=== PATIENT | female | born 1955 | race Asian ===

== ENCOUNTER 2018-03-05 10:22 | Inpatient (IN) | payer OTHER ==
[2018-03-05] MEDS ORDERED: SODIUM CHLORIDE 0.9% 1000 ML INFUS.BAG IV STA (10:44)
[2018-03-05] MEDS ORDERED: methylPREDNISolone NA SUCC 125 MG/2 ML VIAL IVPB ONE (10:59)
[2018-03-05 11:14] LABS: ARTERIAL BLD GAS O2 SATURATION 90.5 % (90-98.9); ARTERIAL BLOOD GAS BASE EXCESS -8.8 meq/l (-2-2); ARTERIAL BLOOD GAS PCO2 29.4 mmHg (35-45); ARTERIAL BLOOD GAS PO2 60.5 mmHg (80-100); ARTERIAL BLOOD GAS pH 7.34 (7.35-7.45); CARBOXYHEMOGLOBIN 1.5 gm% (0.5-2.0)
--- NOTE | 2018-03-05 11:15 | PDOC ---
Attending Attestation - Resident Resident Name: Latanya Williamson - ED Attending Attestation I have performed the following: I have examined & evaluated the patient, The case was reviewed & discussed with the resident, I agree w/resident's findings & plan, Exceptions are as noted - HPI HPI: 03/05/18 11:23 "Pt is a 63 yo F with a PMHx of HTN, CAD s/p CABG complicated by multiple chest wall abscesses, CHF, DM, Hypothyroidism who presents to the ED with SOB for the past 3 days. Patient reports recent trip to [place] and since then has been coughing and SOB. Pt reports transient LLE swelling after she arrived that has since resolved. Pt states that today she had an acute worsening in her breathing. Patient also endorses associated L sided chest tightness radiating to the R this morning. Patient denies fever/chills, n/v, abdominal pain or constipation. Daughter notes that she was going through pt's meds and found that her water pill was missing. Unclear how long she has not been taking it. PCP: Dr. Lara " - Physicial Exam PE: 03/05/18 11:27 "GENERAL: Awake, alert, and fully oriented, in moderate respiratory distress HEAD: No signs of trauma EYES: PERRLA, EOMI, sclera anicteric, conjunctiva clear ENT: Auricles normal inspection, hearing grossly normal, nares patent, oropharynx clear without exudates. Moist mucosa NECK: Nontender, no stepoffs, Normal ROM, supple, no lymphadenopathy, JVD, or masses LUNGS: + Diffuse wheezes and rhonchi bilaterally HEART: Regular rate and rhythm, normal S1 and S2, no murmurs, rubs or gallops ABDOMEN: Soft, nontender, normoactive bowel sounds. No guarding, no rebound. No masses EXTREMITIES: Normal range of motion, no edema. No clubbing or cyanosis. No cords, erythema, or tenderness NEUROLOGICAL: Cranial nerves II through XII intact. 5/5 strength and sensation in all extremities, Normal speech, normal gait SKIN: Warm, Dry, normal turgor, no rashes or lesions noted. " - Critical Care Time Total Critical Care Time: 120 Critical Care Statement: The care of this patient involved high complexity decision making to prevent further life threatening deterioration of the patient 's condition and/or to evaluate & treat vital organ system(s) failure or risk of failure. - Medical Decision Making 03/05/18 11:28 63 F with SOB and chest pain. Found to be hypoxic and tachycardic in ED, with wheezing and rhonchi on exam. Given recent travel and report of LLE swelling, will need to r/o PE. Pt also with h/o CHF and poor compliance with water pill. - Labs, BNP, trop - CXR - CTA chest r/o PE - Trial of nebs - BiPAP - Lasix PRN 03/05/18 14:02 Labs notable for trop >2, BNP 100,000. Pt with likely pulmonary edema on XR, suggestive of new heart failure. EKG shows lateral and inferior TW inversions, new since prior. Pt reassessed - states that the pain that she feels is similar to thePt pain she had when she had her CABG. Pt likely suffering ME with signs of acute heart failure. Page sent out to pt's shot hole shooter Dr. Arnold, as well as cards site damage prevention technician, Dr. Douglas. Pt started on heparin gtt, aspirin for ME. Pt continues to be on BiPAP. Nitro gtt ordered Unable to obtain CTA chest to r/o PE at this time given Cr 2.0. However, pt receiving anticoagulation for ME anyway, so will defer CTA until pt more stable. 03/05/18 14:[address] both [address] Arnold's STRETCHER LEVELER OPERATOR HELPER and cards fellow at [facility]. They do not accept transfer unless pt requires CT surgery. Dr. Peña in ED to evaluate pt. 03/05/18 16:[address] Prasad who accepts pt to ICU. Dr. Peña recommends medical management at this time, agrees with ICU level care. Pt admitted to Dr. Nava. <Jamie Peguero - Last Filed: 03/05/18 16:07> - Medical Decision Making 03/05/18 13:[address] Arnold from [facility] via phone answering service. Awaiting call back. 03/05/18 14:[address] Douglas via phone answering service. Dr. Solorzano site damage prevention technician. Awaiting call back. 03/05/18 14:12 Dr. Dickens returned the page and the patients case was discussed Enroute to ED to examine patient. 03/05/18 14:19 Paged STRETCHER LEVELER OPERATOR HELPER for Dr. Arnold at for possible transfer. Awaiting call back from Dr. Arnold. 03/05/18 14:23 Dr. Pastrana in the ED. Discussing patient's case. 03/05/18 14:25 Cardiology resident from [facility] answering service returned page. Directed to housekeeper supervisor [phone] 03/05/18 14:28 housekeeper supervisor at [facility] paged. Discussed patient's case for possible transfer. 03/05/18 14:31 STRETCHER LEVELER OPERATOR HELPER for Dr. Arnold Returned the page and discussed case with resident. 03/05/18 14:43 Dr. Woodward paged via phone answering service. Awaiting call back. 03/05/18 14:49 Dr. Young returned the page and the patients case was discussed. Patient accepted to the ICU. 03/05/18 14:55 Dr. Kaur/Elijah paged via phone answering service. Awaiting call back. 03/05/18 15:30 Elijah returned the page and the patient's case was discussed. <Brooke Pineda - Last Filed: 03/05/18 17:18>
[2018-03-05 11:18] LABS: ALLENS TEST POSITIVE
[2018-03-05] MEDS: ALBUTEROL SO4 2.5/IPRATROPIUM 0.5 INH SOL 3 ML VIAL.NEB. NEB SCH ×4 (11:22→12:04)
--- NOTE | 2018-03-05 11:23 | PDOC ---
History of Present Illness - General History Source: Patient, Family Exam Limitations: No Limitations - History of Present Illness Initial Comments: This is a 63 YOF with h/o DM, CAD, CABG (2014), CHF, bilateral chest wall abscess s/p drainage, HTN, HLD, and hypothyroidism who p/w SOB, productive cough , and bilateral non-radiating lower rib pain. She returned from a trip to [place] three days ago and had right leg swelling and calf pain after the flight, but this has since resolved. She also had a few episodes of diarrhea after the flight, but this resolved as well. She has been taking only medications for cough and throat irritation. She denies any abdominal pain, burning on urination , fainting, headache, numbness, tingling, focal weakness, or other symptoms. The daughter states that she normally takes Lasix for her CHF but she believes the patient ran out of this medication while she was in [place]. <Latanya Williamson - Last Filed: 03/05/18 14:44> <Jamie Peguero - Last Filed: 03/05/18 15:59> - General Chief Complaint: Respiratory Stated Complaint: BREATHING PROBLEMS Time Seen by Provider: 03/05/18 10:35 Past History - Past Medical History Cardiac Disorders: Yes CVA: No COPD: No Diabetes: Yes HTN: Yes Thyroid Disease: Yes (hypothyroid) - Surgical History Cardiac Surgery: Yes (CABG WITHIN LAST YEAR PER AND DR LARA) - Suicide/Smoking/Psychosocial Hx Smoking Status: No Smoking History: Never smoked Have you smoked in the past 12 months: No Number of Cigarettes Smoked Daily: 0 Hx Alcohol Use: No Drug/Substance Use Hx: No Substance Use Type: None Hx Substance Use Treatment: No <TeriLatanya - Last Filed: 03/05/18 14:44> <Jamie Peguero - Last Filed: 03/05/18 15:59> - Past Medical History Allergies/Adverse Reactions: Allergies Allergy/AdvReac Type Severity Reaction Status Date / Time No Known Drug Allergies Allergy Verified 03/05/18 10:31 BEANS Allergy Rash Uncoded 03/05/18 10:31 Home Medications: Ambulatory Orders Furosemide [Lasix -] 40 mg PO DAILY 08/13/16 Levothyroxine [Synthroid -] 75 mcg PO DAILY 08/13/16 Metoprolol Tartrate [Lopressor] 50 mg PO BID 10/28/16 Valsartan 320 mg PO DAILY 08/13/16 Amlodipine Besylate [Norvasc -] 5 mg PO DAILY 03/05/18 Aspirin [Ecotrin] 81 mg PO DAILY 03/05/18 Atorvastatin Ca [Lipitor] 10 mg PO HS 03/05/18 Benzonatate 100 mg PO TID 03/05/18 Dulaglutide [Trulicity] 1.5 mg SQ WEEKLY 03/05/18 Hydrocodone/Ibuprofen [VICOPROFEN 7.5/200 mg [NF MEDICATION]] 1 tab PO BID 03/05 Insulin Glargine,Hum.rec.anlog [Lantus Solostar PEN (NF)] 50 ml SQ DAILY Insulin Lispro [Humalog] 10 unit SQ TID 03/05/18 Meloxicam [Mobic] 15 mg PO DAILY 03/05/18 Montelukast Sodium [Singulair] 10 mg PO DAILY 03/05/18 Plecanatide [Trulance] 3 mg PO DAILY 03/05/18 Potassium Chloride [K-Dur -] 20 meq PO DAILY 03/05/18 Suvorexant [Belsomra] 20 mg PO DAILY 03/05/18 Review of Systems - Review of Systems Able to Perform ROS?: Yes Constitutional: No: Chills, Fever, Unexplained wgt Loss HEENTM: Yes: Nose Congestion, Throat Pain Respiratory: Yes: Cough, Shortness of Breath, Wheezing Cardiac (ROS): Yes: Chest Pain. No: Palpitations ABD/GI: Yes: Diarrhea. No: Constipated, Nausea, Vomiting : No: Burning, Dysuria Musculoskeletal: No: Back Pain, Neck Pain Integumentary: No: Bruising, Rash Neurological: No: Headache, Numbness, Tingling, Weakness, Dizziness Endocrine: No: Unexplained Weight Gain, Unexplained Weight Loss <TeriLatanya - Last Filed: 03/05/18 14:44> *Physical Exam - Vital Signs Last Vital Signs Temp Pulse Resp BP Pulse Ox 98.5 F 107 H 24 143/64 92 L 03/05/18 10:27 03/05/18 10:27 03/05/18 10:27 03/05/18 10:27 03/05/18 10:27 - Physical Exam General Appearance: Yes: Nourished, Appropriately Dressed, Moderate Distress, Other (ill-appearing adult female who is able to speak in 1-2 word sentences, heavy breathing, moaning a bit, accompanied by family who provide the bulk of her history) HEENT: positive: EOMI, SESAR, Normal Voice, Hearing Grossly Normal. negative: Scleral Icterus (R), Scleral Icterus (L), Nasal Congestion Neck: positive: Trachea midline, Supple. negative: Tender, Rigid Respiratory/Chest: positive: Lungs Clear, Respiratory Distress, Rapid RR, Crackles, Rhonchi, Wheezing. negative: Stridor Cardiovascular: positive: Regular Rhythm, S1, S2, Tachycardia. negative: Edema , JVD, Murmur Gastrointestinal/Abdominal: positive: Normal Bowel Sounds, Flat, Soft. negative : Tender, Organomegaly, Pulsatile Mass, Guarding Musculoskeletal: positive: Normal Inspection. negative: Decreased Range of Motion, Vertebral Tenderness Extremity: positive: Normal Capillary Refill, Normal Inspection, Normal Range of Motion, Other (no calf tenderness). negative: Tender, Cyanosis, Swelling Integumentary: positive: Normal Color, Dry, Warm. negative: Erythema, Rash, Bruising Neurologic: positive: blueprinter II-XII NML intact (grossly), Fully Oriented, Alert, Normal Mood/Affect, Normal Response, Motor Strength 5/5 <Latanya Williamson - Last Filed: 03/05/18 14:44> - Vital Signs Last Vital Signs Temp Pulse Resp BP Pulse Ox 98.5 F 98 H 16 141/66 100 03/05/18 10:27 03/05/18 15:22 03/05/18 15:22 03/05/18 15:22 03/05/18 15:22 <Jamie Peguero - Last Filed: 03/05/18 15:59> Heart Score/ECG Review - History History: Slightly suspicious - Electrocardiogram EKG: Non specific repolarization disturbance - Age Age: 45-65 - Risk Factors Risk Factors Heart Score: Yes Hx Hypercholesterolemia, Yes Hx Hypertension, Yes Hx Diabetes Based on the list above the patient has:: >/=3 risk factors or Hx atherosclerotic disease - Troponin Troponin: >/=3x normal limit - Score Heart Score - Total: 6 #1 NR, rate 98, normal axis, normal intervals, T wave inversions inferiorly and laterally <Latanya Williamson - Last Filed: 03/05/18 14:44> ED Treatment Course - LABORATORY CBC & Chemistry Diagram: 03/05/18 11:28 03/05/18 12:39 - RADIOLOGY Radiology Studies Ordered: Category Date Time Status CXRPORT [CHEST X-RAY PORTABLE*] [RAD] Stat Radiology 03/05/18 10:41 Ordered <Latanya Williamson - Last Filed: 03/05/18 14:44> - LABORATORY CBC & Chemistry Diagram: 03/05/18 11:28 03/05/18 12:39 - ADDITIONAL ORDERS Additional order review: Laboratory Results 03/05/18 03/05/18 03/05/18 12:39 12:38 11:28 PT with INR INR PTT (Actin FS) Anticoagulation Therapy Puncture Site ABG pH ABG pCO2 at Pt Temp ABG pO2 at Pt Temp ABG HCO3 ABG O2 Sat (Measured) ABG O2 Content ABG Base Excess Troy Test Carboxyhemoglobin Methemoglobin O2 Delivery Device Oxygen Flow Rate Vent Mode Vent Rate Mechanical Rate Pressure Support Vent Sodium 138 Potassium 3.9 Chloride 110 H Carbon Dioxide 17 L Anion Gap 11 BUN 16 Creatinine 2.0 H Creat Clearance w eGFR 25.25 Random Glucose 308 H* Lactic Acid Calcium 8.0 L Total Bilirubin 0.3 D AST 34 ALT 19 Alkaline Phosphatase 128 H Creatine Kinase 850 H Cancelled Creatine Kinase Index 0.6 CK-MB (CK-2) 5.541 H Troponin I 2.99 H* Cancelled B-Natriuretic Peptide 71415.00 H Cancelled Total Protein 6.8 Albumin 2.5 L Lipase 226 Blood Type Cancelled Antibody Screen Cancelled 03/05/18 03/05/18 03/05/18 11:28 11:28 11:28 PT with INR INR PTT (Actin FS) Anticoagulation Therapy Puncture Site ABG pH ABG pCO2 at Pt Temp ABG pO2 at Pt Temp ABG HCO3 ABG O2 Sat (Measured) ABG O2 Content ABG Base Excess Troy Test Carboxyhemoglobin Methemoglobin O2 Delivery Device Oxygen Flow Rate Vent Mode Vent Rate Mechanical Rate Pressure Support Vent Sodium Cancelled Potassium Cancelled Chloride Cancelled Carbon Dioxide Cancelled Anion Gap Cancelled BUN Cancelled Creatinine Cancelled Creat Clearance w eGFR Cancelled Random Glucose Cancelled Lactic Acid 2.1 H Calcium Cancelled Total Bilirubin Cancelled AST Cancelled ALT Cancelled Alkaline Phosphatase Cancelled Creatine Kinase Cancelled Creatine Kinase Index CK-MB (CK-2) Cancelled Troponin I Cancelled Cancelled B-Natriuretic Peptide Cancelled Total Protein Cancelled Albumin Cancelled Lipase Blood Type Antibody Screen 03/05/18 03/05/18 11:28 11:11 PT with INR 11.00 INR 0.97 PTT (Actin FS) 29.1 D Anticoagulation Therapy No Result Required. Puncture Site Right brachial ABG pH 7.34 L ABG pCO2 at Pt Temp 29.4 L ABG pO2 at Pt Temp 60.5 L ABG HCO3 15.5 L ABG O2 Sat (Measured) 90.5 ABG O2 Content 13.0 L ABG Base Excess -8.8 L Troy Test Positive Carboxyhemoglobin 1.5 Methemoglobin 1.6 H O2 Delivery Device No Result Required. Oxygen Flow Rate Yes Vent Mode No Result Required. Vent Rate No Result Required. Mechanical Rate No Result Required. Pressure Support Vent No Result Required. Sodium Potassium Chloride Carbon Dioxide Anion Gap BUN Creatinine Creat Clearance w eGFR Random Glucose Lactic Acid Calcium Total Bilirubin AST ALT Alkaline Phosphatase Creatine Kinase Creatine Kinase Index CK-MB (CK-2) Troponin I B-Natriuretic Peptide Total Protein Albumin Lipase Blood Type Antibody Screen 03/05/18 11:28 RBC 4.84 MCV 74.0 L MCHC 31.0 L RDW 17.9 H D MPV 10.6 D Neutrophils % 87.3 H D Lymphocytes % 7.4 L D Monocytes % 4.3 Eosinophils % 0.6 D Basophils % 0.4 - Medications Given in the ED: ED Medications Discontinued Medications Generic Name Dose Route Start Last Admin Trade Name Freq PRN Reason Stop Dose Admin Albuterol/Ipratropium 1 amp 03/05/18 11:00 03/05/18 12:04 Duoneb - NEB 03/05/18 11:46 1 amp Q15M REZA Administration Aspirin 325 mg 03/05/18 13:43 03/05/18 14:05 Ecotrin - PO 03/05/18 13:44 325 mg ONCE ONE Administration Furosemide 40 mg 03/05/18 14:10 03/05/18 14:23 Lasix Injection - IVPUSH 03/05/18 14:11 40 mg ONCE ONE Administration Methylprednisolone Sodium Succinate 125 mg 03/05/18 10:59 03/05/18 11:29 Solu-Medrol - IVPB 03/05/18 11:00 125 mg ONCE ONE Administration Sodium Chloride 1,701 ml 03/05/18 10:44 03/05/18 11:28 Normal Saline - 30 ml/kg (1701 ml) 03/05/18 10:45 Not Given IV ONCE STA <Jamie Peguero - Last Filed: 03/05/18 15:59> Medical Decision Making - Medical Decision Making Adult patient p/w SOB, bilateral lower chest pain after returning from [place]. Initial Vital Signs Temp Pulse Resp BP Pulse Ox 98.5 F 107 H 24 143/64 92 L 03/05/18 10:27 03/05/18 10:27 03/05/18 10:27 03/05/18 10:27 03/05/18 10:27 Exam: tachypnea and tachycardia, 1-2 word sentences, bilateral expiratory wheezes and rhonchi and crackles, no calf tenderness or swelling. DDX IBNLT: PNA/bronchitis, CHF exacerbation, COPD/asthma, PE, ACS, pericarditis , tamponade, aortic dissection, AAA, PTX, esophageal tear, esophagitis (e.g. pill, infectious), esophageal stricture, esophageal FB, gastritis, PUD, pancreatitis, cholecystitis, cholangitis, colitis, bowel perforation, musculoskeletal, etc. W/U ordered: CBCD CMP Mg Phos Lipase Troponin CK CKMB Coags T&S UA UCx EKG CXR. TX ordered: monitor, O2 via NC. Unlikely pericarditis as pain is not relieved sitting forward, patient afebrile , no friction rub. Unlikely tamponade as patient has no triad of hypotension/JVD/muffled heart sounds. Unlikely AD as no ripping/tearing sensation, BP not concerningly elevated, radial pulses equal bilaterally. Unlikely AAA as pt has no midline pulsatile mass or h/o AAA/AD, denies HTN or connective tissue d/o. Unlikely pneumothorax as VS are wnl, patient has no recent h/o trauma or falls, not SOB. Unlikely PE as patient is low-risk according to Wells and Perc tools, no hypoxia or tachycardia or SOB. Unlikely esophageal tear (Danielle-Pisano/Boerhaave) as pt denies recent EtOH or heavy vomiting/wretching. Unlikely esophagitis as pt denies heavy NSAIDs or pills soon before onset, no immunocompromise/steroids. Unlikely esophageal stricture as the patient is still able to keep down solids per usual, no prior hx. Unlikely esophageal FB as patient denies having eaten just prior to onset, no stuck sensation. Unlikely gastritis as pt denies h/o significant GERD, no overuse of EtOH. Unlikely PUD as pt does not report relief of pain ~2 hours postprandially or with antacids. Unlikely pancreatitis as pt denies EtOH use, h/o gallstones, no known hypercalcemia. Unlikely cholecystitis as no postprandial worsening. Unlikely cholangitis as pt has no fever, clinical jaundice, RUQ pain; also no hypotension or AMS. Unlikely colitis as clinically pts abdomen is not distended/no ascites, no fever, other VS wnl. Unlikely bowel perforation as patient does not appear to have acute abdomen, no peritoneal signs. Unlikely PNA/bronchitis as patient has no SOB, cough, fever, known exposures, h/ o recurrent PNA, etc. EKG: NR, rate 98, normal axis, normal intervals, T wave inversions inferiorly and laterally. CXR: pulmonary vascular congestion Laboratory Tests 03/05/18 03/05/18 03/05/18 11:11 11:28 11:28 WBC 17.3 H D RBC 4.84 Hgb 11.1 Hct 35.8 MCV 74.0 L MCH 22.9 L MCHC 31.0 L RDW 17.9 H D Plt Count 467 H D MPV 10.6 D Neutrophils % 87.3 H D Lymphocytes % 7.4 L D Monocytes % 4.3 Eosinophils % 0.6 D Basophils % 0.4 PT with INR 11.00 INR 0.97 PTT (Actin FS) 29.1 D Anticoagulation Therapy No Result Required. Puncture Site Right brachial ABG pH 7.34 L ABG pCO2 at Pt Temp 29.4 L ABG pO2 at Pt Temp 60.5 L ABG HCO3 15.5 L ABG O2 Sat (Measured) 90.5 ABG O2 Content 13.0 L ABG Base Excess -8.8 L Troy Test Positive Carboxyhemoglobin 1.5 Methemoglobin 1.6 H O2 Delivery Device No Result Required. Oxygen Flow Rate Yes Vent Mode No Result Required. Vent Rate No Result Required. Mechanical Rate No Result Required. Pressure Support Vent No Result Required. Sodium Potassium Chloride Carbon Dioxide Anion Gap BUN Creatinine Creat Clearance w eGFR Random Glucose Lactic Acid Calcium Total Bilirubin AST ALT Alkaline Phosphatase Creatine Kinase CK-MB (CK-2) Troponin I B-Natriuretic Peptide Total Protein Albumin Lipase Blood Type Antibody Screen 03/05/18 03/05/18 03/05/18 11:28 11:28 11:28 WBC RBC Hgb Hct MCV MCH MCHC RDW Plt Count MPV Neutrophils % Lymphocytes % Monocytes % Eosinophils % Basophils % PT with INR INR PTT (Actin FS) Anticoagulation Therapy Puncture Site ABG pH ABG pCO2 at Pt Temp ABG pO2 at Pt Temp ABG HCO3 ABG O2 Sat (Measured) ABG O2 Content ABG Base Excess Troy Test Carboxyhemoglobin Methemoglobin O2 Delivery Device Oxygen Flow Rate Vent Mode Vent Rate Mechanical Rate Pressure Support Vent Sodium Cancelled Potassium Cancelled Chloride Cancelled Carbon Dioxide Cancelled Anion Gap Cancelled BUN Cancelled Creatinine Cancelled Creat Clearance w eGFR Cancelled Random Glucose Cancelled Lactic Acid 2.1 H Calcium Cancelled Total Bilirubin Cancelled AST Cancelled ALT Cancelled Alkaline Phosphatase Cancelled Creatine Kinase Cancelled CK-MB (CK-2) Cancelled Troponin I Cancelled Cancelled B-Natriuretic Peptide Cancelled Total Protein Cancelled Albumin Cancelled Lipase Blood Type Antibody Screen 03/05/18 03/05/18 03/05/18 11:28 12:38 12:39 WBC RBC Hgb Hct MCV MCH MCHC RDW Plt Count MPV Neutrophils % Lymphocytes % Monocytes % Eosinophils % Basophils % PT with INR INR PTT (Actin FS) Anticoagulation Therapy Puncture Site ABG pH ABG pCO2 at Pt Temp ABG pO2 at Pt Temp ABG HCO3 ABG O2 Sat (Measured) ABG O2 Content ABG Base Excess Troy Test Carboxyhemoglobin Methemoglobin O2 Delivery Device Oxygen Flow Rate Vent Mode Vent Rate Mechanical Rate Pressure Support Vent Sodium 138 Potassium 3.9 Chloride 110 H Carbon Dioxide 17 L Anion Gap 11 BUN 16 Creatinine 2.0 H Creat Clearance w eGFR 25.25 Random Glucose 308 H* Lactic Acid Calcium 8.0 L Total Bilirubin 0.3 D AST 34 ALT 19 Alkaline Phosphatase 128 H Creatine Kinase Cancelled 850 H CK-MB (CK-2) Troponin I Cancelled 2.99 H* B-Natriuretic Peptide Cancelled 75639.00 H Total Protein 6.8 Albumin 2.5 L Lipase 226 Blood Type Cancelled Antibody Screen Cancelled HEART score: 6 Vital Signs Temperature 98.5 F 03/05/18 10:27 Pulse Rate 68 03/05/18 12:21 Respiratory Rate 16 03/05/18 12:21 Blood Pressure 118/95 03/05/18 12:21 O2 Sat by Pulse Oximetry (%) 100 03/05/18 14:20 Reassessment: Patient continues to have increased WOB, leaning forward and tripoding, tachypneic to ~26. Continues to have bilateral crackles. Troponin 2.99, ordered is full dose ASA and heparin infusion protocol for patient's weight. BNP >10k which is much higher than measured in our past records for this patient. The patient is having NSTEMI and CHF exacerbation likely caused by this event. Patient's lining stitcher is Dr. Lawson at [facility], however this is a cardiac surgeon. Call is placed to Dr. Lawson. Call placed to our on-call lining stitcher. Dr. Peguero spoke with Dr. Hughes personal injury attorney for Dr. Douglas. Dr. Peguero spoke with resident on for Dr. Lawson; resident gives telephone number for Dr. Lawson. Dr. Peguero spoke with fellow for Dr. Lawson; will wait on transfer recommendation from Dr. Hughes prior to transfer decisions. I spoke with Ramon Austin at [facility] (midlevel provider for Dr. Lawson's practice). Repeat cardiac enzymes ordered. HEART score indicated patient is higher risk and should be managed in hospital with cardiology consult. The patient is unsafe for discharge at this time. They require further hospital observation, workup, and treatment. Call placed to Dr. Kaur (admitting for Dr. Lara until 5 pm on weekends) Dr. Peguero spoke with Dr. Arguello who accepts placement in ICU. Patient to be admitted to: ICU inpatient. Decision to Admit order placed to Consult order placed to cardiology on-call provider Dr. Peña. <Latanya Williamson - Last Filed: 03/05/18 14:44> *DC/Admit/Observation/Transfer <Latanya Williamson - Last Filed: 03/05/18 14:44> - Discharge Dispostion Decision to Admit order: Yes <Jamie Peguero - Last Filed: 03/05/18 15:59> Diagnosis at time of Disposition: NSTEMI (non-ST elevated myocardial infarction), Acute pulmonary edema CHF exacerbation Qualifiers: Heart failure type: unspecified Qualified Code(s): I50.9 - Heart failure, unspecified - Referrals Referrals: Rob Lara MD [Primary Care Provider] - - Patient Instructions - Post Discharge Activity
[2018-03-05] MEDS ORDERED: ALBUTEROL SO4 2.5/IPRATROPIUM 0.5 INH SOL 3 ML VIAL.NEB. NEB ONE ×2 (11:29→12:34)
[2018-03-05] MEDS ORDERED: methylPREDNISolone NA SUCC 125 MG/2 ML VIAL ONE (11:30)
[2018-03-05 12:09] LABS: BASO % 0.4 % (0-2.0); EOS % 0.6 % (0-4.5); HEMATOCRIT 35.8 % (32.4-45.2); HEMOGLOBIN 11.1 GM/dL (10.7-15.3); LYMPH % 7.4 % (8-40); MCH 22.9 pg (25.7-33.7); MEAN PLT VOLUME 10.6 fl (7.5-11.1); MONO % 4.3 % (3.8-10.2); NEUT % 87.3 % (42.8-82.8); PLATELET COUNT 467 K/MM3 (134-434); RBC 4.84 M/mm3 (3.60-5.2); RDW 17.9 % (11.6-15.6); WHITE BLOOD COUNT 17.3 K/mm3 (4.0-10.0)
[2018-03-05 12:20] LABS: INR 0.97 (0.82-1.09)
[2018-03-05 12:22] LABS: ACTIVATED PTT 29.1 SECONDS (26.9-34.4)
[2018-03-05 13:13] LABS: ALBUMIN 2.5 g/dl (3.4-5.0); ANION GAP 11 (8-16); BILIRUBIN,TOTAL 0.3 mg/dL (0.2-1.0); BLOOD UREA NITROGEN 16 mg/dL (7-18); CHLORIDE 110 mmol/L (98-107); CO2 17 mmol/L (21-32); POTASSIUM 3.9 mmol/L (3.5-5.1); SGOT/AST 34 U/L (15-37); SGPT/ALT 19 U/L (12-78); SODIUM 138 mmol/L (136-145); TOT PROT 6.8 g/dl (6.4-8.2)
[2018-03-05 13:19] LABS: LIPASE 226 U/L (73-393)
[2018-03-05 13:26] LABS: ALK PHOS 128 U/L (45-117)
[2018-03-05 13:41] LABS: GLUCOSE,RANDOM 308 mg/dL (74-106)
[2018-03-05] MEDS ORDERED: HEPARIN NA (PORCINE) 5,000 UNITS/ML 1ML VIAL IVPUSH PRN ×2 (13:43)
[2018-03-05] MEDS ORDERED: ASPIRIN 325 MG ENTERIC COATED TABLET (FP) PO ONE (13:43)
[2018-03-05] MEDS ORDERED: HEPARIN INFUSION - 25,000 UNITS/500 ML INFUS.BAG IVPB ONE (14:00)
[2018-03-05] MEDS ORDERED: ASPIRIN 325 MG TABLET ONE (14:00)
[2018-03-05] MEDS: HEPARIN - 25,000 UNIT in SODIUM CHLORIDE 495 ML IV SCH (14:06)
[2018-03-05] MEDS ORDERED: ASPIRIN 325 MG ENTERIC COATED TABLET (FP) ONE (14:07)
[2018-03-05] MEDS ORDERED: HEPARIN NA (PORCINE) 5,000 UNITS/ML 1ML VIAL ONE (14:07)
[2018-03-05] MEDS ORDERED: FUROSEMIDE 40 MG/4 ML INJECTABLE VIAL IVPUSH ONE (14:10)
[2018-03-05] MEDS ORDERED: FUROSEMIDE 40 MG/4 ML INJECTABLE VIAL ONE (14:24)
[2018-03-05] MEDS ORDERED: NITROGLYCERIN 25MG/D5W 250ML 25 MG/250 ML ML IVPB SCH (14:45)
--- NOTE | 2018-03-05 14:51 | CON.CARD ---
Consult Consult Specialty:: Cardiology Reason for Consultation:: Dyspnea - History of Present Illness History of Present Illness: 63 F with DM, HTN, severe CAD sp CABG 2016 [facility]. Recent travel from [place] on 02/28. Had been feeling well until 3 days [employer] when cough productive of clear phlegm developed. Family noticed Rt leg swelling and took her to PCP. Swelling resolved. Her SOB progressively got worse until she was brought to the ER. Patient has bilateral lower chest and rib pain which has been reproducible. There are no fevers but she had chills. In ER noted to have anterolateral T wave inversion with minimal depression new from prior. She required BiPAP for hypoxia. Currently, comfortable on BiPAP. Able to fully answer questions. In 2016 admitted with chest pain and CAD was diagnosed. She had CABG at [facility]. EF was preserved at that time. Operation was complicated by sternal wound infection. 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 CONSULTANT: Yes: Other (carotid stenosis) Cardio/Vascular: Yes: CAD (s/p CABG), HTN, Hyperlipdemia Endocrine: Yes: Diabetes Mellitus - Past Surgical History Past Surgical History: Yes: CABG - Alcohol/Substance Use Hx Alcohol Use: No - Smoking History Smoking history: Never smoked Have you smoked in the past 12 months: No Aproximately how many cigarettes per day: 0 Home Medications - Allergies Allergies/Adverse Reactions: Allergies Allergy/AdvReac Type Severity Reaction Status Date / Time No Known Drug Allergies Allergy Verified 03/05/18 10:31 BEANS Allergy Rash Uncoded 03/05/18 10:31 - Home Medications Home Medications: Ambulatory Orders Furosemide [Lasix -] 40 mg PO DAILY 08/13/16 Levothyroxine [Synthroid -] 75 mcg PO DAILY 08/13/16 Metoprolol Tartrate [Lopressor] 50 mg PO BID 08/13/16 Valsartan 320 mg PO DAILY 08/13/16 Amlodipine Besylate [Norvasc -] 5 mg PO DAILY 03/05/18 Aspirin [Ecotrin] 81 mg PO DAILY 03/05/18 Atorvastatin Ca [Lipitor] 10 mg PO HS 03/05/18 Benzonatate 100 mg PO TID 03/05/18 Dulaglutide [Trulicity] 1.5 mg SQ WEEKLY 03/05/18 Hydrocodone/Ibuprofen [VICOPROFEN 7.5/200 mg [NF MEDICATION]] 1 tab PO BID 03/05 Insulin Glargine,Hum.rec.anlog [Lantus Solostar PEN (NF)] 50 ml SQ DAILY Insulin Lispro [Humalog] 10 unit SQ TID 03/05/18 Meloxicam [Mobic] 15 mg PO DAILY 03/05/18 Montelukast Sodium [Singulair] 10 mg PO DAILY 03/05/18 Plecanatide [Trulance] 3 mg PO DAILY 03/05/18 Potassium Chloride [K-Dur -] 20 meq PO DAILY 03/05/18 Suvorexant [Belsomra] 20 mg PO DAILY 03/05/18 Home Medications (free text): Was not taking lasix. Family Disease History - Family Disease History Family Disease History: Heart Disease: Father Review of Systems - Review of Systems Constitutional: reports: Chills, Weakness Eyes: reports: No Symptoms HENT: reports: No Symptoms Cardiovascular: reports: Shortness of Breath Respiratory: reports: Cough, Exercise Intolerance, SOB on Exertion Gastrointestinal: reports: No Symptoms Genitourinary: reports: No Symptoms Vital Signs: Vital Signs Temperature 98.5 F 03/05/18 10:27 Pulse Rate 85 03/05/18 14:28 Respiratory Rate 16 03/05/18 14:28 Blood Pressure 151/72 03/05/18 14:28 O2 Sat by Pulse Oximetry (%) 98 03/05/18 14:28 Constitutional: Yes: Well Nourished, Mild Distress (on bipap) Respiratory: Yes: Cough, On BiPap, Rales, SOB Gastrointestinal: Yes: Normal Bowel Sounds, Soft Cardiovascular: Yes: Regular Rate and Rhythm. No: Gallop, Rub JVD: Yes Carotid Bruit: No PMI: Non-Displaced Heart Sounds: Yes: S1, S2 Murmur: No: Systolic Murmur, Diastolic Murmur Edema: No - Other Data Labs, Other Data: CBC, BMP 03/05/18 11:28 03/05/18 12:39 INR, PTT INR 0.97 (0.82-1.09) 03/05/18 11:28 Troponin, BNP 03/05/18 12:39 Troponin I 2.99 H* B-Natriuretic Peptide 87018.00 H Troponin, BNP 03/05/18 03/05/18 03/05/18 11:28 11:28 12:38 Troponin I Cancelled Cancelled Cancelled B-Natriuretic Peptide Cancelled Cancelled 03/05/18 12:39 Troponin I 2.99 H* B-Natriuretic Peptide 30441.00 H Echo: Report Reviewed (2015 normal valve and EF.) Imaging - Results Chest X-ray: Report Reviewed (pulmonary venous congestion) EKG: Image Reviewed (NSR nl Sabael T wave abnormality anterolateral wall.) Problem List - Problems (1) Acute pulmonary edema Code(s): J81.0 - ACUTE PULMONARY EDEMA (2) NSTEMI (non-ST elevated myocardial infarction) Code(s): I21.4 - NON-ST ELEVATION (NSTEMI) MYOCARDIAL INFARCTION (3) CAD (coronary artery disease) Code(s): I25.10 - ATHSCL HEART DISEASE OF [place] CORONARY ARTERY W/O ANG PCTRS Assessment/Plan 63 F with ischemic heart disease sp CABG, DM, HTN admitted with cough, increasing dyspnea. 1. NSTEMI. At present CP free. 2. SANTINO 3. Acute heart failure. prior normal EF. Currently warm. 4. Possible PNA Rec: Admit to ICU NTG drip for heart failure and BP control Lasix 80mg IV x1 now. Net negative UO. Place beebe. Continue BiPAP IV heaprin, ASA 81 mg and Plavix 300mg followed by 75mg qd. Continue to check cardiac enzymes until peaking. Echcoardiogram Consider emperic Abx Consider CT WITHOUT contrast of the chest. Check Lext duplex to RO DVT given transient Rt leg swelling and recent travel hx.
[2018-03-05] MEDS ORDERED: NITROGLYCERIN 25MG/D5W 250ML 25 MG/250 ML ML IVPB ONE (16:25)
[2018-03-05] MEDS ORDERED: ALBUTEROL SO4 2.5/IPRATROPIUM 0.5 INH SOL 3 ML VIAL.NEB. NEB PRN (18:35)
[2018-03-05 20:26] LABS: URINE APPEARANCE CLEAR; URINE BILIRUBIN NEGATIVE (<2.0 mg/dL); URINE COLOR STRAW; URINE GLUCOSE (UA) 3+ (NEGATIVE); URINE KETONE NEGATIVE (NEGATIVE); URINE LEUK ESTERASE NEGATIVE (NEGATIVE); URINE NITRITE NEGATIVE (NEGATIVE); URINE UROBILINOGEN NEGATIVE mg/dL (0.2-1.0)
[2018-03-05 20:29] LABS: URINE PROTEIN 3+ (NEGATIVE)
[2018-03-05 20:30] LABS: EPI CELLS RARE /HPF (FEW); URINE MUCUS RARE
[2018-03-05] MEDS ORDERED: METOPROLOL TARTRATE 50 MG TABLET (FP) PO SCH (22:00)
[2018-03-05] MEDS: INSULIN SLIDING SCALE (NOVOLOG) 1 VIAL SQ SCH (23:36)
[2018-03-05] MEDS: ATORVASTATIN CA 80 MG TABLET (FP) PO SCH (23:36)
[2018-03-05] MEDS: MONTELUKAST NA 10 MG TABLET PO SCH (23:37)
[2018-03-05] MEDS: METOPROLOL TARTRATE 50 MG TABLET (FP) PO SCH (23:42)
[2018-03-06] MEDS ORDERED: INSULIN (NOVOLOG) ASPART 100 UNITS/ML 10ML VIAL SQ ONE (03:40)
[2018-03-06] MEDS: LEVOTHYROXINE NA 75 MCG TABLET (FP) PO SCH (06:28)
[2018-03-06] MEDS: INSULIN SLIDING SCALE (NOVOLOG) 1 VIAL SQ SCH ×4 (06:30→21:26)
[2018-03-06 08:03] LABS: HEMATOCRIT 30.3 % (32.4-45.2); HEMOGLOBIN 9.7 GM/dL (10.7-15.3); MCH 23.4 pg (25.7-33.7); MCHC 31.9 g/dl (32.0-36.0); MEAN CELL VOLUME 73.4 fl (80-96); MEAN PLT VOLUME 9.7 fl (7.5-11.1); PLATELET COUNT 382 K/MM3 (134-434); RBC 4.13 M/mm3 (3.60-5.2); RDW 16.9 % (11.6-15.6); WHITE BLOOD COUNT 10.7 K/mm3 (4.0-10.0)
[2018-03-06 08:32] LABS: ALBUMIN 2.4 g/dl (3.4-5.0); ANION GAP 10 (8-16); BILIRUBIN,TOTAL 0.3 mg/dL (0.2-1.0); BLOOD UREA NITROGEN 31 mg/dL (7-18); CALCIUM 8.2 mg/dL (8.5-10.1); CHLORIDE 111 mmol/L (98-107); CO2 19 mmol/L (21-32); CREATININE 2.3 mg/dL (0.55-1.02); GLUCOSE,RANDOM 113 mg/dL (74-106); POTASSIUM 3.5 mmol/L (3.5-5.1); SGOT/AST 29 U/L (15-37); SGPT/ALT 19 U/L (12-78); SODIUM 140 mmol/L (136-145); TOT PROT 6.3 g/dl (6.4-8.2)
--- NOTE | 2018-03-06 08:37 | CONSULT ---
Consultation: REQUESTING PROVIDER: CONSULT REQUEST: We have been asked to medically evaluate this patient for ( specify). HISTORY OF PRESENT ILLNESS: 63 year old female with a PMH of CAD (s/p CABG 2016 @ [facility]) and HTN presents to ED yesterday w/three day h/o productive (clear) cough and worsening dyspnea. H/o recent plane ride from [place] (02/29/2108). ED course notable for: (1) Elevated Troponin 2.51, EKG with anteriorlateral TWI (2) Lactic Acidosis 3.1 REVIEW OF SYSTEMS: CONSTITUTIONAL: Absent: fever, chills, diaphoresis, generalized weakness, malaise, loss of appetite, weight change HEENT: Absent: rhinorrhea, nasal congestion, throat pain, throat swelling, difficulty swallowing, mouth swelling, ear pain, eye pain, visual changes CARDIOVASCULAR: Absent: chest pain, syncope, palpitations, irregular heart rate, lightheadedness , peripheral edema RESPIRATORY: Absent: cough, shortness of breath, dyspnea with exertion, orthopnea, wheezing, stridor, hemoptysis GASTROINTESTINAL: Absent: abdominal pain, abdominal distension, nausea, vomiting, diarrhea, constipation, melena, hematochezia GENITOURINARY: Absent: dysuria, frequency, urgency, hesitancy, hematuria, flank pain, genital pain MUSCULOSKELETAL: Absent: myalgia, arthralgia, joint swelling, back pain, neck pain SKIN: Absent: rash, itching, pallor HEMATOLOGIC/IMMUNOLOGIC: Absent: easy bleeding, easy bruising, lymphadenopathy, frequent infections ENDOCRINE: Absent: unexplained weight gain, unexplained weight loss, heat intolerance, cold intolerance NEUROLOGIC: Absent: headache, focal weakness or paresthesias, dizziness, unsteady gait, seizure, mental status changes, bladder or bowel incontinence PSYCHIATRIC: Absent: anxiety, depression, suicidal or homicidal ideation, hallucinations. PHYSICAL EXAMINATION Vital Signs - 24 hr 03/05/18 03/05/18 03/05/18 10:27 11:10 12:21 Temperature 98.5 F Pulse Rate 107 H Pulse Rate [ 68 Left Apical] Respiratory 24 16 Rate Blood Pressure 143/64 Blood Pressure 118/95 [Left Arm] O2 Sat by Pulse 92 L 98 97 Oximetry (%) 03/05/18 03/05/18 03/05/18 14:20 14:28 15:22 Temperature Pulse Rate Pulse Rate [ 85 98 H Left Apical] Respiratory 16 16 Rate Blood Pressure Blood Pressure 151/72 141/66 [Left Arm] O2 Sat by Pulse 100 98 100 Oximetry (%) 03/05/18 03/05/18 03/05/18 16:51 18:00 18:17 Temperature 98.6 F Pulse Rate 94 H 95 H Pulse Rate [ 91 H Left Apical] Respiratory 16 18 Rate Blood Pressure 140/75 Blood Pressure 155/71 [Left Arm] O2 Sat by Pulse 99 100 Oximetry (%) 03/05/18 03/05/18 03/06/18 20:00 22:00 00:00 Temperature 98.4 F Pulse Rate 100 H 100 H 100 H Pulse Rate [ Left Apical] Respiratory 22 22 18 Rate Blood Pressure 145/75 156/78 155/77 Blood Pressure [Left Arm] O2 Sat by Pulse Oximetry (%) 03/06/18 03/06/18 03/06/18 02:00 03:01 04:00 Temperature 98 F Pulse Rate 92 H 89 89 Pulse Rate [ Left Apical] Respiratory 18 18 21 Rate Blood Pressure 163/70 143/64 145/71 Blood Pressure [Left Arm] O2 Sat by Pulse Oximetry (%) 03/06/18 03/06/18 03/06/18 05:00 06:00 08:00 Temperature 98 F Pulse Rate 77 81 76 Pulse Rate [ Left Apical] Respiratory 22 22 18 Rate Blood Pressure 143/56 133/69 137/60 Blood Pressure [Left Arm] O2 Sat by Pulse Oximetry (%) GENERAL: Awake, alert, and fully oriented, in no acute distress. HEART: Regular rate and rhythm, normal S1 and S2 without murmur, rub or gallop. ABDOMEN: Soft, nontender, not distended, normoactive bowel sounds, no guarding, no rebound, no masses. LOWER EXTREMITIES: 2+ pulses, warm, well-perfused. No calf tenderness. No peripheral edema. PSYCHIATRIC: Cooperative. Good eye contact. Appropriate mood and affect. Laboratory Results - last 24 hr 03/05/18 03/05/18 03/05/18 11:11 11:28 11:28 WBC 17.3 H D RBC 4.84 Hgb 11.1 Hct 35.8 MCV 74.0 L MCH 22.9 L MCHC 31.0 L RDW 17.9 H D Plt Count 467 H D MPV 10.6 D Neutrophils % 87.3 H D Lymphocytes % 7.4 L D Monocytes % 4.3 Eosinophils % 0.6 D Basophils % 0.4 PT with INR 11.00 INR 0.97 PTT (Actin FS) 29.1 D Anticoagulation Therapy No Result Required. Puncture Site Right brachial ABG pH 7.34 L ABG pCO2 at Pt Temp 29.4 L ABG pO2 at Pt Temp 60.5 L ABG HCO3 15.5 L ABG O2 Sat (Measured) 90.5 ABG O2 Content 13.0 L ABG Base Excess -8.8 L Troy Test Positive Carboxyhemoglobin 1.5 Methemoglobin 1.6 H O2 Delivery Device No Result Required. Oxygen Flow Rate Yes Vent Mode No Result Required. Vent Rate No Result Required. Mechanical Rate No Result Required. Pressure Support Vent No Result Required. Sodium Potassium Chloride Carbon Dioxide Anion Gap BUN Creatinine Creat Clearance w eGFR POC Glucometer Random Glucose Lactic Acid Calcium Total Bilirubin AST ALT Alkaline Phosphatase Creatine Kinase Creatine Kinase Index CK-MB (CK-2) Troponin I B-Natriuretic Peptide Total Protein Albumin Lipase Urine Color Urine Appearance Urine pH Ur Specific Gipsy Urine Protein Urine Glucose (UA) Urine Ketones Urine Blood Urine Nitrite Urine Bilirubin Urine Urobilinogen Ur Leukocyte Esterase Urine WBC (Auto) Urine RBC (Auto) Ur Epithelial Cells Urine Mucus Blood Type Antibody Screen 03/05/18 03/05/18 03/05/18 11:28 11:28 11:28 WBC RBC Hgb Hct MCV MCH MCHC RDW Plt Count MPV Neutrophils % Lymphocytes % Monocytes % Eosinophils % Basophils % PT with INR INR PTT (Actin FS) Anticoagulation Therapy Puncture Site ABG pH ABG pCO2 at Pt Temp ABG pO2 at Pt Temp ABG HCO3 ABG O2 Sat (Measured) ABG O2 Content ABG Base Excess Troy Test Carboxyhemoglobin Methemoglobin O2 Delivery Device Oxygen Flow Rate Vent Mode Vent Rate Mechanical Rate Pressure Support Vent Sodium Cancelled Potassium Cancelled Chloride Cancelled Carbon Dioxide Cancelled Anion Gap Cancelled BUN Cancelled Creatinine Cancelled Creat Clearance w eGFR Cancelled POC Glucometer Random Glucose Cancelled Lactic Acid 2.1 H Calcium Cancelled Total Bilirubin Cancelled AST Cancelled ALT Cancelled Alkaline Phosphatase Cancelled Creatine Kinase Cancelled Creatine Kinase Index CK-MB (CK-2) Cancelled Troponin I Cancelled Cancelled B-Natriuretic Peptide Cancelled Total Protein Cancelled Albumin Cancelled Lipase Urine Color Urine Appearance Urine pH Ur Specific [place]ips[place] Urine Protein Urine Glucose (UA) Urine Ketones Urine Blood Urine Nitrite Urine Bilirubin Urine Urobilinogen Ur Leukocyte Esterase Urine WBC (Auto) Urine RBC (Auto) Ur Epithelial Cells Urine Mucus Blood Type Antibody Screen 03/05/18 03/05/18 03/05/18 11:28 12:13 12:38 WBC RBC Hgb Hct MCV MCH MCHC RDW Plt Count MPV Neutrophils % Lymphocytes % Monocytes % Eosinophils % Basophils % PT with INR INR PTT (Actin FS) Anticoagulation Therapy Puncture Site ABG pH ABG pCO2 at Pt Temp ABG pO2 at Pt Temp ABG HCO3 ABG O2 Sat (Measured) ABG O2 Content ABG Base Excess Troy Test Carboxyhemoglobin Methemoglobin O2 Delivery Device Oxygen Flow Rate Vent Mode Vent Rate Mechanical Rate Pressure Support Vent Sodium Potassium Chloride Carbon Dioxide Anion Gap BUN Creatinine Creat Clearance w eGFR POC Glucometer Random Glucose Lactic Acid 3.1 H* Calcium Total Bilirubin AST ALT Alkaline Phosphatase Creatine Kinase Cancelled Creatine Kinase Index CK-MB (CK-2) Troponin I Cancelled B-Natriuretic Peptide Cancelled Total Protein Albumin Lipase Urine Color Urine Appearance Urine pH Ur Specific [place] Urine Protein Urine Glucose (UA) Urine Ketones Urine Blood Urine Nitrite Urine Bilirubin Urine Urobilinogen Ur Leukocyte Esterase Urine WBC (Auto) Urine RBC (Auto) Ur Epithelial Cells Urine Mucus Blood Type Cancelled Antibody Screen Cancelled 03/05/18 03/05/18 03/05/18 12:39 15:50 20:00 WBC RBC Hgb Hct MCV MCH MCHC RDW Plt Count MPV Neutrophils % Lymphocytes % Monocytes % Eosinophils % Basophils % PT with INR INR PTT (Actin FS) Anticoagulation Therapy Puncture Site ABG pH ABG pCO2 at Pt Temp ABG pO2 at Pt Temp ABG HCO3 ABG O2 Sat (Measured) ABG O2 Content ABG Base Excess Troy Test Carboxyhemoglobin Methemoglobin O2 Delivery Device Oxygen Flow Rate Vent Mode Vent Rate Mechanical Rate Pressure Support Vent Sodium 138 Potassium 3.9 Chloride 110 H Carbon Dioxide 17 L Anion Gap 11 BUN 16 Creatinine 2.0 H Creat Clearance w eGFR 25.25 POC Glucometer Random Glucose 308 H* Lactic Acid Calcium 8.0 L Total Bilirubin 0.3 D AST 34 ALT 19 Alkaline Phosphatase 128 H Creatine Kinase 850 H Creatine Kinase Index 0.6 CK-MB (CK-2) 5.541 H Troponin I 2.99 H* 2.51 H* B-Natriuretic Peptide 16425.00 H Total Protein 6.8 Albumin 2.5 L Lipase 226 Urine Color Straw Urine Appearance Clear Urine pH 7.0 Ur Specific [place] 1.010 Urine Protein 3+ H Urine Glucose (UA) 3+ H Urine Ketones Negative Urine Blood Negative Urine Nitrite Negative Urine Bilirubin Negative Urine Urobilinogen Negative Ur Leukocyte Esterase Negative Urine WBC (Auto) 1 Urine RBC (Auto) <1 Ur Epithelial Cells Rare Urine Mucus Rare Blood Type Antibody Screen 03/05/18 03/05/18 03/06/18 20:00 22:00 02:10 WBC RBC Hgb Hct MCV MCH MCHC RDW Plt Count MPV Neutrophils % Lymphocytes % Monocytes % Eosinophils % Basophils % PT with INR INR PTT (Actin FS) 161.9 H D Anticoagulation Therapy Puncture Site ABG pH ABG pCO2 at Pt Temp ABG pO2 at Pt Temp ABG HCO3 ABG O2 Sat (Measured) ABG O2 Content ABG Base Excess Troy Test Carboxyhemoglobin Methemoglobin O2 Delivery Device Oxygen Flow Rate Vent Mode Vent Rate Mechanical Rate Pressure Support Vent Sodium Potassium Chloride Carbon Dioxide Anion Gap BUN Creatinine Creat Clearance w eGFR POC Glucometer Random Glucose 797 H* 622 H* Lactic Acid Calcium Total Bilirubin AST ALT Alkaline Phosphatase Creatine Kinase Creatine Kinase Index CK-MB (CK-2) Troponin I B-Natriuretic Peptide Total Protein Albumin Lipase Urine Color Urine Appearance Urine pH Ur Specific [place] Urine Protein Urine Glucose (UA) Urine Ketones Urine Blood Urine Nitrite Urine Bilirubin Urine Urobilinogen Ur Leukocyte Esterase Urine WBC (Auto) Urine RBC (Auto) Ur Epithelial Cells Urine Mucus Blood Type Antibody Screen 03/06/18 03/06/18 03/06/18 02:10 05:36 07:40 WBC 10.7 H D RBC 4.13 Hgb 9.7 L D Hct 30.3 L D MCV 73.4 L MCH 23.4 L MCHC 31.9 L RDW 16.9 H Plt Count 382 MPV 9.7 Neutrophils % Lymphocytes % Monocytes % Eosinophils % Basophils % PT with INR INR PTT (Actin FS) 87.3 H D Anticoagulation Therapy Puncture Site ABG pH ABG pCO2 at Pt Temp ABG pO2 at Pt Temp ABG HCO3 ABG O2 Sat (Measured) ABG O2 Content ABG Base Excess Troy Test Carboxyhemoglobin Methemoglobin O2 Delivery Device Oxygen Flow Rate Vent Mode Vent Rate Mechanical Rate Pressure Support Vent Sodium Potassium Chloride Carbon Dioxide Anion Gap BUN Creatinine Creat Clearance w eGFR POC Glucometer 316.23480 Random Glucose Lactic Acid Calcium Total Bilirubin AST ALT Alkaline Phosphatase Creatine Kinase Creatine Kinase Index CK-MB (CK-2) Troponin I B-Natriuretic Peptide Total Protein Albumin Lipase Urine Color Urine Appearance Urine pH Ur Specific [place] Urine Protein Urine Glucose (UA) Urine Ketones Urine Blood Urine Nitrite Urine Bilirubin Urine Urobilinogen Ur Leukocyte Esterase Urine WBC (Auto) Urine RBC (Auto) Ur Epithelial Cells Urine Mucus Blood Type Antibody Screen Active Medications Generic Name Dose Route Start Last Admin Trade Name Freq PRN Reason Stop Dose Admin Albuterol/Ipratropium 1 amp 03/05/18 18:35 Duoneb - NEB Q4H PRN SHORTNESS OF BREATH Amlodipine Besylate 5 mg 03/06/18 10:00 Norvasc - PO DAILY REZA Atorvastatin Calcium 80 mg 03/05/18 22:00 03/05/18 23:36 Lipitor - PO 80 mg HS REZA Administration Heparin Sodium (Porcine) 1,000 unit 03/05/18 13:43 Heparin - IVPUSH PRN PRN Heparin Heparin Sodium (Porcine) 5,000 unit 03/05/18 13:43 Heparin - IVPUSH PRN PRN Heparin Heparin Sodium (Porcine) 25, 500 mls @ 16 mls/hr 03/05/18 13:45 03/06/18 03: 45 000 unit/ Sodium Chloride IV 400 unit/hr TITR REZA 8 mls/hr Protocol Titration 800 UNIT/HR Nitroglycerin/Dextrose 25 mg in 250 mls @ 6 mls/hr 03/05/18 14:45 03/06/18 03 :57 Nitroglycerin 25mg/D5w 250ml IVPB 15 mcg/min TITR REZA 9 mls/hr 10 MCG/MIN Titration Insulin Aspart 1 vial 03/05/18 22:00 03/06/18 06:30 Novolog Vial Sliding Scale - SQ 8 units ACHS REZA Administration Protocol Levothyroxine Sodium 75 mcg 03/06/18 07:00 03/06/18 06:28 Synthroid - PO 75 mcg DAILY@0700 REZA Administration Metoprolol Tartrate 50 mg 03/05/18 23:45 03/05/18 23:42 Lopressor - PO 50 mg BID REZA Administration Montelukast Sodium 10 mg 03/05/18 22:00 03/05/18 23:37 Singulair - PO 10 mg HS REZA Administration ASSESSMENT/PLAN: Dispo: We will continue to follow the patient. Thank you for this consultative opportunity. 63 year old female with a PMH of CAD (s/p CABG 2016 @ [facility]) and HTN presents to ED yesterday w/three day h/o productive (clear) cough and worsening dyspnea. H/o recent plane ride from [place] (02/29/2108). L/E Duplex negative for DVT. #1. NSTEMI showing new lateral in and inferior TWI on ECG - Currently non-tachycardic, SpO2 100% on RA - Troponin 2.51, BNP 100,000 @ presentation - continue Heparin, Nitro - ASA, Plavix - Repeat Trop, BNP ECG pending - Echo pending - Consider stress testing once SANTINO resolves - Cardiology following, appreciate recs #2. Lactic Acidosis likely 2/2 to hypoperfusion 2/[address] - 3.1 @ presentation, currently 2.5 - Continue to trend # 3. NIDDM - Hyperglycemic during admission - ISS + 10 units QHS FEN Monitor electrolyes Diabetic Diet Disposition: Transfer to inpatient floor, likely tomorrow (03/07/18) Visit type - Emergency Visit Emergency Visit: No - New Patient This patient is new to me today: Yes Date on this admission: 03/06/18 - Critical Care Critical Care patient: No
[2018-03-06 08:47] LABS: ALK PHOS 116 U/L (45-117)
[2018-03-06] MEDS: amLODIPine BESYLATE 5 MG TABLET (FP) PO SCH (10:19)
[2018-03-06] MEDS: METOPROLOL TARTRATE 50 MG TABLET (FP) PO SCH ×2 (10:19→21:26)
--- NOTE | 2018-03-06 11:31 | PN ---
Progress Note, Physician History of Present Illness: seen and examined today in nad. no overnight events. no chest pain, only epigastric tenderness. - Current Medication List Current Medications: Active Medications Albuterol/Ipratropium (Duoneb -) 1 amp NEB Q4H PRN PRN Reason: SHORTNESS OF BREATH Amlodipine Besylate (Norvasc -) 5 mg PO DAILY [facility] Last Admin: 03/06/18 10:19 Dose: 5 mg Atorvastatin Calcium (Lipitor -) 80 mg PO HS [facility] Last Admin: 03/05/18 23:36 Dose: 80 mg Heparin Sodium (Porcine) (Heparin -) 1,000 unit IVPUSH PRN PRN PRN Reason: Heparin Last Admin: 03/06/18 10:20 Dose: 1,000 unit Heparin Sodium (Porcine) (Heparin -) 5,000 unit IVPUSH PRN PRN PRN Reason: Heparin Heparin Sodium (Porcine) 25, (000 unit/ Sodium Chloride) 500 mls @ 16 mls/hr IV TITR REZA; 800 UNIT/HR PRN Reason: Protocol Last Titration: 03/06/18 10:21 Dose: 500 unit/hr, 10 mls/hr Nitroglycerin/Dextrose (Nitroglycerin 25mg/D5w 250ml) 25 mg in 250 mls @ 6 mls/ hr IVPB TITR REZA PRN Reason: 10 MCG/MIN Last Titration: 03/06/18 03:57 Dose: 15 mcg/min, 9 mls/hr Insulin Aspart (Novolog Vial Sliding Scale -) 1 vial SQ ACHS REZA PRN Reason: Protocol Last Admin: 03/06/18 06:30 Dose: 8 units Levothyroxine Sodium (Synthroid -) 75 mcg PO DAILY@0700 [facility] Last Admin: 03/06/18 06:28 Dose: 75 mcg Metoprolol Tartrate (Lopressor -) 50 mg PO BID [facility] Last Admin: 03/06/18 10:19 Dose: 50 mg Montelukast Sodium (Singulair -) 10 mg PO HS [facility] Last Admin: 03/05/18 23:37 Dose: 10 mg - Objective Vital Signs: Vital Signs Temperature 98.1 F 03/06/18 10:00 Pulse Rate 73 03/06/18 10:00 Respiratory Rate 20 03/06/18 10:00 Blood Pressure 127/45 03/06/18 10:00 O2 Sat by Pulse Oximetry (%) 99 03/06/18 09:18 Constitutional: Yes: No Distress, Calm Eyes: Yes: Conjunctiva Clear, EOM Intact, PERRL HENT: Yes: Atraumatic, Normocephalic Neck: Yes: Supple, Trachea Midline Cardiovascular: Yes: Regular Rate and Rhythm, S1, S2. No: Bradycardia, Tachycardia, Pulse Irregular, Bruit, JVD, Gallop, Murmur, Rub, S3, S4, Varicosities Respiratory: Yes: Regular, CTA Bilaterally. No: Rales, Rhonchi, Wheezes Gastrointestinal: Yes: Normal Bowel Sounds, Soft, Tenderness, Epigastrium. No: Distention Musculoskeletal: Yes: WNL Extremities: Yes: WNL Edema: No Peripheral Pulses WNL: Yes Peripheral Pulses: Left Doralis Pedis: 2+, Right Dorsalis Pedis: 2+ Integumentary: Yes: WNL Neurological: Yes: Alert, Oriented Psychiatric: Yes: Alert, Oriented Labs: CBC, BMP 03/06/18 07:40 03/06/18 07:40 INR, PTT INR 0.97 (0.82-1.09) 03/05/18 11:28 - ....Imaging Chest X-ray: Report Reviewed, Image Reviewed EKG: Report Reviewed, Image Reviewed Other: Report Reviewed, Image Reviewed (tele-nsr, sinus tach, pvcs) Assessment/Plan 63 F with DM, HTN, severe CAD sp CABG 2016 [facility]. Recent travel from [facility] on 02/28. Had been feeling well until 3 days [employer] when cough productive of clear phlegm developed. admitted with cough, sob, nstemi. In 2016 admitted with chest pain and CAD was diagnosed. She had CABG at [facility]. EF was preserved at that time. Operation was complicated by sternal wound infection. Echo: Report Reviewed (2016 normal valve and EF.) Assessment/Plan 63 F with ischemic heart disease sp CABG, DM, HTN admitted with cough, increasing dyspnea. 1. NSTEMI. At present CP free. 2. SANTINO 3. Acute heart failure. prior normal EF. 4. Possible PNA Rec: Symptomatically improved Troponin trended down Wean off NTG gtt Cont IV heparin for now Start ASA and Plavix Cont Lopressor and statin Can dose Lasix prn at this point, bun/creat trending up Bipap as needed f/up echo LE doppler showed no clot Once of NTG can be transferred to telemetry Plan to hold off on invasive cardiac work up at this point given SAL but will monitor and consider if creat improves
--- NOTE | 2018-03-06 14:06 | PN ---
Teaching Attending Note Name of Resident: Susana Lane ATTENDING PHYSICIAN STATEMENT I saw and evaluated the patient. I reviewed the resident's note and discussed the case with the resident. I agree with the resident's findings and plan as documented. SUBJECTIVE: Patient seen and examined in the ICU. Daughter at the bedside for translation. Patient feels much better except for her moist cough. No CP or pleurisy. No hemoptysis. Currently on IV Heparin and NTG. Intake & Output 03/03/18 03/04/18 03/05/18 03/06/18 23:59 23:59 23:59 23:59 Intake Total 200 315 Balance 200 315 Weight 127 lb 125 lb 8 oz Last Vital Signs Temp Pulse Resp BP Pulse Ox 98.1 F 80 18 118/75 99 03/06/18 10:00 03/06/18 12:00 03/06/18 12:00 03/06/18 12:00 03/06/18 09:18 Active Medications Albuterol/Ipratropium (Duoneb -) 1 amp NEB Q4H PRN PRN Reason: SHORTNESS OF BREATH Amlodipine Besylate (Norvasc -) 5 mg PO DAILY [facility] Last Admin: 03/06/18 10:19 Dose: 5 mg Atorvastatin Calcium (Lipitor -) 80 mg PO HS [facility] Last Admin: 03/05/18 23:36 Dose: 80 mg Heparin Sodium (Porcine) (Heparin -) 1,000 unit IVPUSH PRN PRN PRN Reason: Heparin Last Admin: 03/06/18 10:20 Dose: 1,000 unit Heparin Sodium (Porcine) (Heparin -) 5,000 unit IVPUSH PRN PRN PRN Reason: Heparin Heparin Sodium (Porcine) 25, (000 unit/ Sodium Chloride) 500 mls @ 16 mls/hr IV TITR REZA; 800 UNIT/HR PRN Reason: Protocol Last Titration: 03/06/18 10:21 Dose: 500 unit/hr, 10 mls/hr Nitroglycerin/Dextrose (Nitroglycerin 25mg/D5w 250ml) 25 mg in 250 mls @ 6 mls/ hr IVPB TITR REZA PRN Reason: 10 MCG/MIN Last Titration: 03/06/18 03:57 Dose: 15 mcg/min, 9 mls/hr Insulin Aspart (Novolog Vial Sliding Scale -) 1 vial SQ ACHS [facility] PRN Reason: Protocol Last Admin: 03/06/18 11:47 Dose: Not Given Levothyroxine Sodium (Synthroid -) 75 mcg PO DAILY@0700 [facility] Last Admin: 03/06/18 06:28 Dose: 75 mcg Metoprolol Tartrate (Lopressor -) 50 mg PO BID [facility] Last Admin: 03/06/18 10:19 Dose: 50 mg Montelukast Sodium (Singulair -) 10 mg PO HS [facility] Last Admin: 03/05/18 23:37 Dose: 10 mg GENERAL: Awake, alert, and oriented, in no acute distress. HEAD: Normal with no signs of trauma. EYES: Pupils equal, round and reactive to light, sclera anicteric, conjunctiva clear EARS, NOSE, THROAT: oropharynx clear without exudates. Moist mucous membranes. NECK: Normal range of motion, supple without lymphadenopathy, JVD, or masses. LUNGS: Few basilar rhonchi, no wheeze. No accessory muscle use. HEART: Regular rate and rhythm, normal S1 and S2 without murmur, rub or gallop. ABDOMEN: Soft, nontender, not distended, normoactive bowel sounds, no guarding, no rebound, no masses. No hepatomegaly or splenomegaly. MUSCULOSKELETAL: Normal range of motion at all joints. No bony deformities or tenderness. No CVA tenderness. UPPER EXTREMITIES: 2+ pulses, warm, well-perfused. No cyanosis. No clubbing. Cap refill <2 seconds. No peripheral edema. LOWER EXTREMITIES: 2+ pulses, warm, well-perfused. No calf tenderness. No peripheral edema. NEUROLOGICAL: Non-focal PSYCHIATRIC: Cooperative. Good eye contact. Appropriate mood and affect. SKIN: Warm, dry, normal turgor, no rashes or lesions noted. Laboratory Results - last 24 hr 03/05/18 03/05/18 03/05/18 11:28 12:13 12:39 WBC RBC Hgb Hct MCV MCH MCHC RDW Plt Count MPV PTT (Actin FS) Sodium Potassium Chloride Carbon Dioxide Anion Gap BUN Creatinine Creat Clearance w eGFR POC Glucometer Random Glucose Hemoglobin A1c % Lactic Acid 2.1 H 3.1 H* Calcium Total Bilirubin AST ALT Alkaline Phosphatase Creatine Kinase Creatine Kinase Index 0.6 CK-MB (CK-2) 5.541 H Troponin I Total Protein Albumin Urine Color Urine Appearance Urine pH Ur Specific [place] Urine Protein Urine Glucose (UA) Urine Ketones Urine Blood Urine Nitrite Urine Bilirubin Urine Urobilinogen Ur Leukocyte Esterase Urine WBC (Auto) Urine RBC (Auto) Ur Epithelial Cells Urine Mucus 03/05/18 03/05/18 03/05/18 15:50 20:00 20:00 WBC RBC Hgb Hct MCV MCH MCHC RDW Plt Count MPV PTT (Actin FS) 161.9 H D Sodium Potassium Chloride Carbon Dioxide Anion Gap BUN Creatinine Creat Clearance w eGFR POC Glucometer Random Glucose Hemoglobin A1c % Lactic Acid Calcium Total Bilirubin AST ALT Alkaline Phosphatase Creatine Kinase Creatine Kinase Index CK-MB (CK-2) Troponin I 2.51 H* Total Protein Albumin Urine Color Straw Urine Appearance Clear Urine pH 7.0 Ur Specific [place] 1.010 Urine Protein 3+ H Urine Glucose (UA) 3+ H Urine Ketones Negative Urine Blood Negative Urine Nitrite Negative Urine Bilirubin Negative Urine Urobilinogen Negative Ur Leukocyte Esterase Negative Urine WBC (Auto) 1 Urine RBC (Auto) <1 Ur Epithelial Cells Rare Urine Mucus Rare 03/05/18 03/06/18 03/06/18 22:00 02:10 02:10 WBC RBC Hgb Hct MCV MCH MCHC RDW Plt Count MPV PTT (Actin FS) 87.3 H D Sodium Potassium Chloride Carbon Dioxide Anion Gap BUN Creatinine Creat Clearance w eGFR POC Glucometer Random Glucose 797 H* 622 H* Hemoglobin A1c % Lactic Acid Calcium Total Bilirubin AST ALT Alkaline Phosphatase Creatine Kinase Creatine Kinase Index CK-MB (CK-2) Troponin I Total Protein Albumin Urine Color Urine Appearance Urine pH Ur Specific [place] Urine Protein Urine Glucose (UA) Urine Ketones Urine Blood Urine Nitrite Urine Bilirubin Urine Urobilinogen Ur Leukocyte Esterase Urine WBC (Auto) Urine RBC (Auto) Ur Epithelial Cells Urine Mucus 03/06/18 03/06/18 03/06/18 05:36 07:40 07:40 WBC 10.7 H D RBC 4.13 Hgb 9.7 L D Hct 30.3 L D MCV 73.4 L MCH 23.4 L MCHC 31.9 L RDW 16.9 H Plt Count 382 MPV 9.7 PTT (Actin FS) Sodium 140 Potassium 3.5 Chloride 111 H Carbon Dioxide 19 L Anion Gap 10 BUN 31 H Creatinine 2.3 H Creat Clearance w eGFR 21.49 POC Glucometer 316.07264 Random Glucose 113 H Hemoglobin A1c % Lactic Acid Calcium 8.2 L Total Bilirubin 0.3 AST 29 ALT 19 Alkaline Phosphatase 116 Creatine Kinase 583 H Creatine Kinase Index 0.8 CK-MB (CK-2) 5.042 H Troponin I 1.81 H* Total Protein 6.3 L Albumin 2.4 L Urine Color Urine Appearance Urine pH Ur Specific [place] Urine Protein Urine Glucose (UA) Urine Ketones Urine Blood Urine Nitrite Urine Bilirubin Urine Urobilinogen Ur Leukocyte Esterase Urine WBC (Auto) Urine RBC (Auto) Ur Epithelial Cells Urine Mucus 03/06/18 03/06/18 03/06/18 07:40 07:40 09:40 WBC RBC Hgb Hct MCV MCH MCHC RDW Plt Count MPV PTT (Actin FS) 43.6 H D Sodium Potassium Chloride Carbon Dioxide Anion Gap BUN Creatinine Creat Clearance w eGFR POC Glucometer Random Glucose Hemoglobin A1c % 8.1 H Lactic Acid 2.5 H* Calcium Total Bilirubin AST ALT Alkaline Phosphatase Creatine Kinase Creatine Kinase Index CK-MB (CK-2) Troponin I Total Protein Albumin Urine Color Urine Appearance Urine pH Ur Specific [place] Urine Protein Urine Glucose (UA) Urine Ketones Urine Blood Urine Nitrite Urine Bilirubin Urine Urobilinogen Ur Leukocyte Esterase Urine WBC (Auto) Urine RBC (Auto) Ur Epithelial Cells Urine Mucus Problem List - Problems (1) Acute pulmonary edema Code(s): J81.0 - ACUTE PULMONARY EDEMA (2) NSTEMI (non-ST elevated myocardial infarction) Code(s): I21.4 - NON-ST ELEVATION (NSTEMI) MYOCARDIAL INFARCTION (3) CAD (coronary artery disease) Code(s): I25.10 - ATHSCL HEART DISEASE OF [place] CORONARY ARTERY W/O ANG PCTRS Assessment/Plan NSTEMI (?) CKD Low clinical suspicion of PNA or VTE Rec: IV Heparin ASA/Plavix Statin O2 as needed Lasix Monitor off ABX NIPPV as needed ECHO ICU monitoring Dr Gutierrez Critical care time spent in reviewing chart, evaluating patient and formulating plan - 36 minutes.
--- NOTE | 2018-03-06 14:39 | HP ---
Admitting History and Physical - Primary Care Physician PCP: Rob Lara - Admission History of Present Illness: Pt seen/ examined in icu Chart reviewed Er records reviewed Per Er records "Pt is a 63 yo F with a PMHx of HTN, CAD s/p CABG complicated by multiple chest wall abscesses, CHF, DM, Hypothyroidism who presents to the ED with SOB for the past 3 days. Patient reports recent trip to [place] and since then has been coughing and SOB. Pt reports transient LLE swelling after she arrived that has since resolved. Pt states that today she had an acute worsening in her breathing. Patient also endorses associated L sided chest tightness radiating to the R this morning. Patient denies fever/chills, n/v, abdominal pain or constipation Pt found to have NSTMI/ ARF Pt admitted to icu On heparin/ ntg drip. Pt at present comfortable. Denies cp. Mild dry cough + Family at bedside History Source: Patient, Family Member Limitations to Obtaining History: No Limitations - Past Medical History PSYCHIATRIC SPECIALIST: Yes: Other (carotid stenosis) Cardiovascular: Yes: CAD (s/p CABG), HTN, Hyperlipdemia Endocrine: Yes: Diabetes Mellitus - Past Surgical History Past Surgical History: Yes: CABG - Smoking History Smoking history: Never smoked Have you smoked in the past 12 months: No Aproximately how many cigarettes per day: 0 - Alcohol/Substance Use Hx Alcohol Use: No Home Medications - Allergies Allergies/Adverse Reactions: Allergies Allergy/AdvReac Type Severity Reaction Status Date / Time No Known Drug Allergies Allergy Verified 03/05/18 10:31 BEANS Allergy Rash Uncoded 03/05/18 10:31 - Home Medications Home Medications: Ambulatory Orders Furosemide [Lasix -] 40 mg PO DAILY 08/13/16 Levothyroxine [Synthroid -] 75 mcg PO DAILY 08/13/16 Metoprolol Tartrate [Lopressor] 50 mg PO BID 08/13/16 Valsartan 320 mg PO DAILY 08/13/16 Amlodipine Besylate [Norvasc -] 5 mg PO DAILY 03/05/18 Aspirin [Ecotrin] 81 mg PO DAILY 03/05/18 Atorvastatin Ca [Lipitor] 10 mg PO HS 03/05/18 Benzonatate 100 mg PO TID 03/05/18 Dulaglutide [Trulicity] 1.5 mg SQ WEEKLY 03/05/18 Hydrocodone/Ibuprofen [VICOPROFEN 7.5/200 mg [NF MEDICATION]] 1 tab PO BID 03/05 Insulin Glargine,Hum.rec.anlog [Lantus Solostar PEN (NF)] 50 ml SQ DAILY Insulin Lispro [Humalog] 10 unit SQ TID 03/05/18 Meloxicam [Mobic] 15 mg PO DAILY 03/05/18 Montelukast Sodium [Singulair] 10 mg PO DAILY 03/05/18 Plecanatide [Trulance] 3 mg PO DAILY 03/05/18 Potassium Chloride [K-Dur -] 20 meq PO DAILY 03/05/18 Suvorexant [Belsomra] 20 mg PO DAILY 03/05/18 Family Disease History - Family Disease History Family Disease History: Heart Disease: Father Review of Systems - Review of Systems Constitutional: reports: Weakness Eyes: reports: No Symptoms Neck: reports: No Symptoms Cardiovascular: reports: Chest Pain, Shortness of Breath Respiratory: reports: Cough, SOB Gastrointestinal: reports: No Symptoms Genitourinary: reports: No Symptoms Musculoskeletal: reports: No Symptoms Neurological: reports: No Symptoms Psychiatric: reports: No Symptoms Physical Examination Vital Signs: Vital Signs Temperature 98.1 F 03/06/18 10:00 Pulse Rate 80 03/06/18 12:00 Respiratory Rate 18 03/06/18 12:00 Blood Pressure 118/75 03/06/18 12:00 O2 Sat by Pulse Oximetry (%) 99 03/06/18 09:18 Constitutional: Yes: No Distress, Calm Eyes: Yes: Conjunctiva Clear Neck: Yes: Supple Cardiovascular: Yes: Regular Rate and Rhythm Respiratory: Yes: CTA Bilaterally Gastrointestinal: Yes: Soft Neurological: Yes: Alert Labs: CBC, BMP 03/06/18 07:40 03/06/18 07:40 Imaging - Results Chest X-ray: Report Reviewed Ultrasound: Report Reviewed EKG: Report Reviewed Problem List - Problems (1) Acute pulmonary edema Code(s): J81.0 - ACUTE PULMONARY EDEMA (2) NSTEMI (non-ST elevated myocardial infarction) Code(s): I21.4 - NON-ST ELEVATION (NSTEMI) MYOCARDIAL INFARCTION (3) CAD (coronary artery disease) Code(s): I25.10 - ATHSCL HEART DISEASE OF [place] CORONARY ARTERY W/O ANG PCTRS (4) Hx of CABG Code(s): Z95.1 - PRESENCE OF AORTOCORONARY BYPASS GRAFT (5) Hypertension Code(s): I10 - ESSENTIAL (PRIMARY) HYPERTENSION (6) Poorly controlled diabetes mellitus Code(s): E11.65 - TYPE 2 DIABETES MELLITUS WITH HYPERGLYCEMIA Assessment/Plan Monitor in icu Continue present care Cardiology on case daily weight. Monitor lytes repeat cxr Doubt pneumonia Observe off abx for now Diabetes poorly controlled Add basal insulin Discussed with pt daughter in detail cc time 40 min in examining / documenting and coordating care. Discussed with Resident team as well as nursing staff also.
[2018-03-06] MEDS: ASPIRIN 81 MG CHEWABLE TABLETS PO SCH (15:47)
[2018-03-06] MEDS: CLOPIDOGREL BISULFATE 75 MG TABLET (FP) PO SCH (15:48)
[2018-03-06] MEDS: HEPARIN - 25,000 UNIT in SODIUM CHLORIDE 495 ML IV SCH (17:12)
[2018-03-06] MEDS ORDERED: INSULIN (NOVOLOG) ASPART 100 UNITS/ML 10ML VIAL ONE (17:51)
--- NOTE | 2018-03-06 18:08 | EKG ---
Test Reason : Blood Pressure : / mmHG Vent. Rate : 070 BPM Atrial Rate : 070 BPM P-R Int : 146 ms QRS Dur : 094 ms QT Int : 452 ms P-R-T Axes : 065 064 138 degrees QTc Int : 488 ms SINUS RHYTHM WITH OCCASIONAL PREMATURE VENTRICULAR COMPLEXES POSSIBLE LEFT ATRIAL ENLARGEMENT CANNOT RULE OUT INFERIOR INFARCT (CITED ON OR BEFORE 05-MAR-2018) ABNORMAL ECG WHEN COMPARED WITH ECG OF 05-MAR-2018 14:48, PREMATURE VENTRICULAR COMPLEXES ARE NOW PRESENT T WAVE VARIATION Confirmed by LUZ ENCINAS MD ([id number]) on 03/06/2018 6:07:43 PM Referred By: LYDIA NOBLE DR Confirmed By:LUZ ENCINAS MD
[2018-03-06] MEDS: INSULIN (LEVEMIR) 100 UNITS/ML UNITS SQ SCH (21:25)
[2018-03-06] MEDS: ATORVASTATIN CA 80 MG TABLET (FP) PO SCH (21:26)
[2018-03-06] MEDS: MONTELUKAST NA 10 MG TABLET PO SCH (21:26)
[2018-03-06] MEDS ORDERED: CODEINE SO4 30 MG TABLET PO PRN (23:21)
--- NOTE | 2018-03-06 23:56 | EKG ---
Test Reason : Blood Pressure : / mmHG Vent. Rate : 096 BPM Atrial Rate : 096 BPM P-R Int : 140 ms QRS Dur : 082 ms QT Int : 378 ms P-R-T Axes : 055 053 135 degrees QTc Int : 477 ms NORMAL SINUS RHYTHM POSSIBLE LEFT ATRIAL ENLARGEMENT ABNORMALITY, CONSIDER LATERAL ISCHEMIA ABNORMAL ECG WHEN COMPARED WITH ECG OF 05-MAR-2018 11:39, T WAVE VARIATION Confirmed by LUZ ENCINAS MD ([id number]) on 03/06/2018 11:55:36 PM Referred By: Confirmed By:LUZ ENCINAS MD
--- NOTE | 2018-03-07 00:04 | EKG ---
Test Reason : Blood Pressure : / mmHG Vent. Rate : 098 BPM Atrial Rate : 098 BPM P-R Int : 160 ms QRS Dur : 080 ms QT Int : 358 ms P-R-T Axes : 058 065 228 degrees QTc Int : 457 ms NORMAL SINUS RHYTHM POSSIBLE LEFT ATRIAL ENLARGEMENT ABNORMAL ECG WHEN COMPARED WITH ECG OF 13-AUG-2016 12:15, VENT. RATE HAS INCREASED BY 36 BPM T WAVE VARIATION Confirmed by HUANG HENDERSON, LUZ ([id number]) on 03/07/2018 12:03:55 AM Referred By: Confirmed By:LUZ ENCINAS MD
[2018-03-07] MEDS: HEPARIN - 25,000 UNIT in SODIUM CHLORIDE 495 ML IV SCH ×2 (05:38→09:35)
[2018-03-07] MEDS: INSULIN SLIDING SCALE (NOVOLOG) 1 VIAL SQ SCH ×4 (06:09→22:37)
[2018-03-07] MEDS: LEVOTHYROXINE NA 75 MCG TABLET (FP) PO SCH (06:11)
[2018-03-07 07:17] LABS: HEMATOCRIT 28.4 % (32.4-45.2); HEMOGLOBIN 9.4 GM/dL (10.7-15.3); MCH 24.1 pg (25.7-33.7); MEAN PLT VOLUME 10.2 fl (7.5-11.1); PLATELET COUNT 322 K/MM3 (134-434); RBC 3.89 M/mm3 (3.60-5.2); RDW 17.3 % (11.6-15.6); WHITE BLOOD COUNT 14.3 K/mm3 (4.0-10.0)
[2018-03-07 07:57] LABS: CHLORIDE 111 mmol/L (98-107); SODIUM 140 mmol/L (136-145)
--- NOTE | 2018-03-07 08:41 | PN ---
Progress Note (short form) - Note Progress Note: patient seen and examined in the ICU. Overall feels better Chief complaint moist cough No fever or chills Vital Signs Temp 99 F 03/07/18 06:00 Pulse 64 03/07/18 06:00 Resp 20 03/07/18 06:00 BP 160/64 03/07/18 06:00 Pulse Ox 99 03/06/18 21:41 Intake & Output 03/06/18 03/06/18 03/07/18 11:59 23:59 11:59 Intake Total 315 958 170 Output Total 460 Balance 315 498 170 Weight 125 lb 8 oz 125 lb 9 oz Intake: IV 215 138 120 Heparin - 25,000 Unit In 128 120 120 Normal Saline - 495 ml @ 800 UNIT/HR 16 mls/hr IV TITR REZA Rx#:[id number] NITROGLYCERIN 25MG/D5W 87 18 250ML 25 mg In 250 ml @ 10 MCG/MIN 6 mls/hr IVPB TITR REZA Rx#:[id number] Oral 100 820 50 Output: Urine 460 Void 460 Other: Voiding Method Bedpan Bedpan # Unmeasured Voids Void 2 1 0 Weight Measurement Method Built in Bedscale Built in Bedscale Active Medications Albuterol/Ipratropium (Duoneb -) 1 amp NEB Q4H PRN PRN Reason: SHORTNESS OF BREATH Last Admin: 03/06/18 14:23 Dose: 1 amp Amlodipine Besylate (Norvasc -) 5 mg PO DAILY [facility] Last Admin: 03/06/18 10:19 Dose: 5 mg Aspirin (Asa -) 81 mg PO DAILY [facility] Last Admin: 03/06/18 15:47 Dose: 81 mg Atorvastatin Calcium (Lipitor -) 80 mg PO HS [facility] Last Admin: 03/06/18 21:26 Dose: 80 mg Clopidogrel Bisulfate (Plavix -) 75 mg PO DAILY [facility] Last Admin: 03/06/18 15:48 Dose: 75 mg Codeine Sulfate (Codeine Sulfate -) 30 mg PO Q6H PRN PRN Reason: COUGH Last Admin: 03/06/18 23:53 Dose: 30 mg Heparin Sodium (Porcine) (Heparin -) 1,000 unit IVPUSH PRN PRN PRN Reason: Heparin Last Admin: 03/06/18 10:20 Dose: 1,000 unit Heparin Sodium (Porcine) (Heparin -) 5,000 unit IVPUSH PRN PRN PRN Reason: Heparin Heparin Sodium (Porcine) 25, (000 unit/ Sodium Chloride) 500 mls @ 16 mls/hr IV TITR REZA; 800 UNIT/HR PRN Reason: Protocol Last Admin: 03/07/18 05:38 Dose: 500 unit/hr, 10 mls/hr Insulin Aspart (Novolog Vial Sliding Scale -) 1 vial SQ ACHS [facility] PRN Reason: Protocol Last Admin: 03/07/18 06:09 Dose: Not Given Insulin Detemir (Levemir Vial) 5 units SQ [facility] Last Admin: 03/06/18 21:25 Dose: 5 units Levothyroxine Sodium (Synthroid -) 75 mcg PO DAILY@0700 [facility] Last Admin: 03/07/18 06:11 Dose: 75 mcg Metoprolol Tartrate (Lopressor -) 50 mg PO BID [facility] Last Admin: 03/06/18 21:26 Dose: 50 mg Montelukast Sodium (Singulair -) 10 mg PO [facility] Last Admin: 03/06/18 21:26 Dose: 10 mg CBC, BMP 03/07/18 05:50 03/07/18 05:50 Microbiology 03/05/18 11:28 Blood Culture - Preliminary Blood - Peripheral Venous NO GROWTH OBTAINED AFTER 24 HOURS, INCUBATION TO CONTINUE FOR 4 DAYS. 03/05/18 11:28 Blood Culture - Preliminary Blood - Peripheral Venous NO GROWTH OBTAINED AFTER 24 HOURS, INCUBATION TO CONTINUE FOR 4 DAYS. cxr --no infiltrate echo-normal LV function Physical Examination Constitutional: Yes: No Distress, Eyes: Yes: Conjunctiva Clear Neck: Yes: Supple Cardiovascular: Yes: Regular Rate and Rhythm Respiratory: Yes: CTA Bilaterally Gastrointestinal: Yes: Soft/ non tender Neurological: Yes: Alert Imaging - Results Chest X-ray: Report Reviewed Ultrasound: Report Reviewed EKG: Report Reviewed Assessment/Plan clinically better Continue present care Cardiology on case daily weight. Monitor lytes Observe off abx chest x-ray--negative monitor blood sugar discussed with ICU attending as well as resident team discussed with nursing staff also Robitussin-DM when necessary cc time 30 min in examining / documenting and coordating care. Will follow Can downgraded to telemetry. Problem List - Problems (1) Acute pulmonary edema Code(s): J81.0 - ACUTE PULMONARY EDEMA (2) NSTEMI (non-ST elevated myocardial infarction) Code(s): I21.4 - NON-ST ELEVATION (NSTEMI) MYOCARDIAL INFARCTION (3) CAD (coronary artery disease) Code(s): I25.10 - ATHSCL HEART DISEASE OF [place] CORONARY ARTERY W/O ANG PCTRS (4) Hx of CABG Code(s): Z95.1 - PRESENCE OF AORTOCORONARY BYPASS GRAFT (5) Hypertension Code(s): I10 - ESSENTIAL (PRIMARY) HYPERTENSION (6) Poorly controlled diabetes mellitus Code(s): E11.65 - TYPE 2 DIABETES MELLITUS WITH HYPERGLYCEMIA
[2018-03-07 08:42] LABS: ALBUMIN 2.2 g/dl (3.4-5.0); ALK PHOS 95 U/L (45-117); ANION GAP 10 (8-16); BILIRUBIN,TOTAL 0.6 mg/dL (0.2-1.0); BLOOD UREA NITROGEN 34 mg/dL (7-18); CALCIUM 7.7 mg/dL (8.5-10.1); CO2 19 mmol/L (21-32); GLUCOSE,RANDOM 111 mg/dL (74-106); SGOT/AST 43 U/L (15-37); SGPT/ALT 21 U/L (12-78); TOT PROT 5.6 g/dl (6.4-8.2)
[2018-03-07] MEDS ORDERED: PT OWN MED DRAWER 7, Y5N ONE (09:19)
[2018-03-07] MEDS: amLODIPine BESYLATE 5 MG TABLET (FP) PO SCH (09:23)
[2018-03-07] MEDS: METOPROLOL TARTRATE 50 MG TABLET (FP) PO SCH ×2 (09:27→21:32)
[2018-03-07] MEDS: ASPIRIN 81 MG CHEWABLE TABLETS PO SCH (09:27)
[2018-03-07] MEDS: CLOPIDOGREL BISULFATE 75 MG TABLET (FP) PO SCH (09:28)
[2018-03-07 09:44] VITALS: BMI 27.0
[2018-03-07] MEDS: ALBUTEROL SO4 2.5/IPRATROPIUM 0.5 INH SOL 3 ML VIAL.NEB. NEB SCH ×4 (09:53→21:22)
--- NOTE | 2018-03-07 12:01 | PN ---
Teaching Attending Note Name of Resident: Susana Lane ATTENDING PHYSICIAN STATEMENT I saw and evaluated the patient. I reviewed the resident's note and discussed the case with the resident. I agree with the resident's findings and plan as documented. SUBJECTIVE: Patient seen and examined in the ICU. Patient feels much better except for her moist cough. No CP or pleurisy. No hemoptysis. Remains on IV Hepari. Intake & Output 03/04/18 03/05/18 03/06/18 03/07/18 23:59 23:59 23:59 23:59 Intake Total 200 1273 170 Output Total 460 Balance 200 813 170 Weight 127 lb 125 lb 8 oz 125 lb Last Vital Signs Temp Pulse Resp BP Pulse Ox 100.1 F H 82 26 H 177/67 99 03/07/18 10:00 03/07/18 10:00 03/07/18 10:00 03/07/18 10:00 03/06/18 21:41 Active Medications Albuterol/Ipratropium (Duoneb -) 1 amp NEB Q4HWA [facility] Last Admin: 03/07/18 09:53 Dose: 1 amp Amlodipine Besylate (Norvasc -) 5 mg PO DAILY [facility] Last Admin: 03/07/18 09:23 Dose: 5 mg Aspirin (Asa -) 81 mg PO DAILY [facility] Last Admin: 03/07/18 09:27 Dose: 81 mg Atorvastatin Calcium (Lipitor -) 80 mg PO HS [facility] Last Admin: 03/06/18 21:26 Dose: 80 mg Clopidogrel Bisulfate (Plavix -) 75 mg PO DAILY [facility] Last Admin: 03/07/18 09:28 Dose: 75 mg Codeine Sulfate (Codeine Sulfate -) 30 mg PO Q6H PRN PRN Reason: COUGH Last Admin: 03/06/18 23:53 Dose: 30 mg Heparin Sodium (Porcine) (Heparin -) 1,000 unit IVPUSH PRN PRN PRN Reason: Heparin Last Admin: 03/06/18 10:20 Dose: 1,000 unit Heparin Sodium (Porcine) (Heparin -) 5,000 unit IVPUSH PRN PRN PRN Reason: Heparin Heparin Sodium (Porcine) 25, (000 unit/ Sodium Chloride) 500 mls @ 16 mls/hr IV TITR REZA; 800 UNIT/HR PRN Reason: Protocol Last Admin: 03/07/18 09:35 Dose: Not Given Insulin Aspart (Novolog Vial Sliding Scale -) 1 vial SQ [facility] PRN Reason: Protocol Last Admin: 03/07/18 10:47 Dose: Not Given Insulin Detemir (Levemir Vial) 5 units SQ [facility] Last Admin: 03/06/18 21:25 Dose: 5 units Levothyroxine Sodium (Synthroid -) 75 mcg PO DAILY@0700 [facility] Last Admin: 03/07/18 06:11 Dose: 75 mcg Metoprolol Tartrate (Lopressor -) 50 mg PO BID [facility] Last Admin: 03/07/18 09:27 Dose: 50 mg Montelukast Sodium (Singulair -) 10 mg PO [facility] Last Admin: 03/06/18 21:26 Dose: 10 mg GENERAL: Awake, alert, and oriented, in no acute distress. HEAD: Normal with no signs of trauma. EYES: Pupils equal, round and reactive to light, sclera anicteric, conjunctiva clear EARS, NOSE, THROAT: oropharynx clear without exudates. Moist mucous membranes. NECK: Normal range of motion, supple without lymphadenopathy, JVD, or masses. LUNGS: Few basilar rhonchi, no wheeze. No accessory muscle use. HEART: Regular rate and rhythm, normal S1 and S2 without murmur, rub or gallop. ABDOMEN: Soft, nontender, not distended, normoactive bowel sounds, no guarding, no rebound, no masses. No hepatomegaly or splenomegaly. MUSCULOSKELETAL: Normal range of motion at all joints. No bony deformities or tenderness. No CVA tenderness. UPPER EXTREMITIES: 2+ pulses, warm, well-perfused. No cyanosis. No clubbing. Cap refill <2 seconds. No peripheral edema. LOWER EXTREMITIES: 2+ pulses, warm, well-perfused. No calf tenderness. No peripheral edema. NEUROLOGICAL: Non-focal PSYCHIATRIC: Cooperative. Good eye contact. Appropriate mood and affect. SKIN: Warm, dry, normal turgor, no rashes or lesions noted. Laboratory Results - last 24 hr 03/06/18 03/06/18 03/07/18 16:00 17:00 05:50 WBC 14.3 H D RBC 3.89 Hgb 9.4 L Hct 28.4 L MCV 73.0 L MCH 24.1 L MCHC 33.0 RDW 17.3 H Plt Count 322 MPV 10.2 PTT (Actin FS) 51.1 H Sodium Potassium Chloride Carbon Dioxide Anion Gap BUN Creatinine Creat Clearance w eGFR Random Glucose Calcium Total Bilirubin AST ALT Alkaline Phosphatase Troponin I B-Natriuretic Peptide 8339.00 H Total Protein Albumin 03/07/18 03/07/18 05:50 05:50 WBC RBC Hgb Hct MCV MCH MCHC RDW Plt Count MPV PTT (Actin FS) 39.8 H Sodium 140 Potassium 4.0 Chloride 111 H Carbon Dioxide 19 L Anion Gap 10 BUN 34 H Creatinine 2.0 H Creat Clearance w eGFR 25.25 Random Glucose 111 H Calcium 7.7 L Total Bilirubin 0.6 D AST 43 H ALT 21 Alkaline Phosphatase 95 Troponin I 1.88 H* B-Natriuretic Peptide Total Protein 5.6 L Albumin 2.2 L Problem List - Problems (1) Acute pulmonary edema Code(s): J81.0 - ACUTE PULMONARY EDEMA (2) NSTEMI (non-ST elevated myocardial infarction) Code(s): I21.4 - NON-ST ELEVATION (NSTEMI) MYOCARDIAL INFARCTION (3) CAD (coronary artery disease) Code(s): I25.10 - ATHSCL HEART DISEASE OF [place] CORONARY ARTERY W/O ANG PCTRS Assessment/Plan NSTEMI (?) CKD Low clinical suspicion of PNA or VTE Rec: IV Heparin ASA/Plavix Statin O2 as needed Lasix Would continue to monitor off ABX 4W/4S Dr Gutierrez Critical care time spent in reviewing chart, evaluating patient and formulating plan - 36 minutes.
--- NOTE | 2018-03-07 15:18 | PN ---
Progress Note, Physician History of Present Illness: seen and examined today in nad. at bedside. no overnight events. no new complaints. - Current Medication List Current Medications: Active Medications Albuterol/Ipratropium (Duoneb -) 1 amp NEB Q4HWA [facility] Last Admin: 03/07/18 14:05 Dose: 1 amp Amlodipine Besylate (Norvasc -) 5 mg PO DAILY [facility] Last Admin: 03/07/18 09:23 Dose: 5 mg Aspirin (Asa -) 81 mg PO DAILY [facility] Last Admin: 03/07/18 09:27 Dose: 81 mg Atorvastatin Calcium (Lipitor -) 80 mg PO [facility] Last Admin: 03/06/18 21:26 Dose: 80 mg Clopidogrel Bisulfate (Plavix -) 75 mg PO DAILY [facility] Last Admin: 03/07/18 09:28 Dose: 75 mg Codeine Sulfate (Codeine Sulfate -) 30 mg PO Q6H PRN PRN Reason: COUGH Last Admin: 03/06/18 23:53 Dose: 30 mg Heparin Sodium (Porcine) (Heparin -) 1,000 unit IVPUSH PRN PRN PRN Reason: Heparin Last Admin: 03/06/18 10:20 Dose: 1,000 unit Heparin Sodium (Porcine) (Heparin -) 5,000 unit IVPUSH PRN PRN PRN Reason: Heparin Heparin Sodium (Porcine) 25, (000 unit/ Sodium Chloride) 500 mls @ 16 mls/hr IV TITR REZA; 800 UNIT/HR PRN Reason: Protocol Last Admin: 03/07/18 09:35 Dose: Not Given Insulin Aspart (Novolog Vial Sliding Scale -) 1 vial SQ [facility] PRN Reason: Protocol Last Admin: 03/07/18 10:47 Dose: Not Given Insulin Detemir (Levemir Vial) 5 units SQ [facility] Last Admin: 03/06/18 21:25 Dose: 5 units Levothyroxine Sodium (Synthroid -) 75 mcg PO DAILY@0700 [facility] Last Admin: 03/07/18 06:11 Dose: 75 mcg Metoprolol Tartrate (Lopressor -) 50 mg PO BID [facility] Last Admin: 03/07/18 09:27 Dose: 50 mg Montelukast Sodium (Singulair -) 10 mg PO [facility] Last Admin: 03/06/18 21:26 Dose: 10 mg - Objective Vital Signs: Vital Signs Temperature 100.1 F H 03/07/18 10:00 Pulse Rate 82 03/07/18 10:00 Respiratory Rate 26 H 03/07/18 10:00 Blood Pressure 177/67 03/07/18 10:00 O2 Sat by Pulse Oximetry (%) 99 03/07/18 09:00 Constitutional: Yes: Well Nourished, No Distress, Calm Eyes: Yes: WNL, Conjunctiva Clear, EOM Intact, PERRL HENT: Yes: WNL, Atraumatic, Normocephalic Neck: Yes: WNL, Supple, Trachea Midline Cardiovascular: Yes: WNL, Regular Rate and Rhythm, S1, S2. No: Bradycardia, Tachycardia, Pulse Irregular, Bruit, JVD, Gallop, Murmur, Rub, S3, S4, Varicosities Respiratory: Yes: WNL, Regular, CTA Bilaterally. No: Rales, Rhonchi, Wheezes Gastrointestinal: Yes: WNL, Normal Bowel Sounds, Soft. No: Distention, Tenderness Musculoskeletal: Yes: WNL Extremities: Yes: WNL Edema: No Peripheral Pulses WNL: Yes Peripheral Pulses: Left Doralis Pedis: 2+, Right Dorsalis Pedis: 2+ Integumentary: Yes: WNL Neurological: Yes: Alert, Oriented Psychiatric: Yes: Alert, Oriented Labs: CBC, BMP 03/07/18 05:50 03/07/18 05:50 INR, PTT INR 0.97 (0.82-1.09) 03/05/18 11:28 - ....Imaging Chest X-ray: Report Reviewed, Image Reviewed EKG: Report Reviewed, Image Reviewed Other: Report Reviewed, Image Reviewed (tele-nsr, pvcs) Assessment/Plan 63 F with DM, HTN, severe CAD sp CABG 2016 [facility]. Recent travel from [facility] on 02/28. Had been feeling well until 3 days [employer] when cough productive of clear phlegm developed. admitted with cough, sob, nstemi. In 2016 admitted with chest pain and CAD was diagnosed. She had CABG at [facility]. EF was preserved at that time. Operation was complicated by sternal wound infection. Echo: Report Reviewed (2015 normal valve and EF.) Assessment/Plan 63 F with ischemic heart disease sp CABG, DM, HTN admitted with cough, increasing dyspnea. 1. NSTEMI. At present CP free. 2. SANTINO 3. Acute heart failure. prior normal EF. 4. Possible PNA Rec: Symptomatically improved Troponin trended down Can dc IV heparin today Start ASA and Plavix Cont Lopressor and statin Can uptitrate amlodipine for improved BP control Echo showed normal LV systolic function, mild valvular abnl LE doppler showed no clot ok to transfer to tele Plan to hold off on invasive cardiac work up at this point given SAL but will monitor and consider if creat improves Discussed with pts , pt is followed at [facility] by a supervisor electric. Will consider nuclear stress test to further evaluate for ischemia vs outpatient f/up with her supervisor electric, if planning for cardiac cath would benefit from nephrology evaluation given her SAL and risk of contrast induced nephropathy
--- NOTE | 2018-03-07 15:58 | PN ---
Physical Exam: SUBJECTIVE: Patient awake, continues to c/o of intermittently productive ( whitish sputum) cough. Denies chest pain, shortness of breath. OBJECTIVE: GENERAL: Awake, alert, and fully oriented, in no acute distress. HEAD/NECK: Trachea midline, no lymphadenopathy, no pharyngeal erythema/exudate HEART: Regular rate and rhythm, normal S1 and S2 without murmur, rub or gallop. ABDOMEN: Soft, nontender, not distended, no guarding, no rebound, no masses. LOWER EXTREMITIES: 2+ pulses, warm, well-perfused. No calf tenderness. No peripheral edema. PSYCHIATRIC: Cooperative. Good eye contact. Appropriate mood and affect. Vital Signs Period Temp Pulse Resp BP Sys/To Pulse Ox Last 24 Hr 98 F-100.1 F 64-84 16-29 137-177/60-82 99-99 Laboratory Results - last 24 hr 03/05/18 03/06/18 03/06/18 21:40 01:32 11:17 WBC RBC Hgb Hct MCV MCH MCHC RDW Plt Count MPV PTT (Actin FS) Sodium Potassium Chloride Carbon Dioxide Anion Gap BUN Creatinine Creat Clearance w eGFR POC Glucometer > 400 > [phone] Random Glucose Hemoglobin A1c % Calcium Total Bilirubin AST ALT Alkaline Phosphatase Troponin I B-Natriuretic Peptide Total Protein Albumin 03/06/18 03/06/18 03/07/18 16:00 17:00 05:50 WBC 14.3 H D RBC 3.89 Hgb 9.4 L Hct 28.4 L MCV 73.0 L MCH 24.1 L MCHC 33.0 RDW 17.3 H Plt Count 322 MPV 10.2 PTT (Actin FS) 51.1 H Sodium Potassium Chloride Carbon Dioxide Anion Gap BUN Creatinine Creat Clearance w eGFR POC Glucometer Random Glucose Hemoglobin A1c % Calcium Total Bilirubin AST ALT Alkaline Phosphatase Troponin I B-Natriuretic Peptide 8339.00 H Total Protein Albumin 03/07/18 03/07/18 03/07/18 05:50 05:50 05:50 WBC RBC Hgb Hct MCV MCH MCHC RDW Plt Count MPV PTT (Actin FS) 39.8 H Sodium 140 Potassium 4.0 Chloride 111 H Carbon Dioxide 19 L Anion Gap 10 BUN 34 H Creatinine 2.0 H Creat Clearance w eGFR 25.25 POC Glucometer Random Glucose 111 H Hemoglobin A1c % 8.4 H Calcium 7.7 L Total Bilirubin 0.6 D AST 43 H ALT 21 Alkaline Phosphatase 95 Troponin I 1.88 H* B-Natriuretic Peptide Total Protein 5.6 L Albumin 2.2 L 03/07/18 05:50 WBC RBC Hgb Hct MCV MCH MCHC RDW Plt Count MPV PTT (Actin FS) Sodium Potassium Chloride Carbon Dioxide Anion Gap BUN Creatinine Creat Clearance w eGFR POC Glucometer [phone] Random Glucose Hemoglobin A1c % Calcium Total Bilirubin AST ALT Alkaline Phosphatase Troponin I B-Natriuretic Peptide Total Protein Albumin Active Medications Generic Name Dose Route Start Last Admin Trade Name Freq PRN Reason Stop Dose Admin Albuterol/Ipratropium 1 amp 03/07/18 10:00 03/07/18 14:05 Duoneb - NEB 1 amp Q4HWA REZA Administration Amlodipine Besylate 5 mg 03/06/18 10:00 03/07/18 09:23 Norvasc - PO 5 mg DAILY REZA Administration Aspirin 81 mg 03/06/18 14:30 03/07/18 09:27 Asa - PO 81 mg DAILY REZA Administration Atorvastatin Calcium 80 mg 03/05/18 22:00 03/06/18 21:26 Lipitor - PO 80 mg HS REZA Administration Clopidogrel Bisulfate 75 mg 03/06/18 14:30 03/07/18 09:28 Plavix - PO 75 mg DAILY REZA Administration Codeine Sulfate 30 mg 03/06/18 23:21 03/06/18 23:53 Codeine Sulfate - PO 30 mg Q6H PRN Administration COUGH Heparin Sodium (Porcine) 1,000 unit 03/05/18 13:43 03/06/18 10:20 Heparin - IVPUSH 1,000 unit PRN PRN Administration Heparin Heparin Sodium (Porcine) 5,000 unit 03/05/18 13:43 Heparin - IVPUSH PRN PRN Heparin Heparin Sodium (Porcine) 25, 500 mls @ 16 mls/hr 03/05/18 13:45 03/07/18 09: 35 000 unit/ Sodium Chloride IV Not Given TITR [facility] Protocol 800 UNIT/HR Insulin Aspart 1 vial 03/05/18 22:00 03/07/18 10:47 Novolog Vial Sliding Scale - SQ Not Given ACHS [facility] Protocol Insulin Detemir 5 units 03/06/18 22:00 03/06/18 21:25 Levemir Vial SQ 5 units HS RE[facility] Administration Levothyroxine Sodium 75 mcg 03/06/18 07:00 03/07/18 06:11 Synthroid - PO 75 mcg DAILY@0700 RE[facility] Administration Metoprolol Tartrate 50 mg 03/05/18 23:45 03/07/18 09:27 Lopressor - PO 50 mg BID RE[facility] Administration Montelukast Sodium 10 mg 03/05/18 22:00 03/06/18 21:26 Singulair - PO 10 mg HS RE[facility] Administration ASSESSMENT/PLAN: 63 year old female with a PMH of CAD (s/p CABG 2016 @ [facility]) and HTN presents to ED yesterday w/three day h/o productive (clear) cough and worsening dyspnea. H/o recent plane ride from [place] (02/29/2108). L/E Duplex negative for DVT. #1. NSTEMI showing new lateral in and inferior TWI on ECG - Currently non-tachycardic, SpO2 100% on RA - Troponin stable @ 1.8 over the last 48 hours; 2.5 @ presentation - Echo shows EF 55-60%, normal LV size, no wall motion abnormalities - D/c IV Heparin today - Continue ASA, Plavix, Statin, Lopressor - Nuclear stress testing once SANTINO resolves - likely as outpatient - Cardiology following, appreciate recs #2. SANTINO - STABLE - Cr stable @ 2.0, previous Cr 0.8-1.1 in 2016 - Gentle hydration, @ 42 mls # 3. NIDDM - UNCONTROLLED - Initially hyperglycemic (300's-400's); 100's today (03/07) - HbA1c 8.4 - ISS + 10 units QHS - Diabetic diet - BS ACHS # 4. LEUKOCYTOSIS - likely reactive - 17 today (03/07) <--12 <-- 17 @ presentation - No steroid use, not febrile suggesting active infection - Continue to monitor FEN Monitor electrolyes Diabetic Diet Disposition: Transfer to inpatient floor today for further evaluation including continued cardiac evaluation. Visit type - Emergency Visit Emergency Visit: No - New Patient This patient is new to me today: No - Critical Care Critical Care patient: No
[2018-03-07] MEDS ORDERED: SODIUM CHLORIDE 1,000 ML IV SCH (16:15)
[2018-03-07] MEDS: CODEINE SO4 30 MG TABLET PO SCH ×2 (17:43→23:57)
[2018-03-07] MEDS ORDERED: ACETAMINOPHEN 1000 MG/100 ML VIAL (NON FORMULARY) IVPB ONE (18:36)
--- NOTE | 2018-03-07 19:11 | PN ---
Progress Note (short form) - Note Progress Note: pt had a fever 101 blood cx urine cx IV tylenol Trop and ekg as pt feel chest discomfort had Nausea and vomiting x2 pt had constipation did not move her bowel for 3 days . started miralax and colace
[2018-03-07] MEDS: ATORVASTATIN CA 80 MG TABLET (FP) PO SCH (21:32)
[2018-03-07] MEDS: POLYETHYLENE GLYCOL 3350 119 GM BTL PO SCH (21:33)
[2018-03-07] MEDS: MONTELUKAST NA 10 MG TABLET PO SCH (21:33)
[2018-03-07] MEDS: DOCUSATE SODIUM 100 MG CAPSULE (FP) PO SCH (21:33)
[2018-03-07 21:53] LABS: URINE APPEARANCE CLEAR; URINE BILIRUBIN NEGATIVE (<2.0 mg/dL); URINE COLOR LTYELLOW; URINE GLUCOSE (UA) 3+ (NEGATIVE); URINE KETONE NEGATIVE (NEGATIVE); URINE LEUK ESTERASE NEGATIVE (NEGATIVE); URINE NITRITE NEGATIVE (NEGATIVE); URINE PROTEIN 3+ (NEGATIVE); URINE UROBILINOGEN NEGATIVE mg/dL (0.2-1.0)
[2018-03-07 21:56] LABS: EPI CELLS RARE /HPF (FEW); URINE HYALINE CAST 1 /lpf
[2018-03-07] MEDS: INSULIN (LEVEMIR) 100 UNITS/ML UNITS SQ SCH (22:36)
[2018-03-07] MEDS: MELATONIN 5 MG TABLETS PO PRN (22:37)
[2018-03-08] MEDS: INSULIN SLIDING SCALE (NOVOLOG) 1 VIAL SQ SCH ×4 (06:38→21:22)
[2018-03-08] MEDS: LEVOTHYROXINE NA 75 MCG TABLET (FP) PO SCH (06:38)
[2018-03-08] MEDS: CODEINE SO4 30 MG TABLET PO SCH ×2 (06:38→12:22)
[2018-03-08] MEDS: ALBUTEROL SO4 2.5/IPRATROPIUM 0.5 INH SOL 3 ML VIAL.NEB. NEB SCH ×5 (06:52→21:41)
[2018-03-08 07:40] LABS: HEMATOCRIT 27.7 % (32.4-45.2); HEMOGLOBIN 8.9 GM/dL (10.7-15.3); MCH 23.6 pg (25.7-33.7); MCHC 32.2 g/dl (32.0-36.0); MEAN CELL VOLUME 73.2 fl (80-96); MEAN PLT VOLUME 10.4 fl (7.5-11.1); PLATELET COUNT 304 K/MM3 (134-434); RBC 3.78 M/mm3 (3.60-5.2); RDW 17.3 % (11.6-15.6); WHITE BLOOD COUNT 10.6 K/mm3 (4.0-10.0)
[2018-03-08 07:48] LABS: CHLORIDE 109 mmol/L (98-107); SODIUM 139 mmol/L (136-145)
[2018-03-08 08:00] LABS: ALK PHOS 92 U/L (45-117); ANION GAP 10 (8-16); BILIRUBIN,TOTAL 0.8 mg/dL (0.2-1.0); BLOOD UREA NITROGEN 38 mg/dL (7-18); CALCIUM 7.4 mg/dL (8.5-10.1); CO2 20 mmol/L (21-32); CREATININE 2.3 mg/dL (0.55-1.02); GLUCOSE,RANDOM 164 mg/dL (74-106); SGOT/AST 40 U/L (15-37); SGPT/ALT 22 U/L (12-78); TOT PROT 5.4 g/dl (6.4-8.2)
[2018-03-08] MEDS: ASPIRIN 81 MG CHEWABLE TABLETS PO SCH (09:26)
[2018-03-08] MEDS: amLODIPine BESYLATE 5 MG TABLET (FP) PO SCH (09:27)
[2018-03-08] MEDS: METOPROLOL TARTRATE 50 MG TABLET (FP) PO SCH ×2 (09:27→21:22)
[2018-03-08] MEDS: CLOPIDOGREL BISULFATE 75 MG TABLET (FP) PO SCH (09:27)
[2018-03-08] MEDS: POLYETHYLENE GLYCOL 3350 119 GM BTL PO SCH ×2 (09:29→21:33)
--- NOTE | 2018-03-08 10:21 | PN ---
Progress Note, Physician History of Present Illness: seen and examined today in [facility]. reported fever and possible chest pressure yesterday thus trop was sent and did not trend up. currently no complaints. - Current Medication List Current Medications: Active Medications Albuterol/Ipratropium (Duoneb -) 1 amp NEB Q4HWA [facility] BEDS AT [facility] Last Admin: 03/08/18 09:29 Dose: 1 amp Amlodipine Besylate (Norvasc -) 5 mg PO DAILY [facility] 234 BEDS AT [facility] Last Admin: 03/08/18 09:27 Dose: 5 mg Aspirin (Asa -) 81 mg PO DAILY [facility] 234 BEDS AT [facility] Last Admin: 03/08/18 09:26 Dose: 81 mg Atorvastatin Calcium (Lipitor -) 80 mg PO [facility] Last Admin: 03/07/18 21:32 Dose: 80 mg Clopidogrel Bisulfate (Plavix -) 75 mg PO DAILY [facility] 234 BEDS AT [facility] Last Admin: 03/08/18 09:27 Dose: 75 mg Codeine Sulfate (Codeine Sulfate -) 30 mg PO Q6HPO [facility]S [facility]CLUDE 234 BEDS AT [facility] Last Admin: 03/08/18 06:38 Dose: Not Given Docusate Sodium (Colace -) 300 mg PO [facility] Last Admin: 03/07/18 21:33 Dose: 300 mg Sodium Chloride (Normal Saline -) 1,000 mls @ 42 mls/hr IV ASDIR COUNTS [facility]CLUDE 234 BEDS AT [facility] Last Admin: 03/07/18 16:30 Dose: 42 mls/hr Insulin Aspart (Novolog Vial Sliding Scale -) 1 vial SQ [facility]; Protocol Last Admin: 03/08/18 06:38 Dose: 2 units Insulin Detemir (Levemir Vial) 5 units SQ [facility] Last Admin: 03/07/18 22:36 Dose: 5 units Levothyroxine Sodium (Synthroid -) 75 mcg PO DAILY@0700 [facility] 234 BEDS AT [facility] Last Admin: 03/08/18 06:38 Dose: 75 mcg Melatonin (Melatonin) 5 mg PO PRN PRN Reason: INSOMNIA Last Admin: 03/07/18 22:37 Dose: 5 mg Metoprolol Tartrate (Lopressor -) 50 mg PO BID [facility] 234 BEDS AT [facility] Last Admin: 03/08/18 09:27 Dose: 50 mg Montelukast Sodium (Singulair -) 10 mg PO [facility] Last Admin: 03/07/18 21:33 Dose: 10 mg Polyethylene Glycol (Miralax (For Daily Use) -) 17 gm PO BID [facility] 234 BEDS AT [facility] Last Admin: 03/08/18 09:29 Dose: 17 grams - Objective Vital Signs: Vital Signs Temperature 98.2 F 03/08/18 09:00 Pulse Rate 82 03/08/18 09:00 Respiratory Rate 18 03/08/18 09:00 Blood Pressure 130/69 03/08/18 09:00 O2 Sat by Pulse Oximetry (%) 99 03/07/18 20:13 Constitutional: Yes: No Distress, Calm Eyes: Yes: WNL, Conjunctiva Clear, EOM Intact, PERRL HENT: Yes: WNL, Atraumatic, Normocephalic Neck: Yes: WNL, Supple, Trachea Midline Cardiovascular: Yes: Regular Rate and Rhythm, S1, S2. No: Bradycardia, Tachycardia, Pulse Irregular, Bruit, JVD, Gallop, Murmur, Rub, S4, Varicosities Respiratory: Yes: Regular, Diminished. No: Rales, Rhonchi, Wheezes Gastrointestinal: Yes: Normal Bowel Sounds, Soft. No: Distention, Tenderness Musculoskeletal: Yes: WNL Extremities: Yes: WNL Edema: No Peripheral Pulses WNL: Yes Peripheral Pulses: Left Doralis Pedis: 2+, Right Dorsalis Pedis: 2+ Neurological: Yes: Alert, Oriented Psychiatric: Yes: Alert, Oriented Labs: CBC, BMP 03/08/18 06:20 03/08/18 06:20 INR, PTT INR 0.97 (0.82-1.09) 03/05/18 11:28 - ....Imaging Chest X-ray: Report Reviewed, Image Reviewed EKG: Report Reviewed, Image Reviewed Other: Report Reviewed, Image Reviewed (tele-NSR, PVCs, no sig arrhythmias) Assessment/Plan 63 F with DM, HTN, severe CAD sp CABG 2016 [facility]. Recent travel from [facility] on 02/28. Had been feeling well until 3 days [employer] when cough productive of clear phlegm developed. admitted with cough, sob, nstemi. In 2016 admitted with chest pain and CAD was diagnosed. She had CABG at [facility]. EF was preserved at that time. Operation was complicated by sternal wound infection. Echo: Report Reviewed (2015 normal valve and EF.) 1. NSTEMI. At present CP free. 2. SANTINO 3. Acute heart failure. prior normal EF. 4. 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 Cardiac Options include: cont medical therapy alone for now and outpatient f/up with her electrician refinery vs inpatient nuclear stress test vs cardiac cath Given elevated creatinine would favor medical therapy and further work up as outpatient once creatinine improves however will need to discuss further with her family. If planning for further ischemic work up which may include cardiac cath would benefit from nephrology evaluation to consider risk of contrast induced nephropathy and optimization
--- NOTE | 2018-03-08 11:29 | PN ---
Progress Note, Physician History of Present Illness: PULMONARY ALERT,FEELING BETTER,+COUGH,WHITE SPUTUM,-SOB - Current Medication List Current Medications: Active Medications Albuterol/Ipratropium (Duoneb -) 1 amp NEB Q4HWA [facility] Last Admin: 03/08/18 09:29 Dose: 1 amp Amlodipine Besylate (Norvasc -) 5 mg PO DAILY [facility] Last Admin: 03/08/18 09:27 Dose: 5 mg Aspirin (Asa -) 81 mg PO DAILY [facility] Last Admin: 03/08/18 09:26 Dose: 81 mg Atorvastatin Calcium (Lipitor -) 80 mg PO [facility] Last Admin: 03/07/18 21:32 Dose: 80 mg Clopidogrel Bisulfate (Plavix -) 75 mg PO DAILY [facility] Last Admin: 03/08/18 09:27 Dose: 75 mg Codeine Sulfate (Codeine Sulfate -) 30 mg PO Q6HPO [facility] Last Admin: 03/08/18 06:38 Dose: Not Given Docusate Sodium (Colace -) 300 mg PO [facility] Last Admin: 03/07/18 21:33 Dose: 300 mg Sodium Chloride (Normal Saline -) 1,000 mls @ 42 mls/hr IV ASDIR [facility] Last Admin: 03/07/18 16:30 Dose: 42 mls/hr Insulin Aspart (Novolog Vial Sliding Scale -) 1 vial SQ [facility]; Protocol Last Admin: 03/08/18 06:38 Dose: 2 units Insulin Detemir (Levemir Vial) 5 units SQ [facility] Last Admin: 03/07/18 22:36 Dose: 5 units Levothyroxine Sodium (Synthroid -) 75 mcg PO DAILY@0700 [facility] Last Admin: 03/08/18 06:38 Dose: 75 mcg Melatonin (Melatonin) 5 mg PO PRN PRN Reason: INSOMNIA Last Admin: 03/07/18 22:37 Dose: 5 mg Metoprolol Tartrate (Lopressor -) 50 mg PO BID [facility] Last Admin: 03/08/18 09:27 Dose: 50 mg Montelukast Sodium (Singulair -) 10 mg PO [facility] Last Admin: 03/07/18 21:33 Dose: 10 mg Polyethylene Glycol (Miralax (For Daily Use) -) 17 gm PO BID [facility] Last Admin: 03/08/18 09:29 Dose: 17 grams - Objective Vital Signs: Vital Signs Temperature 98.2 F 03/08/18 09:00 Pulse Rate 82 03/08/18 09:00 Respiratory Rate 18 03/08/18 09:00 Blood Pressure 130/69 03/08/18 09:00 O2 Sat by Pulse Oximetry (%) 99 03/08/18 10:00 Constitutional: Yes: Well Nourished, Calm Eyes: Yes: WNL HENT: Yes: WNL Neck: Yes: WNL Cardiovascular: Yes: Regular Rate and Rhythm, S1, S2 Respiratory: Yes: Rales (FEW BIBASILAR RALES) Gastrointestinal: Yes: Normal Bowel Sounds, Soft Extremities: Yes: WNL Edema: No Labs: CBC, BMP 03/08/18 06:20 03/08/18 06:20 INR, PTT INR 0.97 (0.82-1.09) 03/05/18 11:28 Assessment/Plan Problem List - Problems (1) Acute pulmonary edema Code(s): J81.0 - ACUTE PULMONARY EDEMA (2) NSTEMI (non-ST elevated myocardial infarction) Code(s): I21.4 - NON-ST ELEVATION (NSTEMI) MYOCARDIAL INFARCTION (3) CAD (coronary artery disease) Code(s): I25.10 - ATHSCL HEART DISEASE OF [place] CORONARY ARTERY W/O ANG PCTRS Assessment/Plan NSTEMI (?) CKD Low clinical suspicion of PNA or VTE Rec: IV Heparin ASA/Plavix Statin O2 as needed anti-tussives DR CHAUDHARI
[2018-03-08] MEDS ORDERED: INSULIN (NOVOLOG) ASPART 100 UNITS/ML 10ML VIAL ONE ×2 (11:56→21:20)
--- NOTE | 2018-03-08 13:13 | PN ---
Progress Note, Physician Chief Complaint: daughter at bedside spoke with Dr Parham, will be going for stress test today c/o chest heaviness - Current Medication List Current Medications: Active Medications Albuterol/Ipratropium (Duoneb -) 1 amp NEB Q4HWA [facility] Last Admin: 03/08/18 09:29 Dose: 1 amp Amlodipine Besylate (Norvasc -) 5 mg PO DAILY [facility] Last Admin: 03/08/18 09:27 Dose: 5 mg Aspirin (Asa -) 81 mg PO DAILY [facility] Last Admin: 03/08/18 09:26 Dose: 81 mg Atorvastatin Calcium (Lipitor -) 80 mg PO [facility] Last Admin: 03/07/18 21:32 Dose: 80 mg Clopidogrel Bisulfate (Plavix -) 75 mg PO DAILY [facility] Last Admin: 03/08/18 09:27 Dose: 75 mg Codeine Sulfate (Codeine Sulfate -) 30 mg PO Q6HPO [facility] Last Admin: 03/08/18 12:22 Dose: Not Given Docusate Sodium (Colace -) 300 mg PO [facility] Last Admin: 03/07/18 21:33 Dose: 300 mg Sodium Chloride (Normal Saline -) 1,000 mls @ 42 mls/hr IV ASDIR [facility] Last Admin: 03/07/18 16:30 Dose: 42 mls/hr Insulin Aspart (Novolog Vial Sliding Scale -) 1 vial SQ [facility]; Protocol Last Admin: 03/08/18 12:22 Dose: Not Given Insulin Detemir (Levemir Vial) 5 units SQ [facility] Last Admin: 03/07/18 22:36 Dose: 5 units Levothyroxine Sodium (Synthroid -) 75 mcg PO DAILY@0700 [facility] Last Admin: 03/08/18 06:38 Dose: 75 mcg Melatonin (Melatonin) 5 mg PO HS PRN PRN Reason: INSOMNIA Last Admin: 03/07/18 22:37 Dose: 5 mg Metoprolol Tartrate (Lopressor -) 50 mg PO BID [facility] Last Admin: 03/08/18 09:27 Dose: 50 mg Montelukast Sodium (Singulair -) 10 mg PO HS [facility] Last Admin: 03/07/18 21:33 Dose: 10 mg Polyethylene Glycol (Miralax (For Daily Use) -) 17 gm PO BID [facility] Last Admin: 03/08/18 09:29 Dose: 17 grams - Objective Vital Signs: Vital Signs Temperature 98.2 F 03/08/18 09:00 Pulse Rate 82 03/08/18 09:00 Respiratory Rate 18 03/08/18 09:00 Blood Pressure 130/69 03/08/18 09:00 O2 Sat by Pulse Oximetry (%) 99 03/08/18 10:00 Constitutional: Yes: No Distress, Calm Cardiovascular: Yes: Regular Rate and Rhythm Respiratory: Yes: Diminished Gastrointestinal: Yes: Normal Bowel Sounds, Soft. No: Tenderness Edema: No Labs: CBC, BMP 03/08/18 06:20 03/08/18 06:20 INR, PTT INR 0.97 (0.82-1.09) 03/05/18 11:28 Problem List - Problems (1) CHF exacerbation Code(s): I50.9 - HEART FAILURE, UNSPECIFIED Qualifiers: Heart failure type: unspecified Qualified Code(s): I50.9 - Heart failure, unspecified (2) NSTEMI (non-ST elevated myocardial infarction) Code(s): I21.4 - NON-ST ELEVATION (NSTEMI) MYOCARDIAL INFARCTION (3) Abdominal pain Code(s): R10.9 - UNSPECIFIED ABDOMINAL PAIN (4) CAD (coronary artery disease) Code(s): I25.10 - ATHSCL HEART DISEASE OF [place] CORONARY ARTERY W/O ANG PCTRS (5) Diabetes Code(s): E11.9 - TYPE 2 DIABETES MELLITUS WITHOUT COMPLICATIONS (6) Renal failure (ARF), acute on chronic Code(s): N17.9 - ACUTE KIDNEY FAILURE, UNSPECIFIED; N18.9 - CHRONIC KIDNEY DISEASE, UNSPECIFIED Assessment/Plan plan Creatinine ?new baseline for stress test today renal eval -- may need cardiac cath-- need renal input with regards to contrast Add Reglan- pt has gastroparesis
--- NOTE | 2018-03-08 14:28 | EKG ---
Test Reason : Blood Pressure : / mmHG Vent. Rate : 098 BPM Atrial Rate : 098 BPM P-R Int : 126 ms QRS Dur : 090 ms QT Int : 342 ms P-R-T Axes : 056 073 151 degrees QTc Int : 436 ms NORMAL SINUS RHYTHM POSSIBLE LEFT ATRIAL ENLARGEMENT NONSPECIFIC ST AND T WAVE ABNORMALITY ABNORMAL ECG WHEN COMPARED WITH ECG OF 06-MAR-2018 09:15, PREMATURE VENTRICULAR COMPLEXES ARE NO LONGER PRESENT NONSPECIFIC T WAVE ABNORMALITY, WORSE IN INFERIOR LEADS QT HAS SHORTENED Confirmed by SAM HENDERSON, TALIA ([id number]) on 03/08/2018 2:28:10 PM Referred By: Confirmed By:TALIA VARGAS MD
--- NOTE | 2018-03-08 15:38 | CONSULT ---
Consult Consult Specialty:: Renal Reason for Consultation:: SANTINO - History of Present Illness History of Present Illness: 63 yo F admitted to the hospital for NSTEMI and found to have SANTINO on CKD. Pt was seen by cardiology and treated accordingly for NSTEMI and she underwent ECHO and will get stress test. She denies use of mobic, although it's on the chart as home medication. Per daughter, she has not been on lasix for 8 months. Denies fever, chills, h/o kidney stone, dysuria, n/v, chest pain, sob. 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 PRACTICE COORDINATOR: Yes: Other (carotid stenosis) Cardio/Vascular: Yes: CAD (s/p CABG), HTN, Hyperlipdemia Endocrine: Yes: Diabetes Mellitus - Past Surgical History Past Surgical History: Yes: CABG - Alcohol/Substance Use Hx Alcohol Use: No - Smoking History Smoking history: Never smoked Have you smoked in the past 12 months: No Aproximately how many cigarettes per day: 0 Home Medications - Allergies Allergies/Adverse Reactions: Allergies Allergy/AdvReac Type Severity Reaction Status Date / Time No Known Drug Allergies Allergy Verified 03/05/18 10:31 BEANS Allergy Rash Uncoded 03/05/18 10:31 - Home Medications Home Medications: Ambulatory Orders Levothyroxine [Synthroid -] 75 mcg PO DAILY 08/13/16 Metoprolol Tartrate [Lopressor] 50 mg PO BID 08/13/16 Valsartan 320 mg PO DAILY 08/13/16 Amlodipine Besylate [Norvasc -] 5 mg PO DAILY 03/05/18 Aspirin [Ecotrin] 81 mg PO DAILY 03/05/18 Atorvastatin Ca [Lipitor] 10 mg PO HS 03/05/18 Benzonatate 100 mg PO TID 03/05/18 Dulaglutide [Trulicity] 1.5 mg SQ WEEKLY 03/05/18 Hydrocodone/Ibuprofen [VICOPROFEN 7.5/200 mg [NF MEDICATION]] 1 tab PO BID 03/05 Insulin Glargine,Hum.rec.anlog [Lantus Solostar PEN (NF)] 50 ml SQ DAILY Insulin Lispro [Humalog] 10 unit SQ TID 03/05/18 Montelukast Sodium [Singulair] 10 mg PO DAILY 03/05/18 Plecanatide [Trulance] 3 mg PO DAILY 03/05/18 Potassium Chloride [K-Dur -] 20 meq PO DAILY 03/05/18 Suvorexant [Belsomra] 20 mg PO DAILY 03/05/18 Family Disease History - Family Disease History Family Disease History: Heart Disease: Father Review of Systems - Review of Systems Constitutional: reports: Lethargy Eyes: reports: No Symptoms HENT: reports: No Symptoms Neck: reports: No Symptoms Cardiovascular: denies: Chest Pain, Shortness of Breath Respiratory: denies: Cough, Orthopnea Genitourinary: reports: No Symptoms Musculoskeletal: reports: No Symptoms Physical Exam Vital Signs: Vital Signs Temperature 98.2 F 03/08/18 09:00 Pulse Rate 82 03/08/18 09:00 Respiratory Rate 18 03/08/18 09:00 Blood Pressure 130/69 03/08/18 09:00 O2 Sat by Pulse Oximetry (%) 99 03/08/18 10:00 Constitutional: Yes: Calm, Other (tired looking) Eyes: Yes: Conjunctiva Clear, EOM Intact HENT: Yes: Atraumatic, Normocephalic Neck: Yes: Supple, Trachea Midline Cardiovascular: Yes: Regular Rate and Rhythm, Murmur (ejection murmur), S1, S2 Respiratory: Yes: Wheezes Gastrointestinal: Yes: Normal Bowel Sounds, Soft. No: Tenderness Edema: No Labs: CBC, BMP 03/08/18 06:20 03/08/18 06:20 Imaging - Results Chest X-ray: Report Reviewed, Image Reviewed EKG: Report Reviewed, Image Reviewed Assessment/Plan 63 yo F PMH of CAD s/p CABG admitted to the hospital for NSTEMI and found to have SANTINO on CKD. SANTINO on CKD Lactic acidosis NSTEMI HTN IDDM - SANTINO 2/2 ?NSAID, ?Lasix, NSTEMI on CKD, ?diabetic nephropathy - f/u FeUrea and renal U/S - Cont. hydration at 72cc/hr with NS - Contrast induced nephropathy risk ~26% if PCI is to be performed - Cont. to hold NSAID, lasix and ARB Visit type - Emergency Visit Emergency Visit: No - New Patient This patient is new to me today: Yes Date on this admission: 03/08/18 - Critical Care Critical Care patient: No
[2018-03-08] MEDS ORDERED: ONDANSETRON 4 MG/2 ML VIAL IVPUSH ONE (16:00)
[2018-03-08] MEDS: METOCLOPRAMIDE HCL 10 MG TABLET (FP) PO SCH (16:04)
[2018-03-08] MEDS ORDERED: SODIUM CHLORIDE 1,000 ML IV SCH (17:04)
--- NOTE | 2018-03-08 17:22 | PN ---
Teaching Attending Note Name of Resident: Srikanth Mayorga (Nephrology) ATTENDING PHYSICIAN STATEMENT I saw and evaluated the patient. I reviewed the resident's note and discussed the case with the resident. I agree with the resident's findings and plan as documented. SUBJECTIVE: This is a 63 year old woman with PMhx of CAD s/p CABG (2016), Hypertension who presents with complaints of chest pain and found to have NSTEMI and Cr of 2- 2.3. Daughter at the bedside. No hx of CKD as far as they knew. No Hx of stones. No recent contrast exposure. Pt was taking Mobic at home as well as valsartan and Lasix. Denies any dysuira, flank pain, CP/SOB. PMhx: as above Allergies: NKDA Family Hx: NC Social Hx: No T/A/D ROS: as per HPI Home Medications Medication Instructions Recorded Furosemide [Lasix -] 40 mg PO DAILY 08/13/16 Levothyroxine [Synthroid -] 75 mcg PO DAILY 08/13/16 Metoprolol Tartrate [Lopressor] 50 mg PO BID 08/13/16 Valsartan 320 mg PO DAILY 08/13/16 Amlodipine Besylate [Norvasc -] 5 mg PO DAILY 03/05/18 Aspirin [Ecotrin] 81 mg PO DAILY 03/05/18 Atorvastatin Ca [Lipitor] 10 mg PO HS 03/05/18 Benzonatate 100 mg PO TID 03/05/18 Dulaglutide [Trulicity] 1.5 mg SQ WEEKLY 03/05/18 Hydrocodone/Ibuprofen [VICOPROFEN 1 tab PO BID 03/05/18 7.5/200 mg [NF MEDICATION]] Insulin Glargine,Hum.rec.anlog 50 ml SQ DAILY 03/05/18 [Lantus Solostar PEN (NF)] Insulin Lispro [Humalog] 10 unit SQ TID 03/05/18 Meloxicam [Mobic] 15 mg PO DAILY 03/05/18 Montelukast Sodium [Singulair] 10 mg PO DAILY 03/05/18 Plecanatide [Trulance] 3 mg PO DAILY 03/05/18 Potassium Chloride [K-Dur -] 20 meq PO DAILY 03/05/18 Suvorexant [Belsomra] 20 mg PO DAILY 03/05/18 OBJECTIVE: Vital Signs Temperature 98.2 F 03/08/18 09:00 Pulse Rate 82 03/08/18 09:00 Respiratory Rate 18 03/08/18 09:00 Blood Pressure 130/69 03/08/18 09:00 O2 Sat by Pulse Oximetry (%) 99 03/08/18 10:00 Intake & Output 03/05/18 03/06/18 03/07/18 03/08/18 23:59 23:59 23:59 23:59 Intake Total 200 1273 1049 504 Output Total 460 350 Balance 871 642 8619 154 Weight 57.606 kg 56.926 kg 56.699 kg NAD awake and alert MMM, No JVD Neck supple RRR, No M/R CTA, no rales or wheeze soft NT/ND No LE edema, clubbing or cyanosis CBC, BMP 03/08/18 06:20 03/08/18 06:20 Current Medications Albuterol/Ipratropium (Duoneb -) 1 amp NEB Q4HWA [facility] Last Admin: 03/08/18 13:46 Dose: Not Given Amlodipine Besylate (Norvasc -) 5 mg PO DAILY [facility] Last Admin: 03/08/18 09:27 Dose: 5 mg Aspirin (Asa -) 81 mg PO DAILY [facility] Last Admin: 03/08/18 09:26 Dose: 81 mg Atorvastatin Calcium (Lipitor -) 80 mg PO [facility] Last Admin: 03/07/18 21:32 Dose: 80 mg Clopidogrel Bisulfate (Plavix -) 75 mg PO DAILY [facility] Last Admin: 03/08/18 09:27 Dose: 75 mg Docusate Sodium (Colace -) 300 mg PO [facility] Last Admin: 03/07/18 21:33 Dose: 300 mg Sodium Chloride (Normal Saline -) 1,000 mls @ 75 mls/hr IV ASDIR [facility] Insulin Aspart (Novolog Vial Sliding Scale -) 1 vial SQ [facility]; Protocol Last Admin: 03/08/18 12:22 Dose: Not Given Insulin Detemir (Levemir Vial) 5 units SQ [facility] Last Admin: 03/07/18 22:36 Dose: 5 units Levothyroxine Sodium (Synthroid -) 75 mcg PO DAILY@0700 [facility] Last Admin: 03/08/18 06:38 Dose: 75 mcg Melatonin (Melatonin) 5 mg PO PRN PRN Reason: INSOMNIA Last Admin: 03/07/18 22:37 Dose: 5 mg Metoclopramide HCl (Reglan -) 10 mg PO TIDAC [facility] Last Admin: 03/08/18 16:04 Dose: 10 mg Metoprolol Tartrate (Lopressor -) 50 mg PO BID [facility] Last Admin: 03/08/18 09:27 Dose: 50 mg Montelukast Sodium (Singulair -) 10 mg PO HS [facility] Last Admin: 03/07/18 21:33 Dose: 10 mg Polyethylene Glycol (Miralax (For Daily Use) -) 17 gm PO BID [facility] Last Admin: 03/08/18 09:29 Dose: 17 grams ASSESSMENT AND PLAN: 63 year old woman with PMhx of CAD s/p CABG (2015), Hypertension who presents with complaints of chest pain and found to have NSTEMI and Cr of 2-2.3. #Acute Kidney Injury vs. CKD #NSTEMI/CAD #Hypertension #Metabolic acidosis #Anemia Etiology of SANTINO could be normotensive ATN in setting of NSAID + ARB Check urine studies and renal US trial of IVF x 24 hours s/p Stress test based to todays labs values risk of LAURIE is 26% and risk of immediate dialysis is 1% this was conveyed to the patients family Start sodium bicarb 650mg Daily Check iron studies Thank you will follow Steve Shrestha DO
[2018-03-08] MEDS: DOCUSATE SODIUM 100 MG CAPSULE (FP) PO SCH (21:21)
[2018-03-08] MEDS: INSULIN (LEVEMIR) 100 UNITS/ML UNITS SQ SCH (21:22)
[2018-03-08] MEDS: MONTELUKAST NA 10 MG TABLET PO SCH (21:22)
[2018-03-08] MEDS: ATORVASTATIN CA 80 MG TABLET (FP) PO SCH (21:22)
[2018-03-09 04:08] LABS: RATIO URIN PROTEIN/URIN CREAT 6.6 MG/DL
[2018-03-09] MEDS: LEVOTHYROXINE NA 75 MCG TABLET (FP) PO SCH (06:03)
[2018-03-09] MEDS: METOCLOPRAMIDE HCL 10 MG TABLET (FP) PO SCH ×3 (06:03→16:49)
[2018-03-09] MEDS: INSULIN SLIDING SCALE (NOVOLOG) 1 VIAL SQ SCH ×4 (06:03→21:28)
[2018-03-09] MEDS: ALBUTEROL SO4 2.5/IPRATROPIUM 0.5 INH SOL 3 ML VIAL.NEB. NEB SCH ×5 (06:05→21:28)
[2018-03-09 06:38] LABS: BASO % 0.4 % (0-2.0); EOS % 0.9 % (0-4.5); HEMATOCRIT 27.5 % (32.4-45.2); HEMOGLOBIN 8.9 GM/dL (10.7-15.3); LYMPH % 36.8 % (8-40); MCHC 32.3 g/dl (32.0-36.0); MEAN CELL VOLUME 74.2 fl (80-96); MEAN PLT VOLUME 10.1 fl (7.5-11.1); MONO % 11.4 % (3.8-10.2); NEUT % 50.5 % (42.8-82.8); PLATELET COUNT 248 K/MM3 (134-434); RBC 3.71 M/mm3 (3.60-5.2); RDW 17.4 % (11.6-15.6); WHITE BLOOD COUNT 11.3 K/mm3 (4.0-10.0)
[2018-03-09 07:15] LABS: ALK PHOS 86 U/L (45-117); ANION GAP 8 (8-16); BILIRUBIN,TOTAL 0.6 mg/dL (0.2-1.0); BLOOD UREA NITROGEN 33 mg/dL (7-18); CALCIUM 7.4 mg/dL (8.5-10.1); CHLORIDE 112 mmol/L (98-107); CO2 21 mmol/L (21-32); CREATININE 2.2 mg/dL (0.55-1.02); GLUCOSE,RANDOM 115 mg/dL (74-106); SGOT/AST 43 U/L (15-37); SGPT/ALT 23 U/L (12-78); SODIUM 141 mmol/L (136-145); TOT PROT 5.2 g/dl (6.4-8.2)
[2018-03-09] MEDS: CLOPIDOGREL BISULFATE 75 MG TABLET (FP) PO SCH (09:08)
[2018-03-09] MEDS: ASPIRIN 81 MG CHEWABLE TABLETS PO SCH (09:08)
[2018-03-09] MEDS: amLODIPine BESYLATE 5 MG TABLET (FP) PO SCH (09:08)
[2018-03-09] MEDS: METOPROLOL TARTRATE 50 MG TABLET (FP) PO SCH ×2 (09:08→21:27)
[2018-03-09] MEDS ORDERED: REGADENOSON 0.4 MG/5 ML PRE-FILLED SYRINGE IVPUSH ONE ×2 (10:30→10:38)
[2018-03-09] MEDS: POLYETHYLENE GLYCOL 3350 119 GM BTL PO SCH ×2 (12:21→21:28)
--- NOTE | 2018-03-09 12:34 | PN ---
Progress Note, Physician Chief Complaint: completed stress test No SOB bye she is wheezing No chest pain - Current Medication List Current Medications: Active Medications Albuterol/Ipratropium (Duoneb -) 1 amp NEB Q4HWA [facility] Last Admin: 03/09/18 10:00 Dose: 1 amp Amlodipine Besylate (Norvasc -) 5 mg PO DAILY [facility] Last Admin: 03/09/18 09:08 Dose: 5 mg Aspirin (Asa -) 81 mg PO DAILY [facility] Last Admin: 03/09/18 09:08 Dose: 81 mg Atorvastatin Calcium (Lipitor -) 80 mg PO [facility] Last Admin: 03/08/18 21:22 Dose: 80 mg Budesonide/Formoterol Fumarate (Symbicort 160/4.5mcg -) 2 puff IH BID [facility] Clopidogrel Bisulfate (Plavix -) 75 mg PO DAILY [facility] Last Admin: 03/09/18 09:08 Dose: 75 mg Docusate Sodium (Colace -) 300 mg PO [facility] Last Admin: 03/08/18 21:21 Dose: 300 mg Sodium Chloride (Normal Saline -) 1,000 mls @ 75 mls/hr IV ASDIR [facility] Last Admin: 03/08/18 08:00 Dose: 75 mls/hr Insulin Aspart (Novolog Vial Sliding Scale -) 1 vial SQ [facility]; Protocol Last Admin: 03/09/18 12:21 Dose: 2 units Insulin Detemir (Levemir Vial) 5 units SQ [facility] Last Admin: 03/08/18 21:22 Dose: 5 units Levothyroxine Sodium (Synthroid -) 75 mcg PO DAILY@0700 [facility] Last Admin: 03/09/18 06:03 Dose: Not Given Melatonin (Melatonin) 5 mg PO HS PRN PRN Reason: INSOMNIA Last Admin: 03/07/18 22:37 Dose: 5 mg Metoclopramide HCl (Reglan -) 10 mg PO TIDAC [facility] Last Admin: 03/09/18 12:20 Dose: 10 mg Metoprolol Tartrate (Lopressor -) 50 mg PO BID [facility] Last Admin: 03/09/18 09:08 Dose: 50 mg Montelukast Sodium (Singulair -) 10 mg PO [facility] Last Admin: 03/08/18 21:22 Dose: 10 mg Polyethylene Glycol (Miralax (For Daily Use) -) 17 gm PO BID [facility] Last Admin: 03/09/18 12:21 Dose: 17 grams - Objective Vital Signs: Vital Signs Temperature 98.4 F 03/09/18 06:00 Pulse Rate 86 03/09/18 06:00 Respiratory Rate 20 03/09/18 09:00 Blood Pressure 140/56 03/09/18 06:00 O2 Sat by Pulse Oximetry (%) 100 03/09/18 09:00 Constitutional: Yes: No Distress, Calm Cardiovascular: Yes: Regular Rate and Rhythm Respiratory: Yes: Diminished, Rhonchi Gastrointestinal: Yes: Normal Bowel Sounds, Soft. No: Tenderness Edema: No Labs: CBC, BMP 03/09/18 05:35 03/09/18 05:35 INR, PTT INR 0.97 (0.82-1.09) 03/05/18 11:28 Problem List - Problems (1) CHF exacerbation Code(s): I50.9 - HEART FAILURE, UNSPECIFIED Qualifiers: Heart failure type: unspecified Qualified Code(s): I50.9 - Heart failure, unspecified (2) NSTEMI (non-ST elevated myocardial infarction) Code(s): I21.4 - NON-ST ELEVATION (NSTEMI) MYOCARDIAL INFARCTION (3) Abdominal pain Code(s): R10.9 - UNSPECIFIED ABDOMINAL PAIN (4) CAD (coronary artery disease) Code(s): I25.10 - ATHSCL HEART DISEASE OF [place] CORONARY ARTERY W/O ANG PCTRS (5) Diabetes Code(s): E11.9 - TYPE 2 DIABETES MELLITUS WITHOUT COMPLICATIONS (6) Renal failure (ARF), acute on chronic Code(s): N17.9 - ACUTE KIDNEY FAILURE, UNSPECIFIED; N18.9 - CHRONIC KIDNEY DISEASE, UNSPECIFIED Assessment/Plan plan Creatinine ?new baseline completed stress test renal eval appreciated-- may need cardiac cath--iv fluids Add Reglan- pt has gastroparesis On neb treatments, add inhaled corticosteroids continue with meds Diabetic control
--- NOTE | 2018-03-09 13:02 | PN ---
Progress Note (short form) - Note Progress Note: PULMONARY More short of breath and wheezing this AM. CXR without acute findings. Last Vital Signs Temp Pulse Resp BP Pulse Ox 98.4 F 86 20 140/56 100 03/09/18 06:00 03/09/18 06:00 03/09/18 09:00 03/09/18 06:00 03/09/18 09:00 Gen: NAD at rest Heart: RRR Lung: bilateral rhonchi, wheezes Abd: soft, nontender Ext: no edema CBC, BMP 03/09/18 05:35 03/09/18 05:35 Active Medications Albuterol/Ipratropium (Duoneb -) 1 amp NEB Q4HWA [facility] Last Admin: 03/09/18 10:00 Dose: 1 amp Amlodipine Besylate (Norvasc -) 5 mg PO DAILY [facility] Last Admin: 03/09/18 09:08 Dose: 5 mg Aspirin (Asa -) 81 mg PO DAILY [facility] Last Admin: 03/09/18 09:08 Dose: 81 mg Atorvastatin Calcium (Lipitor -) 80 mg PO [facility] Last Admin: 03/08/18 21:22 Dose: 80 mg Budesonide/Formoterol Fumarate (Symbicort 160/4.5mcg -) 2 puff IH BID [facility] Clopidogrel Bisulfate (Plavix -) 75 mg PO DAILY [facility] Last Admin: 03/09/18 09:08 Dose: 75 mg Docusate Sodium (Colace -) 300 mg PO [facility] Last Admin: 03/08/18 21:21 Dose: 300 mg Sodium Chloride (Normal Saline -) 1,000 mls @ 75 mls/hr IV ASDIR [facility] Last Admin: 03/08/18 08:00 Dose: 75 mls/hr Insulin Aspart (Novolog Vial Sliding Scale -) 1 vial SQ [facility]; Protocol Last Admin: 03/09/18 12:21 Dose: 2 units Insulin Detemir (Levemir Vial) 5 units SQ [facility] Last Admin: 03/08/18 21:22 Dose: 5 units Levothyroxine Sodium (Synthroid -) 75 mcg PO DAILY@0700 [facility] Last Admin: 03/09/18 06:03 Dose: Not Given Melatonin (Melatonin) 5 mg PO HS PRN PRN Reason: INSOMNIA Last Admin: 03/07/18 22:37 Dose: 5 mg Metoclopramide HCl (Reglan -) 10 mg PO TIDAC [facility] Last Admin: 03/09/18 12:20 Dose: 10 mg Metoprolol Tartrate (Lopressor -) 50 mg PO BID [facility] Last Admin: 03/09/18 09:08 Dose: 50 mg Montelukast Sodium (Singulair -) 10 mg PO HS [facility] Last Admin: 03/08/18 21:22 Dose: 10 mg Polyethylene Glycol (Miralax (For Daily Use) -) 17 gm PO BID [facility] Last Admin: 03/09/18 12:21 Dose: 17 grams A/P Acute NSTEMI CAD Acute Pulmonary Edema resolving Acute Bronchospasm CKD - agree with standing and PRN inhaled bronchodilators - if no improvement in lung exam, would start short course of medrol - ASA, plavix - beta blockade, may need to decrease or hold dose if continues to wheeze - statin
[2018-03-09] MEDS ORDERED: FUROSEMIDE 40 MG/4 ML INJECTABLE VIAL IVPUSH ONE (15:38)
[2018-03-09] MEDS: BUDESONIDE/FORMETEROL FUMARATE 160/4.5 mcg INHALER IH SCH ×2 (15:56→21:28)
--- NOTE | 2018-03-09 16:42 | PN ---
Progress Note, Physician History of Present Illness: seen and examined today in nad. wheezing today. - Current Medication List Current Medications: Active Medications Albuterol/Ipratropium (Duoneb -) 1 amp NEB Q4HWA [facility] Last Admin: 03/09/18 14:14 Dose: 1 amp Amlodipine Besylate (Norvasc -) 5 mg PO DAILY [facility] Last Admin: 03/09/18 09:08 Dose: 5 mg Aspirin (Asa -) 81 mg PO DAILY [facility] Last Admin: 03/09/18 09:08 Dose: 81 mg Atorvastatin Calcium (Lipitor -) 80 mg PO [facility] Last Admin: 03/08/18 21:22 Dose: 80 mg Budesonide/Formoterol Fumarate (Symbicort 160/4.5mcg -) 2 puff IH BID [facility] Last Admin: 03/09/18 15:56 Dose: 2 puff Clopidogrel Bisulfate (Plavix -) 75 mg PO DAILY [facility] Last Admin: 03/09/18 09:08 Dose: 75 mg Docusate Sodium (Colace -) 300 mg PO [facility] Last Admin: 03/08/18 21:21 Dose: 300 mg Sodium Chloride (Normal Saline -) 1,000 mls @ 75 mls/hr IV ASDIR [facility] Last Admin: 03/08/18 08:00 Dose: 75 mls/hr Insulin Aspart (Novolog Vial Sliding Scale -) 1 vial SQ [facility]; Protocol Last Admin: 03/09/18 12:21 Dose: 2 units Insulin Detemir (Levemir Vial) 5 units SQ [facility] Last Admin: 03/08/18 21:22 Dose: 5 units Levothyroxine Sodium (Synthroid -) 75 mcg PO DAILY@0700 [facility] Last Admin: 03/09/18 06:03 Dose: Not Given Melatonin (Melatonin) 5 mg PO PRN PRN Reason: INSOMNIA Last Admin: 03/07/18 22:37 Dose: 5 mg Metoclopramide HCl (Reglan -) 10 mg PO TIDAC [facility] Last Admin: 03/09/18 12:20 Dose: 10 mg Metoprolol Tartrate (Lopressor -) 50 mg PO BID [facility] Last Admin: 03/09/18 09:08 Dose: 50 mg Montelukast Sodium (Singulair -) 10 mg PO [facility] Last Admin: 03/08/18 21:22 Dose: 10 mg Polyethylene Glycol (Miralax (For Daily Use) -) 17 gm PO BID [facility] Last Admin: 03/09/18 12:21 Dose: 17 grams - Objective Vital Signs: Vital Signs Temperature 97.9 F 03/09/18 14:00 Pulse Rate 87 03/09/18 14:00 Respiratory Rate 20 03/09/18 14:00 Blood Pressure 144/66 03/09/18 14:00 O2 Sat by Pulse Oximetry (%) 100 03/09/18 09:00 Constitutional: Yes: No Distress, Calm Eyes: Yes: WNL, Conjunctiva Clear, EOM Intact, PERRL HENT: Yes: WNL, Atraumatic, Normocephalic Neck: Yes: WNL, Supple, Trachea Midline Cardiovascular: Yes: Regular Rate and Rhythm, S1, S2. No: Bradycardia, Tachycardia, Pulse Irregular, Bruit, JVD, Gallop, Murmur, Rub, S3, S4, Varicosities Respiratory: Yes: Regular, Diminished, Wheezes. No: Rales, Rhonchi Gastrointestinal: Yes: Normal Bowel Sounds, Soft. No: Distention, Tenderness Musculoskeletal: Yes: Muscle Weakness Extremities: Yes: WNL Edema: No Peripheral Pulses WNL: No Peripheral Pulses: Left Doralis Pedis: 2+, Right Dorsalis Pedis: 2+ Neurological: Yes: Alert, Oriented Psychiatric: Yes: Alert, Oriented Labs: CBC, BMP 03/09/18 05:35 03/09/18 05:35 INR, PTT INR 0.97 (0.82-1.09) 03/05/18 11:28 - ....Imaging Chest X-ray: Report Reviewed, Image Reviewed EKG: Report Reviewed, Image Reviewed Other: Report Reviewed, Image Reviewed (tele-NSR, PVCs, 8 beats NSVT 03/08) Assessment/Plan 63 F with DM, HTN, severe CAD sp CABG 2015 [facility]. Recent travel from [place] on 02/28. Had been feeling well until 3 days [employer] when cough productive of clear phlegm developed. admitted with cough, sob, nstemi. In 2016 admitted with chest pain and CAD was diagnosed. She had CABG at [facility]. EF was preserved at that time. Operation was complicated by sternal wound infection. Echo: Report Reviewed (2016 normal valve and EF.) 1. NSTEMI. At present CP free. 2. SANTINO 3. Acute heart failure. prior normal EF. 4. Possible PNA Rec: Symptomatically improved, no further chest pain Wheezing today after receiving IVF for attempt at renal optimization To receive 1 dose of IV Lasix and decrease IVF Nuclear stress test results reviewed, moderate inferior and apical ischemia LVEF 46% Cont ASA and Plavix Cont Lopressor and statin Can uptitrate amlodipine for improved BP control if needed Echo 03/07/18 showed normal LV systolic function, mild valvular abnl LE doppler showed no clot Discussed results of stress test with pts daughter and with nephrology. There is a significant risk of worsening renal function with angiogram. Given the distribution of ischemia it is not a high risk area and thus would be reasonable to treat medically for now and have pt follow as outpatient to re- evaluate renal function prior to pursuing angiogram. Pts daughter wishes to discuss further with her family. If they do decide to proceed with angiogram pt will need further renal optimization prior to cardiac cath. This is difficult in that she developed wheezing with the IVF hydration that was given yesterday and today.
--- NOTE | 2018-03-09 17:39 | PN ---
Progress Note (short form) - Note Progress Note: Renal follow up for SANTINO vs CKD Pt seen and examined at the bedside had sob this am, IVf held continues to have some sob no chest pain, fever, chills Vital Signs Temperature 97.9 F 03/09/18 14:00 Pulse Rate 87 03/09/18 14:00 Respiratory Rate 20 03/09/18 14:00 Blood Pressure 144/66 03/09/18 14:00 O2 Sat by Pulse Oximetry (%) 100 03/09/18 09:00 Intake & Output 03/06/18 03/07/18 03/08/18 03/09/18 23:59 23:59 23:59 23:59 Intake Total 1273 1049 734 850 Output Total 460 350 Balance 813 1049 384 850 Weight 56.926 kg 56.699 kg NAD dec BS b/l lung grossman, no overt rales RRR soft NT/ND no LE edema CBC, BMP 03/09/18 05:35 03/09/18 05:35 Current Medications Albuterol/Ipratropium (Duoneb -) 1 amp NEB Q4HWA [facility] Last Admin: 03/09/18 14:14 Dose: 1 amp Amlodipine Besylate (Norvasc -) 5 mg PO DAILY [facility] Last Admin: 03/09/18 09:08 Dose: 5 mg Aspirin (Asa -) 81 mg PO DAILY [facility] Last Admin: 03/09/18 09:08 Dose: 81 mg Atorvastatin Calcium (Lipitor -) 80 mg PO HS [facility] Last Admin: 03/08/18 21:22 Dose: 80 mg Budesonide/Formoterol Fumarate (Symbicort 160/4.5mcg -) 2 puff IH BID [facility] Last Admin: 03/09/18 15:56 Dose: 2 puff Clopidogrel Bisulfate (Plavix -) 75 mg PO DAILY [facility] Last Admin: 03/09/18 09:08 Dose: 75 mg Docusate Sodium (Colace -) 300 mg PO [facility] Last Admin: 03/08/18 21:21 Dose: 300 mg Insulin Aspart (Novolog Vial Sliding Scale -) 1 vial SQ [facility]; Protocol Last Admin: 03/09/18 17:01 Dose: 10 units Insulin Detemir (Levemir Vial) 5 units SQ [facility] Last Admin: 03/08/18 21:22 Dose: 5 units Levothyroxine Sodium (Synthroid -) 75 mcg PO DAILY@0700 [facility] Last Admin: 03/09/18 06:03 Dose: Not Given Melatonin (Melatonin) 5 mg PO HS PRN PRN Reason: INSOMNIA Last Admin: 03/07/18 22:37 Dose: 5 mg Metoclopramide HCl (Reglan -) 10 mg PO TIDAC [facility] Last Admin: 03/09/18 16:49 Dose: 10 mg Metoprolol Tartrate (Lopressor -) 50 mg PO BID [facility] Last Admin: 03/09/18 09:08 Dose: 50 mg Montelukast Sodium (Singulair -) 10 mg PO HS [facility] Last Admin: 03/08/18 21:22 Dose: 10 mg Polyethylene Glycol (Miralax (For Daily Use) -) 17 gm PO BID [facility] Last Admin: 03/09/18 12:21 Dose: 17 grams 63 year old woman with PMhx of CAD s/p CABG (2016), Hypertension who presents with complaints of chest pain and found to have NSTEMI and Cr of 2-2.3. #Acute Kidney Injury vs. CKD #NSTEMI/CAD #Hypertension #Metabolic acidosis #Anemia urine studies showed low FeNa consistent with preserved tubular function will D/c IVF b/c of SOB, Lasix 40mg IV x 1 today with additional lasix as needed for sob no JIN/ARB at this time US showed no obstruction but small kidney size consist with CKD Medical management as per Cardiology Risk of LAURIE dicussed with family again will need outpatient monitoring fo renal function continue sodium bicarb daily Thank you will follow Steve Shrestha DO
[2018-03-09] MEDS ORDERED: HEPARIN NA (PORCINE) 5,000 UNITS/ML 1ML VIAL IVPUSH PRN ×2 (18:55)
[2018-03-09] MEDS ORDERED: ACETAMINOPHEN 325 MG TABLET (FP) ONE (21:06)
[2018-03-09 21:12] LABS: HEMATOCRIT 30.3 % (32.4-45.2); HEMOGLOBIN 9.6 GM/dL (10.7-15.3); MCH 23.1 pg (25.7-33.7); MCHC 31.5 g/dl (32.0-36.0); MEAN CELL VOLUME 73.3 fl (80-96); MEAN PLT VOLUME 10.3 fl (7.5-11.1); PLATELET COUNT 303 K/MM3 (134-434); RBC 4.14 M/mm3 (3.60-5.2); RDW 17.2 % (11.6-15.6); WHITE BLOOD COUNT 15.8 K/mm3 (4.0-10.0)
[2018-03-09] MEDS ORDERED: methylPREDNISolone NA SUCC 40 MG/1 ML VIAL IVPUSH ONE (21:15)
[2018-03-09] MEDS: MONTELUKAST NA 10 MG TABLET PO SCH (21:28)
[2018-03-09] MEDS: DOCUSATE SODIUM 100 MG CAPSULE (FP) PO SCH (21:28)
[2018-03-09] MEDS: ATORVASTATIN CA 80 MG TABLET (FP) PO SCH (21:28)
[2018-03-09] MEDS ORDERED: INSULIN (LEVEMIR) 100 UNITS/ML UNITS SQ SCH (22:00)
[2018-03-10] MEDS: ALBUTEROL SO4 2.5/IPRATROPIUM 0.5 INH SOL 3 ML VIAL.NEB. NEB SCH ×5 (05:52→20:49)
[2018-03-10 06:31] LABS: MCH 23.4 pg (25.7-33.7); MEAN CELL VOLUME 73.1 fl (80-96); PLATELET COUNT 250 K/MM3 (134-434); RBC 3.84 M/mm3 (3.60-5.2); RDW 17.4 % (11.6-15.6); WHITE BLOOD COUNT 16.2 K/mm3 (4.0-10.0)
[2018-03-10] MEDS: LEVOTHYROXINE NA 75 MCG TABLET (FP) PO SCH (06:34)
[2018-03-10] MEDS: INSULIN SLIDING SCALE (NOVOLOG) 1 VIAL SQ SCH ×4 (06:34→22:10)
[2018-03-10] MEDS: METOCLOPRAMIDE HCL 10 MG TABLET (FP) PO SCH ×3 (06:34→17:09)
[2018-03-10 07:25] LABS: ANION GAP 11 (8-16); BLOOD UREA NITROGEN 35 mg/dL (7-18); CALCIUM 7.2 mg/dL (8.5-10.1); CHLORIDE 110 mmol/L (98-107); CO2 18 mmol/L (21-32); CREATININE 2.2 mg/dL (0.55-1.02); MAGNESIUM 1.8 mg/dL (1.8-2.4); PHOSPHOROUS 4.7 mg/dL (2.5-4.9); POTASSIUM 4.4 mmol/L (3.5-5.1); SODIUM 139 mmol/L (136-145)
[2018-03-10 07:30] LABS: GLUCOSE,RANDOM 315 mg/dL (74-106)
[2018-03-10] MEDS ORDERED: PT OWN MED DRAWER 7, Y5N ONE ×2 (08:44→21:59)
[2018-03-10] MEDS: amLODIPine BESYLATE 5 MG TABLET (FP) PO SCH (09:37)
[2018-03-10] MEDS: METOPROLOL TARTRATE 50 MG TABLET (FP) PO SCH ×2 (09:37→22:04)
[2018-03-10] MEDS: CLOPIDOGREL BISULFATE 75 MG TABLET (FP) PO SCH (09:37)
[2018-03-10] MEDS: ASPIRIN 81 MG CHEWABLE TABLETS PO SCH (09:37)
[2018-03-10] MEDS: BUDESONIDE/FORMETEROL FUMARATE 160/4.5 mcg INHALER IH SCH ×2 (09:39→22:05)
--- NOTE | 2018-03-10 09:45 | PN ---
Progress Note, Physician History of Present Illness: seen and examined today in nad. still wheezing and mild cough. no new complaints. - Current Medication List Current Medications: Active Medications Acetaminophen (Tylenol -) 650 mg PO Q6H PRN PRN Reason: FEVER Albuterol/Ipratropium (Duoneb -) 1 amp NEB Q4H [facility] Last Admin: 03/10/18 08:38 Dose: 1 amp Amlodipine Besylate (Norvasc -) 5 mg PO DAILY [facility] Last Admin: 03/10/18 09:37 Dose: 5 mg Aspirin (Asa -) 81 mg PO DAILY [facility] Last Admin: 03/10/18 09:37 Dose: 81 mg Atorvastatin Calcium (Lipitor -) 80 mg PO [facility] Last Admin: 03/09/18 21:28 Dose: 80 mg Budesonide/Formoterol Fumarate (Symbicort 160/4.5mcg -) 2 puff IH BID [facility] Last Admin: 03/10/18 09:39 Dose: 2 puff Clopidogrel Bisulfate (Plavix -) 75 mg PO DAILY [facility] Last Admin: 03/10/18 09:37 Dose: 75 mg Docusate Sodium (Colace -) 300 mg PO [facility] Last Admin: 03/09/18 21:28 Dose: 300 mg Insulin Aspart (Novolog Vial Sliding Scale -) 1 vial SQ [facility]; Protocol Last Admin: 03/10/18 06:34 Dose: 8 units Insulin Detemir (Levemir Vial) 5 units SQ [facility] Last Admin: 03/09/18 21:27 Dose: 5 units Levothyroxine Sodium (Synthroid -) 75 mcg PO DAILY@0700 [facility] Last Admin: 03/10/18 06:34 Dose: 75 mcg Melatonin (Melatonin) 5 mg PO HS PRN PRN Reason: INSOMNIA Last Admin: 03/07/18 22:37 Dose: 5 mg Metoclopramide HCl (Reglan -) 10 mg PO TIDAC [facility] Last Admin: 03/10/18 06:34 Dose: 10 mg Metoprolol Tartrate (Lopressor -) 50 mg PO BID [facility] Last Admin: 03/10/18 09:37 Dose: 50 mg Montelukast Sodium (Singulair -) 10 mg PO [facility] Last Admin: 03/09/18 21:28 Dose: 10 mg Polyethylene Glycol (Miralax (For Daily Use) -) 17 gm PO BID [facility] Last Admin: 03/09/18 21:28 Dose: 17 grams - Objective Vital Signs: Vital Signs Temperature 98.1 F 03/10/18 06:00 Pulse Rate 86 03/10/18 06:00 Respiratory Rate 20 03/10/18 06:00 Blood Pressure 139/65 03/10/18 06:00 O2 Sat by Pulse Oximetry (%) 100 03/09/18 20:50 Constitutional: Yes: No Distress, Calm Eyes: Yes: Conjunctiva Clear, EOM Intact, PERRL HENT: Yes: Atraumatic, Normocephalic Neck: Yes: Supple, Trachea Midline Cardiovascular: Yes: Regular Rate and Rhythm, S1, S2. No: Bradycardia, Tachycardia, Pulse Irregular, Bruit, JVD, Gallop, Murmur, Rub, S3, S4, Varicosities Respiratory: Yes: Regular, Cough, Wheezes. No: Rales, Rhonchi Gastrointestinal: Yes: Normal Bowel Sounds, Soft. No: Distention, Tenderness Musculoskeletal: Yes: WNL Extremities: Yes: WNL Edema: No Peripheral Pulses WNL: Yes Peripheral Pulses: Left Doralis Pedis: 2+, Right Dorsalis Pedis: 2+ Neurological: Yes: Alert, Oriented Psychiatric: Yes: Alert, Oriented Labs: CBC, BMP 03/10/18 06:00 03/10/18 06:00 INR, PTT INR 0.97 (0.82-1.09) 03/05/18 11:28 - ....Imaging Chest X-ray: Report Reviewed, Image Reviewed EKG: Report Reviewed, Image Reviewed Other: Report Reviewed, Image Reviewed (tele-nsr, pvcs) Assessment/Plan 63 F with DM, HTN, severe CAD sp CABG 2016 [facility]. Recent travel from [facility] on 02/28. Had been feeling well until 3 days [employer] when cough productive of clear phlegm developed. admitted with cough, sob, nstemi. In 2016 admitted with chest pain and CAD was diagnosed. She had CABG at [facility]. EF was preserved at that time. Operation was complicated by sternal wound infection. Echo: Report Reviewed (2016 normal valve and EF.) 1. NSTEMI. At present CP free. 2. SANTINO 3. Acute heart failure. prior normal EF. 4. Possible PNA Rec: Lasix as needed, possible volume overload Nuclear stress test results reviewed, moderate inferior and apical ischemia LVEF 46% Cont ASA and Plavix Cont Lopressor and statin Can uptitrate amlodipine for improved BP control if needed Echo 03/07/18 showed normal LV systolic function, mild valvular abnl LE doppler showed no clot Please see discussion regarding further cardiac management yesterday. Recc medical management and outpt f/up but awaiting family decision
[2018-03-10] MEDS: POLYETHYLENE GLYCOL 3350 119 GM BTL PO SCH ×2 (10:36→22:05)
--- NOTE | 2018-03-10 12:09 | PN ---
Progress Note, Physician History of Present Illness: PULMONARY ALERT,FEELING BETTER,-RESP DISTRESS - Current Medication List Current Medications: Active Medications Acetaminophen (Tylenol -) 650 mg PO Q6H PRN PRN Reason: FEVER Albuterol/Ipratropium (Duoneb -) 1 amp NEB Q4H [facility] Last Admin: 03/10/18 11:49 Dose: 1 amp Amlodipine Besylate (Norvasc -) 5 mg PO DAILY [facility] Last Admin: 03/10/18 09:37 Dose: 5 mg Aspirin (Asa -) 81 mg PO DAILY [facility] Last Admin: 03/10/18 09:37 Dose: 81 mg Atorvastatin Calcium (Lipitor -) 80 mg PO [facility] Last Admin: 03/09/18 21:28 Dose: 80 mg Budesonide/Formoterol Fumarate (Symbicort 160/4.5mcg -) 2 puff IH BID [facility] Last Admin: 03/10/18 09:39 Dose: 2 puff Clopidogrel Bisulfate (Plavix -) 75 mg PO DAILY [facility] Last Admin: 03/10/18 09:37 Dose: 75 mg Docusate Sodium (Colace -) 300 mg PO [facility] Last Admin: 03/09/18 21:28 Dose: 300 mg Insulin Aspart (Novolog Vial Sliding Scale -) 1 vial SQ [facility]; Protocol Last Admin: 03/10/18 06:34 Dose: 8 units Insulin Detemir (Levemir Vial) 5 units SQ [facility] Last Admin: 03/09/18 21:27 Dose: 5 units Levothyroxine Sodium (Synthroid -) 75 mcg PO DAILY@0700 [facility] Last Admin: 03/10/18 06:34 Dose: 75 mcg Melatonin (Melatonin) 5 mg PO HS PRN PRN Reason: INSOMNIA Last Admin: 03/07/18 22:37 Dose: 5 mg Metoclopramide HCl (Reglan -) 10 mg PO TIDAC [facility] Last Admin: 03/10/18 06:34 Dose: 10 mg Metoprolol Tartrate (Lopressor -) 50 mg PO BID [facility] Last Admin: 03/10/18 09:37 Dose: 50 mg Montelukast Sodium (Singulair -) 10 mg PO [facility] Last Admin: 03/09/18 21:28 Dose: 10 mg Polyethylene Glycol (Miralax (For Daily Use) -) 17 gm PO BID [facility] Last Admin: 03/10/18 10:36 Dose: 17 grams - Objective Vital Signs: Vital Signs Temperature 98.3 F 03/10/18 09:46 Pulse Rate 89 03/10/18 09:46 Respiratory Rate 20 03/10/18 09:46 Blood Pressure 142/72 03/10/18 09:46 O2 Sat by Pulse Oximetry (%) 100 03/10/18 09:00 Constitutional: Yes: Well Nourished, Calm Eyes: Yes: WNL HENT: Yes: WNL Neck: Yes: WNL Cardiovascular: Yes: Regular Rate and Rhythm, S1, S2 Respiratory: Yes: Wheezes (FEW SCATTERED WHEEZES) Gastrointestinal: Yes: Normal Bowel Sounds, Soft Extremities: Yes: WNL Edema: No Labs: CBC, BMP 03/10/18 06:00 03/10/18 06:00 INR, PTT INR 0.97 (0.82-1.09) 03/05/18 11:28 Assessment/Plan Problem List - Problems (1) Acute pulmonary edema Code(s): J81.0 - ACUTE PULMONARY EDEMA (2) NSTEMI (non-ST elevated myocardial infarction) Code(s): I21.4 - NON-ST ELEVATION (NSTEMI) MYOCARDIAL INFARCTION (3) CAD (coronary artery disease) Code(s): I25.10 - ATHSCL HEART DISEASE OF [place] CORONARY ARTERY W/O ANG PCTRS Assessment/Plan NSTEMI (?) CKD Low clinical suspicion of PNA or VTE Rec: IV Heparin ASA/Plavix Statin O2 as needed anti-tussives inhaled bronchodilators DR CHAUDHARI
--- NOTE | 2018-03-10 13:16 | PN ---
Progress Note (short form) - Note Progress Note: Pt seen/ examined chart reviewed awake / comfortable chronic ill appearance cough + got dose of solumedrol Vital Signs Temp 98.3 F 03/10/18 09:46 Pulse 89 03/10/18 09:46 Resp 20 03/10/18 09:46 BP 142/72 03/10/18 09:46 Pulse Ox 100 03/10/18 09:00 Intake & Output 03/09/18 03/10/18 03/10/18 23:59 11:59 23:59 Intake Total 430 Balance 430 Weight 126 lb 12.8 oz Intake: IV 10 LH #22 03/08/18 10 Oral 420 Other: Voiding Method Toilet Toilet # Unmeasured Voids Void 2 2 Bowel Movement No Weight Measurement Method Standing Scale Active Medications Acetaminophen (Tylenol -) 650 mg PO Q6H PRN PRN Reason: FEVER Albuterol/Ipratropium (Duoneb -) 1 amp NEB Q4H [facility] Last Admin: 03/10/18 11:49 Dose: 1 amp Amlodipine Besylate (Norvasc -) 5 mg PO DAILY [facility] Last Admin: 03/10/18 09:37 Dose: 5 mg Aspirin (Asa -) 81 mg PO DAILY [facility] Last Admin: 03/10/18 09:37 Dose: 81 mg Atorvastatin Calcium (Lipitor -) 80 mg PO [facility] Last Admin: 03/09/18 21:28 Dose: 80 mg Budesonide/Formoterol Fumarate (Symbicort 160/4.5mcg -) 2 puff IH BID [facility] Last Admin: 03/10/18 09:39 Dose: 2 puff Clopidogrel Bisulfate (Plavix -) 75 mg PO DAILY [facility] Last Admin: 03/10/18 09:37 Dose: 75 mg Docusate Sodium (Colace -) 300 mg PO [facility] Last Admin: 03/09/18 21:28 Dose: 300 mg Insulin Aspart (Novolog Vial Sliding Scale -) 1 vial SQ [facility]; Protocol Last Admin: 03/10/18 12:07 Dose: 12 units Insulin Detemir (Levemir Vial) 5 units SQ [facility] Last Admin: 03/09/18 21:27 Dose: 5 units Levothyroxine Sodium (Synthroid -) 75 mcg PO DAILY@0700 [facility] Last Admin: 03/10/18 06:34 Dose: 75 mcg Melatonin (Melatonin) 5 mg PO HS PRN PRN Reason: INSOMNIA Last Admin: 03/07/18 22:37 Dose: 5 mg Metoclopramide HCl (Reglan -) 10 mg PO TIDAC [facility] Last Admin: 03/10/18 12:07 Dose: 10 mg Metoprolol Tartrate (Lopressor -) 50 mg PO BID [facility] Last Admin: 03/10/18 09:37 Dose: 50 mg Montelukast Sodium (Singulair -) 10 mg PO HS [facility] Last Admin: 03/09/18 21:28 Dose: 10 mg Polyethylene Glycol (Miralax (For Daily Use) -) 17 gm PO BID [facility] Last Admin: 03/10/18 10:36 Dose: 17 grams CBC, BMP 03/10/18 06:00 03/10/18 06:00 Physical Constitutional: Yes: No Distress, Calm. Throat- clear Cardiovascular: Yes: Regular Rate and Rhythm Respiratory: Yes: Diminished, Rhonchi Gastrointestinal: Yes: Normal Bowel Sounds, Soft. No: Tenderness Edema: No A/p stable continue present care robitussin prn Increase levemir as sugar uncontrolled Stress test discussed with pt /pts daughter Family//pt opted for medical management will follow discussed with nursing staff Problem List - Problems (1) Acute pulmonary edema Code(s): J81.0 - ACUTE PULMONARY EDEMA (2) NSTEMI (non-ST elevated myocardial infarction) Code(s): I21.4 - NON-ST ELEVATION (NSTEMI) MYOCARDIAL INFARCTION (3) CAD (coronary artery disease) Code(s): I25.10 - ATHSCL HEART DISEASE OF [place] CORONARY ARTERY W/O ANG PCTRS (4) Hx of CABG Code(s): Z95.1 - PRESENCE OF AORTOCORONARY BYPASS GRAFT (5) Hypertension Code(s): I10 - ESSENTIAL (PRIMARY) HYPERTENSION (6) Poorly controlled diabetes mellitus Code(s): E11.65 - TYPE 2 DIABETES MELLITUS WITH HYPERGLYCEMIA
--- NOTE | 2018-03-10 16:15 | PN ---
Progress Note (short form) - Note Progress Note: Renal follow up for SANTINO vs CKD Pt seen and examined at the bedside daughter at the bedside has low grade temp last night making urine daughter says that she is not short of breath at this time Vital Signs Temperature 98.2 F 03/10/18 14:00 Pulse Rate 105 H 03/10/18 14:00 Respiratory Rate 20 03/10/18 14:00 Blood Pressure 148/73 03/10/18 14:00 O2 Sat by Pulse Oximetry (%) 100 03/10/18 09:00 Intake & Output 03/07/18 03/08/18 03/09/18 03/10/18 23:59 23:59 23:59 23:59 Intake Total 9972 159 3853 Output Total 350 Balance 5500 831 1868 Weight 56.699 kg 57.516 kg NAD dec BS b/l lung grossman, no overt rales RRR soft NT/ND no LE edema CBC, BMP 03/10/18 06:00 03/10/18 06:00 Current Medications Acetaminophen (Tylenol -) 650 mg PO Q6H PRN PRN Reason: FEVER Albuterol/Ipratropium (Duoneb -) 1 amp NEB Q4H [facility] Last Admin: 03/10/18 15:48 Dose: 1 amp Amlodipine Besylate (Norvasc -) 5 mg PO DAILY [facility] Last Admin: 03/10/18 09:37 Dose: 5 mg Aspirin (Asa -) 81 mg PO DAILY [facility] Last Admin: 03/10/18 09:37 Dose: 81 mg Atorvastatin Calcium (Lipitor -) 80 mg PO HS [facility] Last Admin: 03/09/18 21:28 Dose: 80 mg Budesonide/Formoterol Fumarate (Symbicort 160/4.5mcg -) 2 puff IH BID [facility] Last Admin: 03/10/18 09:39 Dose: 2 puff Clopidogrel Bisulfate (Plavix -) 75 mg PO DAILY [facility] Last Admin: 03/10/18 09:37 Dose: 75 mg Docusate Sodium (Colace -) 300 mg PO HS [facility] Last Admin: 03/09/18 21:28 Dose: 300 mg Insulin Aspart (Novolog Vial Sliding Scale -) 1 vial SQ [facility]; Protocol Last Admin: 03/10/18 12:07 Dose: 12 units Insulin Detemir (Levemir Vial) 10 units SQ [facility] Levothyroxine Sodium (Synthroid -) 75 mcg PO DAILY@0700 [facility] Last Admin: 03/10/18 06:34 Dose: 75 mcg Melatonin (Melatonin) 5 mg PO HS PRN PRN Reason: INSOMNIA Last Admin: 03/07/18 22:37 Dose: 5 mg Metoclopramide HCl (Reglan -) 10 mg PO TIDAC [facility] Last Admin: 03/10/18 12:07 Dose: 10 mg Metoprolol Tartrate (Lopressor -) 50 mg PO BID [facility] Last Admin: 03/10/18 09:37 Dose: 50 mg Montelukast Sodium (Singulair -) 10 mg PO HS [facility] Last Admin: 03/09/18 21:28 Dose: 10 mg Polyethylene Glycol (Miralax (For Daily Use) -) 17 gm PO BID [facility] Last Admin: 03/10/18 10:36 Dose: 17 grams 63 year old woman with PMhx of CAD s/p CABG (2016), Hypertension who presents with complaints of chest pain and found to have NSTEMI and Cr of 2-2.3. #Acute Kidney Injury vs. CKD #NSTEMI/CAD #Hypertension #Metabolic acidosis #Anemia Renal function stable at this time can continue PRN Lasix as needed for SOB however CXR did not show signs of CHF off IVF planed for medical management of NSTEMI with close outpatient monitoring of renal function and cardiac symptoms would avoid starting JIN/ARB until baseline renal function is established continue sodium bicarb daily avoid nsaids and fleets trend BUN/Cr while inpatient Steve Shrestha DO
[2018-03-10 19:50] LABS: HEMATOCRIT 28.9 % (32.4-45.2); HEMOGLOBIN 9.3 GM/dL (10.7-15.3); MCH 23.4 pg (25.7-33.7); MCHC 32.1 g/dl (32.0-36.0); MEAN CELL VOLUME 72.9 fl (80-96); MEAN PLT VOLUME 9.8 fl (7.5-11.1); PLATELET COUNT 319 K/MM3 (134-434); RBC 3.97 M/mm3 (3.60-5.2); RDW 17.2 % (11.6-15.6); WHITE BLOOD COUNT 12.9 K/mm3 (4.0-10.0)
[2018-03-10] MEDS ORDERED: INSULIN (LEVEMIR) 100 UNITS/ML UNITS SQ SCH (22:00)
[2018-03-10] MEDS: ATORVASTATIN CA 80 MG TABLET (FP) PO SCH (22:04)
[2018-03-10] MEDS: MONTELUKAST NA 10 MG TABLET PO SCH (22:05)
[2018-03-10] MEDS: DOCUSATE SODIUM 100 MG CAPSULE (FP) PO SCH (22:05)
[2018-03-10] MEDS: ACETAMINOPHEN 325 MG TABLET (FP) PO PRN (22:10)
[2018-03-11] MEDS: ALBUTEROL SO4 2.5/IPRATROPIUM 0.5 INH SOL 3 ML VIAL.NEB. NEB SCH ×6 (04:00→20:10)
[2018-03-11] MEDS: LEVOTHYROXINE NA 75 MCG TABLET (FP) PO SCH (06:01)
[2018-03-11] MEDS: INSULIN SLIDING SCALE (NOVOLOG) 1 VIAL SQ SCH ×4 (06:01→22:39)
[2018-03-11] MEDS: METOCLOPRAMIDE HCL 10 MG TABLET (FP) PO SCH ×3 (06:01→16:42)
[2018-03-11] MEDS: ACETAMINOPHEN 325 MG TABLET (FP) PO PRN ×2 (06:03→12:07)
[2018-03-11 06:36] LABS: HEMATOCRIT 31.4 % (32.4-45.2); HEMOGLOBIN 9.8 GM/dL (10.7-15.3); MCHC 31.2 g/dl (32.0-36.0); MEAN CELL VOLUME 73.7 fl (80-96); MEAN PLT VOLUME 9.8 fl (7.5-11.1); PLATELET COUNT 322 K/MM3 (134-434); RBC 4.26 M/mm3 (3.60-5.2); RDW 17.7 % (11.6-15.6)
[2018-03-11] MEDS: ASPIRIN 81 MG CHEWABLE TABLETS PO SCH (09:01)
[2018-03-11] MEDS: amLODIPine BESYLATE 5 MG TABLET (FP) PO SCH (09:01)
[2018-03-11] MEDS: METOPROLOL TARTRATE 50 MG TABLET (FP) PO SCH ×2 (09:01→22:38)
[2018-03-11] MEDS: CLOPIDOGREL BISULFATE 75 MG TABLET (FP) PO SCH (09:01)
[2018-03-11] MEDS: POLYETHYLENE GLYCOL 3350 119 GM BTL PO SCH ×2 (09:03→22:40)
[2018-03-11] MEDS: BUDESONIDE/FORMETEROL FUMARATE 160/4.5 mcg INHALER IH SCH ×2 (09:04→22:40)
--- NOTE | 2018-03-11 09:22 | PN ---
Progress Note (short form) - Note Progress Note: PULMONARY Still some wheezing. Last Vital Signs Temp Pulse Resp BP Pulse Ox 97.5 F L 83 20 153/76 98 03/11/18 06:00 03/11/18 06:00 03/11/18 06:00 03/11/18 06:00 03/10/18 21:00 Gen: NAD at rest Heart: RRR Lung: bilateral rhonchi, wheezes Abd: soft, nontender Ext: no edema CBC, BMP 03/11/18 06:00 03/10/18 06:00 Active Medications Acetaminophen (Tylenol -) 650 mg PO Q6H PRN PRN Reason: FEVER Last Admin: 03/11/18 06:03 Dose: 650 mg Albuterol/Ipratropium (Duoneb -) 1 amp NEB Q4H [facility] Last Admin: 03/10/18 20:49 Dose: 1 amp Amlodipine Besylate (Norvasc -) 5 mg PO DAILY [facility] Last Admin: 03/11/18 09:01 Dose: 5 mg Aspirin (Asa -) 81 mg PO DAILY [facility] Last Admin: 03/11/18 09:01 Dose: 81 mg Atorvastatin Calcium (Lipitor -) 80 mg PO HS [facility] Last Admin: 03/10/18 22:04 Dose: 80 mg Budesonide/Formoterol Fumarate (Symbicort 160/4.5mcg -) 2 puff IH BID [facility] Last Admin: 03/11/18 09:04 Dose: 2 puff Clopidogrel Bisulfate (Plavix -) 75 mg PO DAILY [facility] Last Admin: 03/11/18 09:01 Dose: 75 mg Docusate Sodium (Colace -) 300 mg PO HS [facility] Last Admin: 03/10/18 22:05 Dose: 300 mg Insulin Aspart (Novolog Vial Sliding Scale -) 1 vial SQ [facility]; Protocol Last Admin: 03/11/18 06:01 Dose: Not Given Insulin Detemir (Levemir Vial) 10 units SQ [facility] Last Admin: 03/10/18 22:10 Dose: 10 units Levothyroxine Sodium (Synthroid -) 75 mcg PO DAILY@0700 [facility] Last Admin: 03/11/18 06:01 Dose: 75 mcg Melatonin (Melatonin) 5 mg PO HS PRN PRN Reason: INSOMNIA Last Admin: 03/07/18 22:37 Dose: 5 mg Metoclopramide HCl (Reglan -) 10 mg PO TIDAC [facility] Last Admin: 03/11/18 06:01 Dose: 10 mg Metoprolol Tartrate (Lopressor -) 50 mg PO BID [facility] Last Admin: 03/11/18 09:01 Dose: 50 mg Montelukast Sodium (Singulair -) 10 mg PO HS [facility] Last Admin: 03/10/18 22:05 Dose: 10 mg Polyethylene Glycol (Miralax (For Daily Use) -) 17 gm PO BID [facility] Last Admin: 03/11/18 09:03 Dose: 17 grams A/P Acute NSTEMI CAD Acute Pulmonary Edema resolving Acute Bronchospasm CKD - agree with standing and PRN inhaled bronchodilators - will start short course of medrol - ASA, plavix - beta blockade, may need to decrease or hold dose if continues to wheeze - statin
[2018-03-11] MEDS: methylPREDNISolone NA SUCC 40 MG/1 ML VIAL IVPUSH SCH ×2 (10:11→17:01)
--- NOTE | 2018-03-11 10:53 | PN ---
Progress Note (short form) - Note Progress Note: C/c cough all f/u noted started by pulmonary on solumedrol for cough/ copd renal function stable sugar better Vital Signs Temp 98.6 F 03/11/18 09:00 Pulse 80 03/11/18 09:00 Resp 20 03/11/18 09:00 BP 152/69 03/11/18 09:00 Pulse Ox 98 03/11/18 09:00 Intake & Output 03/10/18 03/10/18 03/11/18 11:59 23:59 11:59 Intake Total 400 Balance 400 Weight 126 lb 12.8 oz Intake: Oral 400 Other: Voiding Method Toilet Toilet Toilet # Unmeasured Voids Void 2 1 1 Bowel Movement No Weight Measurement Method Standing Scale Active Medications Acetaminophen (Tylenol -) 650 mg PO Q6H PRN PRN Reason: FEVER Last Admin: 03/11/18 06:03 Dose: 650 mg Albuterol/Ipratropium (Duoneb -) 1 amp NEB Q4H [facility] Last Admin: 03/11/18 08:00 Dose: 1 amp Amlodipine Besylate (Norvasc -) 5 mg PO DAILY [facility] Last Admin: 03/11/18 09:01 Dose: 5 mg Aspirin (Asa -) 81 mg PO DAILY [facility] Last Admin: 03/11/18 09:01 Dose: 81 mg Atorvastatin Calcium (Lipitor -) 80 mg PO [facility] Last Admin: 03/10/18 22:04 Dose: 80 mg Budesonide/Formoterol Fumarate (Symbicort 160/4.5mcg -) 2 puff IH BID [facility] Last Admin: 03/11/18 09:04 Dose: 2 puff Clopidogrel Bisulfate (Plavix -) 75 mg PO DAILY [facility] Last Admin: 03/11/18 09:01 Dose: 75 mg Docusate Sodium (Colace -) 300 mg PO [facility] Last Admin: 03/10/18 22:05 Dose: 300 mg Insulin Aspart (Novolog Vial Sliding Scale -) 1 vial SQ [facility]; Protocol Last Admin: 03/11/18 06:01 Dose: Not Given Insulin Detemir (Levemir Vial) 10 units SQ [facility] Last Admin: 03/10/18 22:10 Dose: 10 units Levothyroxine Sodium (Synthroid -) 75 mcg PO DAILY@0700 [facility] Last Admin: 03/11/18 06:01 Dose: 75 mcg Melatonin (Melatonin) 5 mg PO HS PRN PRN Reason: INSOMNIA Last Admin: 03/07/18 22:37 Dose: 5 mg Methylprednisolone Sodium Succinate (Solu-Medrol -) 40 mg IVPUSH Q8H-IV [facility] Stop: 03/13/18 02:01 Last Admin: 03/11/18 10:11 Dose: 40 mg Metoclopramide HCl (Reglan -) 10 mg PO TIDAC [facility] Last Admin: 03/11/18 06:01 Dose: 10 mg Metoprolol Tartrate (Lopressor -) 50 mg PO BID [facility] Last Admin: 03/11/18 09:01 Dose: 50 mg Montelukast Sodium (Singulair -) 10 mg PO HS [facility] Last Admin: 03/10/18 22:05 Dose: 10 mg Polyethylene Glycol (Miralax (For Daily Use) -) 17 gm PO BID [facility] Last Admin: 03/11/18 09:03 Dose: 17 grams CBC, BMP 03/11/18 06:00 03/10/18 06:00 Microbiology 03/07/18 19:40 Blood Culture - Preliminary Blood - Peripheral Venous NO GROWTH OBTAINED AFTER 72 HOURS, INCUBATION TO CONTINUE FOR 2 DAYS. 03/07/18 19:40 Blood Culture - Preliminary Blood - Peripheral Venous NO GROWTH OBTAINED AFTER 72 HOURS, INCUBATION TO CONTINUE FOR 2 DAYS. 03/08/18 07:00 Gram Stain - Final Sputum - Expectorated Sputum Culture - Final NORMAL RESPIRATORY WILIAN 03/05/18 11:28 Blood Culture - Final Blood - Peripheral Venous NO GROWTH AFTER 5 DAYS INCUBATION 03/05/18 11:28 Blood Culture - Final Blood - Peripheral Venous NO GROWTH AFTER 5 DAYS INCUBATION Physical Constitutional: Yes: No Distress, Calm. Throat- clear Cardiovascular: Yes: Regular Rate and Rhythm Respiratory: Yes: Diminished, scattered wheezes Gastrointestinal: Yes: Normal Bowel Sounds, Soft. No: Tenderness Edema: No A/p continue present care robitussin prn steroids monitor renal function / bgm daily oob - chair physical therapy PS- Nurse also tells me pts is sick/ having fevers- 89- comes to visit her I called pts daughter and advised her not to bring him till he is better will follow discussed with nursing staff Problem List - Problems (1) Acute pulmonary edema Code(s): J81.0 - ACUTE PULMONARY EDEMA (2) NSTEMI (non-ST elevated myocardial infarction) Code(s): I21.4 - NON-ST ELEVATION (NSTEMI) MYOCARDIAL INFARCTION (3) CAD (coronary artery disease) Code(s): I25.10 - ATHSCL HEART DISEASE OF [place] CORONARY ARTERY W/O ANG PCTRS (4) Hx of CABG Code(s): Z95.1 - PRESENCE OF AORTOCORONARY BYPASS GRAFT (5) Hypertension Code(s): I10 - ESSENTIAL (PRIMARY) HYPERTENSION (6) Poorly controlled diabetes mellitus Code(s): E11.65 - TYPE 2 DIABETES MELLITUS WITH HYPERGLYCEMIA
[2018-03-11] MEDS: guaiFENesin/D-METHORPHAN HB 10 ML UNIT-DOSE CUPS PO PRN ×2 (16:42→22:38)
--- NOTE | 2018-03-11 17:06 | PN ---
Progress Note, Physician Chief Complaint: The patient appears weak. She reports no chest pain, SOB at rest or palpitation. Tele shows sinus rhythm in 80s. 14 beat NSVT noted. History of Present Illness: 63 year-old woman with a PMHx of HTN, DM, severe CAD s/p CABG 2016 at [facility] complicated by sternal wound infection, recent travel from [place] on admitted with cough productive of clear phlegm and NSTEMI. Echo 03/07/2018 showed normal LV size and systolic function. LVEF = 60 - 65%. No regional wall motion abnormalities. Regadenoson nuclear stress test 03/08/2018 revealed moderate inferior and apical ischemia LVEF 46% - Current Medication List Current Medications: Active Medications Acetaminophen (Tylenol -) 650 mg PO Q6H PRN PRN Reason: FEVER Last Admin: 03/11/18 12:07 Dose: 650 mg Albuterol/Ipratropium (Duoneb -) 1 amp NEB Q4H [facility] Last Admin: 03/11/18 15:43 Dose: 1 amp Amlodipine Besylate (Norvasc -) 5 mg PO DAILY [facility] Last Admin: 03/11/18 09:01 Dose: 5 mg Aspirin (Asa -) 81 mg PO DAILY [facility] Last Admin: 03/11/18 09:01 Dose: 81 mg Atorvastatin Calcium (Lipitor -) 80 mg PO [facility] Last Admin: 03/10/18 22:04 Dose: 80 mg Budesonide/Formoterol Fumarate (Symbicort 160/4.5mcg -) 2 puff IH BID [facility] Last Admin: 03/11/18 09:04 Dose: 2 puff Clopidogrel Bisulfate (Plavix -) 75 mg PO DAILY [facility] Last Admin: 03/11/18 09:01 Dose: 75 mg Docusate Sodium (Colace -) 300 mg PO [facility] Last Admin: 03/10/18 22:05 Dose: 300 mg Guaifenesin (Robitussin Dm -) 10 ml PO Q6H PRN PRN Reason: COUGH Last Admin: 03/11/18 16:42 Dose: 10 ml Insulin Aspart (Novolog Vial Sliding Scale -) 1 vial SQ [facility]; Protocol Last Admin: 03/11/18 12:05 Dose: 8 units Insulin Detemir (Levemir Vial) 10 units SQ [facility] Last Admin: 03/10/18 22:10 Dose: 10 units Levothyroxine Sodium (Synthroid -) 75 mcg PO DAILY@0700 [facility] Last Admin: 03/11/18 06:01 Dose: 75 mcg Melatonin (Melatonin) 5 mg PO HS PRN PRN Reason: INSOMNIA Last Admin: 03/07/18 22:37 Dose: 5 mg Methylprednisolone Sodium Succinate (Solu-Medrol -) 40 mg IVPUSH Q8H-IV [facility] Stop: 03/13/18 02:01 Last Admin: 03/11/18 10:11 Dose: 40 mg Metoclopramide HCl (Reglan -) 10 mg PO TIDAC [facility] Last Admin: 03/11/18 16:42 Dose: 10 mg Metoprolol Tartrate (Lopressor -) 50 mg PO BID [facility] Last Admin: 03/11/18 09:01 Dose: 50 mg Montelukast Sodium (Singulair -) 10 mg PO HS [facility] Last Admin: 03/10/18 22:05 Dose: 10 mg Polyethylene Glycol (Miralax (For Daily Use) -) 17 gm PO BID [facility] Last Admin: 03/11/18 09:03 Dose: 17 grams - Objective Vital Signs: Vital Signs Temperature 97 F L 03/11/18 15:00 Pulse Rate 91 H 03/11/18 15:00 Respiratory Rate 20 03/11/18 15:00 Blood Pressure 152/69 03/11/18 09:00 O2 Sat by Pulse Oximetry (%) 98 03/11/18 09:00 General: Well developed. Weak. No acute distress. Head: Normocephalic. Atraumatic, Eyes: PERRLA, EOMI. Sclerae anicteric. Conjunctivae clear. Neck: Supple. No JVD. No bruits. Heart: Normal S1, S2: Regular rhythm and rate. No murmur. No gallop or rub. Lungs: Symmetrical air entry. Clear to auscultation. No crackle. No wheezing or rhonchi. Abdomen: Soft. Bowel sound positive. Non tender. No masses. Extremities: Trace edema. No clubbing or cyanosis Labs: CBC, BMP 03/11/18 06:00 03/10/18 06:00 INR, PTT INR 0.97 (0.82-1.09) 03/05/18 11:28 Assessment/Plan 63 year-old woman with a PMHx of HTN, DM, severe CAD s/p CABG 2016 at [facility] complicated by sternal wound infection, recent travel from [place] on admitted with cough productive of clear phlegm and NSTEMI. Echo 03/07/2018 showed normal LV size and systolic function. LVEF = 60 - 65%. No regional wall motion abnormalities. Regadenoson nuclear stress test 03/08/2018 revealed moderate inferior and apical ischemia LVEF 46% LE doppler showed no clot 1. NSTEMI. At present CP free. Continue conservative care at this time since she has SANTINO on CKD, high risk contrast induced nephropathy. No symptoms of angina. Preserved LV systolic function without regional wall motion abn. Increase metoprololo to 100 mg BID. Continue aspirin, Plavix and atorvastatin. Conservative cardiac care for now with close out-patient cardiac follow up. 2. Acute diastolic CHF. No respiratory distress, mild fluid overload with wheezing. May use Lasix PRN. 3) No evidence of pneumonia from CXR on 03/09/2018.
--- NOTE | 2018-03-11 18:51 | PN ---
Progress Note (short form) - Note Progress Note: covering Problems CAD s/p CABG (2016), Hypertension presented with complaints of chest pain NSTEMI and Cr of 2-2.3. Active Medications Acetaminophen (Tylenol -) 650 mg PO Q6H PRN PRN Reason: FEVER Last Admin: 03/11/18 12:07 Dose: 650 mg Albuterol/Ipratropium (Duoneb -) 1 amp NEB Q4H [facility] Last Admin: 03/11/18 15:43 Dose: 1 amp Amlodipine Besylate (Norvasc -) 5 mg PO DAILY [facility] Last Admin: 03/11/18 09:01 Dose: 5 mg Aspirin (Asa -) 81 mg PO DAILY [facility] Last Admin: 03/11/18 09:01 Dose: 81 mg Atorvastatin Calcium (Lipitor -) 80 mg PO [facility] Last Admin: 03/10/18 22:04 Dose: 80 mg Budesonide/Formoterol Fumarate (Symbicort 160/4.5mcg -) 2 puff IH BID [facility] Last Admin: 03/11/18 09:04 Dose: 2 puff Clopidogrel Bisulfate (Plavix -) 75 mg PO DAILY [facility] Last Admin: 03/11/18 09:01 Dose: 75 mg Docusate Sodium (Colace -) 300 mg PO [facility] Last Admin: 03/10/18 22:05 Dose: 300 mg Guaifenesin (Robitussin Dm -) 10 ml PO Q6H PRN PRN Reason: COUGH Last Admin: 03/11/18 16:42 Dose: 10 ml Insulin Aspart (Novolog Vial Sliding Scale -) 1 vial SQ [facility]; Protocol Last Admin: 03/11/18 17:02 Dose: 10 units Insulin Detemir (Levemir Vial) 10 units SQ [facility] Last Admin: 03/10/18 22:10 Dose: 10 units Levothyroxine Sodium (Synthroid -) 75 mcg PO DAILY@0700 [facility] Last Admin: 03/11/18 06:01 Dose: 75 mcg Melatonin (Melatonin) 5 mg PO HS PRN PRN Reason: INSOMNIA Last Admin: 03/07/18 22:37 Dose: 5 mg Methylprednisolone Sodium Succinate (Solu-Medrol -) 40 mg IVPUSH Q8H-IV [facility] Stop: 03/13/18 02:01 Last Admin: 03/11/18 17:01 Dose: 40 mg Metoclopramide HCl (Reglan -) 10 mg PO TIDAC [facility] Last Admin: 03/11/18 16:42 Dose: 10 mg Metoprolol Tartrate (Lopressor -) 50 mg PO BID [facility] Last Admin: 03/11/18 09:01 Dose: 50 mg Montelukast Sodium (Singulair -) 10 mg PO HS [facility] Last Admin: 03/10/18 22:05 Dose: 10 mg Polyethylene Glycol (Miralax (For Daily Use) -) 17 gm PO BID [facility] Last Admin: 03/11/18 09:03 Dose: 17 grams Last Vital Signs Temp Pulse Resp BP Pulse Ox 97.6 F 89 20 144/64 98 03/11/18 17:31 03/11/18 17:31 03/11/18 17:31 03/11/18 17:31 03/11/18 09:00 O/E Lungs rhonchi Heart reg ABd soft nontender Ext no edema CBC, BMP 03/11/18 06:00 03/10/18 06:00 IMP- -Acute Kidney Injury vs. CKD -NSTEMI/CAD -chest congestion component of cardiac vs pulmonary disease -Hypertension -Metabolic acidosis -Anemia Azotemia stable at this time Lasix PRN for SOB however CXR did not show signs of CHF off IVF would avoid starting JIN/ARB until baseline renal function is established trend BUN/Cr while inpatient
[2018-03-11 20:24] LABS: HEMATOCRIT 29.7 % (32.4-45.2); HEMOGLOBIN 9.3 GM/dL (10.7-15.3); MCH 22.9 pg (25.7-33.7); MCHC 31.3 g/dl (32.0-36.0); MEAN CELL VOLUME 73.1 fl (80-96); MEAN PLT VOLUME 10.1 fl (7.5-11.1); PLATELET COUNT 335 K/MM3 (134-434); RBC 4.07 M/mm3 (3.60-5.2); RDW 17.2 % (11.6-15.6); WHITE BLOOD COUNT 13.1 K/mm3 (4.0-10.0)
[2018-03-11] MEDS ORDERED: INSULIN (LEVEMIR) 100 UNITS/ML UNITS SQ SCH (21:32)
[2018-03-11] MEDS ORDERED: PT OWN MED DRAWER 7, Y5N ONE ×2 (22:32→23:11)
[2018-03-11] MEDS: DOCUSATE SODIUM 100 MG CAPSULE (FP) PO SCH (22:38)
[2018-03-11] MEDS: MONTELUKAST NA 10 MG TABLET PO SCH (22:38)
[2018-03-11] MEDS: ATORVASTATIN CA 80 MG TABLET (FP) PO SCH (22:38)
[2018-03-12] MEDS: methylPREDNISolone NA SUCC 40 MG/1 ML VIAL IVPUSH SCH ×3 (01:38→17:00)
[2018-03-12] MEDS: ALBUTEROL SO4 2.5/IPRATROPIUM 0.5 INH SOL 3 ML VIAL.NEB. NEB SCH ×6 (04:00→20:56)
[2018-03-12] MEDS: LEVOTHYROXINE NA 75 MCG TABLET (FP) PO SCH (06:34)
[2018-03-12] MEDS: METOCLOPRAMIDE HCL 10 MG TABLET (FP) PO SCH ×3 (06:34→16:49)
[2018-03-12] MEDS: INSULIN SLIDING SCALE (NOVOLOG) 1 VIAL SQ SCH ×4 (06:35→22:46)
[2018-03-12 06:37] LABS: HEP.C VIRUS AB 0.1 s/co ratio (0.0-0.9)
[2018-03-12] MEDS ORDERED: INSULIN (NOVOLOG) ASPART 100 UNITS/ML 10ML VIAL ONE ×3 (06:43→22:20)
[2018-03-12] MEDS ORDERED: PT OWN MED DRAWER 7, Y5N ONE ×2 (10:00→22:21)
[2018-03-12] MEDS: BUDESONIDE/FORMETEROL FUMARATE 160/4.5 mcg INHALER IH SCH ×2 (10:04→22:45)
[2018-03-12] MEDS: amLODIPine BESYLATE 5 MG TABLET (FP) PO SCH (10:09)
[2018-03-12] MEDS: CLOPIDOGREL BISULFATE 75 MG TABLET (FP) PO SCH (10:09)
[2018-03-12] MEDS: METOPROLOL TARTRATE 50 MG TABLET (FP) PO SCH ×2 (10:09→22:46)
[2018-03-12] MEDS: guaiFENesin/D-METHORPHAN HB 10 ML UNIT-DOSE CUPS PO PRN (10:09)
[2018-03-12] MEDS: ASPIRIN 81 MG CHEWABLE TABLETS PO SCH (10:09)
[2018-03-12] MEDS: POLYETHYLENE GLYCOL 3350 119 GM BTL PO SCH ×2 (10:10→22:35)
--- NOTE | 2018-03-12 11:24 | PN ---
Progress Note (short form) - Note Progress Note: PULMONARY Still wheezing. No fevers or chills. Last Vital Signs Temp Pulse Resp BP Pulse Ox 98 F 82 20 152/78 98 03/12/18 05:00 03/12/18 05:00 03/12/18 05:00 03/12/18 05:00 03/11/18 09:00 Gen: NAD at rest Heart: RRR Lung: bilateral rhonchi, wheezes Abd: soft, nontender Ext: no edema CBC, BMP 03/11/18 20:00 03/11/18 21:30 Active Medications Acetaminophen (Tylenol -) 650 mg PO Q6H PRN PRN Reason: FEVER Last Admin: 03/11/18 12:07 Dose: 650 mg Albuterol/Ipratropium (Duoneb -) 1 amp NEB Q4H [facility] Last Admin: 03/12/18 08:00 Dose: 1 amp Amlodipine Besylate (Norvasc -) 5 mg PO DAILY [facility] Last Admin: 03/12/18 10:09 Dose: 5 mg Aspirin (Asa -) 81 mg PO DAILY [facility] Last Admin: 03/12/18 10:09 Dose: 81 mg Atorvastatin Calcium (Lipitor -) 80 mg PO [facility] Last Admin: 03/11/18 22:38 Dose: 80 mg Budesonide/Formoterol Fumarate (Symbicort 160/4.5mcg -) 2 puff IH BID [facility] Last Admin: 03/12/18 10:04 Dose: 2 puff Clopidogrel Bisulfate (Plavix -) 75 mg PO DAILY [facility] Last Admin: 03/12/18 10:09 Dose: 75 mg Docusate Sodium (Colace -) 300 mg PO [facility] Last Admin: 03/11/18 22:38 Dose: 300 mg Guaifenesin (Robitussin Dm -) 10 ml PO Q6H PRN PRN Reason: COUGH Last Admin: 03/12/18 10:09 Dose: 10 ml Insulin Aspart (Novolog Vial Sliding Scale -) 1 vial SQ [facility]; Protocol Last Admin: 03/12/18 06:35 Dose: 6 units Insulin Detemir (Levemir Vial) 15 units SQ [facility] Last Admin: 03/11/18 22:39 Dose: 15 units Levothyroxine Sodium (Synthroid -) 75 mcg PO DAILY@0700 [facility] Last Admin: 03/12/18 06:34 Dose: 75 mcg Melatonin (Melatonin) 5 mg PO HS PRN PRN Reason: INSOMNIA Last Admin: 03/07/18 22:37 Dose: 5 mg Methylprednisolone Sodium Succinate (Solu-Medrol -) 40 mg IVPUSH Q8H-IV [facility] Stop: 03/13/18 02:01 Last Admin: 03/12/18 10:10 Dose: 40 mg Metoclopramide HCl (Reglan -) 10 mg PO TIDAC [facility] Last Admin: 03/12/18 06:34 Dose: 10 mg Metoprolol Tartrate (Lopressor -) 50 mg PO BID [facility] Last Admin: 03/12/18 10:09 Dose: 50 mg Montelukast Sodium (Singulair -) 10 mg PO HS [facility] Last Admin: 03/11/18 22:38 Dose: 10 mg Polyethylene Glycol (Miralax (For Daily Use) -) 17 gm PO BID [facility] Last Admin: 03/12/18 10:10 Dose: 17 grams A/P Acute NSTEMI CAD Acute Pulmonary Edema resolving Acute Bronchospasm CKD - agree with standing and PRN inhaled bronchodilators - continue medrol - ASA, plavix - beta blockade, may need to decrease or hold dose if continues to wheeze - statin - glucose control while on systemic steroids - DVT prophylaxis
--- NOTE | 2018-03-12 16:12 | PN ---
Progress Note, Physician Chief Complaint: The patient appears weak and lethargic. She has cough and audible wheezing. No chest pain, SOB at rest or palpitation. Tele shows sinus rhythm in 80s with occasional VPC. No recurrent NSVT since yesterday afternoon. History of Present Illness: 63 year-old woman with a PMHx of HTN, DM, severe CAD s/p CABG 2016 at [facility] complicated by sternal wound infection, recent travel from [place] on admitted with cough productive of clear phlegm and NSTEMI. Echo 03/07/2018 showed normal LV size and systolic function. LVEF = 60 - 65%. No regional wall motion abnormalities. Regadenoson nuclear stress test 03/08/2018 revealed moderate inferior and apical ischemia LVEF 46% - Current Medication List Current Medications: Active Medications Acetaminophen (Tylenol -) 650 mg PO Q6H PRN PRN Reason: FEVER Last Admin: 03/11/18 12:07 Dose: 650 mg Albuterol/Ipratropium (Duoneb -) 1 amp NEB Q4H [facility] Last Admin: 03/12/18 11:54 Dose: 1 amp Amlodipine Besylate (Norvasc -) 5 mg PO DAILY [facility] Last Admin: 03/12/18 10:09 Dose: 5 mg Aspirin (Asa -) 81 mg PO DAILY [facility] Last Admin: 03/12/18 10:09 Dose: 81 mg Atorvastatin Calcium (Lipitor -) 80 mg PO HS [facility] Last Admin: 03/11/18 22:38 Dose: 80 mg Budesonide/Formoterol Fumarate (Symbicort 160/4.5mcg -) 2 puff IH BID [facility] Last Admin: 03/12/18 10:04 Dose: 2 puff Clopidogrel Bisulfate (Plavix -) 75 mg PO DAILY [facility] Last Admin: 03/12/18 10:09 Dose: 75 mg Docusate Sodium (Colace -) 300 mg PO HS [facility] Last Admin: 03/11/18 22:38 Dose: 300 mg Guaifenesin (Robitussin Dm -) 10 ml PO Q6H PRN PRN Reason: COUGH Last Admin: 03/12/18 10:09 Dose: 10 ml Insulin Aspart (Novolog Vial Sliding Scale -) 1 vial SQ [facility]; Protocol Last Admin: 03/12/18 12:28 Dose: 8 units Insulin Detemir (Levemir Vial) 15 units SQ HS [facility] Last Admin: 03/11/18 22:39 Dose: 15 units Levothyroxine Sodium (Synthroid -) 75 mcg PO DAILY@0700 [facility] Last Admin: 03/12/18 06:34 Dose: 75 mcg Melatonin (Melatonin) 5 mg PO HS PRN PRN Reason: INSOMNIA Last Admin: 03/07/18 22:37 Dose: 5 mg Methylprednisolone Sodium Succinate (Solu-Medrol -) 40 mg IVPUSH Q8H-IV [facility] Stop: 03/13/18 02:01 Last Admin: 03/12/18 10:10 Dose: 40 mg Metoclopramide HCl (Reglan -) 10 mg PO TIDAC [facility] Last Admin: 03/12/18 12:29 Dose: 10 mg Metoprolol Tartrate (Lopressor -) 50 mg PO BID [facility] Last Admin: 03/12/18 10:09 Dose: 50 mg Montelukast Sodium (Singulair -) 10 mg PO HS [facility] Last Admin: 03/11/18 22:38 Dose: 10 mg Polyethylene Glycol (Miralax (For Daily Use) -) 17 gm PO BID [facility] Last Admin: 03/12/18 10:10 Dose: 17 grams - Objective Vital Signs: Vital Signs Temperature 98.1 F 03/12/18 13:00 Pulse Rate 91 H 03/12/18 13:00 Respiratory Rate 20 03/12/18 13:00 Blood Pressure 160/75 03/12/18 13:00 O2 Sat by Pulse Oximetry (%) 96 03/12/18 09:00 General: Well developed. Weak. No acute distress. Head: Normocephalic. Atraumatic, Eyes: PERRLA, EOMI. Sclerae anicteric. Conjunctivae clear. Neck: Supple. No JVD. No bruits. Heart: Normal S1, S2: Regular rhythm and rate. No murmur. No gallop or rub. Lungs: Symmetrical air entry. Expiratory wheezing with prolonged expiration and rhonchi. Abdomen: Soft. Bowel sound positive. Non tender. No masses. Extremities: Trace edema. No clubbing or cyanosis Labs: CBC, BMP 03/11/18 20:00 03/11/18 21:30 INR, PTT INR 0.97 (0.82-1.09) 03/05/18 11:28 Assessment/Plan 63 year-old woman with a PMHx of HTN, DM, severe CAD s/p CABG 2016 at [facility] complicated by sternal wound infection, recent travel from [place] on admitted with cough productive of clear phlegm and NSTEMI. Echo 03/07/2018 showed normal LV size and systolic function. LVEF = 60 - 65%. No regional wall motion abnormalities. Regadenoson nuclear stress test 03/08/2018 revealed moderate inferior and apical ischemia LVEF 46% LE doppler showed no clot 1. NSTEMI. At present CP free. Continue conservative care at this time since she has preserved LV systolic function without regional wall motion abnormality. No symptoms of angina. Also she has SANTINO on CKD, high risk of contrast induced nephropathy if cardiac cath performed. Should continue metoprolol if possible for her cardiac condition: NSTEMI and NSVT. Consider to titrate up with caution due to wheezing. Continue aspirin, Plavix and atorvastatin. Conservative cardiac care for now with close out-patient cardiac follow up. 2. Acute diastolic CHF. No respiratory distress, mild fluid overload with wheezing. May use Lasix PRN. 3) No evidence of pneumonia from CXR on 03/09/2018. Pulmonary follow up appreciated.
--- NOTE | 2018-03-12 17:12 | PN ---
Progress Note (short form) - Note Progress Note: pt seen/ examined . family at bedside coughing Sugar high due to steroids all f/u noted/ appreciated Vital Signs Temp 99.2 F 03/12/18 17:06 Pulse 92 H 03/12/18 17:06 Resp 20 03/12/18 17:06 BP 142/60 03/12/18 17:06 Pulse Ox 96 03/12/18 09:00 Intake & Output 03/11/18 03/12/18 03/12/18 23:59 11:59 23:59 Intake Total 540 30 Balance 540 30 Intake: IV 30 LFA #22 03/11 30 Oral 540 Other: Voiding Method Toilet Toilet # Unmeasured Voids Void 1 1 Bowel Movement No Active Medications Acetaminophen (Tylenol -) 650 mg PO Q6H PRN PRN Reason: FEVER Last Admin: 03/11/18 12:07 Dose: 650 mg Albuterol/Ipratropium (Duoneb -) 1 amp NEB Q4H [facility] Last Admin: 03/12/18 16:41 Dose: 1 amp Amlodipine Besylate (Norvasc -) 5 mg PO DAILY [facility] Last Admin: 03/12/18 10:09 Dose: 5 mg Aspirin (Asa -) 81 mg PO DAILY [facility] Last Admin: 03/12/18 10:09 Dose: 81 mg Atorvastatin Calcium (Lipitor -) 80 mg PO [facility] Last Admin: 03/11/18 22:38 Dose: 80 mg Budesonide/Formoterol Fumarate (Symbicort 160/4.5mcg -) 2 puff IH BID [facility] Last Admin: 03/12/18 10:04 Dose: 2 puff Clopidogrel Bisulfate (Plavix -) 75 mg PO DAILY [facility] Last Admin: 03/12/18 10:09 Dose: 75 mg Docusate Sodium (Colace -) 300 mg PO [facility] Last Admin: 03/11/18 22:38 Dose: 300 mg Guaifenesin (Robitussin Dm -) 10 ml PO Q6H PRN PRN Reason: COUGH Last Admin: 03/12/18 10:09 Dose: 10 ml Insulin Aspart (Novolog Vial Sliding Scale -) 1 vial SQ [facility]; Protocol Last Admin: 03/12/18 16:51 Dose: 16 units Insulin Detemir (Levemir Vial) 15 units SQ [facility] Last Admin: 03/11/18 22:39 Dose: 15 units Levothyroxine Sodium (Synthroid -) 75 mcg PO DAILY@0700 [facility] Last Admin: 03/12/18 06:34 Dose: 75 mcg Melatonin (Melatonin) 5 mg PO HS PRN PRN Reason: INSOMNIA Last Admin: 03/07/18 22:37 Dose: 5 mg Methylprednisolone Sodium Succinate (Solu-Medrol -) 40 mg IVPUSH Q8H-IV [facility] Stop: 03/13/18 02:01 Last Admin: 03/12/18 17:00 Dose: 40 mg Metoclopramide HCl (Reglan -) 10 mg PO TIDAC [facility] Last Admin: 03/12/18 16:49 Dose: 10 mg Metoprolol Tartrate (Lopressor -) 50 mg PO BID [facility] Last Admin: 03/12/18 10:09 Dose: 50 mg Montelukast Sodium (Singulair -) 10 mg PO HS [facility] Last Admin: 03/11/18 22:38 Dose: 10 mg Polyethylene Glycol (Miralax (For Daily Use) -) 17 gm PO BID [facility] Last Admin: 03/12/18 10:10 Dose: 17 grams CBC, BMP 03/11/18 20:00 03/11/18 21:30 Microbiology 03/07/18 19:40 Blood Culture - Preliminary Blood - Peripheral Venous NO GROWTH OBTAINED AFTER 96 HOURS, INCUBATION TO CONTINUE FOR 1 DAYS. 03/07/18 19:40 Blood Culture - Preliminary Blood - Peripheral Venous NO GROWTH OBTAINED AFTER 96 HOURS, INCUBATION TO CONTINUE FOR 1 DAYS. Physical Constitutional: Yes: No Distress, Calm. Throat- clear Cardiovascular: Yes: Regular Rate and Rhythm Respiratory: Yes: Diminished, scattered wheezes - bilaterally Gastrointestinal: Yes: Normal Bowel Sounds, Soft. No: Tenderness Edema: No A/p continue present care robitussin prn steroids monitor renal function / bgm increase levemir daily oob - chair physical therapy will follow Problem List - Problems (1) Acute pulmonary edema Code(s): J81.0 - ACUTE PULMONARY EDEMA (2) NSTEMI (non-ST elevated myocardial infarction) Code(s): I21.4 - NON-ST ELEVATION (NSTEMI) MYOCARDIAL INFARCTION (3) CAD (coronary artery disease) Code(s): I25.10 - ATHSCL HEART DISEASE OF [place] CORONARY ARTERY W/O ANG PCTRS (4) Hx of CABG Code(s): Z95.1 - PRESENCE OF AORTOCORONARY BYPASS GRAFT (5) Hypertension Code(s): I10 - ESSENTIAL (PRIMARY) HYPERTENSION (6) Poorly controlled diabetes mellitus Code(s): E11.65 - TYPE 2 DIABETES MELLITUS WITH HYPERGLYCEMIA
[2018-03-12 19:50] LABS: HEMATOCRIT 26.9 % (32.4-45.2); HEMOGLOBIN 8.4 GM/dL (10.7-15.3); MCH 22.9 pg (25.7-33.7); MCHC 31.3 g/dl (32.0-36.0); MEAN CELL VOLUME 73.3 fl (80-96); MEAN PLT VOLUME 9.9 fl (7.5-11.1); PLATELET COUNT 366 K/MM3 (134-434); RBC 3.67 M/mm3 (3.60-5.2); RDW 17.4 % (11.6-15.6); WHITE BLOOD COUNT 17.8 K/mm3 (4.0-10.0)
--- NOTE | 2018-03-12 20:51 | PN ---
Progress Note (short form) - Note Progress Note: covering Problems CAD s/p CABG (2016), Hypertension presented with complaints of chest pain NSTEMI and Cr of 2-2.3. Current Medications Acetaminophen (Tylenol -) 650 mg PO Q6H PRN PRN Reason: FEVER Last Admin: 03/11/18 12:07 Dose: 650 mg Albuterol/Ipratropium (Duoneb -) 1 amp NEB Q4H [facility] Last Admin: 03/12/18 16:41 Dose: 1 amp Amlodipine Besylate (Norvasc -) 5 mg PO DAILY [facility] Last Admin: 03/12/18 10:09 Dose: 5 mg Aspirin (Asa -) 81 mg PO DAILY [facility] Last Admin: 03/12/18 10:09 Dose: 81 mg Atorvastatin Calcium (Lipitor -) 80 mg PO HS [facility] Last Admin: 03/11/18 22:38 Dose: 80 mg Budesonide/Formoterol Fumarate (Symbicort 160/4.5mcg -) 2 puff IH BID [facility] Last Admin: 03/12/18 10:04 Dose: 2 puff Clopidogrel Bisulfate (Plavix -) 75 mg PO DAILY [facility] Last Admin: 03/12/18 10:09 Dose: 75 mg Docusate Sodium (Colace -) 300 mg PO HS [facility] Last Admin: 03/11/18 22:38 Dose: 300 mg Guaifenesin (Robitussin Dm -) 10 ml PO Q6H PRN PRN Reason: COUGH Last Admin: 03/12/18 10:09 Dose: 10 ml Insulin Aspart (Novolog Vial Sliding Scale -) 1 vial SQ [facility]; Protocol Last Admin: 03/12/18 16:51 Dose: 16 units Insulin Detemir (Levemir Vial) 10 units SQ BID@0700,2200 [facility] Levothyroxine Sodium (Synthroid -) 75 mcg PO DAILY@0700 [facility] Last Admin: 03/12/18 06:34 Dose: 75 mcg Melatonin (Melatonin) 5 mg PO HS PRN PRN Reason: INSOMNIA Last Admin: 03/07/18 22:37 Dose: 5 mg Methylprednisolone Sodium Succinate (Solu-Medrol -) 40 mg IVPUSH Q8H-IV [facility] Stop: 03/13/18 02:01 Last Admin: 03/12/18 17:00 Dose: 40 mg Metoclopramide HCl (Reglan -) 10 mg PO TIDAC [facility] Last Admin: 03/12/18 16:49 Dose: 10 mg Metoprolol Tartrate (Lopressor -) 50 mg PO BID [facility] Last Admin: 03/12/18 10:09 Dose: 50 mg Montelukast Sodium (Singulair -) 10 mg PO HS [facility] Last Admin: 03/11/18 22:38 Dose: 10 mg Polyethylene Glycol (Miralax (For Daily Use) -) 17 gm PO BID [facility] Last Admin: 03/12/18 10:10 Dose: 17 grams Last Vital Signs Temp Pulse Resp BP Pulse Ox 99.2 F 92 H 20 142/60 96 03/12/18 17:06 03/12/18 17:06 03/12/18 17:06 03/12/18 17:06 03/12/18 09:00 O/E Lungs rhonchi Heart reg ABd soft nontender Ext no edema CBC, BMP 03/12/18 19:40 03/11/18 21:30 IMP- -Acute Kidney Injury vs. CKD -NSTEMI/CAD -chest congestion component of cardiac vs pulmonary disease -Hypertension -Metabolic acidosis -Anemia Azotemia stable at this time Lasix PRN for SOB however CXR did not show signs of CHF off IVF would avoid starting JIN/ARB until baseline renal function is established trend BUN/Cr while inpatient
[2018-03-12] MEDS: DOCUSATE SODIUM 100 MG CAPSULE (FP) PO SCH (22:45)
[2018-03-12] MEDS: INSULIN (LEVEMIR) 100 UNITS/ML UNITS SQ SCH (22:46)
[2018-03-12] MEDS: MONTELUKAST NA 10 MG TABLET PO SCH (22:46)
[2018-03-12] MEDS: ATORVASTATIN CA 80 MG TABLET (FP) PO SCH (22:46)
[2018-03-13] MEDS: ALBUTEROL SO4 2.5/IPRATROPIUM 0.5 INH SOL 3 ML VIAL.NEB. NEB SCH ×6 (00:06→20:15)
[2018-03-13] MEDS: methylPREDNISolone NA SUCC 40 MG/1 ML VIAL IVPUSH SCH ×3 (01:09→17:09)
[2018-03-13] MEDS: LEVOTHYROXINE NA 75 MCG TABLET (FP) PO SCH (06:14)
[2018-03-13] MEDS: METOCLOPRAMIDE HCL 10 MG TABLET (FP) PO SCH ×3 (06:14→17:09)
[2018-03-13] MEDS: INSULIN (LEVEMIR) 100 UNITS/ML UNITS SQ SCH ×3 (06:14→21:24)
[2018-03-13] MEDS: INSULIN SLIDING SCALE (NOVOLOG) 1 VIAL SQ SCH ×4 (06:15→21:25)
[2018-03-13 06:34] LABS: BASO % 0.1 % (0-2.0); HEMATOCRIT 28.8 % (32.4-45.2); HEMOGLOBIN 9.1 GM/dL (10.7-15.3); LYMPH % 5.9 % (8-40); MCH 23.1 pg (25.7-33.7); MCHC 31.5 g/dl (32.0-36.0); MEAN CELL VOLUME 73.3 fl (80-96); MEAN PLT VOLUME 9.5 fl (7.5-11.1); PLATELET COUNT 388 K/MM3 (134-434); RBC 3.93 M/mm3 (3.60-5.2); RDW 17.3 % (11.6-15.6); WHITE BLOOD COUNT 18.7 K/mm3 (4.0-10.0)
[2018-03-13] MEDS: BUDESONIDE/FORMETEROL FUMARATE 160/4.5 mcg INHALER IH SCH ×2 (09:14→21:24)
[2018-03-13] MEDS: amLODIPine BESYLATE 5 MG TABLET (FP) PO SCH (09:16)
[2018-03-13] MEDS: METOPROLOL TARTRATE 50 MG TABLET (FP) PO SCH ×2 (09:16→21:24)
[2018-03-13] MEDS: CLOPIDOGREL BISULFATE 75 MG TABLET (FP) PO SCH (09:16)
[2018-03-13] MEDS: ASPIRIN 81 MG CHEWABLE TABLETS PO SCH (09:16)
[2018-03-13] MEDS: POLYETHYLENE GLYCOL 3350 119 GM BTL PO SCH ×2 (09:16→21:25)
--- NOTE | 2018-03-13 10:43 | PN ---
Progress Note (short form) - Note Progress Note: PULMONARY Still wheezing. No fevers or chills. Last Vital Signs Temp Pulse Resp BP Pulse Ox 97.8 F 87 18 152/81 97 03/13/18 05:00 03/13/18 05:00 03/13/18 08:48 03/13/18 05:00 03/13/18 08:48 Gen: NAD at rest Heart: RRR Lung: bilateral rhonchi, wheezes Abd: soft, nontender Ext: no edema CBC, BMP 03/13/18 06:00 03/11/18 21:30 Active Medications Acetaminophen (Tylenol -) 650 mg PO Q6H PRN PRN Reason: FEVER Last Admin: 03/11/18 12:07 Dose: 650 mg Albuterol/Ipratropium (Duoneb -) 1 amp NEB Q4H [facility] Last Admin: 03/13/18 05:16 Dose: Not Given Amlodipine Besylate (Norvasc -) 5 mg PO DAILY [facility] Last Admin: 03/13/18 09:16 Dose: 5 mg Aspirin (Asa -) 81 mg PO DAILY [facility] Last Admin: 03/13/18 09:16 Dose: 81 mg Atorvastatin Calcium (Lipitor -) 80 mg PO [facility] Last Admin: 03/12/18 22:46 Dose: 80 mg Budesonide/Formoterol Fumarate (Symbicort 160/4.5mcg -) 2 puff IH BID [facility] Last Admin: 03/13/18 09:14 Dose: 2 puff Clopidogrel Bisulfate (Plavix -) 75 mg PO DAILY [facility] Last Admin: 03/13/18 09:16 Dose: 75 mg Docusate Sodium (Colace -) 300 mg PO [facility] Last Admin: 03/12/18 22:45 Dose: 300 mg Guaifenesin (Robitussin Dm -) 10 ml PO Q6H PRN PRN Reason: COUGH Last Admin: 03/12/18 10:09 Dose: 10 ml Insulin Aspart (Novolog Vial Sliding Scale -) 1 vial SQ [facility]; Protocol Last Admin: 03/13/18 06:15 Dose: 6 units Insulin Detemir (Levemir Vial) 10 units SQ BID@0700,2200 [facility] Last Admin: 03/13/18 06:14 Dose: 10 units Levothyroxine Sodium (Synthroid -) 75 mcg PO DAILY@0700 [facility] Last Admin: 03/13/18 06:14 Dose: 75 mcg Melatonin (Melatonin) 5 mg PO HS PRN PRN Reason: INSOMNIA Last Admin: 03/07/18 22:37 Dose: 5 mg Metoclopramide HCl (Reglan -) 10 mg PO TIDAC [facility] Last Admin: 03/13/18 06:14 Dose: 10 mg Metoprolol Tartrate (Lopressor -) 50 mg PO BID [facility] Last Admin: 03/13/18 09:16 Dose: 50 mg Montelukast Sodium (Singulair -) 10 mg PO HS [facility] Last Admin: 03/12/18 22:46 Dose: 10 mg Polyethylene Glycol (Miralax (For Daily Use) -) 17 gm PO BID [facility] Last Admin: 03/13/18 09:16 Dose: 17 grams A/P Acute NSTEMI CAD Acute Pulmonary Edema resolving Acute Bronchospasm CKD - standing and PRN inhaled bronchodilators - will continue medrol - ASA, plavix - consider decreasing or holding beta natalya - statin - glucose control while on systemic steroids - DVT prophylaxis
[2018-03-13 11:25] LABS: ANISOCYTOSIS 1+; PLATELET ESTIMATE ADEQUATE
--- NOTE | 2018-03-13 11:39 | PN ---
Progress Note (short form) - Note Progress Note: pt seen/ examined . All f/u noted/ discussed with Dr. Woodward also today still having cough but better as such denies cp. Vital Signs Temp 97.8 F 03/13/18 05:00 Pulse 87 03/13/18 05:00 Resp 18 03/13/18 08:48 BP 152/81 03/13/18 05:00 Pulse Ox 97 03/13/18 08:48 Intake & Output 03/12/18 03/12/18 03/13/18 11:59 23:59 11:59 Intake Total 30 850 30 Balance 30 850 30 Intake: IV 30 10 30 LFA #22 03/11 30 10 30 Oral 840 Other: Voiding Method Toilet Toilet Toilet # Unmeasured Voids Void 1 1 1 Bowel Movement No Yes # Bowel Movements 1 Active Medications Acetaminophen (Tylenol -) 650 mg PO Q6H PRN PRN Reason: FEVER Last Admin: 03/11/18 12:07 Dose: 650 mg Albuterol/Ipratropium (Duoneb -) 1 amp NEB Q4H [facility] Last Admin: 03/13/18 11:10 Dose: 1 amp Amlodipine Besylate (Norvasc -) 5 mg PO DAILY [facility] Last Admin: 03/13/18 09:16 Dose: 5 mg Aspirin (Asa -) 81 mg PO DAILY [facility] Last Admin: 03/13/18 09:16 Dose: 81 mg Atorvastatin Calcium (Lipitor -) 80 mg PO [facility] Last Admin: 03/12/18 22:46 Dose: 80 mg Budesonide/Formoterol Fumarate (Symbicort 160/4.5mcg -) 2 puff IH BID [facility] Last Admin: 03/13/18 09:14 Dose: 2 puff Clopidogrel Bisulfate (Plavix -) 75 mg PO DAILY [facility] Last Admin: 03/13/18 09:16 Dose: 75 mg Docusate Sodium (Colace -) 300 mg PO HS [facility] Last Admin: 03/12/18 22:45 Dose: 300 mg Guaifenesin (Robitussin Dm -) 10 ml PO Q6H PRN PRN Reason: COUGH Last Admin: 03/12/18 10:09 Dose: 10 ml Insulin Aspart (Novolog Vial Sliding Scale -) 1 vial SQ [facility]; Protocol Last Admin: 05/28/18 06:15 Dose: 6 units Insulin Detemir (Levemir Vial) 10 units SQ BID@0700,2200 [facility] Last Admin: 03/13/18 06:14 Dose: 10 units Levothyroxine Sodium (Synthroid -) 75 mcg PO DAILY@0700 [facility] Last Admin: 03/13/18 06:14 Dose: 75 mcg Melatonin (Melatonin) 5 mg PO HS PRN PRN Reason: INSOMNIA Last Admin: 03/07/18 22:37 Dose: 5 mg Methylprednisolone Sodium Succinate (Solu-Medrol -) 40 mg IVPUSH Q8H-IV [facility] Metoclopramide HCl (Reglan -) 10 mg PO TIDAC [facility] Last Admin: 03/13/18 06:14 Dose: 10 mg Metoprolol Tartrate (Lopressor -) 50 mg PO BID [facility] Last Admin: 03/13/18 09:16 Dose: 50 mg Montelukast Sodium (Singulair -) 10 mg PO HS [facility] Last Admin: 03/12/18 22:46 Dose: 10 mg Polyethylene Glycol (Miralax (For Daily Use) -) 17 gm PO BID [facility] Last Admin: 03/13/18 09:16 Dose: 17 grams CBC, BMP 03/13/18 06:00 03/11/18 21:30 Microbiology 03/07/18 19:40 Blood Culture - Preliminary Blood - Peripheral Venous NO GROWTH OBTAINED AFTER 96 HOURS, INCUBATION TO CONTINUE FOR 1 DAYS. 03/07/18 19:40 Blood Culture - Preliminary Blood - Peripheral Venous NO GROWTH OBTAINED AFTER 96 HOURS, INCUBATION TO CONTINUE FOR 1 DAYS. Physical Constitutional: Yes: No Distress, Calm. Throat- clear Cardiovascular: Yes: Regular Rate and Rhythm Respiratory: Yes: Diminished, scattered wheezes - bilaterally Gastrointestinal: Yes: Normal Bowel Sounds, Soft. No: Tenderness Edema: No A/p continue present care robitussin prn steroids monitor renal function / bgm increase levemir daily oob - chair physical therapy will follow. Problem List - Problems (1) Acute pulmonary edema Code(s): J81.0 - ACUTE PULMONARY EDEMA (2) NSTEMI (non-ST elevated myocardial infarction) Code(s): I21.4 - NON-ST ELEVATION (NSTEMI) MYOCARDIAL INFARCTION (3) CAD (coronary artery disease) Code(s): I25.10 - ATHSCL HEART DISEASE OF [place] CORONARY ARTERY W/O ANG PCTRS (4) Hx of CABG Code(s): Z95.1 - PRESENCE OF AORTOCORONARY BYPASS GRAFT (5) Hypertension Code(s): I10 - ESSENTIAL (PRIMARY) HYPERTENSION (6) Poorly controlled diabetes mellitus Code(s): E11.65 - TYPE 2 DIABETES MELLITUS WITH HYPERGLYCEMIA
[2018-03-13] MEDS ORDERED: INSULIN (NOVOLOG) ASPART 100 UNITS/ML 10ML VIAL ONE ×2 (12:43→21:15)
--- NOTE | 2018-03-13 16:00 | PN ---
Progress Note, Physician Chief Complaint: The patient appears weak and comfortable. She has less cough and wheezing. No chest pain, SOB at rest or palpitation. Tele shows sinus rhythm in 80s with occasional VPC. No recurrent NSVT. History of Present Illness: 63 year-old woman with a PMHx of HTN, DM, severe CAD s/p CABG 2016 at [facility] complicated by sternal wound infection, recent travel from [place] on admitted with cough productive of clear phlegm and NSTEMI. Echo 03/07/2018 showed normal LV size and systolic function. LVEF = 60 - 65%. No regional wall motion abnormalities. Regadenoson nuclear stress test 03/08/2018 revealed moderate inferior and apical ischemia LVEF 46% - Current Medication List Current Medications: Active Medications Acetaminophen (Tylenol -) 650 mg PO Q6H PRN PRN Reason: FEVER Last Admin: 03/11/18 12:07 Dose: 650 mg Albuterol/Ipratropium (Duoneb -) 1 amp NEB Q4H [facility] Last Admin: 03/13/18 11:10 Dose: 1 amp Amlodipine Besylate (Norvasc -) 5 mg PO DAILY [facility] Last Admin: 03/13/18 09:16 Dose: 5 mg Aspirin (Asa -) 81 mg PO DAILY [facility] Last Admin: 03/13/18 09:16 Dose: 81 mg Atorvastatin Calcium (Lipitor -) 80 mg PO HS [facility] Last Admin: 03/12/18 22:46 Dose: 80 mg Budesonide/Formoterol Fumarate (Symbicort 160/4.5mcg -) 2 puff IH BID [facility] Last Admin: 03/13/18 09:14 Dose: 2 puff Clopidogrel Bisulfate (Plavix -) 75 mg PO DAILY [facility] Last Admin: 03/13/18 09:16 Dose: 75 mg Docusate Sodium (Colace -) 300 mg PO HS [facility] Last Admin: 03/12/18 22:45 Dose: 300 mg Guaifenesin (Robitussin Dm -) 10 ml PO Q6H PRN PRN Reason: COUGH Last Admin: 03/12/18 10:09 Dose: 10 ml Insulin Aspart (Novolog Vial Sliding Scale -) 1 vial SQ [facility]; Protocol Last Admin: 03/13/18 12:45 Dose: 8 units Insulin Detemir (Levemir Vial) 15 units SQ BID@0700,2200 [facility] Last Admin: 03/13/18 12:46 Dose: 15 units Levothyroxine Sodium (Synthroid -) 75 mcg PO DAILY@0700 [facility] Last Admin: 03/13/18 06:14 Dose: 75 mcg Melatonin (Melatonin) 5 mg PO HS PRN PRN Reason: INSOMNIA Last Admin: 03/07/18 22:37 Dose: 5 mg Methylprednisolone Sodium Succinate (Solu-Medrol -) 40 mg IVPUSH Q8H-IV [facility] Last Admin: 03/13/18 12:46 Dose: 40 mg Metoclopramide HCl (Reglan -) 10 mg PO TIDAC [facility] Last Admin: 03/13/18 12:45 Dose: 10 mg Metoprolol Tartrate (Lopressor -) 50 mg PO BID [facility] Last Admin: 03/13/18 09:16 Dose: 50 mg Montelukast Sodium (Singulair -) 10 mg PO HS [facility] Last Admin: 03/12/18 22:46 Dose: 10 mg Polyethylene Glycol (Miralax (For Daily Use) -) 17 gm PO BID [facility] Last Admin: 03/13/18 09:16 Dose: 17 grams - Objective Vital Signs: Vital Signs Temperature 98.2 F 03/13/18 09:00 Pulse Rate 93 H 03/13/18 09:00 Respiratory Rate 18 03/13/18 09:00 Blood Pressure 150/69 03/13/18 09:00 O2 Sat by Pulse Oximetry (%) 97 03/13/18 08:48 General: Well developed. Weak. No acute distress. Head: Normocephalic. Atraumatic, Eyes: PERRLA, EOMI. Sclerae anicteric. Conjunctivae clear. Neck: Supple. No JVD. No bruits. Heart: Normal S1, S2: Regular rhythm and rate. No murmur. No gallop or rub. Lungs: Symmetrical air entry. Expiratory wheezing with prolonged expiration and rhonchi. Abdomen: Soft. Bowel sound positive. Non tender. No masses. Extremities: Trace edema. No clubbing or cyanosis Labs: CBC, BMP 03/13/18 06:00 03/11/18 21:30 INR, PTT INR 0.97 (0.82-1.09) 03/05/18 11:28 Assessment/Plan 63 year-old woman with a PMHx of HTN, DM, severe CAD s/p CABG 2016 at [facility] complicated by sternal wound infection, recent travel from [place] on admitted with cough productive of clear phlegm and NSTEMI. Echo 03/07/2018 showed normal LV size and systolic function. LVEF = 60 - 65%. No regional wall motion abnormalities. Regadenoson nuclear stress test 03/08/2018 revealed moderate inferior and apical ischemia LVEF 46% LE doppler showed no clot 1. NSTEMI. At present CP free. Continue conservative care at this time since she has preserved LV systolic function without regional wall motion abnormality. No symptoms of angina. Also she has SANTINO on CKD, high risk of contrast induced nephropathy if cardiac cath performed. Should continue metoprolol if possible for her cardiac condition: NSTEMI and NSVT. Consider to titrate up with caution due to wheezing. Continue aspirin, Plavix and atorvastatin. Conservative cardiac care for now with close out-patient cardiac follow up. 2. Acute diastolic CHF. No respiratory distress, No evidence of fluid overload. Lasix PRN. Please call us for reconsult as needed.
[2018-03-13 16:51] LABS: ALBUMIN 2.4 g/dl (3.4-5.0); ANION GAP 12 (8-16); BILIRUBIN,TOTAL 0.3 mg/dL (0.2-1.0); BLOOD UREA NITROGEN 33 mg/dL (7-18); CALCIUM 8.1 mg/dL (8.5-10.1); CHLORIDE 109 mmol/L (98-107); CO2 18 mmol/L (21-32); GLUCOSE,RANDOM 238 mg/dL (74-106); POTASSIUM 4.2 mmol/L (3.5-5.1); SGOT/AST 22 U/L (15-37); SGPT/ALT 25 U/L (12-78); SODIUM 139 mmol/L (136-145); TOT PROT 6.5 g/dl (6.4-8.2)
[2018-03-13 16:52] LABS: ALK PHOS 95 U/L (45-117)
[2018-03-13] MEDS ORDERED: PT OWN MED DRAWER 7, Y5N ONE ×2 (17:36→21:15)
[2018-03-13 19:54] LABS: HEMATOCRIT 29.5 % (32.4-45.2); HEMOGLOBIN 9.1 GM/dL (10.7-15.3); MCH 22.9 pg (25.7-33.7); MCHC 30.8 g/dl (32.0-36.0); MEAN CELL VOLUME 74.3 fl (80-96); MEAN PLT VOLUME 10.1 fl (7.5-11.1); PLATELET COUNT 416 K/MM3 (134-434); RBC 3.98 M/mm3 (3.60-5.2); RDW 17.3 % (11.6-15.6); WHITE BLOOD COUNT 21.7 K/mm3 (4.0-10.0)
--- NOTE | 2018-03-13 20:10 | PN ---
Progress Note (short form) - Note Progress Note: covering Problems CAD s/p CABG (2016), Hypertension presented with complaints of chest pain NSTEMI and Cr of 2-2.3. Active Medications Acetaminophen (Tylenol -) 650 mg PO Q6H PRN PRN Reason: FEVER Last Admin: 03/11/18 12:07 Dose: 650 mg Albuterol/Ipratropium (Duoneb -) 1 amp NEB Q4H [facility] Last Admin: 03/13/18 16:00 Dose: 1 amp Amlodipine Besylate (Norvasc -) 5 mg PO DAILY [facility] Last Admin: 03/13/18 09:16 Dose: 5 mg Aspirin (Asa -) 81 mg PO DAILY [facility] Last Admin: 03/13/18 09:16 Dose: 81 mg Atorvastatin Calcium (Lipitor -) 80 mg PO HS [facility] Last Admin: 03/12/18 22:46 Dose: 80 mg Budesonide/Formoterol Fumarate (Symbicort 160/4.5mcg -) 2 puff IH BID [facility] Last Admin: 03/13/18 09:14 Dose: 2 puff Clopidogrel Bisulfate (Plavix -) 75 mg PO DAILY [facility] Last Admin: 03/13/18 09:16 Dose: 75 mg Docusate Sodium (Colace -) 300 mg PO HS [facility] Last Admin: 03/12/18 22:45 Dose: 300 mg Guaifenesin (Robitussin Dm -) 10 ml PO Q6H PRN PRN Reason: COUGH Last Admin: 03/12/18 10:09 Dose: 10 ml Insulin Aspart (Novolog Vial Sliding Scale -) 1 vial SQ [facility]; Protocol Last Admin: 03/13/18 17:12 Dose: 10 units Insulin Detemir (Levemir Vial) 15 units SQ BID@0700,2200 [facility] Last Admin: 03/13/18 12:46 Dose: 15 units Levothyroxine Sodium (Synthroid -) 75 mcg PO DAILY@0700 [facility] Last Admin: 03/13/18 06:14 Dose: 75 mcg Melatonin (Melatonin) 5 mg PO HS PRN PRN Reason: INSOMNIA Last Admin: 03/07/18 22:37 Dose: 5 mg Methylprednisolone Sodium Succinate (Solu-Medrol -) 40 mg IVPUSH Q8H-IV [facility] Last Admin: 03/13/18 17:09 Dose: 40 mg Metoclopramide HCl (Reglan -) 10 mg PO TIDAC [facility] Last Admin: 03/13/18 17:09 Dose: 10 mg Metoprolol Tartrate (Lopressor -) 50 mg PO BID [facility] Last Admin: 03/13/18 09:16 Dose: 50 mg Montelukast Sodium (Singulair -) 10 mg PO HS [facility] Last Admin: 03/12/18 22:46 Dose: 10 mg Polyethylene Glycol (Miralax (For Daily Use) -) 17 gm PO BID [facility] Last Admin: 03/13/18 09:16 Dose: 17 grams Last Vital Signs Temp Pulse Resp BP Pulse Ox 98.2 F 93 H 18 150/69 97 03/13/18 09:00 03/13/18 09:00 03/13/18 09:00 03/13/18 09:00 03/13/18 08:48 O/E Lungs rhonchi Heart reg ABd soft nontender Ext no edema CBC, BMP 03/13/18 18:40 03/13/18 16:00 IMP- -Acute Kidney Injury vs. CKD renal function is remaining the same so far lindsay function was better in 2016 unclear if current renal function is 2/2 acute componenet -NSTEMI/CAD -chest congestion component of cardiac vs pulmonary disease -Hypertension -Metabolic acidosis -Anemia Lasix PRN for SOB however CXR did not show signs of CHF off IVF would avoid starting JIN/ARB until baseline renal function is established trend BUN/Cr while inpatient
[2018-03-13] MEDS: DOCUSATE SODIUM 100 MG CAPSULE (FP) PO SCH (21:24)
[2018-03-13] MEDS: MONTELUKAST NA 10 MG TABLET PO SCH (21:24)
[2018-03-13] MEDS: ATORVASTATIN CA 80 MG TABLET (FP) PO SCH (21:24)
[2018-03-14] MEDS: methylPREDNISolone NA SUCC 40 MG/1 ML VIAL IVPUSH SCH ×3 (00:59→17:18)
[2018-03-14] MEDS: ALBUTEROL SO4 2.5/IPRATROPIUM 0.5 INH SOL 3 ML VIAL.NEB. NEB SCH ×6 (04:00→20:15)
[2018-03-14] MEDS: METOCLOPRAMIDE HCL 10 MG TABLET (FP) PO SCH ×3 (06:02→17:18)
[2018-03-14] MEDS: INSULIN SLIDING SCALE (NOVOLOG) 1 VIAL SQ SCH ×4 (06:02→21:12)
[2018-03-14] MEDS: INSULIN (LEVEMIR) 100 UNITS/ML UNITS SQ SCH ×2 (06:02→21:13)
[2018-03-14] MEDS: LEVOTHYROXINE NA 75 MCG TABLET (FP) PO SCH (06:02)
[2018-03-14] MEDS: METOPROLOL TARTRATE 50 MG TABLET (FP) PO SCH (09:57)
[2018-03-14] MEDS: CLOPIDOGREL BISULFATE 75 MG TABLET (FP) PO SCH (09:57)
[2018-03-14] MEDS: POLYETHYLENE GLYCOL 3350 119 GM BTL PO SCH ×2 (09:57→21:14)
[2018-03-14] MEDS: amLODIPine BESYLATE 5 MG TABLET (FP) PO SCH (09:57)
[2018-03-14] MEDS: ASPIRIN 81 MG CHEWABLE TABLETS PO SCH (09:57)
[2018-03-14] MEDS: BUDESONIDE/FORMETEROL FUMARATE 160/4.5 mcg INHALER IH SCH ×2 (09:58→21:12)
--- NOTE | 2018-03-14 11:01 | PN ---
Progress Note, Physician History of Present Illness: seen and examined today in nad. still reports mild cough. no new events. - Current Medication List Current Medications: Active Medications Acetaminophen (Tylenol -) 650 mg PO Q6H PRN PRN Reason: FEVER Last Admin: 03/11/18 12:07 Dose: 650 mg Albuterol/Ipratropium (Duoneb -) 1 amp NEB Q4H [facility] Last Admin: 03/14/18 04:00 Dose: Not Given Amlodipine Besylate (Norvasc -) 5 mg PO DAILY [facility] Last Admin: 03/14/18 09:57 Dose: 5 mg Aspirin (Asa -) 81 mg PO DAILY [facility] Last Admin: 03/14/18 09:57 Dose: 81 mg Atorvastatin Calcium (Lipitor -) 80 mg PO HS [facility] Last Admin: 03/13/18 21:24 Dose: 80 mg Budesonide/Formoterol Fumarate (Symbicort 160/4.5mcg -) 2 puff IH BID [facility] Last Admin: 03/14/18 09:58 Dose: 2 puff Clopidogrel Bisulfate (Plavix -) 75 mg PO DAILY [facility] Last Admin: 03/14/18 09:57 Dose: 75 mg Docusate Sodium (Colace -) 300 mg PO HS [facility] Last Admin: 03/13/18 21:24 Dose: 300 mg Guaifenesin (Robitussin Dm -) 10 ml PO Q6H PRN PRN Reason: COUGH Last Admin: 03/12/18 10:09 Dose: 10 ml Insulin Aspart (Novolog Vial Sliding Scale -) 1 vial SQ [facility]; Protocol Last Admin: 03/14/18 06:02 Dose: 4 units Insulin Detemir (Levemir Vial) 15 units SQ BID@0700,2200 [facility] Last Admin: 03/14/18 06:02 Dose: 15 units Levothyroxine Sodium (Synthroid -) 75 mcg PO DAILY@0700 [facility] Last Admin: 03/14/18 06:02 Dose: 75 mcg Melatonin (Melatonin) 5 mg PO HS PRN PRN Reason: INSOMNIA Last Admin: 03/07/18 22:37 Dose: 5 mg Methylprednisolone Sodium Succinate (Solu-Medrol -) 40 mg IVPUSH Q8H-IV [facility] Last Admin: 03/14/18 09:57 Dose: 40 mg Metoclopramide HCl (Reglan -) 10 mg PO TIDAC [facility] Last Admin: 03/14/18 06:02 Dose: 10 mg Metoprolol Tartrate (Lopressor -) 50 mg PO BID [facility] Last Admin: 03/14/18 09:57 Dose: 50 mg Montelukast Sodium (Singulair -) 10 mg PO HS [facility] Last Admin: 03/13/18 21:24 Dose: 10 mg Polyethylene Glycol (Miralax (For Daily Use) -) 17 gm PO BID [facility] Last Admin: 03/14/18 09:57 Dose: 17 grams - Objective Vital Signs: Vital Signs Temperature 98.0 F 03/14/18 06:00 Pulse Rate 83 03/14/18 06:00 Respiratory Rate 18 03/14/18 06:00 Blood Pressure 162/75 03/14/18 06:00 O2 Sat by Pulse Oximetry (%) 97 03/13/18 21:00 Constitutional: Yes: No Distress, Calm Eyes: Yes: Conjunctiva Clear, EOM Intact HENT: Yes: Atraumatic, Normocephalic Neck: Yes: Supple, Trachea Midline Cardiovascular: Yes: Regular Rate and Rhythm, S1, S2. No: Bradycardia, Tachycardia, Pulse Irregular, Bruit, JVD, Gallop, Murmur, S3, S4, Varicosities Respiratory: Yes: Regular, Diminished. No: Rales, Rhonchi, Wheezes Gastrointestinal: Yes: Normal Bowel Sounds, Soft. No: Distention, Tenderness Extremities: Yes: WNL Edema: No Peripheral Pulses WNL: Yes Neurological: Yes: Alert, Oriented Psychiatric: Yes: Alert, Oriented Labs: CBC, BMP 03/13/18 18:40 03/13/18 16:00 INR, PTT INR 0.97 (0.82-1.09) 03/05/18 11:28 - ....Imaging Chest X-ray: Report Reviewed, Image Reviewed EKG: Report Reviewed, Image Reviewed Other: Report Reviewed, Image Reviewed (tele-nsr, pvcs, occ V couplets) Assessment/Plan 63 year-old woman with a PMHx of HTN, DM, severe CAD s/p CABG 2016 at [facility] complicated by sternal wound infection, recent travel from [place] on admitted with cough productive of clear phlegm and NSTEMI. Echo 03/07/2018 showed normal LV size and systolic function. LVEF = 60 - 65%. No regional wall motion abnormalities. Regadenoson nuclear stress test 03/08/2018 revealed moderate inferior and apical ischemia LVEF 46% LE doppler showed no clot 1. CAD h/o CABG adm with NSTEMI. no further chest pain -cont medical management given SANTINO on CKD, high risk of contrast induced nephropathy if cardiac cath performed. -cont ASA, Plavix, lipitor -plan to cont bblocker for NSTEMI and NSVT, will give trial of changing metoprolol to bystolic considering metoprolol may be contributing to bronchospasm Conservative cardiac care for now with close out-patient cardiac follow up. 2. SOB/wheezing-considered Acute diastolic CHF however pt did have low grade fever and has viral illness, may be viral illness -wheezing is improving with steroids and bronchodilators - No evidence of fluid overload currently -use Lasix PRN.
--- NOTE | 2018-03-14 11:30 | PN ---
Progress Note, Physician History of Present Illness: pulmonary alert,comfortable at rest,+ cough - Current Medication List Current Medications: Active Medications Acetaminophen (Tylenol -) 650 mg PO Q6H PRN PRN Reason: FEVER Last Admin: 03/11/18 12:07 Dose: 650 mg Albuterol/Ipratropium (Duoneb -) 1 amp NEB Q4H [facility] Last Admin: 03/14/18 04:00 Dose: Not Given Amlodipine Besylate (Norvasc -) 5 mg PO DAILY [facility] Last Admin: 03/14/18 09:57 Dose: 5 mg Aspirin (Asa -) 81 mg PO DAILY [facility] Last Admin: 03/14/18 09:57 Dose: 81 mg Atorvastatin Calcium (Lipitor -) 80 mg PO HS [facility] Last Admin: 03/13/18 21:24 Dose: 80 mg Budesonide/Formoterol Fumarate (Symbicort 160/4.5mcg -) 2 puff IH BID [facility] Last Admin: 03/14/18 09:58 Dose: 2 puff Clopidogrel Bisulfate (Plavix -) 75 mg PO DAILY [facility] Last Admin: 03/14/18 09:57 Dose: 75 mg Docusate Sodium (Colace -) 300 mg PO HS [facility] Last Admin: 03/13/18 21:24 Dose: 300 mg Guaifenesin (Robitussin Dm -) 10 ml PO Q6H PRN PRN Reason: COUGH Last Admin: 03/12/18 10:09 Dose: 10 ml Insulin Aspart (Novolog Vial Sliding Scale -) 1 vial SQ [facility]; Protocol Last Admin: 03/14/18 06:02 Dose: 4 units Insulin Detemir (Levemir Vial) 15 units SQ BID@0700,2200 [facility] Last Admin: 03/14/18 06:02 Dose: 15 units Levothyroxine Sodium (Synthroid -) 75 mcg PO DAILY@0700 [facility] Last Admin: 03/14/18 06:02 Dose: 75 mcg Melatonin (Melatonin) 5 mg PO HS PRN PRN Reason: INSOMNIA Last Admin: 03/07/18 22:37 Dose: 5 mg Methylprednisolone Sodium Succinate (Solu-Medrol -) 40 mg IVPUSH Q8H-IV [facility] Last Admin: 03/14/18 09:57 Dose: 40 mg Metoclopramide HCl (Reglan -) 10 mg PO TIDAC [facility] Last Admin: 03/14/18 06:02 Dose: 10 mg Montelukast Sodium (Singulair -) 10 mg PO HS [facility] Last Admin: 03/13/18 21:24 Dose: 10 mg Nebivolol (Bystolic -) 5 mg PO DAILY [facility] Polyethylene Glycol (Miralax (For Daily Use) -) 17 gm PO BID [facility] Last Admin: 03/14/18 09:57 Dose: 17 grams - Objective Vital Signs: Vital Signs Temperature 98.0 F 03/14/18 06:00 Pulse Rate 83 03/14/18 06:00 Respiratory Rate 18 03/14/18 06:00 Blood Pressure 162/75 03/14/18 06:00 O2 Sat by Pulse Oximetry (%) 97 03/13/18 21:00 Constitutional: Yes: Well Nourished, Calm Eyes: Yes: WNL HENT: Yes: WNL Neck: Yes: WNL Cardiovascular: Yes: Regular Rate and Rhythm, S1, S2 Respiratory: Yes: Wheezes (bilateral wheezes) Gastrointestinal: Yes: Normal Bowel Sounds, Soft Extremities: Yes: WNL Edema: No Assessment/Plan Problem List - Problems (1) Acute pulmonary edema Code(s): J81.0 - ACUTE PULMONARY EDEMA (2) NSTEMI (non-ST elevated myocardial infarction) Code(s): I21.4 - NON-ST ELEVATION (NSTEMI) MYOCARDIAL INFARCTION (3) CAD (coronary artery disease) Code(s): I25.10 - ATHSCL HEART DISEASE OF [place] CORONARY ARTERY W/O ANG PCTRS Assessment/Plan NSTEMI (?) CKD Low clinical suspicion of PNA or VTE bronchospasm Ashd Rec: ASA/Plavix Statin O2 as needed anti-tussives inhaled bronchodilators solumedrol monitor DR FARA gatica
[2018-03-14] MEDS: NEBIVOLOL 5 MG TABLET (FP) PO SCH (13:10)
--- NOTE | 2018-03-14 16:32 | PN ---
Progress Note (short form) - Note Progress Note: Renal follow up for SANTINO vs CKD Pt seen and examined at the bedside no acute complaints no sob, chest pain Vital Signs Temperature 98.5 F 03/14/18 14:13 Pulse Rate 79 03/14/18 14:13 Respiratory Rate 16 03/14/18 14:13 Blood Pressure 165/77 03/14/18 14:13 O2 Sat by Pulse Oximetry (%) 97 03/14/18 09:00 NAD dec BS b/l lung grossman, no overt rales RRR soft NT/ND no LE edema CBC, BMP 03/13/18 18:40 03/13/18 16:00 Current Medications Acetaminophen (Tylenol -) 650 mg PO Q6H PRN PRN Reason: FEVER Last Admin: 03/11/18 12:07 Dose: 650 mg Albuterol/Ipratropium (Duoneb -) 1 amp NEB Q4H [facility] Last Admin: 03/14/18 11:43 Dose: 1 amp Amlodipine Besylate (Norvasc -) 5 mg PO DAILY [facility] Last Admin: 03/14/18 09:57 Dose: 5 mg Aspirin (Asa -) 81 mg PO DAILY [facility] Last Admin: 03/14/18 09:57 Dose: 81 mg Atorvastatin Calcium (Lipitor -) 80 mg PO HS [facility] Last Admin: 03/13/18 21:24 Dose: 80 mg Budesonide/Formoterol Fumarate (Symbicort 160/4.5mcg -) 2 puff IH BID [facility] Last Admin: 03/14/18 09:58 Dose: 2 puff Clopidogrel Bisulfate (Plavix -) 75 mg PO DAILY [facility] Last Admin: 03/14/18 09:57 Dose: 75 mg Docusate Sodium (Colace -) 300 mg PO HS [facility] Last Admin: 03/13/18 21:24 Dose: 300 mg Guaifenesin (Robitussin Dm -) 10 ml PO Q6H PRN PRN Reason: COUGH Last Admin: 03/12/18 10:09 Dose: 10 ml Insulin Aspart (Novolog Vial Sliding Scale -) 1 vial SQ [facility]; Protocol Last Admin: 03/14/18 12:02 Dose: Not Given Insulin Detemir (Levemir Vial) 15 units SQ BID@0700,2200 [facility] Last Admin: 03/14/18 06:02 Dose: 15 units Levothyroxine Sodium (Synthroid -) 75 mcg PO DAILY@0700 [facility] Last Admin: 03/14/18 06:02 Dose: 75 mcg Melatonin (Melatonin) 5 mg PO HS PRN PRN Reason: INSOMNIA Last Admin: 03/07/18 22:37 Dose: 5 mg Methylprednisolone Sodium Succinate (Solu-Medrol -) 40 mg IVPUSH Q8H-IV [facility] Last Admin: 03/14/18 09:57 Dose: 40 mg Metoclopramide HCl (Reglan -) 10 mg PO TIDAC [facility] Last Admin: 03/14/18 12:03 Dose: 10 mg Montelukast Sodium (Singulair -) 10 mg PO HS [facility] Last Admin: 03/13/18 21:24 Dose: 10 mg Nebivolol (Bystolic -) 5 mg PO DAILY [facility] Last Admin: 03/14/18 13:10 Dose: 5 mg Polyethylene Glycol (Miralax (For Daily Use) -) 17 gm PO BID [facility] Last Admin: 03/14/18 09:57 Dose: 17 grams 63 year old woman with PMhx of CAD s/p CABG (2016), Hypertension who presents with complaints of chest pain and found to have NSTEMI and Cr of 2-2.3. #Acute Kidney Injury vs. CKD #NSTEMI/CAD #Hypertension #Metabolic acidosis #Anemia Renal function is stable at this time continue present management discharge planning as per primary sodium bicarb daily Steve Shrestha DO
--- NOTE | 2018-03-14 18:00 | PN ---
Progress Note (short form) - Note Progress Note: feels much better now all f/u noted decreased cough in high spirits wants to go home family at bedside\ Vital Signs Temp 98.5 F 03/14/18 14:13 Pulse 79 03/14/18 14:13 Resp 16 03/14/18 14:13 BP 165/77 03/14/18 14:13 Pulse Ox 97 03/14/18 09:00 Intake & Output 03/13/18 03/14/18 03/14/18 23:59 11:59 23:59 Intake Total 300 410 350 Balance 300 410 350 Intake: Oral 300 410 350 Other: Voiding Method Toilet Toilet # Unmeasured Voids Void 1 1 Bowel Movement No No Active Medications Acetaminophen (Tylenol -) 650 mg PO Q6H PRN PRN Reason: FEVER Last Admin: 03/11/18 12:07 Dose: 650 mg Albuterol/Ipratropium (Duoneb -) 1 amp NEB Q4H [facility] Last Admin: 03/14/18 11:43 Dose: 1 amp Amlodipine Besylate (Norvasc -) 5 mg PO DAILY [facility] Last Admin: 03/14/18 09:57 Dose: 5 mg Aspirin (Asa -) 81 mg PO DAILY [facility] Last Admin: 03/14/18 09:57 Dose: 81 mg Atorvastatin Calcium (Lipitor -) 80 mg PO HS [facility] Last Admin: 03/13/18 21:24 Dose: 80 mg Budesonide/Formoterol Fumarate (Symbicort 160/4.5mcg -) 2 puff IH BID [facility] Last Admin: 03/14/18 09:58 Dose: 2 puff Clopidogrel Bisulfate (Plavix -) 75 mg PO DAILY [facility] Last Admin: 03/14/18 09:57 Dose: 75 mg Docusate Sodium (Colace -) 300 mg PO HS [facility] Last Admin: 03/13/18 21:24 Dose: 300 mg Guaifenesin (Robitussin Dm -) 10 ml PO Q6H PRN PRN Reason: COUGH Last Admin: 03/12/18 10:09 Dose: 10 ml Insulin Aspart (Novolog Vial Sliding Scale -) 1 vial SQ [facility]; Protocol Last Admin: 03/14/18 17:21 Dose: 10 units Insulin Detemir (Levemir Vial) 15 units SQ BID@0700,2200 [facility] Last Admin: 03/14/18 06:02 Dose: 15 units Levothyroxine Sodium (Synthroid -) 75 mcg PO DAILY@0700 [facility] Last Admin: 03/14/18 06:02 Dose: 75 mcg Melatonin (Melatonin) 5 mg PO HS PRN PRN Reason: INSOMNIA Last Admin: 03/07/18 22:37 Dose: 5 mg Methylprednisolone Sodium Succinate (Solu-Medrol -) 40 mg IVPUSH BID [facility] Metoclopramide HCl (Reglan -) 10 mg PO TIDAC [facility] Last Admin: 03/14/18 17:18 Dose: 10 mg Montelukast Sodium (Singulair -) 10 mg PO HS [facility] Last Admin: 03/13/18 21:24 Dose: 10 mg Nebivolol (Bystolic -) 5 mg PO DAILY [facility] Last Admin: 03/14/18 13:10 Dose: 5 mg Polyethylene Glycol (Miralax (For Daily Use) -) 17 gm PO BID [facility] Last Admin: 03/14/18 09:57 Dose: 17 grams Sodium Bicarbonate (Sodium Bicarbonate -) 650 mg PO DAILY [facility] CBC, BMP 03/13/18 18:40 03/13/18 16:00 Physical Constitutional: Yes: No Distress, Calm. Throat- clear Cardiovascular: Yes: Regular Rate and Rhythm Respiratory: Yes: Diminished, scattered wheezes - bilaterally-- improved Gastrointestinal: Yes: Normal Bowel Sounds, Soft. No: Tenderness Edema: No A/p Better continue present care robitussin prn steroids-- taper monitor renal function / bgm daily oob - chair physical therapy if better - will discharge tomorrow Discussed with pt / family I also discussed with Dr. Parham earlier today will follow Problem List - Problems (1) Acute pulmonary edema Code(s): J81.0 - ACUTE PULMONARY EDEMA (2) NSTEMI (non-ST elevated myocardial infarction) Code(s): I21.4 - NON-ST ELEVATION (NSTEMI) MYOCARDIAL INFARCTION (3) CAD (coronary artery disease) Code(s): I25.10 - ATHSCL HEART DISEASE OF [place] CORONARY ARTERY W/O ANG PCTRS (4) Hx of CABG Code(s): Z95.1 - PRESENCE OF AORTOCORONARY BYPASS GRAFT (5) Hypertension Code(s): I10 - ESSENTIAL (PRIMARY) HYPERTENSION (6) Poorly controlled diabetes mellitus Code(s): E11.65 - TYPE 2 DIABETES MELLITUS WITH HYPERGLYCEMIA
[2018-03-14] MEDS ORDERED: INSULIN (NOVOLOG) ASPART 100 UNITS/ML 10ML VIAL ONE (20:12)
[2018-03-14] MEDS ORDERED: PT OWN MED DRAWER 7, Y5N ONE (20:13)
[2018-03-14] MEDS: guaiFENesin/D-METHORPHAN HB 10 ML UNIT-DOSE CUPS PO PRN (21:12)
[2018-03-14] MEDS: ATORVASTATIN CA 80 MG TABLET (FP) PO SCH (21:13)
[2018-03-14] MEDS: MELATONIN 5 MG TABLETS PO PRN (21:13)
[2018-03-14] MEDS: MONTELUKAST NA 10 MG TABLET PO SCH (21:13)
[2018-03-14] MEDS: DOCUSATE SODIUM 100 MG CAPSULE (FP) PO SCH (21:14)
[2018-03-15] MEDS: ALBUTEROL SO4 2.5/IPRATROPIUM 0.5 INH SOL 3 ML VIAL.NEB. NEB SCH ×4 (00:30→11:40)
[2018-03-15] MEDS: METOCLOPRAMIDE HCL 10 MG TABLET (FP) PO SCH ×2 (06:13→12:10)
[2018-03-15] MEDS: INSULIN (LEVEMIR) 100 UNITS/ML UNITS SQ SCH (06:13)
[2018-03-15] MEDS: LEVOTHYROXINE NA 75 MCG TABLET (FP) PO SCH (06:13)
[2018-03-15] MEDS: INSULIN SLIDING SCALE (NOVOLOG) 1 VIAL SQ SCH ×2 (06:13→12:11)
[2018-03-15] MEDS ORDERED: INSULIN (NOVOLOG) ASPART 100 UNITS/ML 10ML VIAL ONE (06:39)
[2018-03-15] MEDS ORDERED: PT OWN MED DRAWER 7, Y5N ONE ×2 (06:39→09:30)
[2018-03-15 07:24] LABS: BASO % 0.4 % (0-2.0); HEMATOCRIT 26.7 % (32.4-45.2); HEMOGLOBIN 8.6 GM/dL (10.7-15.3); LYMPH % 19.3 % (8-40); MCH 23.7 pg (25.7-33.7); MCHC 32.2 g/dl (32.0-36.0); MEAN CELL VOLUME 73.5 fl (80-96); MEAN PLT VOLUME 9.5 fl (7.5-11.1); MONO % 11.1 % (3.8-10.2); NEUT % 69.2 % (42.8-82.8); PLATELET COUNT 397 K/MM3 (134-434); RBC 3.63 M/mm3 (3.60-5.2); RDW 16.7 % (11.6-15.6); WHITE BLOOD COUNT 16.5 K/mm3 (4.0-10.0)
[2018-03-15 07:46] LABS: CHLORIDE 117 mmol/L (98-107); POTASSIUM 3.8 mmol/L (3.5-5.1); SODIUM 146 mmol/L (136-145)
[2018-03-15 07:55] LABS: ALK PHOS 77 U/L (45-117); ANION GAP 9 (8-16); BILIRUBIN,TOTAL 0.4 mg/dL (0.2-1.0); BLOOD UREA NITROGEN 31 mg/dL (7-18); CALCIUM 7.9 mg/dL (8.5-10.1); CO2 20 mmol/L (21-32); CREATININE 1.7 mg/dL (0.55-1.02); GLUCOSE,RANDOM 91 mg/dL (74-106); SGOT/AST 20 U/L (15-37); SGPT/ALT 27 U/L (12-78); TOT PROT 5.4 g/dl (6.4-8.2)
[2018-03-15] MEDS: CLOPIDOGREL BISULFATE 75 MG TABLET (FP) PO SCH (09:52)
[2018-03-15] MEDS: NEBIVOLOL 5 MG TABLET (FP) PO SCH (09:52)
[2018-03-15] MEDS: amLODIPine BESYLATE 5 MG TABLET (FP) PO SCH (09:53)
[2018-03-15] MEDS: ASPIRIN 81 MG CHEWABLE TABLETS PO SCH (09:53)
[2018-03-15] MEDS: BUDESONIDE/FORMETEROL FUMARATE 160/4.5 mcg INHALER IH SCH (09:53)
[2018-03-15] MEDS: POLYETHYLENE GLYCOL 3350 119 GM BTL PO SCH (09:55)
[2018-03-15] MEDS ORDERED: SODIUM BICARBONATE 650 MG TABLET PO SCH (10:00)
[2018-03-15] MEDS ORDERED: methylPREDNISolone NA SUCC 40 MG/1 ML VIAL IVPUSH SCH (10:00)
[2018-03-15 10:06] VITALS: BP 176/82; PULSE 84; TEMP 98
--- NOTE | 2018-03-15 11:10 | DS ---
Physical Examination Vital Signs: Vital Signs Temperature 98 F 03/15/18 10:00 Pulse Rate 84 03/15/18 10:00 Respiratory Rate 20 03/15/18 10:00 Blood Pressure 176/82 03/15/18 10:00 O2 Sat by Pulse Oximetry (%) 96 03/14/18 21:00 Constitutional: Yes: No Distress Cardiovascular: Yes: Regular Rate and Rhythm Respiratory: Yes: Diminished, Rhonchi (decreased) Gastrointestinal: Yes: Normal Bowel Sounds, Soft, Abdomen, Obese. No: Tenderness Edema: No Labs: CBC, BMP 03/15/18 06:30 03/15/18 06:30 Discharge Summary Reason For Visit: NON ST ELEVATION MYOCARDIAL INFARCTION/ Current Active Problems Acute pulmonary edema (Acute) CHF exacerbation (Acute) NSTEMI (non-ST elevated myocardial infarction) (Acute) Renal failure (ARF), acute on chronic (Acute) Hospital Course: Admitted for chest pain and SOB Was found to have elevated troponins- NSTEMI, Diastolic dysfunction and COPD . Had acute on chronic renal failure Seen by Cardiology, Renal , Pulmonary started on heparin drip Stress test - moderate apical ischemia Custodian Manager discussed with family- conservative treatment for now as evgeny has acute on chronic renal failure Creatinine now 1.7 She was also on Solumedrol - tapered down Pt better clinically No further chest pain , SOB is better Stable for dc home May consider cardio-pulm rehab follow up with Dr Parham, Dr Shrestha and Dr Lara as outpt Condition: Improved - Instructions Diet, Activity, Other Instructions: consider Cardio-pulmonary rehab- needs clearance from Cardiology Referrals: Rush Parham MD [Staff Physician] - 2 Weeks Rob Lara MD [Primary Care Provider] - Steve Shrestha MD [Staff Physician] - Disposition: HOME - Home Medications Comprehensive Discharge Medication List: Ambulatory Orders Levothyroxine [Synthroid -] 75 mcg PO DAILY 08/13/16 Metoprolol Tartrate [Lopressor] 50 mg PO BID 08/13/16 Valsartan 320 mg PO DAILY 08/13/16 Amlodipine Besylate [Norvasc -] 5 mg PO DAILY 03/05/18 Aspirin [Ecotrin] 81 mg PO DAILY 03/05/18 Atorvastatin Ca [Lipitor] 10 mg PO HS 03/05/18 Benzonatate 100 mg PO TID 03/05/18 Dulaglutide [Trulicity] 1.5 mg SQ WEEKLY 03/05/18 Hydrocodone/Ibuprofen [VICOPROFEN 7.5/200 mg [NF MEDICATION]] 1 tab PO BID 03/05 Insulin Glargine,Hum.rec.anlog [Lantus Solostar PEN (NF)] 50 ml SQ DAILY Insulin Lispro [Humalog] 10 unit SQ TID 03/05/18 Montelukast Sodium [Singulair] 10 mg PO DAILY 03/05/18 Plecanatide [Trulance] 3 mg PO DAILY 03/05/18 Potassium Chloride [K-Dur -] 20 meq PO DAILY 03/05/18 Suvorexant [Belsomra] 20 mg PO DAILY 03/05/18
[2018-03-15] MEDS ORDERED: NEBIVOLOL 10 MG TABLET (FP) PO SCH (11:24)
== END 2018-03-15 13:05 | disposition home or self-care (01) | DRG 280 ==
LOC: JER 10:22 → JERBED 15:59 → JICU 18:13 → J4S 03-07 23:28
PROVIDERS: ADMIT Internal Medicine; ATTEND Internal Medicine
DX: I21.4 Non-ST elevation (NSTEMI) myocardial infarction (principal); I50.33 Acute on chronic diastolic (congestive) heart failure; N17.9 Acute kidney failure, unspecified; E87.2 Acidosis; I13.0 Hypertensive heart and chronic kidney disease with heart failure and stage 1 through stage 4 chronic kidney disease, or unspecified chronic kidney disease; Z95.1 Presence of aortocoronary bypass graft; I25.10 Atherosclerotic heart disease of native coronary artery without angina pectoris; E78.5 Hyperlipidemia, unspecified; E03.9 Hypothyroidism, unspecified; Z79.4 Long term (current) use of insulin; E11.65 Type 2 diabetes mellitus with hyperglycemia; K59.00 Constipation, unspecified; E11.22 Type 2 diabetes mellitus with diabetic chronic kidney disease; N18.9 Chronic kidney disease, unspecified; D64.9 Anemia, unspecified; J44.9 Chronic obstructive pulmonary disease, unspecified
CPT/HCPCS: 36415; 36600; 71045-TC-FY; 74018-TC-FY; 76775-TC; 78452-TC; 80048; 80053; 80074; 81003; 81015; 82375; 82550; 82553; 82570; 82803; 82947; 82962; 83036; 83050; 83605; 83690; 83735; 83880; 84100; 84155; 84156; 84165; 84300; 84484; 84540; 85025; 85027; 85610; 85730; 86038; 86593; 87040; 87070; 87086; 87205; 93005; 93010; 93017; 93306-TC; 93970-TC; 94640; 97116-GP; 97161-GP; 99285-25; A9502; J0131; J1644; J2785; J7030; J7620

== ENCOUNTER 2018-04-06 17:56 | Day surgery (SDC) | payer OTHER ==
[2018-04-06] MEDS ORDERED: INSULIN (LEVEMIR) 100 UNITS/ML UNITS SQ SCH (22:00)
[2018-04-06] MEDS: METOPROLOL TARTRATE 50 MG TABLET (FP) PO SCH (22:56)
[2018-04-07] MEDS ORDERED: FUROSEMIDE 40 MG/4 ML INJECTABLE VIAL IVPUSH ONE (02:00)
[2018-04-07] MEDS ORDERED: LEVOTHYROXINE NA 75 MCG TABLET (FP) PO SCH (07:00)
[2018-04-07 09:42] LABS: HEMATOCRIT 38.2 % (32.4-45.2); HEMOGLOBIN 12.4 GM/dL (10.7-15.3); MCH 25.3 pg (25.7-33.7); MCHC 32.4 g/dl (32.0-36.0); MEAN CELL VOLUME 78.1 fl (80-96); PLATELET COUNT 385 K/MM3 (134-434); RBC 4.89 M/mm3 (3.60-5.2); RDW 18.2 % (11.6-15.6); WHITE BLOOD COUNT 11.4 K/mm3 (4.0-10.0)
[2018-04-07] MEDS ORDERED: ASPIRIN COATED 81 MG TABLET.EC PO SCH (10:00)
[2018-04-07] MEDS ORDERED: amLODIPine BESYLATE 5 MG TABLET (FP) PO SCH (10:00)
[2018-04-07] MEDS ORDERED: VALSARTAN 160 MG TABLET (UD) PO SCH (10:00)
[2018-04-07] MEDS ORDERED: PANTOPRAZOLE 40 MG TABLET (FP) PO SCH (10:00)
[2018-04-07] MEDS: METOPROLOL TARTRATE 50 MG TABLET (FP) PO SCH (10:14)
[2018-04-07 10:19] VITALS: BP 178/100; PULSE 82; TEMP 98.4
--- NOTE | 2018-04-07 10:31 | HP ---
Admitting History and Physical - Primary Care Physician PCP: Rob Lara - Admission Chief Complaint: send by her PMD for elective transfusion History of Present Illness: patient with extensive past medical history--sending for elective transfusion due to anemia Patient well known to me from recent admission Patient received 2 units of packed RBCs--- last night Patient seen and examined today feels much better wants to go home Denies chest pain and breathing much better Denies any blood in the stools History Source: Patient, Family Member Limitations to Obtaining History: No Limitations - Past Medical History 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: Other (carotid stenosis) Cardiovascular: Yes: CAD (s/p CABG), HTN, Hyperlipdemia Endocrine: Yes: Diabetes Mellitus - Past Surgical History Past Surgical History: Yes: CABG - Smoking History Smoking history: Never smoked Have you smoked in the past 12 months: No Aproximately how many cigarettes per day: 0 - Alcohol/Substance Use Hx Alcohol Use: No Home Medications - Allergies Allergies/Adverse Reactions: Allergies Allergy/AdvReac Type Severity Reaction Status Date / Time No Known Drug Allergies Allergy Verified 03/05/18 10:31 BEANS Allergy Rash Uncoded 03/05/18 10:31 - Home Medications Home Medications: Ambulatory Orders Levothyroxine [Synthroid -] 75 mcg PO DAILY 08/13/16 Aspirin [Ecotrin] 81 mg PO DAILY 03/05/18 Dulaglutide [Trulicity] 1.5 mg SQ WEEKLY 03/05/18 Insulin Glargine,Hum.rec.anlog [Lantus Solostar PEN -] 50 ml SQ DAILY 03/05/18 Montelukast Sodium [Singulair] 10 mg PO DAILY 03/05/18 Suvorexant [Belsomra] 20 mg PO DAILY 03/05/18 Albuterol 2.5/Ipratropium 0.5 [Duoneb -] 1 amp NEB Q4H #60 amp 03/15/18 Atorvastatin Ca [Lipitor] 80 mg PO HS #30 tablet 03/15/18 Budesonide/Formeterol Fumarate [SYMBICORT 160/4.5mcg -] 2 puff IH BID #30 inhaler 03/15/18 Clopidogrel Bisulfate [Plavix -] 75 mg PO DAILY #30 tablet 03/15/18 Metoclopramide HCl [Reglan -] 10 mg PO TIDAC #60 tablet 03/15/18 Sodium Bicarbonate - 650 mg PO DAILY #30 tablet 03/15/18 Prednisone [Deltasone] 40 mg PO DAILY #8 tablet 04/04/18 Amlodipine Besylate 10 mg PO DAILY #30 tablet 04/07/18 Metoprolol Tartrate [Lopressor -] 50 mg PO BID tablet 04/07/18 Pantoprazole Sodium [Protonix -] 40 mg PO DAILY tablet.ec 04/07/18 Valsartan [Diovan] 320 mg PO DAILY tablet 04/07/18 Family Disease History - Family Disease History Family Disease History: Heart Disease: Father Review of Systems - Review of Systems Constitutional: reports: Lethargy, Weakness Eyes: reports: No Symptoms Neck: reports: No Symptoms Cardiovascular: reports: Shortness of Breath Respiratory: reports: SOB on Exertion. denies: SOB Gastrointestinal: reports: No Symptoms Genitourinary: reports: No Symptoms Neurological: reports: No Symptoms Psychiatric: reports: No Symptoms Physical Examination Vital Signs: Vital Signs Temperature 98.4 F 04/07/18 10:00 Pulse Rate 82 04/07/18 10:00 Respiratory Rate 18 04/07/18 10:00 Blood Pressure 178/100 04/07/18 10:00 O2 Sat by Pulse Oximetry (%) Findings/Remarks: Alert and awake Comfortable Denies chest pain Constitutional: Yes: No Distress, Calm Eyes: Yes: Conjunctiva Clear Neck: Yes: Supple Cardiovascular: Yes: Regular Rate and Rhythm Respiratory: Yes: CTA Bilaterally Gastrointestinal: Yes: Soft Edema: No Neurological: Yes: Alert Labs: CBC, BMP 04/07/18 09:10 Problem List - Problems (1) Anemia Code(s): D64.9 - ANEMIA, UNSPECIFIED (2) Shortness of breath Code(s): R06.02 - SHORTNESS OF BREATH (3) Coronary artery disease Code(s): I25.10 - ATHSCL HEART DISEASE OF [place] CORONARY ARTERY W/O ANG PCTRS (4) Hypertension Code(s): I10 - ESSENTIAL (PRIMARY) HYPERTENSION Assessment/Plan clinically stable and better wants to go home at bedside Blood pressure on the high side--- likely due to transfusion to increase amlodipine also Strongly advised to follow up with her PMD next week I also discussed before with patient's private PMD Continue aspirin and Plavix--- as she had recent NST PA Patient and patient's in agreement Stool for occult blood--- pending
[2018-04-07 10:52] LABS: ALBUMIN 2.4 g/dl (3.4-5.0); ANION GAP 10 (8-16); BLOOD UREA NITROGEN 20 mg/dL (7-18); CALCIUM 7.7 mg/dL (8.5-10.1); CHLORIDE 107 mmol/L (98-107); CO2 24 mmol/L (21-32); GLUCOSE,RANDOM 224 mg/dL (74-106); POTASSIUM 4.1 mmol/L (3.5-5.1); SODIUM 141 mmol/L (136-145)
[2018-04-07 10:56] LABS: ALK PHOS 138 U/L (45-117); BILIRUBIN,TOTAL 1.3 mg/dL (0.2-1.0); CREATININE 1.9 mg/dL (0.55-1.02); SGOT/AST 17 U/L (15-37); SGPT/ALT 19 U/L (12-78); TOT PROT 6.3 g/dl (6.4-8.2)
== END 2018-04-07 12:16 | disposition home or self-care (01) ==
LOC: JBLOOD 17:56 → J5S 17:57 → J8W 18:00 → JBLOOD 04-07 12:16
PROVIDERS: ATTEND Internal Medicine
PROC: 30233N1 Transfusion of Nonautologous Red Blood Cells into Peripheral Vein, Percutaneous Approach (ICD-10-PCS; principal; 2018-04-06)
DX: D64.9 Anemia, unspecified (principal); R06.02 Shortness of breath; I25.10 Atherosclerotic heart disease of native coronary artery without angina pectoris; I10 Essential (primary) hypertension
CPT/HCPCS: 36415; 36430; 80053; 82272; 82962; 85027; 86850; 86900; 86901; 86922; P9038; P9058

== ENCOUNTER 2019-04-12 21:29 | Inpatient (IN) | payer OTHER ==
--- NOTE | 2019-04-12 21:51 | PDOC ---
History of Present Illness - General Chief Complaint: Shortness of Breath Stated Complaint: DIFFICULTY BREATHING/CHEST DISCOMFORT Time Seen by Provider: 04/12/19 21:50 History Source: Patient Exam Limitations: Clinical Condition, Language Barrier - History of Present Illness Initial Comments: 64 yo F w a hx of IDDM, CHF, HTN, severe CAD sp CABG 2016 [facility], HLD, and hypothyroidism presents to the [facility] with severe shortness of breath associated with chest pain. The patient has been experiencing left sided chest discomfort with any physical activity for the past 3 days. The patient has been repeatedly nauseous and diaphoretic as well. The chest pain worsens with any physical activity. What prompted the patient to come to the hospital tonight though was that at 6:30 PM the patient became extremely short of breath and that was the signal to the daughter that the patient needed to come into the hospital. PCP: Rob Lara Casting Supervisor: Rush puckett Allergies: Beans, NKDA Social Hx: Denies current smoking, drinking, or other substance usage. PSH: CABG Past History - Past Medical History Allergies/Adverse Reactions: Allergies Allergy/AdvReac Type Severity Reaction Status Date / Time No Known Drug Allergies Allergy Verified 04/12/19 21:47 BEANS Allergy Rash Uncoded 04/12/19 21:47 Home Medications: Ambulatory Orders Levothyroxine [Synthroid -] 75 mcg PO DAILY 08/13/16 Aspirin [Ecotrin] 81 mg PO DAILY 03/05/18 Dulaglutide [Trulicity] 1.5 mg SQ WEEKLY 03/05/18 Insulin Glargine,Hum.rec.anlog [Lantus Solostar PEN -] 50 ml SQ DAILY 03/05/18 Montelukast Sodium [Singulair] 10 mg PO DAILY 03/05/18 Suvorexant [Belsomra] 20 mg PO DAILY 03/05/18 Albuterol 2.5/Ipratropium 0.5 [Duoneb -] 1 amp NEB Q4H #60 amp 03/15/18 Atorvastatin Ca [Lipitor] 80 mg PO HS #30 tablet 03/15/18 Budesonide/Formeterol Fumarate [SYMBICORT 160/4.5mcg -] 2 puff IH BID #30 inhaler 03/15/18 Clopidogrel Bisulfate [Plavix -] 75 mg PO DAILY #30 tablet 03/15/18 Metoclopramide HCl [Reglan -] 10 mg PO TIDAC #60 tablet 03/15/18 Sodium Bicarbonate - 650 mg PO DAILY #30 tablet 03/15/18 Prednisone [Deltasone] 40 mg PO DAILY #8 tablet 04/04/18 Amlodipine Besylate 10 mg PO DAILY #30 tablet 04/07/18 Metoprolol Tartrate [Lopressor -] 50 mg PO BID tablet 04/07/18 Pantoprazole Sodium [Protonix -] 40 mg PO DAILY tablet.ec 04/07/18 Valsartan [Diovan] 320 mg PO DAILY tablet 04/07/18 Cardiac Disorders: Yes CVA: No COPD: No Diabetes: Yes HTN: Yes Hypercholesterolemia: Yes Thyroid Disease: Yes (hypothyroid) - Surgical History Cardiac Surgery: Yes (CABG 2015 in [facility] by daughter) - Suicide/Smoking/Psychosocial Hx Smoking Status: No Smoking History: Never smoked Have you smoked in the past 12 months: No Number of Cigarettes Smoked Daily: 0 Cigars Per Day: 0 Hx Alcohol Use: No Drug/Substance Use Hx: No Substance Use Type: None Hx Substance Use Treatment: No Review of Systems - Review of Systems Able to Perform ROS?: Yes Comments:: CONSTITUTIONAL: Absent: fever, no chills, no fatigue EYES: Absent: visual changes ENT: Absent: ear pain, no sore throat CARDIOVASCULAR: Present: chest pain Absent: no palpitations RESPIRATORY: Present: cough, SOB GI: Present: Nausea Absent: abdominal pain, no vomiting, no constipation, no diarrhea GENITOURINARY: Absent: dysuria, no frequency, no hematuria MUSKULOSKELETAL: Absent: back pain, no arthralgia, no myalgia SKIN: Absent: rash NEURO: Absent: headache *Physical Exam - Vital Signs Last Vital Signs Temp Pulse Resp BP Pulse Ox 98.6 F 79 32 H 235/97 H 95 04/12/19 21:47 04/12/19 21:47 04/12/19 21:47 04/12/19 21:47 04/12/19 21:47 - Physical Exam Comments: GENERAL: Patient is in severe distress. Agonal breathing upon arrival. HEENT: Normocephalic, atraumatic. PERRL, EOM intact. CARDIOVASCULAR: Holosystolic murmur. Tachcardic rate and regular rhythm. PULMONARY: Severe respiratory distress. b/l crackles in the bases. No rales or rhonchi. ABDOMEN: Soft, non-distended, non-tender. EXTREMITIES: Normal ROM in all four extremities. No gross deformities. SKIN: Warm, dry. No rash NEUROLOGICAL: No focal neurological deficits. Procedures - Bedside Ultrasound Bedside Ultrasound: Cardiac Other: Cardiac, lungs, IVC, peripheral IV access Remarks: Bedside POCUS performed Cardiac: Patient has global wall motion abnormalities. Inferior wall movement dyskinesis. EPSS - 24. There is no pericardial effusion. No signs of tamponade. There is normal LV/RV size ration. Severely reduced ejection fraction. Lungs: There are bilateral B-lines in both lung grossman. Normal lung sliding. Suggestive of b/l pulmonary edema. No evidence of pneumothorax. IVC: Very collapsable. Patient is likely fluid down in her vasculature but fluid overloaded in lungs. Peripheral IV access: 20 gauge IV placed by me in patient's right brachial vein. IV placed in long axis, one control tower operator, vein compressibility, collor flow, and easily flushed afterwards. ED Treatment Course - LABORATORY CBC & Chemistry Diagram: 04/12/19 22:14 04/12/19 22:14 Medical Decision Making - Critical Care Time Total Critical Care Time (minutes): 60 (Severe Heart failure) Critical Care Statement: The care of this patient involved high complexity decision making to prevent further life threatening deterioration of the patient 's condition and/or to evaluate & treat vital organ system(s) failure or risk of failure. - Medical Decision Making 64 yo F w a hx of IDDM, CHF, HTN, severe CAD sp CABG 2015 [facility], HLD, and hypothyroidism presents to the [facility] with severe shortness of breath associated with chest pain. The patient has been experiencing left sided chest discomfort with any physical activity for the past 3 days. The patient has been repeatedly nauseous and diaphoretic as well. The chest pain worsens with any physical activity. What prompted the patient to come to the hospital tonight though was that at 6:30 PM the patient became extremely short of breath and that was the signal to the daughter that the patient needed to come into the hospital. Vital Signs Temp Pulse Resp BP Pulse Ox 98.6 F 79 32 H 235/97 H 98 04/12/19 21:47 04/12/19 21:47 04/12/19 21:47 04/12/19 21:47 04/12/19 22:56 DDx IBNLT: Severe heart failure, pulmonary edema, PNA, ACS/NH, dissection, PE Plan: IV, O2, Monitor, ABC's, POCUS echo/lungs,IVC, rainbow tube of labs. POCUS: Heart - EPSS 24 - patient is currently in severe heart failure. No pericardial effusion. Normal LV/RV size ratio Lungs: B/l B-lines in both lung grossman suggestive of pulmonary edema. Patient is an extremely hard IV access. - US guided IV placed by me with US guidance - Labs sent MDM: This clinical scenario is most consistent at the present time with severe heart failure. Patient is very hypertensive in the b/l extremities. - Placing patient on Bi-Pap for respiratory distress - Starting patient on a nitroglycerin drip for severe heart failure - Giving patient lasix to help diures some fluid out of her lungs. BP 216/84 after 5 minutes on Nitro drip of 200 micrograms/min BP 176/78 after 1 hour of nitro drip - Patient taken off drip and BP remained same. - She is no longer in respiratory distress. BNP elevated more than ever before. Trop x1 negative. Will admit patient to the hospital for severe heart failure *DC/Admit/Observation/Transfer Diagnosis at time of Disposition: CHF exacerbation, Acute pulmonary edema, Shortness of breath - Discharge Dispostion Condition at time of disposition: Stable Decision to Admit order: Yes - Referrals - Patient Instructions - Post Discharge Activity
[2019-04-12] MEDS ORDERED: NITROGLYCERIN SUBLINGUAL 1/150 0.4 MG TAB SL ONE (22:12)
[2019-04-12] MEDS ORDERED: ASPIRIN 325 MG TABLET PO ONE (22:12)
[2019-04-12] MEDS ORDERED: ASPIRIN 325 MG TABLET ONE (22:19)
[2019-04-12] MEDS ORDERED: NITROGLYCERIN SUBLINGUAL 1/150 0.4 MG TAB ONE (22:19)
[2019-04-12 22:35] LABS: BASO % 0.9 % (0-2.0); EOS % 2.2 % (0-4.5); HEMOGLOBIN 11.6 GM/dL (10.7-15.3); LYMPH % 21.3 % (8-40); MCH 23.9 pg (25.7-33.7); MCHC 31.5 g/dl (32.0-36.0); MEAN CELL VOLUME 75.8 fl (80-96); MEAN PLT VOLUME 10.5 fl (7.5-11.1); MONO % 5.7 % (3.8-10.2); NEUT % 69.9 % (42.8-82.8); PLATELET COUNT 286 K/MM3 (134-434); RBC 4.88 M/mm3 (3.60-5.2); RDW 14.7 % (11.6-15.6); WHITE BLOOD COUNT 15.7 K/mm3 (4.0-10.0)
[2019-04-12] MEDS ORDERED: NITROGLYCERIN 50MG/D5W 250ML 50 MG/250 ML ML IVPB SCH (22:45)
[2019-04-12 22:55] LABS: ACTIVATED PTT 39.1 SECONDS (25.2-36.5)
[2019-04-12 23:05] LABS: INR 0.86 (0.83-1.09); PROTHROMBIN TIME (PATIENT) 10.1 SEC (9.7-13.0)
[2019-04-12] MEDS ORDERED: FUROSEMIDE 40 MG/4 ML INJECTABLE VIAL IVPUSH ONE (23:08)
[2019-04-12] MEDS ORDERED: FUROSEMIDE 40 MG/4 ML INJECTABLE VIAL ONE (23:22)
[2019-04-12 23:23] LABS: ALBUMIN 2.8 g/dl (3.4-5.0); BILIRUBIN,TOTAL 0.6 mg/dL (0.2-1); BLOOD UREA NITROGEN 35.5 mg/dL (7-18); CALCIUM 8.2 mg/dL (8.5-10.1); CREATININE 2.6 mg/dL (0.55-1.3); MAGNESIUM 2.3 mg/dL (1.8-2.4); N-TERMINAL BNP 16507.6 pg/ml (5-125); POTASSIUM 4.1 mmol/L (3.5-5.1); TOT PROT 6.6 g/dl (6.4-8.2)
[2019-04-12] MEDS ORDERED: NITROGLYCERIN 25MG/D5W 250ML 25 MG/250 ML ML IVPB ONE (23:29)
[2019-04-12] MEDS ORDERED: NITROGLYCERIN 25MG/D5W 250ML 25 MG/250 ML ML IVPB SCH (23:30)
--- NOTE | 2019-04-12 23:34 | PDOC ---
Documentation entered by Derrick Hay SCRIBE, acting as scribe for Jamie Peguero MD. Jamie Peguero MD: This documentation has been prepared by the Bharti craft Elijah, SCRIBE, under my direction and personally reviewed by me in its entirety. I confirm that the documentation accurately reflects all work, treatment, procedures, and medical decision making performed by me. Attending Attestation - Resident Resident Name: Wiliam Terrell - ED Attending Attestation I have performed the following: I have examined & evaluated the patient, The case was reviewed & discussed with the resident, I agree w/resident's findings & plan, Exceptions are as noted - HPI HPI: 04/12/19 23:21 Patient is a 64 year old female with a significant past medical history of IDDM , CAD, CHF, CABG (2014), HTN, HLD, and hypothyroidism who presents to the ED with SOB and chest pain. The patient noted that the chest pain started 3 days ago, is left sided and is associated with sweating and nausea. The patient also notes that pain increases with exertion. The patient started to experience severe SOB at around 6pm tonight which prompted her visit to the ED. Denies any increased leg swelling. Denies F/C. Denies cough. Allergies: Beans, NKDA PCP: Dr. Lara Women'S Ministry Director: Dr. Parham - Physicial Exam PE: 04/12/19 23:22 GENERAL: Awake, alert, and fully oriented, in no acute distress. HEAD: No signs of trauma EYES: PERRLA, EOMI, sclera anicteric, conjunctiva clear ENT: Auricles normal inspection, hearing grossly normal, nares patent, oropharynx clear without exudates. Moist mucosa NECK: Nontender, no stepoffs, Normal ROM, supple, no lymphadenopathy, JVD, or masses LUNGS: Breath sounds equal, clear to auscultation bilaterally. No wheezes, and no crackles HEART: Regular rate and rhythm, normal S1 and S2, no murmurs, rubs or gallops ABDOMEN: Soft, nontender, normoactive bowel sounds. No guarding, no rebound. No masses EXTREMITIES: Normal range of motion, no edema. No clubbing or cyanosis. No cords, erythema, or tenderness NEUROLOGICAL: Cranial nerves II through XII intact. 5/5 strength and sensation in all extremities, Normal speech, normal gait, normal cerebellar function SKIN: Warm, Dry, normal turgor, no rashes or lesions noted. - Critical Care Time Total Critical Care Time: 120 Critical Care Statement: The care of this patient involved high complexity decision making to prevent further life threatening deterioration of the patient 's condition and/or to evaluate & treat vital organ system(s) failure or risk of failure. - Medical Decision Making 04/12/19 23:35 64 F with SOB and chest pain. Vitals in ED notable for severe HTN. Suspect pt is in acute pulm edema 2/2 CHF. - Labs, trop, BNP - CXR - Nitroglycerin gtt - BiPAP - Lasix - Admit tele
--- NOTE | 2019-04-13 01:21 | HP ---
Admitting History and Physical - Primary Care Physician PCP: Rob Lara - Admission Chief Complaint: Chest Pain, SOB History of Present Illness: This is a 64 y/o woman with a PMHx of Severe CAD s/p CABG ( [place], 2015), HTN, HLD, Hypothyroidism. Who presents to the ED with her daughter for Chest Pain x 3 days and SOB on exertion x 1 day. the daughter provided the HPI, due to language barrier. Per the daughter, the patient has been experiencing left sided chest discomfort with any physical activity for the past 3 days. Per the daughter the patient was nauseous, diaphoretic and had RLE swelling. The daughter became more concerned when the patient became SOB last night. Per the daughter the patient has not been seen by Cardiology in 1-2 years, she sees her PCP primarily, last visit was 2 days ago. 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: Other (carotid stenosis) Cardiovascular: Yes: CAD (s/p CABG), HTN, Hyperlipdemia Endocrine: Yes: Diabetes Mellitus, Hypothyroidism - Past Surgical History Past Surgical History: Yes: CABG - Smoking History Smoking history: Never smoked Have you smoked in the past 12 months: No Aproximately how many cigarettes per day: 0 - Alcohol/Substance Use Hx Alcohol Use: No History of Substance Use: reports: None Home Medications - Allergies Allergies/Adverse Reactions: Allergies Allergy/AdvReac Type Severity Reaction Status Date / Time No Known Drug Allergies Allergy Verified 04/12/19 21:47 BEANS Allergy Rash Uncoded 04/12/19 21:47 - Home Medications Home Medications: Ambulatory Orders Levothyroxine [Synthroid -] 75 mcg PO DAILY 08/13/16 Aspirin [Ecotrin] 81 mg PO DAILY 03/05/18 Dulaglutide [Trulicity] 1.5 mg SQ WEEKLY 03/05/18 Insulin Glargine,Hum.rec.anlog [Lantus Solostar PEN -] 50 ml SQ DAILY 03/05/18 Montelukast Sodium [Singulair] 10 mg PO DAILY 03/05/18 Suvorexant [Belsomra] 20 mg PO DAILY 03/05/18 Albuterol 2.5/Ipratropium 0.5 [Duoneb -] 1 amp NEB Q4H #60 amp 03/15/18 Atorvastatin Ca [Lipitor] 80 mg PO HS #30 tablet 03/15/18 Budesonide/Formeterol Fumarate [SYMBICORT 160/4.5mcg -] 2 puff IH BID #30 inhaler 03/15/18 Clopidogrel Bisulfate [Plavix -] 75 mg PO DAILY #30 tablet 03/15/18 Metoclopramide HCl [Reglan -] 10 mg PO TIDAC #60 tablet 03/15/18 Sodium Bicarbonate - 650 mg PO DAILY #30 tablet 03/15/18 Prednisone [Deltasone] 40 mg PO DAILY #8 tablet 04/04/18 Amlodipine Besylate 10 mg PO DAILY #30 tablet 04/07/18 Metoprolol Tartrate [Lopressor -] 50 mg PO BID tablet 04/07/18 Pantoprazole Sodium [Protonix -] 40 mg PO DAILY tablet.ec 04/07/18 Valsartan [Diovan] 320 mg PO DAILY tablet 04/07/18 Family Disease History - Family Disease History Family Disease History: Heart Disease: Father Review of Systems - Review of Systems Constitutional: reports: Diaphoresis Eyes: reports: No Symptoms HENT: reports: No Symptoms Neck: reports: No Symptoms Cardiovascular: reports: Chest Pain, Edema, Shortness of Breath Respiratory: reports: SOB, SOB on Exertion Gastrointestinal: reports: Constipation, Nausea Genitourinary: reports: No Symptoms Breasts: reports: No Symptoms Reported Musculoskeletal: reports: Back Pain Integumentary: reports: No Symptoms Neurological: reports: No Symptoms Endocrine: reports: No Symptoms Hematology/Lymphatic: reports: No Symptoms Psychiatric: reports: No Symptoms Pain Intensity: 0 Physical Examination Vital Signs: Vital Signs Temperature 98.6 F 04/12/19 21:47 Pulse Rate 79 04/12/19 21:47 Respiratory Rate 32 H 04/12/19 21:47 Blood Pressure 235/97 H 04/12/19 21:47 O2 Sat by Pulse Oximetry (%) 97 04/13/19 00:46 Constitutional: Yes: Mild Distress Eyes: Yes: Conjunctiva Clear, EOM Intact, PERRL HENT: Yes: WNL, Atraumatic, Normocephalic Neck: Yes: WNL, Supple, Trachea Midline Cardiovascular: Yes: Regular Rate and Rhythm, S1, S2 Respiratory: Yes: Diminished, On BiPap, SOB on Exertion Gastrointestinal: Yes: WNL, Normal Bowel Sounds, Soft, Distention Breast(s): Yes: WNL Musculoskeletal: Yes: WNL Extremities: Yes: WNL Edema: Yes Edema: LLE: 1+, RLE: 1+ Peripheral Pulses WNL: Yes Neurological: Yes: WNL, Alert, Oriented ...Motor Strength: WNL Psychiatric: Yes: WNL, Alert, Oriented Labs: CBC, BMP 04/12/19 22:14 04/12/19 22:14 Laboratory Results - last 24 hr 04/12/19 04/12/19 04/12/19 22:14 22:14 22:14 WBC 15.7 H RBC 4.88 Hgb 11.6 Hct 37.0 MCV 75.8 L MCH 23.9 L MCHC 31.5 L RDW 14.7 D Plt Count 286 D MPV 10.5 D Absolute Neuts (auto) 10.9 H Neutrophils % 69.9 Lymphocytes % 21.3 Monocytes % 5.7 Eosinophils % 2.2 Basophils % 0.9 Nucleated RBC % 0 PT with INR 10.10 INR 0.86 PTT (Actin FS) 39.1 H Anticoagulation Therapy Puncture Site ABG pH ABG pCO2 at Pt Temp ABG pO2 at Pt Temp ABG HCO3 ABG O2 Sat (Measured) ABG O2 Content ABG Base Excess Troy Test O2 Delivery Device Oxygen Flow Rate Vent Mode Vent Rate Mechanical Rate Pressure Support Vent Sodium 138 Potassium 4.1 Chloride 109 H Carbon Dioxide 19 L Anion Gap 10 BUN 35.5 H Creatinine 2.6 H Est GFR (CKD-EPI)AfAm 21.87 Est GFR (CKD-EPI)NonAf 18.87 Random Glucose 343 H* Calcium 8.2 L Magnesium 2.3 Total Bilirubin 0.6 AST 12 L ALT 21 Alkaline Phosphatase 181 H Creatine Kinase 96 Troponin I 0.03 B-Natriuretic Peptide 18339.6 H Total Protein 6.6 Albumin 2.8 L Blood Type Antibody Screen 04/12/19 04/13/19 22:14 02:45 WBC RBC Hgb Hct MCV MCH MCHC RDW Plt Count MPV Absolute Neuts (auto) Neutrophils % Lymphocytes % Monocytes % Eosinophils % Basophils % Nucleated RBC % PT with INR INR PTT (Actin FS) Anticoagulation Therapy No Result Required. Puncture Site Left brachial ABG pH 7.33 L ABG pCO2 at Pt Temp 27.6 L ABG pO2 at Pt Temp 146 H ABG HCO3 14.3 L ABG O2 Sat (Measured) 97.1 ABG O2 Content 18.1 ABG Base Excess -9.9 L Troy Test Positive O2 Delivery Device No Result Required. Oxygen Flow Rate 14 Vent Mode No Result Required. Vent Rate No Result Required. Mechanical Rate No Result Required. Pressure Support Vent 12/6 Sodium Potassium Chloride Carbon Dioxide Anion Gap BUN Creatinine Est GFR (CKD-EPI)AfAm Est GFR (CKD-EPI)NonAf Random Glucose Calcium Magnesium Total Bilirubin AST ALT Alkaline Phosphatase Creatine Kinase Troponin I B-Natriuretic Peptide Total Protein Albumin Blood Type A POSITIVE Antibody Screen Negative Intake & Output 04/10/19 04/11/19 04/12/19 04/13/19 23:59 23:59 23:59 23:59 Weight 55.792 kg Current Medications Generic Name Dose Route Start Last Admin Trade Name Freq PRN Reason Stop Dose Admin Aspirin 81 mg 04/13/19 10:00 Ecotrin - PO DAILY [facility] Atorvastatin Calcium 40 mg 04/13/19 22:00 Lipitor - PO HS REZA Furosemide 40 mg 04/13/19 10:00 Lasix Injection - IVPUSH DAILY REZA Nitroglycerin/Dextrose 25 mg in 250 mls @ 120 mls/hr 04/12/19 23:30 04/12/19 23:38 Nitroglycerin 25mg/D5w 250ml IVPB 200 mcg/min TITR REZA 120 mls/hr Administration 200 MCG/MIN Insulin Aspart 0 vial 04/13/19 07:00 Novolog Vial Sliding Scale - SQ ACHS [facility] Protocol Levothyroxine Sodium 75 mcg 04/13/19 07:00 Synthroid - PO DAILY@0700 REZA Metoprolol Tartrate 50 mg 04/13/19 10:00 Lopressor - PO BID REZA Montelukast Sodium 10 mg 04/13/19 10:00 Singulair - PO DAILY [facility] Potassium Chloride 20 meq 04/13/19 10:00 K-Dur - PO DAILY RE[facility] Valsartan 320 mg 04/13/19 10:00 Diovan - PO DAILY [facility] Zolpidem Tartrate 5 mg 04/13/19 22:00 Ambien - PO HS PRN INSOMNIA Imaging - Results Chest X-ray: Image Reviewed EKG: Image Reviewed Problem List - Problems (1) Acute pulmonary edema Assessment/Plan: Chest Xray- Pulm vascular congestion Placed on BIPAP, given Lasix and Nitro Drip in ED Continue BIPAP ABG-pending Continue Lasix Appreciate Pulm consult Continue cardiac monitoring Code(s): J81.0 - ACUTE PULMONARY EDEMA (2) CHF exacerbation Assessment/Plan: Continue cardiac monitoring Appreciate Cardiology consult Continue Lasix Strict INOs Daily weights Monitor CBC, BMP Elevate extremity Code(s): I50.9 - HEART FAILURE, UNSPECIFIED (3) Shortness of breath Assessment/Plan: See above Code(s): R06.02 - SHORTNESS OF BREATH (4) Chest pain Assessment/Plan: Likely secondary to Respiratory Failure vs ACS HEART Score 4 Serial enzymes EKG reviewed no change prior study Appreciate Cardiology consult Continue cardiac monitoring Continue Asa, BB Echo in am Code(s): R07.9 - CHEST PAIN, UNSPECIFIED (5) CAD (coronary artery disease) Assessment/Plan: Continue Asa, BB EKG- reviewed Appreciate Cardiology consult Code(s): I25.10 - ATHSCL HEART DISEASE OF [place] CORONARY ARTERY W/O ANG PCTRS (6) Renal failure (ARF), acute on chronic Assessment/Plan: Cr 2.6 (baseline 1-2.3) BMP in am Avoid Nephrotoxic drugs Consider Nephrology consult if no improvement Code(s): N17.9 - ACUTE KIDNEY FAILURE, UNSPECIFIED; N18.9 - CHRONIC KIDNEY DISEASE, UNSPECIFIED (7) Hypertension Assessment/Plan: Uncontrolled Hypertensive Urgency Started on Nitro Drip now d/cd by ED resident BP 170s/80s Continue cardiac monitoring Check renal function Continue home meds Code(s): I10 - ESSENTIAL (PRIMARY) HYPERTENSION (8) HLD (hyperlipidemia) Assessment/Plan: Stable Continue Lipitor Code(s): E78.5 - HYPERLIPIDEMIA, UNSPECIFIED (9) Diabetes Assessment/Plan: Uncontrolled Patient's daughter reports missed dose home meds BGMs ISS Appreciate Endocrinology consut Code(s): E11.9 - TYPE 2 DIABETES MELLITUS WITHOUT COMPLICATIONS (10) Hx of CABG Code(s): Z95.1 - PRESENCE OF AORTOCORONARY BYPASS GRAFT Assessment/Plan This is a 64 y/o woman with a PMHx of Severe CAD s/p CABG ([place], 2014), HTN , HLD, IDDM, Hypothyroidism. Admitted to Telemetry for Acute CHF Exacerbation, Chest Pain, Uncontrolled Hypertension, Acute on Chronic CKD for further evaluation of their emergent condition. Plan: See problem List FEN Fluid Restriction 1L Replete lytes prn Low Na, Diabetic Diet DVT ppx OOB SCDs Heparin SQ Code Status: Full Code, Scrap [employer]er Bita (daughter) [phone] Dispo: Requires Inpatient Care Visit type - Emergency Visit Emergency Visit: Yes ED Registration Date: 04/13/19 Care time: The patient presented to the Emergency Department on the above date and was hospitalized for further evaluation of their emergent condition. - New Patient This patient is new to me today: Yes Date on this admission: 04/13/19 - Critical Care Critical Care patient: No
[2019-04-13 04:08] LABS: ARTERIAL BLD GAS O2 SATURATION 97.1 % (95-98); ARTERIAL BLOOD GAS BASE EXCESS -9.9 meq/l (-2-2); ARTERIAL BLOOD GAS PCO2 27.6 mmHg (35-45); ARTERIAL BLOOD GAS PO2 146 mmHg (80-105); ARTERIAL BLOOD GAS pH 7.33 (7.35-7.45)
[2019-04-13 04:12] LABS: ALLENS TEST POSITIVE
[2019-04-13] MEDS ORDERED: LEVOTHYROXINE NA 25 MCG TABLET (FP) ONE (06:25)
[2019-04-13] MEDS ORDERED: INSULIN (NOVOLOG) ASPART 100 UNITS/ML 10ML VIAL ONE (06:26)
[2019-04-13] MEDS: INSULIN SLIDING SCALE (NOVOLOG) 1 VIAL SQ SCH ×5 (06:32→22:17)
[2019-04-13] MEDS: LEVOTHYROXINE NA 75 MCG TABLET (FP) PO SCH (06:33)
--- NOTE | 2019-04-13 09:21 | CONSULT ---
Consult Consult Specialty:: Endocrinology Referred by:: Tanvi Jaimes Reason for Consultation:: Hyperglycemia - History of Present Illness Chief Complaint: CP/SOB History of Present Illness: This is a 64 y/o woman with h/o Severe CAD s/p CABG ( [place], 2015), HTN, HLD, Hypothyroidism, DM who presents to the ED with her daughter for Chest Pain x 3 days and SOB on exertion x 1 day. Tthe daughter provided the HPI, due to language barrier. Per the daughter, the patient has been experiencing left sided chest discomfort with any physical activity for the past 3 days. Per the daughter the patient was nauseous, diaphoretic and had RLE swelling. The daughter became more concerned when the patient became SOB last night. Per the daughter the patient has not been seen by Cardiology in 1-2 years, she sees her PCP primarily, last visit was 2 days ago. Pt referred for management of hyperglycemia. Pt seen in ED with CPAP on. Says she has DM for many years and is on Insulin for many years. - History Source History Provided By: Patient, Medical Record - Past Medical History TECHNICAL ASSOC: Yes: Other (carotid stenosis) Cardio/Vascular: Yes: CAD (s/p CABG), HTN, Hyperlipdemia Endocrine: Yes: Diabetes Mellitus, Hypothyroidism - Past Surgical History Past Surgical History: Yes: CABG - Alcohol/Substance Use Hx Alcohol Use: No History of Substance Use: reports: None - Smoking History Smoking history: Never smoked Have you smoked in the past 12 months: No Aproximately how many cigarettes per day: 0 Home Medications - Allergies Allergies/Adverse Reactions: Allergies Allergy/AdvReac Type Severity Reaction Status Date / Time No Known Drug Allergies Allergy Verified 04/12/19 21:47 BEANS Allergy Rash Uncoded 04/12/19 21:47 - Home Medications Home Medications: Ambulatory Orders Levothyroxine [Synthroid -] 75 mcg PO DAILY 08/13/16 Aspirin [Ecotrin] 81 mg PO DAILY 03/05/18 Montelukast Sodium [Singulair] 10 mg PO DAILY 03/05/18 Albuterol 2.5/Ipratropium 0.5 [Duoneb -] 1 amp NEB Q4H #60 amp 03/15/18 Metoprolol Tartrate [Lopressor -] 50 mg PO BID tablet 04/07/18 Valsartan [Diovan] 320 mg PO DAILY tablet 04/07/18 Atorvastatin Ca [Lipitor] 10 mg PO HS 04/13/19 Furosemide [Lasix -] 40 mg PO DAILY 04/13/19 Insulin Glargine,Hum.rec.anlog [Basaglar Kwikpen U-100] 50 unit SQ DAILY Potassium Chloride [K-Tab ER] 20 meq PO DAILY 04/13/19 Family Disease History - Family Disease History Family Disease History: Diabetes: Father, Heart Disease: Father Review of Systems - Review of Systems Constitutional: reports: Weakness Eyes: reports: No Symptoms HENT: reports: No Symptoms Neck: reports: No Symptoms Cardiovascular: reports: Shortness of Breath Respiratory: reports: SOB, SOB on Exertion Gastrointestinal: reports: No Symptoms Genitourinary: reports: No Symptoms Musculoskeletal: reports: No Symptoms Neurological: reports: No Symptoms Endocrine: reports: No Symptoms Hematology/Lymphatic: reports: No Symptoms Physical Exam Vital Signs: Vital Signs Temperature 98.2 F 04/13/19 07:00 Pulse Rate 64 04/13/19 09:06 Respiratory Rate 23 H 04/13/19 09:06 Blood Pressure 188/68 H 04/13/19 09:06 O2 Sat by Pulse Oximetry (%) 100 04/13/19 09:09 Constitutional: Yes: Moderate Distress, Other (with CPAP) Eyes: Yes: Conjunctiva Clear, EOM Intact HENT: Yes: Atraumatic, Normocephalic Neck: Yes: Supple, Trachea Midline Cardiovascular: Yes: Regular Rate and Rhythm Respiratory: Yes: Regular, CTA Bilaterally Gastrointestinal: Yes: Normal Bowel Sounds, Soft Extremities: Yes: WNL Edema: Yes Edema: LLE: Trace, RLE: Trace Neurological: Yes: Alert, Oriented Labs: CBC, BMP 04/12/19 22:14 04/12/19 22:14 Assessment/Plan AP; CP CAD s/p CABG DM Hypothyroidism Cardiology consult noted BGM QACHS and 3 AM Novolog Coverage Premeals Hold Basal Insulin for now LT4 75 QD CMP, TSH, A1c in AM Will F/u
[2019-04-13 09:27] LABS: EPI CELLS 0.9 /HPF (0-5/HPF); HYALINE CASTS 0 /lpf (0-8); URINE APPEARANCE CLEAR; URINE BACTERIA 2727.8 /hpf (NEGATIVE); URINE BILIRUBIN NEGATIVE (NEGATIVE); URINE COLOR YELLOW; URINE GLUCOSE (UA) 2+ (NEGATIVE); URINE KETONE NEGATIVE (NEGATIVE); URINE LEUK ESTERASE NEGATIVE (NEGATIVE); URINE NITRITE NEGATIVE (NEGATIVE); URINE PROTEIN 3+ (NEGATIVE); URINE RBC 1 /hpf (0-4); URINE UROBILINOGEN 0.2 mg/dL (0.2-1.0); URINE WBC 2 /hpf (0-5)
[2019-04-13] MEDS ORDERED: VALSARTAN 160 MG TABLET (UD) PO SCH (10:00)
[2019-04-13] MEDS ORDERED: FUROSEMIDE 40 MG/4 ML INJECTABLE VIAL IVPUSH SCH (10:00)
[2019-04-13] MEDS: ASPIRIN COATED 81 MG TABLET.EC PO SCH (10:16)
[2019-04-13] MEDS: METOPROLOL TARTRATE 50 MG TABLET (FP) PO SCH ×2 (10:17→22:16)
[2019-04-13] MEDS: POTASSIUM CHLORIDE TABS 20 MEQ TABLET.ER (FP) PO SCH (10:17)
[2019-04-13] MEDS ORDERED: DEXTROSE 50%-WATER 25 GM/50 ML DISP.SYRIN ONE ×2 (10:20→10:24)
[2019-04-13] MEDS ORDERED: DEXTROSE 50%-WATER - 25 GM/50 ML VIAL IVPUSH ONE (10:27)
[2019-04-13] MEDS ORDERED: INSULIN REGULAR HUMAN 100 UNITS/ML *VIAL ONE (11:24)
--- NOTE | 2019-04-13 11:35 | EKG ---
Test Reason : Blood Pressure : / mmHG Vent. Rate : 078 BPM Atrial Rate : 078 BPM P-R Int : 164 ms QRS Dur : 082 ms QT Int : 384 ms P-R-T Axes : 063 093 159 degrees QTc Int : 437 ms NORMAL SINUS RHYTHM POSSIBLE LEFT ATRIAL ENLARGEMENT RIGHTWARD AXIS ABNORMAL ECG WHEN COMPARED WITH ECG OF 04-APR-2018 16:51, NO SIGNIFICANT CHANGE WAS FOUND Confirmed by CONNIE CASTANO MD ([id number]) on 04/13/2019 11:34:57 AM Referred By: Confirmed By:CONNIE CASTANO MD
--- NOTE | 2019-04-13 13:42 | PN ---
Progress Note (short form) - Note Progress Note: pt seen/ examined in er chart reviewed feels better decreased sob denies cp family at bedside Vital Signs Temp 98.2 F 04/13/19 07:00 Pulse 57 L 04/13/19 13:35 Resp 25 H 04/13/19 13:35 BP 165/67 04/13/19 13:35 Pulse Ox 100 04/13/19 13:39 Intake & Output 04/12/19 04/13/19 04/13/19 23:59 11:59 23:59 Weight 123 lb Other: Voiding Method Toilet Height 4 ft 11 in Body Mass Index (BMI) 24.8 Active Medications Aspirin (Ecotrin -) 81 mg PO DAILY [facility] Last Admin: 04/13/19 10:16 Dose: 81 mg Atorvastatin Calcium (Lipitor -) 40 mg PO HS REAZ Furosemide (Lasix Injection -) 40 mg IVPUSH DAILY [facility] Last Admin: 04/13/19 10:05 Dose: 40 mg Nitroglycerin/Dextrose (Nitroglycerin 25mg/D5w 250ml) 25 mg in 250 mls @ 120 mls/hr IVPB TITR [facility] Last Titration: 04/13/19 12:20 Dose: 0 mcg/min, 0 mls/hr Insulin Aspart (Novolog Vial Sliding Scale -) 1 vial SQ ACHS [facility]; Protocol Last Admin: 04/13/19 11:23 Dose: 4 unit Levothyroxine Sodium (Synthroid -) 75 mcg PO DAILY@0700 [facility] Last Admin: 04/13/19 06:33 Dose: 75 mcg Metoprolol Tartrate (Lopressor -) 50 mg PO BID [facility] Last Admin: 04/13/19 10:17 Dose: 50 mg Montelukast Sodium (Singulair -) 10 mg PO HS REZA Potassium Chloride (K-Dur -) 20 meq PO DAILY [facility] Last Admin: 04/13/19 10:17 Dose: 20 meq Valsartan (Diovan -) 320 mg PO DAILY [facility] Last Admin: 04/13/19 10:16 Dose: 320 mg Zolpidem Tartrate (Ambien -) 5 mg PO HS PRN PRN Reason: INSOMNIA CBC, BMP 04/12/19 22:14 04/12/19 22:14 cxr - noted Physical Exam S1S2 RRR Lungs -- Crackles at bases Abd- soft, non tender ext- no edema a/p chf exac with h/o cad with uncontrolled diabetes and Htn with Arf on ckd Meds reviewed d/c diovan increase lasix Monitor labs Monitor bgm cardiology to follow echo condition gaurded will follow Discussed with nursing staff also Problem List - Problems (1) Acute pulmonary edema Code(s): J81.0 - ACUTE PULMONARY EDEMA (2) CHF exacerbation Code(s): I50.9 - HEART FAILURE, UNSPECIFIED (3) Shortness of breath Code(s): R06.02 - SHORTNESS OF BREATH (4) Anemia Code(s): D64.9 - ANEMIA, UNSPECIFIED (5) Hx of CABG Code(s): Z95.1 - PRESENCE OF AORTOCORONARY BYPASS GRAFT (6) Renal failure (ARF), acute on chronic Code(s): N17.9 - ACUTE KIDNEY FAILURE, UNSPECIFIED; N18.9 - CHRONIC KIDNEY DISEASE, UNSPECIFIED
--- NOTE | 2019-04-13 14:36 | CON.CARD ---
Consult Consult Specialty:: Cardiology Referred by:: Dr. Kaur Reason for Consultation:: SOB, CHF - History of Present Illness Chief Complaint: SOB History of Present Illness: 64 year-old woman with a PMHx of HTN, HLD, DM, CKD, CAD s/p CABG 2016 at [facility] complicated by sternal wound infection, hypothyroid, admission here 1 year ago with SOB treated for Acute on chronic diastolic CHF, NSTEMI, and possible viral illness, has not followed with a leave specialist as she had returned back to [facility] but recently arrived here and has had sob, and chest discomfort, sob worsened yesterday with associated LE edema. Pts daughter states she was having sob while in [place] as well but did not see a leave specialist. Currently pt feeling better. Having echo which was reviewed at bedside prelim showing Normal LVEF and mild to mod MR/TR Prior cardiac tests: Echo 03/07/2018 showed normal LV size and systolic function. LVEF = 60 - 65%. No regional wall motion abnormalities. Regadenoson nuclear stress test 03/08/2018 revealed moderate inferior and apical ischemia LVEF 46% LE doppler showed no clot - History Source History Provided By: Patient, Family Member Limitations to Obtaining History: Language Barrier - Past Medical History [employer]: Yes: Other (carotid stenosis) Cardio/Vascular: Yes: CAD (s/p CABG), HTN, Hyperlipdemia Endocrine: Yes: Diabetes Mellitus, Hypothyroidism - Past Surgical History Past Surgical History: Yes: CABG - Alcohol/Substance Use Hx Alcohol Use: No History of Substance Use: reports: None - Smoking History Smoking history: Never smoked Have you smoked in the past 12 months: No Aproximately how many cigarettes per day: 0 - Social History ADL: Independent History of Recent Travel: No Home Medications - Allergies Allergies/Adverse Reactions: Allergies Allergy/AdvReac Type Severity Reaction Status Date / Time No Known Drug Allergies Allergy Verified 04/12/19 21:47 BEANS Allergy Rash Uncoded 04/12/19 21:47 - Home Medications Home Medications: Ambulatory Orders Levothyroxine [Synthroid -] 75 mcg PO DAILY 08/13/16 Aspirin [Ecotrin] 81 mg PO DAILY 03/05/18 Montelukast Sodium [Singulair] 10 mg PO DAILY 03/05/18 Albuterol 2.5/Ipratropium 0.5 [Duoneb -] 1 amp NEB Q4H #60 amp 03/15/18 Metoprolol Tartrate [Lopressor -] 50 mg PO BID tablet 04/07/18 Valsartan [Diovan] 320 mg PO DAILY tablet 04/07/18 Atorvastatin Ca [Lipitor] 10 mg PO HS 04/13/19 Furosemide [Lasix -] 40 mg PO DAILY 04/13/19 Insulin Glargine,Hum.rec.anlog [Basaglar Kwikpen U-100] 50 unit SQ DAILY Potassium Chloride [K-Tab ER] 20 meq PO DAILY 04/13/19 Family Disease History - Family Disease History Family Disease History: Heart Disease: Father Review of Systems - Review of Systems Constitutional: reports: Malaise, Weakness. denies: No Symptoms, Chills, Diaphoresis, Fever, Lethargy, Loss of Appetite, Night Sweats, Unintentional Wgt. Loss, Other Eyes: denies: No Symptoms, Blind Spots, Blurred Vision, Double Vision, Eye Pain , Floaters, Photophobia, Recent Change in Vision, Other HENT: denies: No Symptoms, Difficult Swallowing, Ear Discharge, Ear Pain, Epistaxis, Gingival Bleeding, Hearing Loss, Mouth Swelling, Nasal Congestion, Ocular Prosthesis, Throat Pain, Toothache, Ringing in Ears, Other Neck: denies: No Symptoms, Decreased ROM, Lumps, Pain on Movement, Stiffness, Swollen Glands, Tenderness, Other Cardiovascular: reports: Chest Pain, Edema, Shortness of Breath Respiratory: reports: SOB, SOB on Exertion. denies: No Symptoms, Cough, Exercise Intolerance, Hemoptysis, Orthopnea, PND, Snoring, Wheezing, Other Gastrointestinal: denies: No Symptoms, Abdominal Pain, Bloating, Constipation, Diarrhea, Dysphagia, Indigestion, Melena, Nausea, Rectal Bleeding, Vomiting, Vomiting Blood, Other Genitourinary: denies: No Symptoms, Burning, Discharge, Dysuria, Flank Pain, Frequency, Hematuria, Incontinence, Lesions, Menses, Pain, Testicular Mass, Testicular Pain, Testicular Swelling, Urgency, Vaginal Bleeding, Other Breasts: denies: No Symptoms Reported, See HPI, Breast Implants, Discharge from Nipple, Lumps, Pain, Skin Changes, Other Musculoskeletal: denies: No Symptoms, Back Pain, Crepitus, Decreased ROM, Extremity Pain, Joint Pain, Joint Swelling, Muscle Pain, Muscle Cramps, Muscle Weakness, Other Integumentary: denies: No Symptoms, Blister, Bruising, Change in Color, Eczema, Erythema, Incision, Lesions, Lump, Pallor, Pruritis, Rash, Wound, Other Neurological: denies: No Symptoms, Change in LOC, Change in Speech, Confusion, Dizziness, Headache, Incoordination, Numbness, Parasthesia, Pre-Existing Deficit , Seizure, Syncope, Tremors, Unsteady Gait, Weakness, Other Endocrine: denies: No Symptoms, Excessive Sweating, Flushing, Increased Hunger, Increased Thirst, Intolerance to Cold, Intolerance to Heat, Unexplained Weight Gain, Unexplained Weight Loss, Other Hematology/Lymphatic: denies: No Symptoms, Easily Bruised, Excessive Bleeding, Swollen Glands, Other Psychiatric: denies: No Symptoms, Altered Sleep Pattern, Anxiety, Depression, Hallucinations, Panic, Paranoia, Suicidal, Other - Risk Factors Known Risk Factors: Yes: Diabetes Mellitus, Hypercholesterolemia, Hypertension, Prior CA /Emb Stroke Vital Signs: Vital Signs Temperature 98.2 F 04/13/19 07:00 Pulse Rate 57 L 04/13/19 13:35 Respiratory Rate 25 H 04/13/19 13:35 Blood Pressure 165/67 04/13/19 13:35 O2 Sat by Pulse Oximetry (%) 100 04/13/19 13:39 Constitutional: Yes: No Distress, Calm Eyes: Yes: Conjunctiva Clear, EOM Intact, PERRL HENT: Yes: Atraumatic, Normocephalic Neck: Yes: Supple, Trachea Midline Respiratory: Yes: Regular, Diminished, On Nasal O2, Rales, Wheezes. No: Rhonchi , SOB Gastrointestinal: Yes: Normal Bowel Sounds, Soft. No: Distention, Tenderness Cardiovascular: Yes: Regular Rate and Rhythm. No: Bradycardia, Tachycardia, Pulse Irregular, Gallop, Rub, Varicosities JVD: No Carotid Bruit: No PMI: Non-Displaced Heart Sounds: Yes: S1, S2. No: Split S2, S3, S4, Clicks, Gallop, Rub, Bruit Murmur: No: Systolic Murmur, Diastolic Murmur Musculoskeletal: Yes: WNL Extremities: Yes: WNL Edema: Yes Edema: LLE: Trace, RLE: Trace Peripheral Pulses WNL: Yes Neurological: Yes: Alert, Oriented Psychiatric: Yes: Alert, Oriented - Other Data Labs, Other Data: CBC, BMP 04/12/19 22:14 04/12/19 22:14 INR, PTT INR 0.86 (0.83-1.09) 04/12/19 22:14 Troponin, BNP 04/12/19 22:14 Troponin I 0.03 B-Natriuretic Peptide 57050.6 H Troponin, BNP 04/12/19 22:14 Troponin I 0.03 B-Natriuretic Peptide 22654.6 H nsr 78bpm, st abnl possible inferolateral ischemia Echo: Report Reviewed Imaging - Results Chest X-ray: Report Reviewed, Image Reviewed EKG: Report Reviewed, Image Reviewed Other: Report Reviewed, Image Reviewed Assessment/Plan 64 year-old woman with a PMHx of HTN, HLD, DM, CKD, CAD s/p CABG 2016 at [facility] complicated by sternal wound infection, hypothyroid, admission here 1 year ago with SOB treated for Acute on chronic diastolic CHF, NSTEMI, and possible viral illness, has not followed with a leave specialist as she had returned back to [place] but recently arrived here and has had sob, and chest discomfort, sob worsened yesterday with associated LE edema. Pts daughter states she was having sob while in [place] as well but did not see a leave specialist. Currently pt feeling better. Having echo which was reviewed at bedside prelim showing Normal LVEF and mild to mod MR/TR Prior cardiac tests: Echo 03/07/2018 showed normal LV size and systolic function. LVEF = 60 - 65%. No regional wall motion abnormalities. Regadenoson nuclear stress test 03/08/2018 revealed moderate inferior and apical ischemia LVEF 46% SOB/wheezing- -Acute on chronic diastolic CHF -fup official echo report, images reviewed at bedside prelim normal LVEF, mild to mod MR/TR -wheezing in the past improved with steroids and bronchodilators -cont IV Lasix -monitor bun/creat, electrolytes and replete as needed -monitor daily weights -in the past metoprolol was being considered as contributing to bronchospasm and discussed changing to bystolic for this, would consider again as she is wheezing on exam CAD h/o CABG h/o NSTEMI managed medically due to CKD. -no further chest pain -cardiac enzymes wnl -echo normal LVEF -cont medical management given SANTINO on CKD, high risk of contrast induced nephropathy if cardiac cath performed. -cont ASA, lipitor -plan to cont bblocker for NSTEMI and history of NSVT with consideration for change of metoprolol to bystolic as above
[2019-04-13] MEDS: FUROSEMIDE 40 MG/4 ML INJECTABLE VIAL IVPB SCH (15:16)
--- NOTE | 2019-04-13 15:22 | ECHO ---
Name: JETT QUINTERO Exam:Adult Echocardiogram Study Date: 04/13/2019 02:42 PM Age: 64 yrs Reason For Study: CAD Height: 59 in Weight: 123 lb BSA: 1.5 m2 MMode/2D Measurements & Calculations IVSd: 0.76 cm Ao root diam: 2.4 cm LVIDd: 4.5 cm LA dimension: 3.0 cm LVIDs: 3.0 cm LVPWd: 0.86 cm EDV(Teich): 93.8 ml LVOT diam: 1.8 cm ESV(Teich): 36.4 ml RV S Maximino: 6.7 cm/sec Doppler Measurements & Calculations MV E max maximino: 103.0 cm/sec MR max maximino: 556.5 cm/sec MV A max maximino: 52.4 cm/sec MR max P.9 mmHg MV E/A: 2.0 TR max maximino: 284.7 cm/sec Lat Peak E' Maximino: 3.5 cm/sec TR max P.8 mmHg Lat E/e': 29.6 Left Ventricle Left ventricular systolic function is normal. Ejection Fraction = 60-65%. The transmitral spectral Do ppler flow pattern is normal for age. Right Ventricle The right ventricle is normal in size and function. Atria Normal left and right atrial size and function. Mitral Valve The mitral valve is normal in structure and function. There is no mitral valve stenosis. There is mil d mitral regurgitation. Tricuspid Valve The tricuspid valve is normal in structure and function. There is mild to moderate tricuspid regurgit ation. Right ventricular systolic pressure is elevated at 40-50mmHg. Aortic Valve The aortic valve is trileaflet. The aortic valve opens well. No hemodynamically significant valvular aortic stenosis. No aortic regurgitation is present. Pulmonic Valve The pulmonic valve is not well seen, but is grossly normal. There is no pulmonic valvular stenosis. T here is no pulmonic valvular regurgitation. Great Vessels The aortic root is normal size. Pericardium/Pleura There is no pericardial effusion. Interpretation Summary Left ventricular systolic function is normal. Ejection Fraction = 60-65%. The right ventricle is normal in size and function. There is mild mitral regurgitation. There is mild to moderate tricuspid regurgitation. Right ventricular systolic pressure is elevated at 40-50mmHg. There is no pericardial effusion. MD Hancock *Juan 04/13/2019 03:22 PM
[2019-04-13 15:58] VITALS: BMI 27.2
[2019-04-13] MEDS: MONTELUKAST NA 10 MG TABLET PO SCH (22:15)
[2019-04-13] MEDS: ATORVASTATIN CA 40 MG TABLET (FP) PO SCH (22:15)
[2019-04-13] MEDS: ZOLPIDEM TARTRATE 5 MG TABLET PO PRN (22:16)
[2019-04-14] MEDS: FUROSEMIDE 40 MG/4 ML INJECTABLE VIAL IVPB SCH ×2 (05:31→15:08)
[2019-04-14] MEDS: INSULIN SLIDING SCALE (NOVOLOG) 1 VIAL SQ SCH ×4 (06:05→21:34)
[2019-04-14] MEDS: LEVOTHYROXINE NA 75 MCG TABLET (FP) PO SCH (06:06)
[2019-04-14 07:42] LABS: ALBUMIN 2.1 g/dl (3.4-5.0); BILIRUBIN,TOTAL 0.9 mg/dL (0.2-1); BLOOD UREA NITROGEN 39.5 mg/dL (7-18); CREATININE 3.1 mg/dL (0.55-1.3); POTASSIUM 3.9 mmol/L (3.5-5.1)
--- NOTE | 2019-04-14 09:42 | PN ---
Progress Note (short form) - Note Progress Note: Feels much better Off CPAP No SOB Pt takes 20 units Lantus 20 at HS, Doesn't take any premeal Insulin FS at home 120 to 130s in the morning. Doesn't do FS during the day Vital Signs Period Temp Pulse Resp BP Sys/To Pulse Ox Last 24 Hr 98.1 F-98.5 F 54-86 12-25 138-198/53-88 99-100 PE: AOx3 Neck: Supple, No JVD HEENT: EOMI Lungs: CTA CVS: S1S2 Abd: Benign Ext: No edema Neuro: No focal deficit CMP Sodium 142 mmol/L (136-145) 04/14/19 05:32 Potassium 3.9 mmol/L (3.5-5.1) 04/14/19 05:32 Chloride 114 mmol/L (98-107) H 04/14/19 05:32 Carbon Dioxide 19 mmol/L (21-32) L 04/14/19 05:32 Anion Gap 9 MMOL/L (8-16) 04/14/19 05:32 BUN 39.5 mg/dL (7-18) H 04/14/19 05:32 Creatinine 3.1 mg/dL (0.55-1.3) H 04/14/19 05:32 Est GFR (CKD-EPI)AfAm 17.68 04/14/19 05:32 Est GFR (CKD-EPI)NonAf 15.26 04/14/19 05:32 POC Glucometer 123 UNITS (80-120) 04/14/19 05:28 Random Glucose 113 mg/dL (74-106) H 04/14/19 05:32 Hemoglobin A1c % 10.7 % (4.2-6.3) H 04/14/19 05:32 Calcium 8.0 mg/dL (8.5-10.1) L 04/14/19 05:32 Magnesium 2.3 mg/dL (1.8-2.4) 04/12/19 22:14 Total Bilirubin 0.9 mg/dL (0.2-1) 04/14/19 05:32 AST 14 U/L (15-37) L 04/14/19 05:32 ALT 14 U/L (13-61) 04/14/19 05:32 Alkaline Phosphatase 127 U/L (45-117) H 04/14/19 05:32 Creatine Kinase 96 U/L (26-192) 04/12/19 22:14 Troponin I 0.03 ng/ml (0.00-0.05) 04/12/19 22:14 B-Natriuretic Peptide 87582.6 pg/ml (5-125) H 04/12/19 22:14 Total Protein 5.0 g/dl (6.4-8.2) L 04/14/19 05:32 Albumin 2.1 g/dl (3.4-5.0) L 04/14/19 05:32 TSH 1.94 uIU/ml (0.358-3.74) 04/14/19 05:32 Current Medications Generic Name Dose Route Start Last Admin Trade Name Stephen PRN Reason Stop Dose Admin Aspirin 81 mg 04/13/19 10:00 04/13/19 10:16 Ecotrin - PO 81 mg DAILY REZA Administration Atorvastatin Calcium 40 mg 04/13/19 22:00 04/13/19 22:15 Lipitor - PO 40 mg HS REZA Administration Furosemide 40 mg 04/13/19 14:00 04/14/19 05:31 Lasix Injection - IVPB 40 mg BID@0600,1400 REZA Administration Nitroglycerin/Dextrose 25 mg in 250 mls @ 120 mls/hr 04/12/19 23:30 04/13/19 12:20 Nitroglycerin 25mg/D5w 250ml IVPB 0 mcg/min TITR REZA 0 mls/hr Titration 200 MCG/MIN Insulin Aspart 1 vial 04/13/19 17:00 04/14/19 06:05 Novolog Vial Sliding Scale - SQ Not Given TIDAC [facility] Protocol Insulin Aspart 1 vial 04/13/19 22:00 04/13/19 22:17 Novolog Vial Sliding Scale - SQ Not Given HS [facility] Protocol Levothyroxine Sodium 75 mcg 04/13/19 07:00 04/14/19 06:06 Synthroid - PO 75 mcg DAILY@0700 REZA Administration Metoprolol Tartrate 50 mg 04/13/19 10:00 04/13/19 22:16 Lopressor - PO 50 mg BID REZA Administration Montelukast Sodium 10 mg 04/13/19 22:00 04/13/19 22:15 Singulair - PO 10 mg HS REZA Administration Potassium Chloride 20 meq 04/13/19 10:00 04/13/19 10:17 K-Dur - PO 20 meq DAILY REZA Administration Zolpidem Tartrate 5 mg 04/13/19 22:00 04/13/19 22:16 Ambien - PO 5 mg HS PRN Administration INSOMNIA AP; CP CAD s/p CABG DM Hypothyroidism Apetite improved Discussed need to take premeaL Insulin to control PP blood which is most probably why her A1c is 10.7 when morning blood sugars are low 100s BGM QACHS and 3 AM Novolog Coverage Premeals Hold Basal Insulin for now, takes Lantus 20 units at HS LT4 75 QD Will F/u
[2019-04-14] MEDS: ASPIRIN COATED 81 MG TABLET.EC PO SCH (09:43)
[2019-04-14] MEDS: METOPROLOL TARTRATE 50 MG TABLET (FP) PO SCH (09:43)
[2019-04-14] MEDS: POTASSIUM CHLORIDE TABS 20 MEQ TABLET.ER (FP) PO SCH (09:43)
--- NOTE | 2019-04-14 14:30 | PN ---
Progress Note (short form) - Note Progress Note: pt seen/ examined looks and feels much better all consults noted / appreciated Vital Signs Temp 97.3 F L 04/14/19 09:00 Pulse 73 04/14/19 09:00 Resp 18 04/14/19 09:00 BP 117/59 L 04/14/19 09:00 Pulse Ox 99 04/14/19 08:45 Intake & Output 04/13/19 04/14/19 04/14/19 23:59 11:59 23:59 Intake Total 300 256 Balance 300 256 Weight 126 lb Intake: IV 10 16 Saline locks 10 16 IVPB 40 Oral 250 240 Other: Voiding Method Toilet Toilet Height 4 ft 9 in Body Mass Index (BMI) 27.2 Weight Measurement Method Stated by Patient Active Medications Aspirin (Ecotrin -) 81 mg PO DAILY [facility] Last Admin: 04/14/19 09:43 Dose: 81 mg Atorvastatin Calcium (Lipitor -) 40 mg PO HS [facility] Last Admin: 04/13/19 22:15 Dose: 40 mg Furosemide (Lasix Injection -) 40 mg IVPB DAILY [facility] Nitroglycerin/Dextrose (Nitroglycerin 25mg/D5w 250ml) 25 mg in 250 mls @ 120 mls/hr IVPB TITR [facility] Last Titration: 04/13/19 12:20 Dose: 0 mcg/min, 0 mls/hr Insulin Aspart (Novolog Vial Sliding Scale -) 1 vial SQ TIDAC [facility]; Protocol Last Admin: 04/14/19 11:34 Dose: 6 units Insulin Aspart (Novolog Vial Sliding Scale -) 1 vial SQ HS [facility]; Protocol Last Admin: 04/13/19 22:17 Dose: Not Given Levothyroxine Sodium (Synthroid -) 75 mcg PO DAILY@0700 [facility] Last Admin: 04/14/19 06:06 Dose: 75 mcg Montelukast Sodium (Singulair -) 10 mg PO HS REZA Last Admin: 04/13/19 22:15 Dose: 10 mg Nebivolol (Bystolic -) 10 mg PO DAILY [facility] Potassium Chloride (K-Dur -) 20 meq PO DAILY [facility] Last Admin: 04/14/19 09:43 Dose: 20 meq Zolpidem Tartrate (Ambien -) 5 mg PO HS PRN PRN Reason: INSOMNIA Last Admin: 04/13/19 22:16 Dose: 5 mg CBC, BMP 04/12/19 22:14 04/14/19 05:32 Physical Exam S1S2 RRR Lungs -- Crackles at bases Abd- soft, non tender ext- no edema a/p chf exac with h/o cad with uncontrolled diabetes and Htn with Arf on ckd Better change metoprolol to Bystolic avoid nsaids/ nephrotoxic meds Renal consult f/u labs Decrease lasix dose ARB held already Will follow Problem List - Problems (1) Acute pulmonary edema Code(s): J81.0 - ACUTE PULMONARY EDEMA (2) CHF exacerbation Code(s): I50.9 - HEART FAILURE, UNSPECIFIED (3) Shortness of breath Code(s): R06.02 - SHORTNESS OF BREATH (4) Anemia Code(s): D64.9 - ANEMIA, UNSPECIFIED (5) Hx of CABG Code(s): Z95.1 - PRESENCE OF AORTOCORONARY BYPASS GRAFT (6) Renal failure (ARF), acute on chronic Code(s): N17.9 - ACUTE KIDNEY FAILURE, UNSPECIFIED; N18.9 - CHRONIC KIDNEY DISEASE, UNSPECIFIED
--- NOTE | 2019-04-14 15:28 | CONSULT ---
Consult Consult Specialty:: Nephrology (coverage for Dr Shrestha) Reason for Consultation:: ckd - History of Present Illness Chief Complaint: shortness of breath History of Present Illness: Pt is a 64 year old female with pmhx of CKD, DM, CHF, HTN, CAD, HLD, and hypothyroidism who presents to the ER with shortness of breath. She also had chest pain. She was staying at her daughters house and missed some of her meds. I was called to evaluate her for elevated creatinine. She denies dysuria or hematuria. She denies nsaid use. She feels that her breathing has normalized and she is off of the oxygen. - History Source History Provided By: Patient, Medical Record - Past Medical History [employer]: Yes: Other (carotid stenosis) Cardio/Vascular: Yes: CAD (s/p CABG), HTN, Hyperlipdemia Renal/: Yes: Renal Inusuff Endocrine: Yes: Diabetes Mellitus, Hypothyroidism - Past Surgical History Past Surgical History: Yes: CABG - Alcohol/Substance Use Hx Alcohol Use: No History of Substance Use: reports: None - Smoking History Smoking history: Never smoked Have you smoked in the past 12 months: No Aproximately how many cigarettes per day: 0 - Social History ADL: Independent History of Recent Travel: No Home Medications - Allergies Allergies/Adverse Reactions: Allergies Allergy/AdvReac Type Severity Reaction Status Date / Time No Known Drug Allergies Allergy Verified 04/12/19 21:47 BEANS Allergy Rash Uncoded 04/12/19 21:47 - Home Medications Home Medications: Ambulatory Orders Levothyroxine [Synthroid -] 75 mcg PO DAILY 08/13/16 Aspirin [Ecotrin] 81 mg PO DAILY 03/05/18 Montelukast Sodium [Singulair] 10 mg PO DAILY 03/05/18 Albuterol 2.5/Ipratropium 0.5 [Duoneb -] 1 amp NEB Q4H #60 amp 03/15/18 Metoprolol Tartrate [Lopressor -] 50 mg PO BID tablet 04/07/18 Valsartan [Diovan] 320 mg PO DAILY tablet 04/07/18 Atorvastatin Ca [Lipitor] 10 mg PO HS 04/13/19 Furosemide [Lasix -] 40 mg PO DAILY 04/13/19 Insulin Glargine,Hum.rec.anlog [Basaglar Kwikpen U-100] 50 unit SQ DAILY Potassium Chloride [K-Tab ER] 20 meq PO DAILY 04/13/19 Family Disease History - Family Disease History Family Disease History: Diabetes: Father, Heart Disease: Father Review of Systems - Review of Systems Constitutional: reports: Malaise Eyes: reports: No Symptoms HENT: reports: No Symptoms Neck: reports: No Symptoms Cardiovascular: reports: No Symptoms Respiratory: reports: SOB Gastrointestinal: reports: No Symptoms Genitourinary: reports: No Symptoms Musculoskeletal: reports: No Symptoms Integumentary: reports: No Symptoms Neurological: reports: No Symptoms Endocrine: reports: No Symptoms Hematology/Lymphatic: reports: No Symptoms Physical Exam Vital Signs: Vital Signs Temperature 97.3 F L 04/14/19 09:00 Pulse Rate 73 04/14/19 09:00 Respiratory Rate 18 04/14/19 09:00 Blood Pressure 117/59 L 04/14/19 09:00 O2 Sat by Pulse Oximetry (%) 99 04/14/19 08:45 Constitutional: Yes: Calm Eyes: Yes: Conjunctiva Clear HENT: Yes: Atraumatic Neck: Yes: Supple Cardiovascular: Yes: S1, S2 Respiratory: Yes: CTA Bilaterally Gastrointestinal: Yes: Soft Renal/: Yes: WNL Musculoskeletal: Yes: WNL Edema: No Neurological: Yes: Oriented Psychiatric: Yes: Oriented Labs: CBC, BMP 04/12/19 22:14 04/14/19 05:32 Laboratory Tests 03/07/18 03/08/18 03/09/18 05:50 06:20 05:35 WBC Hgb Plt Count Sodium Potassium Creatinine 2.0 H 2.3 H 2.2 H Hemoglobin A1c % B-Natriuretic Peptide 03/10/18 03/13/18 03/15/18 06:00 16:00 06:30 WBC Hgb Plt Count Sodium Potassium Creatinine 2.2 H 2.0 H 1.7 H Hemoglobin A1c % B-Natriuretic Peptide 04/04/18 04/07/18 04/12/19 17:22 09:10 22:14 WBC 15.7 H Hgb 11.6 Plt Count 286 D Sodium Potassium Creatinine 1.7 H 1.9 H Hemoglobin A1c % B-Natriuretic Peptide 04/12/19 04/14/19 04/14/19 22:14 05:32 05:32 WBC Hgb Plt Count Sodium 142 Potassium 3.9 Creatinine 2.6 H 3.1 H Hemoglobin A1c % 10.7 H B-Natriuretic Peptide 67905.6 H Imaging - Results Chest X-ray: Report Reviewed Problem List - Problems (1) CKD (chronic kidney disease) Code(s): N18.9 - CHRONIC KIDNEY DISEASE, UNSPECIFIED (2) CHF exacerbation Code(s): I50.9 - HEART FAILURE, UNSPECIFIED (3) Shortness of breath Code(s): R06.02 - SHORTNESS OF BREATH Assessment/Plan Current Medications Generic Name Dose Route Start Last Admin Trade Name Freq PRN Reason Stop Dose Admin Aspirin 81 mg 04/13/19 10:00 04/14/19 09:43 Ecotrin - PO 81 mg DAILY REZA Administration Atorvastatin Calcium 40 mg 04/13/19 22:00 04/13/19 22:15 Lipitor - PO 40 mg HS REZA Administration Furosemide 40 mg 04/15/19 10:00 Lasix Injection - IVPB DAILY REZA Nitroglycerin/Dextrose 25 mg in 250 mls @ 120 mls/hr 04/12/19 23:30 04/13/19 12:20 Nitroglycerin 25mg/D5w 250ml IVPB 0 mcg/min TITR REZA 0 mls/hr Titration 200 MCG/MIN Insulin Aspart 1 vial 04/13/19 17:00 04/14/19 11:34 Novolog Vial Sliding Scale - SQ 6 units TIDAC REZA Administration Protocol Insulin Aspart 1 vial 04/13/19 22:00 04/13/19 22:17 Novolog Vial Sliding Scale - SQ Not Given HS REZA Protocol Levothyroxine Sodium 75 mcg 04/13/19 07:00 04/14/19 06:06 Synthroid - PO 75 mcg DAILY@0700 REZA Administration Montelukast Sodium 10 mg 04/13/19 22:00 04/13/19 22:15 Singulair - PO 10 mg HS REZA Administration Nebivolol 10 mg 04/15/19 10:00 Bystolic - PO DAILY REZA Potassium Chloride 20 meq 04/13/19 10:00 04/14/19 09:43 K-Dur - PO 20 meq DAILY REZA Administration Zolpidem Tartrate 5 mg 04/13/19 22:00 04/13/19 22:16 Ambien - PO 5 mg HS PRN Administration INSOMNIA Impression 1. CKD with acute component 2. HTN 3. CAD 4. dyspnea 5. fluid overload 6. HLD 7. hypothyroidism 8. CHF 9. non compliance with meds Plan - cont lasix - check renal ultrasound - avoid hypotension, hold bp meds and allow bp to rise - repeat bmp in am - check urine lytes and director drug safety
[2019-04-14] MEDS: ATORVASTATIN CA 40 MG TABLET (FP) PO SCH (21:33)
[2019-04-14] MEDS: MONTELUKAST NA 10 MG TABLET PO SCH (21:33)
[2019-04-14] MEDS: ZOLPIDEM TARTRATE 5 MG TABLET PO PRN (21:33)
[2019-04-15] MEDS: INSULIN SLIDING SCALE (NOVOLOG) 1 VIAL SQ SCH ×4 (06:29→22:50)
[2019-04-15] MEDS: LEVOTHYROXINE NA 75 MCG TABLET (FP) PO SCH (06:30)
[2019-04-15 06:40] LABS: HEMATOCRIT 31.2 % (32.4-45.2); HEMOGLOBIN 9.9 GM/dL (10.7-15.3); LYMPH % 39.5 % (8-40); MCH 23.9 pg (25.7-33.7); MCHC 31.8 g/dl (32.0-36.0); MEAN CELL VOLUME 75.2 fl (80-96); MEAN PLT VOLUME 10.6 fl (7.5-11.1); MONO % 8.9 % (3.8-10.2); NEUT % 45.6 % (42.8-82.8); PLATELET COUNT 245 K/MM3 (134-434); RBC 4.15 M/mm3 (3.60-5.2); RDW 14.7 % (11.6-15.6); WHITE BLOOD COUNT 9.9 K/mm3 (4.0-10.0)
[2019-04-15 07:13] LABS: BILIRUBIN,TOTAL 0.5 mg/dL (0.2-1); BLOOD UREA NITROGEN 54.4 mg/dL (7-18); CALCIUM 7.6 mg/dL (8.5-10.1); CREATININE 3.5 mg/dL (0.55-1.3)
[2019-04-15] MEDS ORDERED: FUROSEMIDE 40 MG/4 ML INJECTABLE VIAL IVPB SCH (10:00)
[2019-04-15] MEDS ORDERED: NEBIVOLOL 10 MG TABLET (FP) PO SCH (10:00)
[2019-04-15] MEDS: NEBIVOLOL 10 MG TABLET (FP) PO SCH (10:41)
[2019-04-15] MEDS: ASPIRIN COATED 81 MG TABLET.EC PO SCH (10:41)
[2019-04-15] MEDS: POTASSIUM CHLORIDE TABS 20 MEQ TABLET.ER (FP) PO SCH (10:41)
[2019-04-15 12:35] LABS: HYALINE CASTS 2 /lpf (0-8); PH,URINE 5.5 (5.0-8.0); URINE APPEARANCE TURBID; URINE BACTERIA >9000 /hpf (NEGATIVE); URINE BILIRUBIN NEGATIVE (NEGATIVE); URINE COLOR YELLOW; URINE GLUCOSE (UA) 2+ (NEGATIVE); URINE KETONE NEGATIVE (NEGATIVE); URINE LEUK ESTERASE 1+ (NEGATIVE); URINE NITRITE NEGATIVE (NEGATIVE); URINE PROTEIN 4+ (NEGATIVE); URINE RBC 8 /hpf (0-4); URINE UROBILINOGEN 0.2 mg/dL (0.2-1.0); URINE WBC 201 /hpf (0-5)
[2019-04-15 12:43] LABS: RATIO URIN PROTEIN/URIN CREAT 7.46 MG/DL
--- NOTE | 2019-04-15 13:03 | PN ---
Progress Note, Physician Chief Complaint: Feels much better No sob or chest pain Ambulating and able to lie flat Sinus with no events on tele History of Present Illness: 64 year-old woman with a PMHx of HTN, HLD, DM, CKD, CAD s/p CABG 2016 at [facility] complicated by sternal wound infection, hypothyroid, admission here 1 year ago with SOB treated for Acute on chronic diastolic CHF, NSTEMI, and possible viral illness, has not followed with a manager of sales as she had returned back to [place] but recently arrived here and has had sob, and chest discomfort, sob worsened yesterday with associated LE edema. Pts daughter states she was having sob while in [place] as well but did not see a manager of sales. Currently pt feeling better. Having echo which was reviewed at bedside prelim showing Normal LVEF and mild to mod MR/TR Prior cardiac tests: Echo 03/07/2018 showed normal LV size and systolic function. LVEF = 60 - 65%. No regional wall motion abnormalities. Regadenoson nuclear stress test 03/08/2018 revealed moderate inferior and apical ischemia LVEF 46% - Current Medication List Current Medications: Active Medications Aspirin (Ecotrin -) 81 mg PO DAILY [facility] Last Admin: 04/15/19 10:41 Dose: 81 mg Atorvastatin Calcium (Lipitor -) 40 mg PO HS [facility] Last Admin: 04/14/19 21:33 Dose: 40 mg Furosemide (Lasix Injection -) 40 mg IVPB DAILY [facility] Last Admin: 04/15/19 10:41 Dose: 40 mg Nitroglycerin/Dextrose (Nitroglycerin 25mg/D5w 250ml) 25 mg in 250 mls @ 120 mls/hr IVPB TITR COUNT [facility]CLUDES [facility] Last Titration: 04/13/19 12:20 Dose: 0 mcg/min, 0 mls/hr Insulin Aspart (Novolog Vial Sliding Scale -) 1 vial SQ TIDAC [facility]; Protocol Last Admin: 04/15/19 11:14 Dose: 5 units Insulin Aspart (Novolog Vial Sliding Scale -) 1 vial SQ HS [facility]; Protocol Last Admin: 04/14/19 21:34 Dose: 3 unit Levothyroxine Sodium (Synthroid -) 75 mcg PO DAILY@0700 [facility] Last Admin: 04/15/19 06:30 Dose: 75 mcg Montelukast Sodium (Singulair -) 10 mg PO HS [facility] Last Admin: 04/14/19 21:33 Dose: 10 mg Nebivolol (Bystolic -) 10 mg PO DAILY [facility] Last Admin: 04/15/19 10:41 Dose: 10 mg Potassium Chloride (K-Dur -) 20 meq PO DAILY [facility] Last Admin: 04/15/19 10:41 Dose: 20 meq Zolpidem Tartrate (Ambien -) 5 mg PO HS PRN PRN Reason: INSOMNIA Last Admin: 04/14/19 21:33 Dose: 5 mg - Objective Vital Signs: Vital Signs Temperature 98.5 F 04/15/19 09:00 Pulse Rate 66 04/15/19 09:00 Respiratory Rate 18 04/15/19 09:00 Blood Pressure 164/70 04/15/19 09:00 O2 Sat by Pulse Oximetry (%) 99 04/15/19 09:00 Constitutional: Yes: Well Nourished, No Distress Neck: Yes: Supple Cardiovascular: Yes: WNL Respiratory: Yes: CTA Bilaterally Gastrointestinal: Yes: Soft Edema: No Labs: CBC, BMP 04/15/19 05:35 04/15/19 05:35 INR, PTT INR 0.86 (0.83-1.09) 04/12/19 22:14 Assessment/Plan 64 year-old woman with a PMHx of HTN, HLD, DM, CKD, CAD s/p CABG 2016 at [facility] complicated by sternal wound infection, hypothyroid, admission here 1 year ago with SOB treated for Acute on chronic diastolic CHF, NSTEMI, and possible viral illness, has not followed with a manager of sales as she had returned back to [place] but recently arrived here and has had sob, and chest discomfort, sob worsened yesterday with associated LE edema. Pts daughter states she was having sob while in [place] as well but did not see a manager of sales. Today is asymptomatic. Volume much improved. Lying flat and ambulating with no issues. Prior cardiac tests: Echo 03/07/2018 showed normal LV size and systolic function. LVEF = 60 - 65%. No regional wall motion abnormalities. Regadenoson nuclear stress test 03/08/2018 revealed moderate inferior and apical ischemia LVEF 46% 1-Acute on chronic diastolic CHF Echo with normal LVEF, mild to mod TR, mild MR, RVSP elevated. Feels well now. Would change furosemide to PO. -monitor bun/creat, electrolytes and replete as needed -monitor daily weights -BP control 2) CAD h/o CABG h/o NSTEMI managed medically due to CKD. -no further chest pain -cardiac enzymes wnl -echo normal LVEF -cont medical management given SANTINO on CKD, high risk of contrast induced nephropathy if cardiac cath performed. -cont ASA, lipitor -plan to cont bblocker Should follow up with Dr. Parham upon discharge. [phone]
--- NOTE | 2019-04-15 15:19 | PN ---
Progress Note, Physician History of Present Illness: Pt seen and examined at bedside. She is awake and alert. She denies shortness of breath. She feels that her breathing is improved. - Current Medication List Current Medications: Active Medications Aspirin (Ecotrin -) 81 mg PO DAILY [facility] Last Admin: 04/15/19 10:41 Dose: 81 mg Atorvastatin Calcium (Lipitor -) 40 mg PO HS [facility] Last Admin: 04/14/19 21:33 Dose: 40 mg Furosemide (Lasix Injection -) 40 mg IVPB DAILY [facility] Last Admin: 04/15/19 10:41 Dose: 40 mg Nitroglycerin/Dextrose (Nitroglycerin 25mg/D5w 250ml) 25 mg in 250 mls @ 120 mls/hr IVPB TITR [facility] Last Titration: 04/13/19 12:20 Dose: 0 mcg/min, 0 mls/hr Insulin Aspart (Novolog Vial Sliding Scale -) 1 vial SQ TIDAC [facility]; Protocol Last Admin: 04/15/19 11:14 Dose: 5 units Insulin Aspart (Novolog Vial Sliding Scale -) 1 vial SQ HS [facility]; Protocol Last Admin: 04/14/19 21:34 Dose: 3 unit Levothyroxine Sodium (Synthroid -) 75 mcg PO DAILY@0700 [facility] Last Admin: 04/15/19 06:30 Dose: 75 mcg Montelukast Sodium (Singulair -) 10 mg PO HS [facility] Last Admin: 04/14/19 21:33 Dose: 10 mg Nebivolol (Bystolic -) 10 mg PO DAILY [facility] Last Admin: 04/15/19 10:41 Dose: 10 mg Potassium Chloride (K-Dur -) 20 meq PO DAILY [facility] Last Admin: 04/15/19 10:41 Dose: 20 meq Zolpidem Tartrate (Ambien -) 5 mg PO HS PRN PRN Reason: INSOMNIA Last Admin: 04/14/19 21:33 Dose: 5 mg - Objective Vital Signs: Vital Signs Temperature 98.5 F 04/15/19 09:00 Pulse Rate 66 04/15/19 09:00 Respiratory Rate 18 04/15/19 09:00 Blood Pressure 164/70 04/15/19 09:00 O2 Sat by Pulse Oximetry (%) 99 04/15/19 09:00 Constitutional: Yes: Calm Eyes: Yes: Conjunctiva Clear HENT: Yes: Atraumatic Neck: Yes: Supple Cardiovascular: Yes: S1, S2 Respiratory: Yes: CTA Bilaterally Gastrointestinal: Yes: Normal Bowel Sounds, Soft Genitourinary: Yes: WNL Musculoskeletal: Yes: WNL Edema: No Neurological: Yes: Oriented Psychiatric: Yes: Oriented Labs: CBC, BMP 04/15/19 05:35 04/15/19 05:35 INR, PTT INR 0.86 (0.83-1.09) 04/12/19 22:14 Problem List - Problems (1) CKD (chronic kidney disease) Code(s): N18.9 - CHRONIC KIDNEY DISEASE, UNSPECIFIED (2) CHF exacerbation Code(s): I50.9 - HEART FAILURE, UNSPECIFIED (3) Shortness of breath Code(s): R06.02 - SHORTNESS OF BREATH Assessment/Plan Current Medications Generic Name Dose Route Start Last Admin Trade Name Freq PRN Reason Stop Dose Admin Aspirin 81 mg 04/13/19 10:00 04/15/19 10:41 Ecotrin - PO 81 mg DAILY REZA Administration Atorvastatin Calcium 40 mg 04/13/19 22:00 04/14/19 21:33 Lipitor - PO 40 mg HS REZA Administration Furosemide 40 mg 04/15/19 10:00 04/15/19 10:41 Lasix Injection - IVPB 40 mg DAILY REZA Administration Nitroglycerin/Dextrose 25 mg in 250 mls @ 120 mls/hr 04/12/19 23:30 04/13/19 12:20 Nitroglycerin 25mg/D5w 250ml IVPB 0 mcg/min TITR REZA 0 mls/hr Titration 200 MCG/MIN Insulin Aspart 1 vial 04/13/19 17:00 04/15/19 11:14 Novolog Vial Sliding Scale - SQ 5 units TIDAC REZA Administration Protocol Insulin Aspart 1 vial 04/13/19 22:00 04/14/19 21:34 Novolog Vial Sliding Scale - SQ 3 unit HS REZA Administration Protocol Levothyroxine Sodium 75 mcg 04/13/19 07:00 04/15/19 06:30 Synthroid - PO 75 mcg DAILY@0700 RE[facility] Administration Montelukast Sodium 10 mg 04/13/19 22:00 04/14/19 21:33 Singulair - PO 10 mg HS REZA Administration Nebivolol 10 mg 04/15/19 10:00 04/15/19 10:41 Bystolic - PO 10 mg DAILY REZA Administration Potassium Chloride 20 meq 04/13/19 10:00 04/15/19 10:41 K-Dur - PO 20 meq DAILY REZA Administration Zolpidem Tartrate 5 mg 04/13/19 22:00 04/14/19 21:33 Ambien - PO 5 mg HS PRN Administration INSOMNIA Laboratory Tests 04/13/19 04/15/19 04/15/19 09:00 10:30 10:30 Urine Protein 3+ H 4+ H Protein/Creatinin Ratio 7.460 Impression 1. CKD with acute component 2. HTN 3. CAD 4. dyspnea 5. fluid overload 6. HLD 7. hypothyroidism 8. CHF 9. non compliance with meds Plan - change lasix to PO - cxr improved - renal ultrasound neg for hydro - pt with nephrotic proteinuria - monitor bp - repeat bmp in am
--- NOTE | 2019-04-15 15:47 | PN ---
Progress Note (short form) - Note Progress Note: patient seen and examined Better Vital Signs Temp 98.5 F 04/15/19 09:00 Pulse 66 04/15/19 09:00 Resp 18 04/15/19 09:00 BP 164/70 04/15/19 09:00 Pulse Ox 99 04/15/19 09:00 Intake & Output 04/14/19 04/15/19 04/15/19 23:59 11:59 23:59 Intake Total 250 Balance 250 Intake: IV 10 Saline locks 10 Oral 240 Other: Voiding Method Toilet # Unmeasured Voids Void 1 Active Medications Aspirin (Ecotrin -) 81 mg PO DAILY [facility] Last Admin: 04/15/19 10:41 Dose: 81 mg Atorvastatin Calcium (Lipitor -) 40 mg PO HS [facility] Last Admin: 04/14/19 21:33 Dose: 40 mg Furosemide (Lasix -) 40 mg PO DAILY [facility] Insulin Aspart (Novolog Vial Sliding Scale -) 1 vial SQ TIDAC [facility]; Protocol Last Admin: 04/15/19 11:14 Dose: 5 units Insulin Aspart (Novolog Vial Sliding Scale -) 1 vial SQ HS [facility]; Protocol Last Admin: 04/14/19 21:34 Dose: 3 unit Levothyroxine Sodium (Synthroid -) 75 mcg PO DAILY@0700 [facility] Last Admin: 04/15/19 06:30 Dose: 75 mcg Montelukast Sodium (Singulair -) 10 mg PO HS [facility] Last Admin: 04/14/19 21:33 Dose: 10 mg Nebivolol (Bystolic -) 10 mg PO DAILY [facility] Last Admin: 04/15/19 10:41 Dose: 10 mg Potassium Chloride (K-Dur -) 20 meq PO DAILY [facility] Last Admin: 04/15/19 10:41 Dose: 20 meq Zolpidem Tartrate (Ambien -) 5 mg PO HS PRN PRN Reason: INSOMNIA Last Admin: 04/14/19 21:33 Dose: 5 mg CBC, BMP 04/15/19 05:35 04/15/19 05:35 Physical Exam S1S2 RRR Lungs -- crackles at bases Abd- soft, non tender ext- no edema a/p chf exac with h/o cad with uncontrolled diabetes and Htn with Arf on ckd Better changed metoprolol to Bystolic avoid nsaids/ nephrotoxic meds Renal consult noted and appreciated f/u labs continue present care Blood sugar high--- endocrinology to follow Will follow Monitor blood pressure also Problem List - Problems (1) Acute pulmonary edema Code(s): J81.0 - ACUTE PULMONARY EDEMA (2) CHF exacerbation Code(s): I50.9 - HEART FAILURE, UNSPECIFIED (3) Shortness of breath Code(s): R06.02 - SHORTNESS OF BREATH (4) Anemia Code(s): D64.9 - ANEMIA, UNSPECIFIED (5) Hx of CABG Code(s): Z95.1 - PRESENCE OF AORTOCORONARY BYPASS GRAFT (6) Renal failure (ARF), acute on chronic Code(s): N17.9 - ACUTE KIDNEY FAILURE, UNSPECIFIED; N18.9 - CHRONIC KIDNEY DISEASE, UNSPECIFIED
[2019-04-15] MEDS ORDERED: cloNIDine HCL 0.1 MG TABLET PO ONE (17:12)
[2019-04-15] MEDS ORDERED: Insulin (LOG) Aspart 100 UNITS/ML VIAL SQ ONE (17:12)
[2019-04-15] MEDS: MONTELUKAST NA 10 MG TABLET PO SCH (22:52)
[2019-04-15] MEDS: ATORVASTATIN CA 40 MG TABLET (FP) PO SCH (22:52)
[2019-04-16] MEDS: INSULIN SLIDING SCALE (NOVOLOG) 1 VIAL SQ SCH ×4 (06:54→22:19)
[2019-04-16] MEDS: LEVOTHYROXINE NA 75 MCG TABLET (FP) PO SCH (06:54)
[2019-04-16] MEDS ORDERED: PT OWN MED DRAWER 7, Y5N ONE (10:59)
[2019-04-16] MEDS: FUROSEMIDE 40 MG TABLET (FP) PO SCH (11:00)
[2019-04-16] MEDS: ASPIRIN COATED 81 MG TABLET.EC PO SCH (11:00)
[2019-04-16] MEDS: POTASSIUM CHLORIDE TABS 20 MEQ TABLET.ER (FP) PO SCH (11:00)
[2019-04-16] MEDS: NEBIVOLOL 10 MG TABLET (FP) PO SCH (11:01)
[2019-04-16 12:39] LABS: BLOOD UREA NITROGEN 52.5 mg/dL (7-18); CALCIUM 7.7 mg/dL (8.5-10.1); POTASSIUM 4.1 mmol/L (3.5-5.1)
[2019-04-16] MEDS ORDERED: INSULIN (NOVOLOG) ASPART 100 UNITS/ML 10ML VIAL SQ ONE ×2 (13:00→18:45)
[2019-04-16] MEDS: INSULIN (LEVEMIR) 100 UNITS/ML UNITS SQ SCH (13:03)
[2019-04-16] MEDS ORDERED: ACETAMINOPHEN 325 MG TABLET (FP) ONE (13:31)
--- NOTE | 2019-04-16 14:12 | PN ---
Progress Note (short form) - Note Progress Note: pt seen/ examined feels better all f/u noted sugar - 400s -- endo following -- started on Levemir denies cp breathing better Vital Signs Temp 97.8 F 04/16/19 06:00 Pulse 52 L 04/16/19 06:00 Resp 20 04/16/19 11:00 BP 145/61 04/16/19 06:00 Pulse Ox 96 04/16/19 11:00 Intake & Output 04/15/19 04/16/19 04/16/19 23:59 11:59 23:59 Intake Total 390 10 Balance 390 10 Intake: IV 30 10 Saline locks 30 10 Oral 360 Other: Voiding Method Toilet Toilet # Unmeasured Voids Void 1 Bowel Movement No No Active Medications Aspirin (Ecotrin -) 81 mg PO DAILY [facility] Last Admin: 04/15/19 10:41 Dose: 81 mg Atorvastatin Calcium (Lipitor -) 40 mg PO HS [facility] Last Admin: 04/14/19 21:33 Dose: 40 mg Furosemide (Lasix -) 40 mg PO DAILY [facility] Insulin Aspart (Novolog Vial Sliding Scale -) 1 vial SQ TIDAC [facility]; Protocol Last Admin: 04/15/19 11:14 Dose: 5 units Insulin Aspart (Novolog Vial Sliding Scale -) 1 vial SQ HS [facility]; Protocol Last Admin: 04/14/19 21:34 Dose: 3 unit Levothyroxine Sodium (Synthroid -) 75 mcg PO DAILY@0700 [facility] Last Admin: 04/15/19 06:30 Dose: 75 mcg Montelukast Sodium (Singulair -) 10 mg PO HS [facility] Last Admin: 04/14/19 21:33 Dose: 10 mg Nebivolol (Bystolic -) 10 mg PO DAILY [facility] Last Admin: 04/15/19 10:41 Dose: 10 mg Potassium Chloride (K-Dur -) 20 meq PO DAILY [facility] Last Admin: 04/15/19 10:41 Dose: 20 meq Zolpidem Tartrate (Ambien -) 5 mg PO HS PRN PRN Reason: INSOMNIA Last Admin: 04/14/19 21:33 Dose: 5 mg CBC, BMP 04/15/19 05:35 04/16/19 11:45 Physical Exam S1S2 RRR Lungs -- better air entry Abd- soft, non tender ext- no edema a/p chf exac . with h/o cad with uncontrolled diabetes and Htn with Arf on ckd Better changed metoprolol to Bystolic avoid nsaids/ nephrotoxic meds Renal consult noted and appreciated cr better continue present care Blood sugar high--- endocrinology adjusting Will follow Monitor blood pressure also elevated add amlodipine Problem List - Problems (1) Acute pulmonary edema Code(s): J81.0 - ACUTE PULMONARY EDEMA (2) CHF exacerbation Code(s): I50.9 - HEART FAILURE, UNSPECIFIED (3) Shortness of breath Code(s): R06.02 - SHORTNESS OF BREATH (4) Anemia Code(s): D64.9 - ANEMIA, UNSPECIFIED (5) Hx of CABG Code(s): Z95.1 - PRESENCE OF AORTOCORONARY BYPASS GRAFT (6) Renal failure (ARF), acute on chronic Code(s): N17.9 - ACUTE KIDNEY FAILURE, UNSPECIFIED; N18.9 - CHRONIC KIDNEY DISEASE, UNSPECIFIED
[2019-04-16] MEDS: amLODIPine BESYLATE 5 MG TABLET (FP) PO SCH (15:34)
[2019-04-16] MEDS ORDERED: Insulin (LOG) Aspart 100 UNITS/ML VIAL SQ ONE (17:12)
--- NOTE | 2019-04-16 17:53 | PN ---
Progress Note (short form) - Note Progress Note: Renal follow up for SANTINO on CKD Pt seen and examined at the bedside awake and alert no acute complaints no sob, cp, abd pain tolerating oral diet making urine Vital Signs Temperature 97.9 F 04/16/19 14:10 Pulse Rate 54 L 04/16/19 14:10 Respiratory Rate 20 04/16/19 14:10 Blood Pressure 182/67 H 04/16/19 14:10 O2 Sat by Pulse Oximetry (%) 95 04/16/19 15:49 Intake & Output 04/13/19 04/14/19 04/15/19 04/16/19 23:59 23:59 23:59 23:59 Intake Total 300 506 390 10 Balance 300 506 390 10 Weight 57.153 kg NAD awake and alert RRR CTA no LE edema CBC, BMP 04/15/19 05:35 04/16/19 11:45 Current Medications Amlodipine Besylate (Norvasc -) 5 mg PO DAILY [facility] Last Admin: 04/16/19 15:34 Dose: 5 mg Aspirin (Ecotrin -) 81 mg PO DAILY [facility] Last Admin: 04/16/19 11:00 Dose: 81 mg Atorvastatin Calcium (Lipitor -) 40 mg PO [facility] Last Admin: 04/15/19 22:52 Dose: 40 mg Furosemide (Lasix -) 40 mg PO DAILY [facility] Last Admin: 04/16/19 11:00 Dose: 40 mg Insulin Aspart (Novolog Vial Sliding Scale -) 1 vial SQ TIDAC [facility]; Protocol Last Admin: 04/16/19 17:10 Dose: 15 units Insulin Aspart (Novolog Vial Sliding Scale -) 1 vial SQ [facility]; Protocol Last Admin: 04/15/19 22:50 Dose: Not Given Insulin Detemir (Levemir Vial) 10 units SQ AM [facility] Last Admin: 04/16/19 13:03 Dose: 10 units Levothyroxine Sodium (Synthroid -) 75 mcg PO DAILY@0700 [facility] Last Admin: 04/16/19 06:54 Dose: 75 mcg Montelukast Sodium (Singulair -) 10 mg PO HS [facility] Last Admin: 04/15/19 22:52 Dose: 10 mg Nebivolol (Bystolic -) 10 mg PO DAILY [facility] Last Admin: 04/16/19 11:01 Dose: 10 mg Potassium Chloride (K-Dur -) 20 meq PO DAILY [facility] Last Admin: 04/16/19 11:00 Dose: 20 meq Zolpidem Tartrate (Ambien -) 5 mg PO HS PRN PRN Reason: INSOMNIA Last Admin: 04/14/19 21:33 Dose: 5 mg 64 year old female with pmhx of CKD, DM, CHF, HTN, CAD, HLD, and hypothyroidism who presents to the ER with shortness of breath and noted to have elevated Cr. #SANTINO on CKD #CKD #CHF exacerbation #Hypertension #Metabolic acidosis Renal function improving today volume status appears improved Cardiology follow up Trend serum bicarb, may need oral bicarb Steve Shrestha DO
[2019-04-16] MEDS ORDERED: NEBIVOLOL 5 MG TABLET (FP) PO ONE (21:42)
[2019-04-16] MEDS: MONTELUKAST NA 10 MG TABLET PO SCH (22:14)
[2019-04-16] MEDS: ATORVASTATIN CA 40 MG TABLET (FP) PO SCH (22:15)
--- NOTE | 2019-04-16 22:36 | HOSP ---
Subjective - Review of Symptoms Events since last encounter: Patient noted with bp of 183/71, had headache earlier in the evening Tylenol was given with relief. Patient was switched from Metoprolol to Bystolic this AM currently on bystolic 10 mg daily and Norvasc 5 mg daily, will give x1 dose of bystolic 5 mg and repeat in 2 hours. If bp continuos to trend high consider bystolic BID General: No: Chills, Night Sweats, Fatigue, Malaise, Appetite, Other HEENT: Yes: Head Aches Pulmonary: No: Dyspnea, Cough, Pleuritic Chest Pain, Other Cardiovascular: No: Chest Pain, Palpitations, Orthopnea, Paroxysmal Noc. Dyspnea , Edema, Light Headedness, Other Gastrointestinal: No: Nausea, NOSYM, Vomiting, Abdominal Pain, Diarrhea, Constipation, Melena, Hematochezia, Other Genitourinary: No: Dysuria, NOSYM, Frequency, Incontinence, Hematuria, Retention , Other Musculoskeletal: No: No Symptoms, Back Pain, Crepitus, Decreased ROM, Extremity Pain, Joint Pain, Joint Swelling, Muscle Pain, Muscle Cramps, Muscle Weakness, Other Neurological: No: Weakness, Numbness, Incoordination, Change in speech, Confusion, Seizures, Other Physical Examination Vital Signs: Vital Signs Temperature 97.9 F 04/16/19 14:10 Pulse Rate 52 L 04/16/19 18:55 Respiratory Rate 20 04/16/19 14:10 Blood Pressure 188/81 H 04/16/19 18:55 O2 Sat by Pulse Oximetry (%) 97 04/16/19 21:00 Constitutional: Yes: No Distress Eyes: Yes: Conjunctiva Clear, EOM Intact HENT: Yes: Atraumatic, Normocephalic Neck: Yes: Supple, Trachea Midline Respiratory: Yes: Regular, CTA Bilaterally Gastrointestinal: Yes: Normal Bowel Sounds, Soft Labs: CBC, BMP 04/15/19 05:35 04/16/19 11:45 Hospitalist Encounter Outcome: HTN - give nebivolol 5 mg x1 - monitor vitals closely - continue with AM dose of norvasc and nebivolol
[2019-04-17] MEDS: INSULIN SLIDING SCALE (NOVOLOG) 1 VIAL SQ SCH ×3 (06:01→21:35)
[2019-04-17] MEDS: INSULIN (LEVEMIR) 100 UNITS/ML UNITS SQ SCH (06:13)
[2019-04-17] MEDS: LEVOTHYROXINE NA 75 MCG TABLET (FP) PO SCH (06:13)
[2019-04-17 08:20] LABS: BASO % 0.5 % (0-2.0); EOS % 5.7 % (0-4.5); HEMATOCRIT 32.8 % (32.4-45.2); HEMOGLOBIN 10.5 GM/dL (10.7-15.3); MEAN CELL VOLUME 74.8 fl (80-96); MEAN PLT VOLUME 10.6 fl (7.5-11.1); MONO % 8.8 % (3.8-10.2); PLATELET COUNT 268 K/MM3 (134-434); RBC 4.39 M/mm3 (3.60-5.2); RDW 14.4 % (11.6-15.6); WHITE BLOOD COUNT 10.9 K/mm3 (4.0-10.0)
[2019-04-17 08:42] LABS: ALBUMIN 2.2 g/dl (3.4-5.0); BILIRUBIN,TOTAL 0.4 mg/dL (0.2-1); BLOOD UREA NITROGEN 52.9 mg/dL (7-18); CALCIUM 8.1 mg/dL (8.5-10.1); CREATININE 2.8 mg/dL (0.55-1.3); POTASSIUM 3.8 mmol/L (3.5-5.1); TOT PROT 5.2 g/dl (6.4-8.2)
--- NOTE | 2019-04-17 08:55 | PN ---
Progress Note (short form) - Note Progress Note: Feels much better No headache or dizziness today No SOB Vital Signs Period Temp Pulse Resp BP Sys/To Pulse Ox Last 24 Hr 97.8 F-98.0 F 52-61 18-20 145-188/54-81 95-97 PE: AOx3 Neck: Supple, No JVD HEENT: EOMI Lungs: CTA CVS: S1S2 Abd: Benign Ext: No edema Neuro: No focal deficit CMP Sodium 138 mmol/L (136-145) 04/17/19 05:43 Potassium 3.8 mmol/L (3.5-5.1) 04/17/19 05:43 Chloride 108 mmol/L (98-107) H 04/17/19 05:43 Carbon Dioxide 20 mmol/L (21-32) L 04/17/19 05:43 Anion Gap 9 MMOL/L (8-16) 04/17/19 05:43 BUN 52.9 mg/dL (7-18) H 04/17/19 05:43 Creatinine 2.8 mg/dL (0.55-1.3) H 04/17/19 05:43 Est GFR (CKD-EPI)AfAm 20.00 04/17/19 05:43 Est GFR (CKD-EPI)NonAf 17.25 04/17/19 05:43 POC Glucometer 112 UNITS (80-120) 04/17/19 05:37 Random Glucose 107 mg/dL (74-106) H 04/17/19 05:43 Hemoglobin A1c % 10.7 % (4.2-6.3) H 04/14/19 05:32 Calcium 8.1 mg/dL (8.5-10.1) L 04/17/19 05:43 Magnesium 2.3 mg/dL (1.8-2.4) 04/12/19 22:14 Total Bilirubin 0.4 mg/dL (0.2-1) 04/17/19 05:43 AST 11 U/L (15-37) L 04/17/19 05:43 ALT 12 U/L (13-61) L 04/17/19 05:43 Alkaline Phosphatase 126 U/L (45-117) H 04/17/19 05:43 Creatine Kinase 96 U/L (26-192) 04/12/19 22:14 Troponin I 0.03 ng/ml (0.00-0.05) 04/12/19 22:14 B-Natriuretic Peptide 64777.6 pg/ml (5-125) H 04/12/19 22:14 Total Protein 5.2 g/dl (6.4-8.2) L 04/17/19 05:43 Albumin 2.2 g/dl (3.4-5.0) L 04/17/19 05:43 Triglycerides 167 mg/dL (0-150) H 04/17/19 05:43 Cholesterol 156 mg/dL (50-200) 04/17/19 05:43 Total LDL Cholesterol 85 mg/dL (5-100) 04/17/19 05:43 HDL Cholesterol 56 mg/dL (40-60) 04/17/19 05:43 TSH 1.94 uIU/ml (0.358-3.74) 04/14/19 05:32 Current Medications Generic Name Dose Route Start Last Admin Trade Name Davidq PRN Reason Stop Dose Admin Amlodipine Besylate 5 mg 04/16/19 14:30 04/16/19 15:34 Norvasc - PO 5 mg DAILY REZA Administration Aspirin 81 mg 04/13/19 10:00 04/16/19 11:00 Ecotrin - PO 81 mg DAILY RE[facility] Administration Atorvastatin Calcium 40 mg 04/13/19 22:00 04/16/19 22:15 Lipitor - PO 40 mg HS REZA Administration Furosemide 40 mg 04/16/19 10:00 04/16/19 11:00 Lasix - PO 40 mg DAILY REZA Administration Insulin Aspart 1 vial 04/13/19 17:00 04/17/19 06:01 Novolog Vial Sliding Scale - SQ Not Given TIDAC [facility] Protocol Insulin Aspart 1 vial 04/13/19 22:00 04/16/19 22:19 Novolog Vial Sliding Scale - SQ Not Given HS [facility] Protocol Insulin Detemir 10 units 04/17/19 07:00 04/17/19 06:13 Levemir Vial SQ 10 units AM [facility] Administration Levothyroxine Sodium 75 mcg 04/13/19 07:00 04/17/19 06:13 Synthroid - PO 75 mcg DAILY@0700 [facility] Administration Montelukast Sodium 10 mg 04/13/19 22:00 04/16/19 22:14 Singulair - PO 10 mg HS [facility] Administration Nebivolol 10 mg 04/15/19 10:00 04/16/19 11:01 Bystolic - PO 10 mg DAILY [facility] Administration Potassium Chloride 20 meq 04/13/19 10:00 04/16/19 11:00 K-Dur - PO 20 meq DAILY [facility] Administration AP; CP CAD s/p CABG DM Hypothyroidism Diet discussed. No snacking between meals. Decrease CHO in diet. Levemir 10 units daily Discussed need to take premeaL Insulin to control PP blood which is most probably why her A1c is 10.7 when morning blood sugars are low 100s BGM QACHS and 3 AM Change Novolog Coverage Premeals Hold Basal Insulin for now, takes Lantus 20 units at HS LT4 75 QD Will F/u
[2019-04-17] MEDS: NEBIVOLOL 10 MG TABLET (FP) PO SCH (10:46)
[2019-04-17] MEDS: amLODIPine BESYLATE 5 MG TABLET (FP) PO SCH (10:47)
[2019-04-17] MEDS: POTASSIUM CHLORIDE TABS 20 MEQ TABLET.ER (FP) PO SCH (10:47)
[2019-04-17] MEDS: FUROSEMIDE 40 MG TABLET (FP) PO SCH (10:47)
[2019-04-17] MEDS: ASPIRIN COATED 81 MG TABLET.EC PO SCH (10:47)
[2019-04-17] MEDS ORDERED: INSULIN SLIDING SCALE (NOVOLOG) 1 VIAL SQ SCH (11:00)
[2019-04-17] MEDS ORDERED: NEBIVOLOL 5 MG TABLET (FP) PO ONE (11:37)
--- NOTE | 2019-04-17 12:45 | PN ---
Progress Note (short form) - Note Progress Note: Daughter at bedside Pt c/o pain in left side of back -- intermittent sharp pain when she takes a deep breath Vital Signs - 24 hr 04/16/19 04/16/19 04/16/19 14:10 15:49 18:55 Temperature 97.9 F Pulse Rate 54 L 52 L Respiratory 20 Rate Blood Pressure 182/67 H 188/81 H O2 Sat by Pulse 95 Oximetry (%) 04/16/19 04/16/19 04/17/19 21:00 22:00 00:35 Temperature 98.0 F 97.8 F Pulse Rate 54 L 61 Respiratory 18 18 Rate Blood Pressure 183/71 H 166/75 O2 Sat by Pulse 97 Oximetry (%) 04/17/19 04/17/19 04/17/19 04:00 08:00 10:00 Temperature 98.0 F 98.2 F 98.7 F Pulse Rate 54 L 53 L 61 Respiratory 18 18 18 Rate Blood Pressure 145/54 L 116/59 L 148/62 O2 Sat by Pulse Oximetry (%) Current Medications Generic Name Dose Route Start Last Admin Trade Name Freq PRN Reason Stop Dose Admin Amlodipine Besylate 5 mg 04/16/19 14:30 04/17/19 10:47 Norvasc - PO 5 mg DAILY REZA Administration Aspirin 81 mg 04/13/19 10:00 04/17/19 10:47 Ecotrin - PO 81 mg DAILY REZA Administration Atorvastatin Calcium 40 mg 04/13/19 22:00 04/16/19 22:15 Lipitor - PO 40 mg HS REZA Administration Furosemide 40 mg 04/16/19 10:00 04/17/19 10:47 Lasix - PO 40 mg DAILY REZA Administration Insulin Aspart 1 vial 04/13/19 22:00 04/16/19 22:19 Novolog Vial Sliding Scale - SQ Not Given HS REZA Protocol Insulin Aspart 1 vial 04/17/19 11:00 04/17/19 12:32 Novolog Vial Sliding Scale - SQ 10 units TIDAC REZA Administration Protocol Insulin Detemir 10 units 04/17/19 07:00 04/17/19 06:13 Levemir Vial SQ 10 units AM REZA Administration Levothyroxine Sodium 75 mcg 04/13/19 07:00 04/17/19 06:13 Synthroid - PO 75 mcg DAILY@0700 REZA Administration Montelukast Sodium 10 mg 04/13/19 22:00 04/16/19 22:14 Singulair - PO 10 mg HS REZA Administration Nebivolol 10 mg 04/15/19 10:00 04/17/19 10:46 Bystolic - PO Not Given DAILY REZA Potassium Chloride 20 meq 04/13/19 10:00 04/17/19 10:47 K-Dur - PO 20 meq DAILY REZA Administration Laboratory Results - last 24 hr 04/16/19 04/16/19 04/17/19 17:00 21:28 05:37 WBC RBC Hgb Hct MCV MCH MCHC RDW Plt Count MPV Absolute Neuts (auto) Neutrophils % Lymphocytes % Monocytes % Eosinophils % Basophils % Nucleated RBC % Sodium Potassium Chloride Carbon Dioxide Anion Gap BUN Creatinine Est GFR (CKD-EPI)AfAm Est GFR (CKD-EPI)NonAf POC Glucometer 482 183 112 Random Glucose Calcium Total Bilirubin AST ALT Alkaline Phosphatase Total Protein Albumin Triglycerides Cholesterol Total LDL Cholesterol HDL Cholesterol 04/17/19 04/17/19 04/17/19 05:43 05:43 12:28 WBC 10.9 H RBC 4.39 Hgb 10.5 L Hct 32.8 MCV 74.8 L MCH 24.0 L MCHC 32.0 RDW 14.4 Plt Count 268 MPV 10.6 Absolute Neuts (auto) 5.7 Neutrophils % 52.0 Lymphocytes % 33.0 Monocytes % 8.8 Eosinophils % 5.7 H Basophils % 0.5 Nucleated RBC % 0 Sodium 138 Potassium 3.8 Chloride 108 H Carbon Dioxide 20 L Anion Gap 9 BUN 52.9 H Creatinine 2.8 H Est GFR (CKD-EPI)AfAm 20.00 Est GFR (CKD-EPI)NonAf 17.25 POC Glucometer 355 Random Glucose 107 H Calcium 8.1 L Total Bilirubin 0.4 AST 11 L ALT 12 L Alkaline Phosphatase 126 H Total Protein 5.2 L Albumin 2.2 L Triglycerides 167 H Cholesterol 156 Total LDL Cholesterol 85 HDL Cholesterol 56 S1 S2RRR Lungs decreased Abd- soft, NT No edema no spinal tenderness no CVA tenderness PLAN PO lasix renal function better pt is non compliant with diet -- which is why her sugars are so high-- educated pt and daughter about restricting carbs Renal follow up dc planning-- likely tomorrow Problem List - Problems (1) Acute pulmonary edema Code(s): J81.0 - ACUTE PULMONARY EDEMA (2) CHF exacerbation Code(s): I50.9 - HEART FAILURE, UNSPECIFIED (3) CKD (chronic kidney disease) Code(s): N18.9 - CHRONIC KIDNEY DISEASE, UNSPECIFIED (4) HLD (hyperlipidemia) Code(s): E78.5 - HYPERLIPIDEMIA, UNSPECIFIED
--- NOTE | 2019-04-17 15:32 | PN ---
Progress Note (short form) - Note Progress Note: Renal follow up for SANTINO on CKD Pt seen and examined at the bedside awake and alert no acute complaints Vital Signs Temperature 98.7 F 04/17/19 10:00 Pulse Rate 61 04/17/19 10:00 Respiratory Rate 18 04/17/19 10:00 Blood Pressure 148/62 04/17/19 10:00 O2 Sat by Pulse Oximetry (%) 97 04/17/19 09:00 Intake & Output 04/14/19 04/15/19 04/16/19 04/17/19 23:59 23:59 23:59 23:59 Intake Total 506 390 10 Balance 506 390 10 NAD awake and alert RRR CTA no LE edema CBC, BMP 04/17/19 05:43 04/17/19 05:43 Current Medications Amlodipine Besylate (Norvasc -) 5 mg PO DAILY [facility] Last Admin: 04/17/19 10:47 Dose: 5 mg Aspirin (Ecotrin -) 81 mg PO DAILY REZA Last Admin: 04/17/19 10:47 Dose: 81 mg Atorvastatin Calcium (Lipitor -) 40 mg PO HS [facility] Last Admin: 04/16/19 22:15 Dose: 40 mg Furosemide (Lasix -) 40 mg PO DAILY [facility] Last Admin: 04/17/19 10:47 Dose: 40 mg Insulin Aspart (Novolog Vial Sliding Scale -) 1 vial SQ HS [facility]; Protocol Last Admin: 04/16/19 22:19 Dose: Not Given Insulin Aspart (Novolog Vial Sliding Scale -) 1 vial SQ TIDAC [facility]; Protocol Insulin Detemir (Levemir Vial) 10 units SQ AM [facility] Last Admin: 04/17/19 06:13 Dose: 10 units Levothyroxine Sodium (Synthroid -) 75 mcg PO DAILY@0700 REZA Last Admin: 04/17/19 06:13 Dose: 75 mcg Montelukast Sodium (Singulair -) 10 mg PO HS [facility] Last Admin: 04/16/19 22:14 Dose: 10 mg Nebivolol (Bystolic -) 10 mg PO DAILY [facility] Last Admin: 04/17/19 10:46 Dose: Not Given Potassium Chloride (K-Dur -) 20 meq PO DAILY [facility] Last Admin: 04/17/19 10:47 Dose: 20 meq 64 year old female with pmhx of CKD, DM, CHF, HTN, CAD, HLD, and hypothyroidism who presents to the ER with shortness of breath and noted to have elevated Cr. #SANTINO on CKD #CKD #CHF exacerbation #Hypertension #Metabolic acidosis Renal function slowly imporving continue oral Lasix 40mg Daily Cardiology follow up serum bicarbonate improving with renal function Steve Shrestha DO
[2019-04-17] MEDS: MONTELUKAST NA 10 MG TABLET PO SCH (21:35)
[2019-04-17] MEDS: ATORVASTATIN CA 40 MG TABLET (FP) PO SCH (21:35)
[2019-04-18] MEDS ORDERED: INSULIN (NOVOLOG) ASPART 100 UNITS/ML 10ML VIAL ONE (05:53)
[2019-04-18] MEDS: LEVOTHYROXINE NA 75 MCG TABLET (FP) PO SCH (06:09)
[2019-04-18] MEDS: INSULIN (LEVEMIR) 100 UNITS/ML UNITS SQ SCH (06:10)
[2019-04-18] MEDS: INSULIN SLIDING SCALE (NOVOLOG) 1 VIAL SQ SCH (06:10)
[2019-04-18 08:11] LABS: BLOOD UREA NITROGEN 47.6 mg/dL (7-18); CALCIUM 8.1 mg/dL (8.5-10.1); CREATININE 2.7 mg/dL (0.55-1.3); POTASSIUM 4.2 mmol/L (3.5-5.1)
--- NOTE | 2019-04-18 08:59 | PN ---
Progress Note (short form) - Note Progress Note: Feels good No complaints Vital Signs Period Temp Pulse Resp BP Sys/To Pulse Ox Last 24 Hr 97.9 F-98.7 F 49-81 18-20 140-161/58-84 97-98 PE: AOx3 Neck: Supple, No JVD HEENT: EOMI Lungs: CTA CVS: S1S2 Abd: Benign Ext: No edema Neuro: No focal deficit CMP Sodium 138 mmol/L (136-145) 04/18/19 06:26 Potassium 4.2 mmol/L (3.5-5.1) 04/18/19 06:26 Chloride 110 mmol/L (98-107) H 04/18/19 06:26 Carbon Dioxide 19 mmol/L (21-32) L 04/18/19 06:26 Anion Gap 9 MMOL/L (8-16) 04/18/19 06:26 BUN 47.6 mg/dL (7-18) H 04/18/19 06:26 Creatinine 2.7 mg/dL (0.55-1.3) H 04/18/19 06:26 Est GFR (CKD-EPI)AfAm 20.90 04/18/19 06:26 Est GFR (CKD-EPI)NonAf 18.03 04/18/19 06:26 POC Glucometer 183 UNITS (80-120) 04/18/19 05:15 Random Glucose 160 mg/dL (74-106) H 04/18/19 06:26 Hemoglobin A1c % 10.7 % (4.2-6.3) H 04/14/19 05:32 Calcium 8.1 mg/dL (8.5-10.1) L 04/18/19 06:26 Magnesium 2.3 mg/dL (1.8-2.4) 04/12/19 22:14 Total Bilirubin 0.4 mg/dL (0.2-1) 04/17/19 05:43 AST 11 U/L (15-37) L 04/17/19 05:43 ALT 12 U/L (13-61) L 04/17/19 05:43 Alkaline Phosphatase 126 U/L (45-117) H 04/17/19 05:43 Creatine Kinase 96 U/L (26-192) 04/12/19 22:14 Troponin I 0.03 ng/ml (0.00-0.05) 04/12/19 22:14 B-Natriuretic Peptide 30908.6 pg/ml (5-125) H 04/12/19 22:14 Total Protein 5.2 g/dl (6.4-8.2) L 04/17/19 05:43 Albumin 2.2 g/dl (3.4-5.0) L 04/17/19 05:43 Triglycerides 167 mg/dL (0-150) H 04/17/19 05:43 Cholesterol 156 mg/dL (50-200) 04/17/19 05:43 Total LDL Cholesterol 85 mg/dL (5-100) 04/17/19 05:43 HDL Cholesterol 56 mg/dL (40-60) 04/17/19 05:43 TSH 1.94 uIU/ml (0.358-3.74) 04/14/19 05:32 Current Medications Generic Name Dose Route Start Last Admin Trade Name Freq PRN Reason Stop Dose Admin Amlodipine Besylate 5 mg 04/16/19 14:30 04/17/19 10:47 Norvasc - PO 5 mg DAILY REZA Administration Aspirin 81 mg 04/13/19 10:00 04/17/19 10:47 Ecotrin - PO 81 mg DAILY REZA Administration Atorvastatin Calcium 40 mg 04/13/19 22:00 04/17/19 21:35 Lipitor - PO 40 mg HS REZA Administration Furosemide 40 mg 04/16/19 10:00 04/17/19 10:47 Lasix - PO 40 mg DAILY REZA Administration Insulin Aspart 1 vial 04/13/19 22:00 04/17/19 21:35 Novolog Vial Sliding Scale - SQ Not Given HS [facility] Protocol Insulin Aspart 1 vial 04/17/19 15:24 04/18/19 06:10 Novolog Vial Sliding Scale - SQ 3 units TIDAC REZA Administration Protocol Insulin Detemir 10 units 04/17/19 07:00 04/18/19 06:10 Levemir Vial SQ 10 units AM REZA Administration Levothyroxine Sodium 75 mcg 04/13/19 07:00 04/18/19 06:09 Synthroid - PO 75 mcg DAILY@0700 REZA Administration Montelukast Sodium 10 mg 04/13/19 22:00 04/17/19 21:35 Singulair - PO 10 mg HS REZA Administration Nebivolol 10 mg 04/15/19 10:00 04/17/19 10:46 Bystolic - PO Not Given DAILY REZA Potassium Chloride 20 meq 04/13/19 10:00 04/17/19 10:47 K-Dur - PO 20 meq DAILY REZA Administration AP; CP CAD s/p CABG DM Hypothyroidism Diet discussed. No snacking between meals. Decrease CHO in diet. Increase Levemir 14 units daily Discussed need to take premeaL Insulin to control PP blood which is most probably why her A1c is 10.7 when morning blood sugars are low 100s BGM QACHS Novolog Coverage Premeals LT4 75 QD Will F/u
[2019-04-18] MEDS ORDERED: PT OWN MED DRAWER 7, Y5N ONE (09:27)
[2019-04-18] MEDS: FUROSEMIDE 40 MG TABLET (FP) PO SCH (09:38)
[2019-04-18] MEDS: ASPIRIN COATED 81 MG TABLET.EC PO SCH (09:38)
[2019-04-18] MEDS: NEBIVOLOL 10 MG TABLET (FP) PO SCH (09:38)
[2019-04-18] MEDS: POTASSIUM CHLORIDE TABS 20 MEQ TABLET.ER (FP) PO SCH (09:38)
[2019-04-18] MEDS: amLODIPine BESYLATE 5 MG TABLET (FP) PO SCH (09:38)
[2019-04-18 10:22] VITALS: BP 173/67; PULSE 57; TEMP 97.8
--- NOTE | 2019-04-18 10:51 | DS ---
Physical Examination Vital Signs: Vital Signs Temperature 97.8 F 04/18/19 10:00 Pulse Rate 57 L 04/18/19 10:00 Respiratory Rate 18 04/18/19 10:00 Blood Pressure 173/67 H 04/18/19 10:00 O2 Sat by Pulse Oximetry (%) 98 04/18/19 09:00 Labs: CBC, BMP 04/17/19 05:43 04/18/19 06:26 Discharge Summary Reason For Visit: ACUTE ON CHRONIC CONGESTIVE HEART FAILURE,SHORT- Current Active Problems Acute pulmonary edema (Acute) CHF exacerbation (Acute) CKD (chronic kidney disease) (Acute) HLD (hyperlipidemia) (Acute) Shortness of breath (Acute) Condition: Stable - Instructions - Home Medications Comprehensive Discharge Medication List: Ambulatory Orders Levothyroxine [Synthroid -] 75 mcg PO DAILY 08/13/16 Aspirin [Ecotrin] 81 mg PO DAILY 03/05/18 Montelukast Sodium [Singulair] 10 mg PO DAILY 03/05/18 Albuterol 2.5/Ipratropium 0.5 [Duoneb -] 1 amp NEB Q4H #60 amp 03/15/18 Metoprolol Tartrate [Lopressor -] 50 mg PO BID tablet 04/07/18 Valsartan [Diovan] 320 mg PO DAILY tablet 04/07/18 Atorvastatin Ca [Lipitor] 10 mg PO HS 04/13/19 Furosemide [Lasix -] 40 mg PO DAILY 04/13/19 Insulin Glargine,Hum.rec.anlog [Basaglar Kwikpen U-100] 50 unit SQ DAILY Potassium Chloride [K-Tab ER] 20 meq PO DAILY 04/13/19
[2019-04-19] MEDS ORDERED: INSULIN (LEVEMIR) 100 UNITS/ML UNITS SQ SCH (07:00)
== END 2019-04-18 11:52 | disposition home or self-care (01) | DRG 469 ==
LOC: JER 21:29 → JERBED 04-13 00:55 → J4W 04-13 14:25
PROVIDERS: ADMIT Internal Medicine; ATTEND Internal Medicine
PROC: 5A09357 Assistance with Respiratory Ventilation, Less than 24 Consecutive Hours, Continuous Positive Airway Pressure (ICD-10-PCS; principal; 2019-04-13)
DX: N17.9 Acute kidney failure, unspecified (principal); J81.0 Acute pulmonary edema; I50.33 Acute on chronic diastolic (congestive) heart failure; E87.2 Acidosis; I13.0 Hypertensive heart and chronic kidney disease with heart failure and stage 1 through stage 4 chronic kidney disease, or unspecified chronic kidney disease; E11.22 Type 2 diabetes mellitus with diabetic chronic kidney disease; E11.65 Type 2 diabetes mellitus with hyperglycemia; I65.29 Occlusion and stenosis of unspecified carotid artery; I36.1 Nonrheumatic tricuspid (valve) insufficiency; N18.9 Chronic kidney disease, unspecified; Z79.4 Long term (current) use of insulin; I25.10 Atherosclerotic heart disease of native coronary artery without angina pectoris; Z95.1 Presence of aortocoronary bypass graft; E78.5 Hyperlipidemia, unspecified; E03.9 Hypothyroidism, unspecified; I25.2 Old myocardial infarction; I34.0 Nonrheumatic mitral (valve) insufficiency; Z91.14 Patient's other noncompliance with medication regimen
CPT/HCPCS: 36415; 36600; 71045-TC-FY; 72070-TC-FY; 76775-TC; 80048; 80053; 80061; 81003; 82436; 82550; 82565; 82570; 82803; 82962; 83036; 83721; 83735; 83880; 84133; 84156; 84300; 84443; 84484; 85025; 85610; 85730; 86850; 86900; 86901; 93005; 93010; 93306-TC; 94660; 99285-25; J0735

== ENCOUNTER 2019-05-10 12:34 | Inpatient (IN) | payer OTHER ==
--- NOTE | 2019-05-10 12:39 | PDOC ---
History of Present Illness - General Chief Complaint: Shortness of Breath Stated Complaint: DIFFICULTY BREATHING Time Seen by Provider: 05/10/19 12:39 Past History - Past Medical History Allergies/Adverse Reactions: Allergies Allergy/AdvReac Type Severity Reaction Status Date / Time No Known Drug Allergies Allergy Verified 05/10/19 12:49 BEANS Allergy Rash Uncoded 05/10/19 12:49 Home Medications: Ambulatory Orders Levothyroxine [Synthroid -] 75 mcg PO DAILY 08/13/16 Aspirin [Ecotrin] 81 mg PO DAILY 03/05/18 Montelukast Sodium [Singulair] 10 mg PO DAILY 03/05/18 Albuterol 2.5/Ipratropium 0.5 [Duoneb -] 1 amp NEB Q4H #60 amp 03/15/18 Furosemide [Lasix -] 40 mg PO DAILY 04/13/19 Potassium Chloride [K-Tab ER] 20 meq PO DAILY 04/13/19 Amlodipine Besylate [Norvasc -] 5 mg PO DAILY #30 tablet 04/18/19 Atorvastatin Ca [Lipitor] 40 mg PO HS #30 tablet 04/18/19 Insulin Glargine,Hum.rec.anlog [Basaglar Kwikpen U-100] 16 unit SQ AM #7 insuln.pen 04/18/19 Nebivolol [Bystolic -] 10 mg PO DAILY #30 tab 04/18/19 Cardiac Disorders: Yes CVA: No COPD: No Diabetes: Yes HTN: Yes Hypercholesterolemia: Yes Thyroid Disease: Yes (hypothyroid) - Surgical History Cardiac Surgery: Yes (CABG 2015 in [facility] by daughter) - Suicide/Smoking/Psychosocial Hx Smoking Status: No Smoking History: Never smoked Have you smoked in the past 12 months: No Number of Cigarettes Smoked Daily: 0 Cigars Per Day: 0 Hx Alcohol Use: No Drug/Substance Use Hx: No Substance Use Type: None Hx Substance Use Treatment: No ED Treatment Course - LABORATORY CBC & Chemistry Diagram: 05/10/19 13:30 05/10/19 13:30 Medical Decision Making - Medical Decision Making HPI: 64yo F with PMH of CHF, pulmonary edema, HTN, HLD, DM, CAD s/p CABG in 2016 presenting with shortness of breath. Patient's daughter is at the bedside providing collateral history. Patient has had sob and chest pain since yesterday. The other daughter noted a temperature of 99F. Patient became acutely sob this morning for which EMS was called. Per EMS report via the ER nurse, patient had an oxygen saturation of 90% and what sounds like an elevated CO2 level. Patient states her complaints are consistent with her presentation when she was last admitted to the hospital. The chest pain is substernal, constant, rated 10/10, and non-radiating. Patient reports medication compliance. Endorses drinking more fluids due to a dry throat despite being advised by her doctor to imit fluid intake. Has also noticed increasing bilateral lower extremity swelling. Reports headache, weakness, nonproductive cough, left arm/leg heaviness yesterday that has since resolved, blurry vision, and generalized body shaking. Has an appointment to see her primary care physician today but is now present in the ER. PCP: Dr. Lara ROS: Constitutional: no fever, +shaking HEENT: no throat pain, no dysphagia Cardiovascular: +chest pain, no palpitations Respiratory: +cough, +shortness of breath Gastrointestinal: no abdominal pain, no nausea Genitourinary: no dysuria, no hematuria Musculoskeletal: no myalgia, no arthralgia Skin: no rash, no itching Neurologic: +headache, +weakness PE: General: Awake, alert, and fully oriented, in no acute distress Head: No signs of trauma Eyes: EOMI, sclera anicteric ENT: Moist mucus membranes Neck: Normal ROM, supple Lungs: Crackles at the bases, L>R Cardio: Regular rhythm, S1 and S2 present Abdomen: Soft, nontender. No guarding, no rebound, no masses Extremities: Normal range of motion, Distal pulses present, 2+ pitting edema SKIN: Warm, Dry, normal turgor Neurologic: Cranial nerves II through XII grossly intact. Normal speech, sensation, strength, coordination. Deferred gait exam. ED Courses/MDM: DDX including but not limited to CHF exacerbation, ACS, Sepsis due to UTI/PNA/ Bacteremia, CLD VSS noted for tachycardia In combination with hypoxia reported by EMS, patient has two abnormal vital signs Afebrile Septic order set initiated [facility] for analgesia Likely admission due to high-risk chest pain 05/10/19 12:39 CBC WBC 11.7 K/mm3 (4.0-10.0) H 05/10/19 13:30 RBC 3.83 M/mm3 (3.60-5.2) 05/10/19 13:30 Hgb 9.4 GM/dL (10.7-15.3) L 05/10/19 13:30 Hct 29.3 % (32.4-45.2) L 05/10/19 13:30 MCV 76.6 fl (80-96) L 05/10/19 13:30 MCH 24.5 pg (25.7-33.7) L 05/10/19 13:30 MCHC 32.0 g/dl (32.0-36.0) 05/10/19 13:30 RDW 15.0 % (11.6-15.6) 05/10/19 13:30 Plt Count 327 K/MM3 (134-434) D 05/10/19 13:30 MPV 9.7 fl (7.5-11.1) 05/10/19 13:30 Absolute Neuts (auto) 8.2 K/mm3 (1.5-8.0) H 05/10/19 13:30 Neutrophils % 70.0 % (42.8-82.8) D 05/10/19 13:30 Lymphocytes % 20.3 % (8-40) D 05/10/19 13:30 Monocytes % 6.2 % (3.8-10.2) 05/10/19 13:30 Eosinophils % 2.7 % (0-4.5) 05/10/19 13:30 Basophils % 0.8 % (0-2.0) 05/10/19 13:30 Nucleated RBC % 0 % (0-0) 05/10/19 13:30 Mild leukocytosis CMP Sodium 144 mmol/L (136-145) 05/10/19 13:30 Potassium 4.5 mmol/L (3.5-5.1) 05/10/19 13:30 Chloride 115 mmol/L (98-107) H 05/10/19 13:30 Carbon Dioxide 22 mmol/L (21-32) 05/10/19 13:30 Anion Gap 8 MMOL/L (8-16) 05/10/19 13:30 BUN 47.5 mg/dL (7-18) H 05/10/19 13:30 Creatinine 3.4 mg/dL (0.55-1.3) H 05/10/19 13:30 Est GFR (CKD-EPI)AfAm 15.81 05/10/19 13:30 Est GFR (CKD-EPI)NonAf 13.64 05/10/19 13:30 Random Glucose 229 mg/dL (74-106) H 05/10/19 13:30 Lactic Acid 1.1 mmol/L (0.4-2.0) 05/10/19 13:30 Calcium 8.7 mg/dL (8.5-10.1) 05/10/19 13:30 Total Bilirubin 0.8 mg/dL (0.2-1) 05/10/19 13:30 AST 14 U/L (15-37) L 05/10/19 13:30 ALT 16 U/L (13-61) 05/10/19 13:30 Alkaline Phosphatase 150 U/L (45-117) H 05/10/19 13:30 Troponin I 0.47 ng/ml (0.00-0.05) H 05/10/19 13:30 B-Natriuretic Peptide 50193.0 pg/ml (5-125) H 05/10/19 13:30 Total Protein 6.2 g/dl (6.4-8.2) L 05/10/19 13:30 Albumin 2.7 g/dl (3.4-5.0) L 05/10/19 13:30 Electrolytes unremarkable BUN and Cr elevated BNP 11,674 Tpn 0.47 UA with 9000 bacteria, however confounded by negative LE or nitrite. Patient without urinary symptoms. Urine culture to be followed. Presentation/workup consistent with CHF exacerbation with evidence ischemic cardiac stress likely due to fluid overload 40 lasix ordered 05/10/19 14:[address] Nava who accepted patient for telemetry admission 05/10/19 15:10 CXR: "No evidence of widening of the superior mediastinum. Uncoiled thoracic aorta. Cardiomegaly. No pneumothorax, or large pleural effusion is seen. No evidence of a pulmonary infiltrates. No evidence of a pulmonary edema. Intact visualized also structures. Impression. Cardiomegaly. No evidence of pneumothorax, or large pleural effusions. No evidence of a pulmonary infiltrates. Limited evaluation of the lung - left retrocardiac region. " *DC/Admit/Observation/Transfer Diagnosis at time of Disposition: Troponin level elevated CHF exacerbation Qualifiers: Heart failure type: unspecified Qualified Code(s): I50.9 - Heart failure, unspecified - Discharge Dispostion Condition at time of disposition: Guarded Decision to Admit order: Yes - Referrals - Patient Instructions - Post Discharge Activity
[2019-05-10] MEDS ORDERED: ACETAMINOPHEN 1000 MG/100 ML VIAL (NON FORMULARY) IVPB ONE (13:22)
[2019-05-10] MEDS ORDERED: ACETAMINOPHEN INJECTION 100 ML IVPB ONE (13:42)
[2019-05-10 13:45] LABS: VENOUS PC02 36.5 mmHg (41-51); VENOUS PH 7.33 (7.31-7.41); VENOUS PO2 43.3 mmHg (30-40)
[2019-05-10 13:49] LABS: BASO % 0.8 % (0-2.0); EOS % 2.7 % (0-4.5); HEMATOCRIT 29.3 % (32.4-45.2); HEMOGLOBIN 9.4 GM/dL (10.7-15.3); LYMPH % 20.3 % (8-40); MCH 24.5 pg (25.7-33.7); MEAN CELL VOLUME 76.6 fl (80-96); MEAN PLT VOLUME 9.7 fl (7.5-11.1); MONO % 6.2 % (3.8-10.2); PLATELET COUNT 327 K/MM3 (134-434); RBC 3.83 M/mm3 (3.60-5.2); WHITE BLOOD COUNT 11.7 K/mm3 (4.0-10.0)
[2019-05-10 14:02] LABS: EPI CELLS 3.4 /HPF (0-5/HPF); HYALINE CASTS 3 /lpf (0-8); PH,URINE 5.5 (5.0-8.0); URINE APPEARANCE CLOUDY; URINE BACTERIA >9000 /hpf (NEGATIVE); URINE BILIRUBIN NEGATIVE (NEGATIVE); URINE COLOR YELLOW; URINE GLUCOSE (UA) 1+ (NEGATIVE); URINE KETONE NEGATIVE (NEGATIVE); URINE LEUK ESTERASE NEGATIVE (NEGATIVE); URINE NITRITE NEGATIVE (NEGATIVE); URINE PROTEIN 4+ (NEGATIVE); URINE RBC 2 /hpf (0-4); URINE UROBILINOGEN 0.2 mg/dL (0.2-1.0)
[2019-05-10 14:14] LABS: INR 1.08 (0.83-1.09); PROTHROMBIN TIME (PATIENT) 12.8 SEC (9.7-13.0)
[2019-05-10 14:24] LABS: ALBUMIN 2.7 g/dl (3.4-5.0); BILIRUBIN,TOTAL 0.8 mg/dL (0.2-1); BLOOD UREA NITROGEN 47.5 mg/dL (7-18); CALCIUM 8.7 mg/dL (8.5-10.1); CREATININE 3.4 mg/dL (0.55-1.3); POTASSIUM 4.5 mmol/L (3.5-5.1); TOT PROT 6.2 g/dl (6.4-8.2)
--- NOTE | 2019-05-10 14:55 | PDOC ---
Documentation entered by Rachna Goodson SCRIBE, acting as scribe for Martin Diaz MD. Martin Diaz MD: This documentation has been prepared by the Hamzah [employer] Brenda, SCRIBE, under my direction and personally reviewed by me in its entirety. I confirm that the documentation accurately reflects all work, treatment, procedures, and medical decision making performed by me. Attending Attestation - Resident Resident Name: Shruthi Huber - ED Attending Attestation I have performed the following: I have examined & evaluated the patient, The case was reviewed & discussed with the resident, I agree w/resident's findings & plan, Exceptions are as noted - HPI HPI: 05/10/19 15:12 The patient is a 64 year old female, with a significant PMH of IDDM, CAD, CHF, CABG (2014), HTN, HLD, and hypothyroidism, who presents to the emergency department [facility] with an acute onset of SOB. As per charts, patient was recently discharged from [facility] (04/13/19) for CHF exacerbation, which she notes to be like her current symptoms. The patient also reports developing blurry vision, headaches and left arm and left leg heaviness since her discharge. Patient also reports having been compliant with her medications. As per EMS, patient was found to be hypoxic. The patient denies chest pain. Denies fever, chills, nausea, vomiting, diarrhea and constipation. Denies dysuria, frequency, urgency and hematuria. Denies any other symptoms. Allergies: Beans, NKDA Past surgical history: CABG 2015 in [facility] by daughter Social history: Denies current smoking, drinking, or other substance usage. PCP: Rob Lara Icing Coater: Rush Parham - Physicial Exam PE: 05/10/19 15:05 Vitals: Triage Vital signs reviewed General Appearance: no acute distress, well nourished well developed, Head: Atraumatic, normocephalic Eyes: Pupils equal reactive round, extraocular movement intact Neck: Supple;No Nuchal rigidity Chest Wall: Nontender Cardiac: Regular rate and rhythm, no murmurs, no rubs, no gallops, Lungs: (+) Crackles at the bilateral bases. Abdomen: Soft, nondistended, normal bowel sounds, nontender to palpation Extremities: Full range of motion to all extremities, no cyanosis, clubbing, or edema Skin: Warm and dry, no rashes or lesions, no petechiae Neuro: AOX3; Cranial Nerves 2-12 grossly intact. Psych: normal mood, normal affect - Medical Decision Making 05/14/19 18:10 64 years old with past medical history significant for and some dependent diabetes CAD CHF CABG hyperlipidemia high cholesterol hypothyroidism presents to the ED with shortness of breath and some chest discomfort Nonischemic EKG Troponin slightly elevated Will admit to hospital for further management. Heart Score/ECG Review - ECG Impressions Comment:: 05/14/19 18:12 EKG performed at 1237 demonstrates sinus tachycardia left axis deviation T-wave inversions V5 V6
[2019-05-10] MEDS ORDERED: FUROSEMIDE 40 MG/4 ML INJECTABLE VIAL IVPUSH ONE (15:06)
--- NOTE | 2019-05-10 15:31 | HP ---
Admitting History and Physical - Primary Care Physician PCP: Rob Lara - Admission Chief Complaint: Shortness of breath History of Present Illness: - Medical Decision Making HPI: 64yo F with PMH of CHF, pulmonary edema, HTN, HLD, DM, CAD s/p CABG in 2016 presenting with shortness of breath. Patient's daughter is at the bedside providing collateral history. Patient has had sob and chest pain since yesterday. The other daughter noted a temperature of 99F. Patient became acutely sob this morning for which EMS was called. Per EMS report via the ER nurse, patient had an oxygen saturation of 90% and what sounds like an elevated CO2 level. Patient states her complaints are consistent with her presentation when she was last admitted to the hospital. The chest pain is substernal, constant, rated 10/10, and non-radiating. Patient reports medication compliance. Endorses drinking more fluids due to a dry throat despite being advised by her doctor to imit fluid intake. Has also noticed increasing bilateral lower extremity swelling. Reports headache, weakness, nonproductive cough, left arm/leg heaviness yesterday that has since resolved, blurry vision, and generalized body shaking. Has an appointment to see her primary care physician today but is now present in the ER. PCP: Dr. 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: Yes: Other (carotid stenosis) Cardiovascular: Yes: CAD (s/p CABG), HTN, Hyperlipdemia Renal/: Yes: Renal Inusuff Endocrine: Yes: Diabetes Mellitus, Hypothyroidism - Past Surgical History Past Surgical History: Yes: CABG - Smoking History Smoking history: Never smoked Have you smoked in the past 12 months: No Aproximately how many cigarettes per day: 0 - Alcohol/Substance Use Hx Alcohol Use: No History of Substance Use: reports: None - Social History ADL: Independent History of Recent Travel: No Home Medications - Allergies Allergies/Adverse Reactions: Allergies Allergy/AdvReac Type Severity Reaction Status Date / Time No Known Drug Allergies Allergy Verified 05/10/19 12:49 BEANS Allergy Rash Uncoded 05/10/19 12:49 - Home Medications Home Medications: Ambulatory Orders Levothyroxine [Synthroid -] 75 mcg PO DAILY 08/13/16 Aspirin [Ecotrin] 81 mg PO DAILY 03/05/18 Montelukast Sodium [Singulair] 10 mg PO DAILY 03/05/18 Albuterol 2.5/Ipratropium 0.5 [Duoneb -] 1 amp NEB Q4H #60 amp 03/15/18 Furosemide [Lasix -] 40 mg PO DAILY 04/13/19 Potassium Chloride [K-Tab ER] 20 meq PO DAILY 04/13/19 Amlodipine Besylate [Norvasc -] 5 mg PO DAILY #30 tablet 04/18/19 Atorvastatin Ca [Lipitor] 40 mg PO HS #30 tablet 04/18/19 Insulin Glargine,Hum.rec.anlog [Basaglar Kwikpen U-100] 16 unit SQ AM #7 insuln.pen 04/18/19 Nebivolol [Bystolic -] 10 mg PO DAILY #30 tab 04/18/19 Family Disease History - Family Disease History Family Disease History: Diabetes: Father, Heart Disease: Father Physical Examination Vital Signs: Vital Signs Temperature 98.6 F 05/10/19 12:47 Pulse Rate 103 H 05/10/19 12:47 Respiratory Rate 18 05/10/19 12:47 Blood Pressure 140/78 05/10/19 12:47 O2 Sat by Pulse Oximetry (%) 96 05/10/19 13:04 Constitutional: Yes: Mild Distress Cardiovascular: Yes: Regular Rate and Rhythm Respiratory: Yes: Diminished, Rales Gastrointestinal: Yes: Normal Bowel Sounds, Soft. No: Tenderness Edema: No Labs: CBC, BMP 05/10/19 13:30 05/10/19 13:30 Imaging - Results Chest X-ray: Image Reviewed EKG: Image Reviewed Problem List - Problems (1) CHF exacerbation Code(s): I50.9 - HEART FAILURE, UNSPECIFIED Qualifiers: Heart failure type: unspecified Qualified Code(s): I50.9 - Heart failure, unspecified (2) Troponin level elevated Code(s): R74.8 - ABNORMAL LEVELS OF OTHER SERUM ENZYMES (3) CKD (chronic kidney disease) Code(s): N18.9 - CHRONIC KIDNEY DISEASE, UNSPECIFIED (4) NSTEMI (non-ST elevated myocardial infarction) Code(s): I21.4 - NON-ST ELEVATION (NSTEMI) MYOCARDIAL INFARCTION (5) Renal failure (ARF), acute on chronic Code(s): N17.9 - ACUTE KIDNEY FAILURE, UNSPECIFIED; N18.9 - CHRONIC KIDNEY DISEASE, UNSPECIFIED Assessment/Plan plan Noted elevated creatinine Lasix daily Renal function to be monitored Aspirin Cardiology evaluation Check cardiac enzymes Echocardiogram Check weights
[2019-05-10] MEDS ORDERED: FUROSEMIDE 40 MG/4 ML INJECTABLE VIAL ONE (15:41)
[2019-05-10 17:27] LABS: URINE WBC 45.9 /hpf (0-5)
[2019-05-10] MEDS: ATORVASTATIN CA 40 MG TABLET (FP) PO SCH (21:45)
[2019-05-11] MEDS ORDERED: guaiFENesin/D-METHORPHAN HB 10 ML UNIT-DOSE CUPS PO PRN (00:45)
[2019-05-11] MEDS: LEVOTHYROXINE NA 75 MCG TABLET (FP) PO SCH (06:02)
[2019-05-11] MEDS: INSULIN (LEVEMIR) 100 UNITS/ML UNITS SQ SCH (06:04)
[2019-05-11] MEDS: ACETAMINOPHEN 325 MG TABLET (FP) PO PRN ×2 (06:04→20:17)
[2019-05-11 07:54] LABS: HEMATOCRIT 26.7 % (32.4-45.2); HEMOGLOBIN 8.6 GM/dL (10.7-15.3); MCH 24.7 pg (25.7-33.7); MCHC 32.3 g/dl (32.0-36.0); MEAN CELL VOLUME 76.5 fl (80-96); MEAN PLT VOLUME 9.9 fl (7.5-11.1); PLATELET COUNT 302 K/MM3 (134-434); RBC 3.49 M/mm3 (3.60-5.2); RDW 15.3 % (11.6-15.6); WHITE BLOOD COUNT 10.9 K/mm3 (4.0-10.0)
[2019-05-11 08:16] LABS: ALBUMIN 2.4 g/dl (3.4-5.0); BILIRUBIN,TOTAL 0.8 mg/dL (0.2-1); BLOOD UREA NITROGEN 49.8 mg/dL (7-18); CALCIUM 8.4 mg/dL (8.5-10.1); CREATININE 3.5 mg/dL (0.55-1.3); POTASSIUM 4.6 mmol/L (3.5-5.1); TOT PROT 5.6 g/dl (6.4-8.2)
[2019-05-11] MEDS ORDERED: PT OWN MED DRAWER 7, Y5N ONE ×2 (09:23→12:48)
[2019-05-11] MEDS: POTASSIUM CHLORIDE TABS 20 MEQ TABLET.ER (FP) PO SCH (09:43)
[2019-05-11] MEDS: ASPIRIN COATED 81 MG TABLET.EC PO SCH (09:43)
[2019-05-11] MEDS: amLODIPine BESYLATE 5 MG TABLET (FP) PO SCH (09:44)
[2019-05-11] MEDS: FUROSEMIDE 40 MG/4 ML INJECTABLE VIAL IVPUSH SCH (09:44)
[2019-05-11] MEDS ORDERED: HEPARIN NA (PORCINE) 5,000 UNITS/ML 1ML VIAL IVPUSH PRN ×2 (10:11)
--- NOTE | 2019-05-11 10:13 | PN ---
Progress Note (short form) - Note Progress Note: daughter at bedside Still has chest pain and shortness of breath Vital Signs - 24 hr 05/10/19 05/10/19 05/11/19 18:41 19:10 01:58 Temperature 98.6 F 98.5 F 98.4 F Pulse Rate 96 H 97 H 103 H Respiratory 18 20 20 Rate Blood Pressure 163/90 161/73 167/78 O2 Sat by Pulse 98 Oximetry (%) 05/11/19 05/11/19 05/11/19 06:00 09:00 09:40 Temperature 99.2 F 98.9 F Pulse Rate 87 90 Respiratory 20 26 H 26 H Rate Blood Pressure 170/70 163/68 O2 Sat by Pulse 96 Oximetry (%) Current Medications Generic Name Dose Route Start Last Admin Trade Name Freq PRN Reason Stop Dose Admin Acetaminophen 650 mg 05/10/19 15:32 05/11/19 06:04 Tylenol - PO 650 mg Q4H PRN Administration PAIN OR FEVER Albuterol/Ipratropium 1 amp 05/10/19 15:31 05/11/19 12:02 Duoneb - NEB 1 amp Q4H PRN Administration ASTHMA Amlodipine Besylate 5 mg 05/11/19 10:00 05/11/19 09:44 Norvasc - PO 5 mg DAILY REZA Administration Aspirin 81 mg 05/11/19 10:00 05/11/19 09:43 Ecotrin - PO 81 mg DAILY REZA Administration Atorvastatin Calcium 40 mg 05/10/19 22:00 05/10/19 21:45 Lipitor - PO 40 mg HS REZA Administration Furosemide 40 mg 05/11/19 10:00 05/11/19 09:44 Lasix Injection - IVPUSH 40 mg DAILY REZA Administration Guaifenesin 10 ml 05/11/19 00:45 Robitussin Dm - PO Q4H PRN COUGH Heparin Sodium (Porcine) 1,000 unit 05/11/19 10:11 Heparin - IVPUSH PRN PRN Heparin Heparin Sodium (Porcine) 5,000 unit 05/11/19 10:11 Heparin - IVPUSH PRN PRN Heparin Ceftriaxone Sodium 1 gm/ 50 mls @ 100 mls/hr 05/11/19 10:45 05/11/19 11:55 Dextrose IVPB 100 mls/hr DAILY@0800 REZA Administration HEPARIN SOD,PORK IN 0.45% NACL 25,000 units in 500 mls @ 20 mls/hr 05/11/19 10 :15 Heparin-1/2ns 25,000 Units/500 IVPB TITR REZA Protocol 1,000 UNITS/HR Insulin Detemir 16 units 05/11/19 07:00 05/11/19 06:04 Levemir Vial SQ 16 units AM REZA Administration Levothyroxine Sodium 75 mcg 05/11/19 07:00 05/11/19 06:02 Synthroid - PO 75 mcg DAILY@0700 RE[facility] Administration Montelukast Sodium 10 mg 05/11/19 22:00 Singulair - PO HS REZA Nebivolol 10 mg 05/11/19 10:00 05/11/19 12:56 Bystolic - PO 10 mg DAILY REZA Administration Potassium Chloride 20 meq 05/11/19 10:00 05/11/19 09:43 K-Dur - PO 20 meq DAILY REZA Administration Laboratory Results - last 24 hr 05/10/19 05/10/19 05/10/19 13:30 13:30 13:30 WBC 11.7 H RBC 3.83 Hgb 9.4 L Hct 29.3 L MCV 76.6 L MCH 24.5 L MCHC 32.0 RDW 15.0 Plt Count 327 D MPV 9.7 Absolute Neuts (auto) 8.2 H Neutrophils % 70.0 D Lymphocytes % 20.3 D Monocytes % 6.2 Eosinophils % 2.7 Basophils % 0.8 Nucleated RBC % 0 PT with INR INR PTT (Actin FS) 37.2 H VBG pH POC VBG pCO2 POC VBG pO2 VBG HCO3 VBG O2 Sat (Andra) VBG Base Excess Sodium 144 Potassium 4.5 Chloride 115 H Carbon Dioxide 22 Anion Gap 8 BUN 47.5 H Creatinine 3.4 H Est GFR (CKD-EPI)AfAm 15.81 Est GFR (CKD-EPI)NonAf 13.64 POC Glucometer Random Glucose 229 H Lactic Acid Calcium 8.7 Total Bilirubin 0.8 AST 14 L ALT 16 Alkaline Phosphatase 150 H Creatine Kinase Troponin I 0.47 H B-Natriuretic Peptide 01255.0 H Total Protein 6.2 L Albumin 2.7 L Triglycerides Cholesterol Total LDL Cholesterol HDL Cholesterol TSH Free T4 Urine Color Urine Appearance Urine pH Ur Specific [place] Urine Protein Urine Glucose (UA) Urine Ketones Urine Blood Urine Nitrite Urine Bilirubin Urine Urobilinogen Ur Leukocyte Esterase Urine WBC (Auto) Urine RBC (Auto) Urine Casts (Auto) U Epithel Cells (Auto) Urine Bacteria (Auto) 05/10/19 05/10/19 05/10/19 13:30 13:30 13:30 WBC RBC Hgb Hct MCV MCH MCHC RDW Plt Count MPV Absolute Neuts (auto) Neutrophils % Lymphocytes % Monocytes % Eosinophils % Basophils % Nucleated RBC % PT with INR 12.80 INR 1.08 PTT (Actin FS) VBG pH POC VBG pCO2 POC VBG pO2 VBG HCO3 VBG O2 Sat (Andra) VBG Base Excess Sodium Potassium Chloride Carbon Dioxide Anion Gap BUN Creatinine Est GFR (CKD-EPI)AfAm Est GFR (CKD-EPI)NonAf POC Glucometer Random Glucose Lactic Acid 1.1 Calcium Total Bilirubin AST ALT Alkaline Phosphatase Creatine Kinase Troponin I B-Natriuretic Peptide Total Protein Albumin Triglycerides Cholesterol Total LDL Cholesterol HDL Cholesterol TSH Free T4 Urine Color Yellow Urine Appearance Cloudy Urine pH 5.5 Ur Specific [place] 1.014 Urine Protein 4+ H Urine Glucose (UA) 1+ H Urine Ketones Negative Urine Blood 1+ H Urine Nitrite Negative Urine Bilirubin Negative Urine Urobilinogen 0.2 Ur Leukocyte Esterase Negative Urine WBC (Auto) 45.9 Urine RBC (Auto) 2 Urine Casts (Auto) 3 U Epithel Cells (Auto) 3.4 Urine Bacteria (Auto) >9000 05/10/19 05/10/19 05/11/19 13:30 19:45 00:20 WBC RBC Hgb Hct MCV MCH MCHC RDW Plt Count MPV Absolute Neuts (auto) Neutrophils % Lymphocytes % Monocytes % Eosinophils % Basophils % Nucleated RBC % PT with INR INR PTT (Actin FS) VBG pH 7.33 POC VBG pCO2 36.5 L POC VBG pO2 43.3 H VBG HCO3 18.6 L VBG O2 Sat (Andra) 73.3 VBG Base Excess -6.2 L Sodium Potassium Chloride Carbon Dioxide Anion Gap BUN Creatinine Est GFR (CKD-EPI)AfAm Est GFR (CKD-EPI)NonAf POC Glucometer Random Glucose Lactic Acid Calcium Total Bilirubin AST ALT Alkaline Phosphatase Creatine Kinase 100 99 Troponin I 0.44 H 0.45 H B-Natriuretic Peptide Total Protein Albumin Triglycerides Cholesterol Total LDL Cholesterol HDL Cholesterol TSH Free T4 Urine Color Urine Appearance Urine pH Ur Specific [place] Urine Protein Urine Glucose (UA) Urine Ketones Urine Blood Urine Nitrite Urine Bilirubin Urine Urobilinogen Ur Leukocyte Esterase Urine WBC (Auto) Urine RBC (Auto) Urine Casts (Auto) U Epithel Cells (Auto) Urine Bacteria (Auto) 05/11/19 05/11/19 05/11/19 05:13 05:13 06:03 WBC 10.9 H RBC 3.49 L Hgb 8.6 L Hct 26.7 L MCV 76.5 L MCH 24.7 L MCHC 32.3 RDW 15.3 Plt Count 302 MPV 9.9 Absolute Neuts (auto) Neutrophils % Lymphocytes % Monocytes % Eosinophils % Basophils % Nucleated RBC % PT with INR INR PTT (Actin FS) VBG pH POC VBG pCO2 POC VBG pO2 VBG HCO3 VBG O2 Sat (Andra) VBG Base Excess Sodium 145 Potassium 4.6 Chloride 116 H Carbon Dioxide 21 Anion Gap 8 BUN 49.8 H Creatinine 3.5 H Est GFR (CKD-EPI)AfAm 15.27 Est GFR (CKD-EPI)NonAf 13.17 POC Glucometer 171 Random Glucose 179 H Lactic Acid Calcium 8.4 L Total Bilirubin 0.8 AST 11 L ALT 13 Alkaline Phosphatase 129 H Creatine Kinase Troponin I B-Natriuretic Peptide Total Protein 5.6 L Albumin 2.4 L Triglycerides 100 Cholesterol 123 Total LDL Cholesterol 59 HDL Cholesterol 60 TSH 1.84 Free T4 1.05 Urine Color Urine Appearance Urine pH Ur Specific [place] Urine Protein Urine Glucose (UA) Urine Ketones Urine Blood Urine Nitrite Urine Bilirubin Urine Urobilinogen Ur Leukocyte Esterase Urine WBC (Auto) Urine RBC (Auto) Urine Casts (Auto) U Epithel Cells (Auto) Urine Bacteria (Auto) 05/11/19 11:58 WBC RBC Hgb Hct MCV MCH MCHC RDW Plt Count MPV Absolute Neuts (auto) Neutrophils % Lymphocytes % Monocytes % Eosinophils % Basophils % Nucleated RBC % PT with INR INR PTT (Actin FS) VBG pH POC VBG pCO2 POC VBG pO2 VBG HCO3 VBG O2 Sat (Andra) VBG Base Excess Sodium Potassium Chloride Carbon Dioxide Anion Gap BUN Creatinine Est GFR (CKD-EPI)AfAm Est GFR (CKD-EPI)NonAf POC Glucometer 233 Random Glucose Lactic Acid Calcium Total Bilirubin AST ALT Alkaline Phosphatase Creatine Kinase Troponin I B-Natriuretic Peptide Total Protein Albumin Triglycerides Cholesterol Total LDL Cholesterol HDL Cholesterol TSH Free T4 Urine Color Urine Appearance Urine pH Ur Specific [place] Urine Protein Urine Glucose (UA) Urine Ketones Urine Blood Urine Nitrite Urine Bilirubin Urine Urobilinogen Ur Leukocyte Esterase Urine WBC (Auto) Urine RBC (Auto) Urine Casts (Auto) U Epithel Cells (Auto) Urine Bacteria (Auto) S1 and S2 regular [place] Abdomensoft, nontender Extremitiesno edema plan --Continue Lasix --Cardiology evaluation --Consult renal --Start heparin infusion for elevated troponins --Nebulizer treatments --Also has UTI, start antibiotics Problem List - Problems (1) UTI (urinary tract infection) Code(s): N39.0 - URINARY TRACT INFECTION, SITE NOT SPECIFIED (2) CHF exacerbation Code(s): I50.9 - HEART FAILURE, UNSPECIFIED Qualifiers: Heart failure type: unspecified Qualified Code(s): I50.9 - Heart failure, unspecified (3) Troponin level elevated Code(s): R74.8 - ABNORMAL LEVELS OF OTHER SERUM ENZYMES (4) Anemia Code(s): D64.9 - ANEMIA, UNSPECIFIED (5) CKD (chronic kidney disease) Code(s): N18.9 - CHRONIC KIDNEY DISEASE, UNSPECIFIED (6) Hx of CABG Code(s): Z95.1 - PRESENCE OF AORTOCORONARY BYPASS GRAFT (7) NSTEMI (non-ST elevated myocardial infarction) Code(s): I21.4 - NON-ST ELEVATION (NSTEMI) MYOCARDIAL INFARCTION (8) Renal failure (ARF), acute on chronic Code(s): N17.9 - ACUTE KIDNEY FAILURE, UNSPECIFIED; N18.9 - CHRONIC KIDNEY DISEASE, UNSPECIFIED
[2019-05-11] MEDS ORDERED: HEPARIN SOD,PORK IN 0.45% NACL 25,000 UNITS/500 ML INFUS.BAG IVPB SCH (10:15)
[2019-05-11] MEDS ORDERED: cefTRIAXone SODIUM 1 GM VIAL ONE (10:58)
[2019-05-11] MEDS ORDERED: DEXTROSE 5%-WATER - 50 ML IVPB ONE (10:58)
[2019-05-11] MEDS: CEFTRIAXONE 1 GM in DEXTROSE 5%-WATER - 50 ML IVPB SCH (11:55)
[2019-05-11] MEDS: ALBUTEROL SO4 2.5/IPRATROPIUM 0.5 INH SOL 3 ML VIAL.NEB. NEB PRN ×2 (12:02→20:18)
--- NOTE | 2019-05-11 12:23 | CON.CARD ---
Consult Consult Specialty:: Cardiology Referred by:: Hesham Reason for Consultation:: chf, elevated troponin - History of Present Illness Chief Complaint: SOB History of Present Illness: 64 year-old woman with a PMHx of HTN, HLD, DM, CKD, CAD s/p CABG 2016 at [facility] complicated by sternal wound infection, hypothyroid, admitted with an acute onset of SOB. She was recently discharged from [facility] (04/13/19) for CHF exacerbation, which she notes to be like her current symptoms. No chest pain , palpitations, dizziness or syncope. Troponin found to be elevated. 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: Other (carotid stenosis) Cardio/Vascular: Yes: CAD (s/p CABG), HTN, Hyperlipdemia Renal/: Yes: Renal Inusuff Endocrine: Yes: Diabetes Mellitus, Hypothyroidism - Past Surgical History Past Surgical History: Yes: CABG - Alcohol/Substance Use Hx Alcohol Use: No History of Substance Use: reports: None - Smoking History Smoking history: Never smoked Have you smoked in the past 12 months: No Aproximately how many cigarettes per day: 0 - Social History ADL: Independent History of Recent Travel: No Home Medications - Allergies Allergies/Adverse Reactions: Allergies Allergy/AdvReac Type Severity Reaction Status Date / Time No Known Drug Allergies Allergy Verified 05/10/19 12:49 BEANS Allergy Rash Uncoded 05/10/19 12:49 - Home Medications Home Medications: Ambulatory Orders Levothyroxine [Synthroid -] 75 mcg PO DAILY 08/13/16 Aspirin [Ecotrin] 81 mg PO DAILY 03/05/18 Montelukast Sodium [Singulair] 10 mg PO DAILY 03/05/18 Albuterol 2.5/Ipratropium 0.5 [Duoneb -] 1 amp NEB Q4H #60 amp 03/15/18 Furosemide [Lasix -] 40 mg PO DAILY 04/13/19 Potassium Chloride [K-Tab ER] 20 meq PO DAILY 04/13/19 Amlodipine Besylate [Norvasc -] 5 mg PO DAILY #30 tablet 04/18/19 Atorvastatin Ca [Lipitor] 40 mg PO HS #30 tablet 04/18/19 Insulin Glargine,Hum.rec.anlog [Elioaglmargie Schmitz U-100] 16 unit SQ AM #7 insuln.pen 04/18/19 Nebivolol [Bystolic -] 10 mg PO DAILY #30 tab 04/18/19 Family Disease History - Family Disease History Family Disease History: Diabetes: Father, Heart Disease: Father Vital Signs: Vital Signs Temperature 98.9 F 05/11/19 09:40 Pulse Rate 90 05/11/19 09:40 Respiratory Rate 26 H 05/11/19 09:40 Blood Pressure 163/68 05/11/19 09:40 O2 Sat by Pulse Oximetry (%) 96 05/11/19 09:00 - Other Data Labs, Other Data: CBC, BMP 05/11/19 05:13 05/11/19 05:13 INR, PTT INR 1.08 (0.83-1.09) 05/10/19 13:30 Troponin, BNP 05/10/19 05/10/19 05/11/19 13:30 19:45 00:20 Troponin I 0.47 H 0.44 H 0.45 H B-Natriuretic Peptide 62867.0 H Troponin, BNP 05/10/19 05/10/19 05/11/19 13:30 19:45 00:20 Troponin I 0.47 H 0.44 H 0.45 H B-Natriuretic Peptide 52898.0 H Imaging - Results X-ray: Report Reviewed (emanuel) EKG: Report Reviewed (nsr rad nsstw changes.) Assessment/Plan 64 year-old woman with a PMHx of HTN, HLD, DM, CKD, CAD s/p CABG 2016 at [facility] complicated by sternal wound infection, hypothyroid, admitted with an acute onset of SOB. She was recently discharged from [facility] (04/13/19) for CHF exacerbation, which she notes to be like her current symptoms. No chest pain , palpitations, dizziness or syncope. Troponin found to be elevated. Prior cardiac tests: Echo 04/13/19: nlef, mild MR m-m tr Regadenoson nuclear stress test 03/08/2018 revealed moderate inferior and apical ischemia LVEF 46% Elevated Troponin -due to renal insufficiency, non cardiac troponin pattern. -no need for ischemia workup. -renal to see. -dc telemetry -dc heparin SOB -Acute on chronic diastolic CHF due to severe renal insufficiency -IV lasix, may ultimately need HD. Will follow as needed.
[2019-05-11] MEDS: NEBIVOLOL 10 MG TABLET (FP) PO SCH (12:56)
--- NOTE | 2019-05-11 14:21 | EKG ---
Test Reason : Blood Pressure : / mmHG Vent. Rate : 104 BPM Atrial Rate : 104 BPM P-R Int : 140 ms QRS Dur : 078 ms QT Int : 372 ms P-R-T Axes : 008 -33 118 degrees QTc Int : 489 ms SINUS TACHYCARDIA LEFT AXIS DEVIATION LEFT VENTRICULAR HYPERTROPHY WITH REPOLARIZATION ABNORMALITY NONSPECIFIC ST AND T WAVE ABNORMALITY Confirmed by CONNIE CASTANO MD ([id number]) on 05/11/2019 2:20:59 PM Referred By: Confirmed By:CONNIE CASTANO MD
--- NOTE | 2019-05-11 14:58 | CONSULT ---
Consult - text type - Consultation Consultation Note: Renal consult for SANTINO on CKD This is a 64 year old [place] woman with history of CHF, hypertension, hyperlipidemia, DM, CAD, CKD who presented with sob and admitted for acute CHF with SANTINO on CKD. Pt was seen by our service on prior admission where she was treated for similar symptoms. Renal function at that time improved with IV diuresis. Pt was on oral diuretics at home. Denies any NSAID use. No recent contrast exposure. Denies any flank pain, dysuria, frequency or urgency. No BILL, CP, N/V/D. Making urine with IV lasix. PMhx: as above Allergies: NKDA Family Hx: NC Social Hx: No T/A/D ROS: as per HPI, all other ROS negative Vital Signs Temperature 98.9 F 05/11/19 09:40 Pulse Rate 90 05/11/19 09:40 Respiratory Rate 26 H 05/11/19 09:40 Blood Pressure 163/68 05/11/19 09:40 O2 Sat by Pulse Oximetry (%) 96 05/11/19 09:00 Intake & Output 05/08/19 05/09/19 05/10/19 05/11/19 23:59 23:59 23:59 23:59 Intake Total 10 240 Balance 10 240 Weight 74.389 kg NAD awake and alert neck supple, no JVD RRR, no M/R Dec BS, + rales soft NT/ND no LE edema, clubbing or cyanosis. CBC, BMP 05/11/19 05:13 05/11/19 05:13 Current Medications Acetaminophen (Tylenol -) 650 mg PO Q4H PRN PRN Reason: PAIN OR FEVER Last Admin: 05/11/19 06:04 Dose: 650 mg Albuterol/Ipratropium (Duoneb -) 1 amp NEB Q4H PRN PRN Reason: ASTHMA Last Admin: 05/11/19 12:02 Dose: 1 amp Amlodipine Besylate (Norvasc -) 5 mg PO DAILY [facility] Last Admin: 05/11/19 09:44 Dose: 5 mg Aspirin (Ecotrin -) 81 mg PO DAILY REZA Last Admin: 05/11/19 09:43 Dose: 81 mg Atorvastatin Calcium (Lipitor -) 40 mg PO HS [facility] Last Admin: 05/10/19 21:45 Dose: 40 mg Furosemide (Lasix Injection -) 40 mg IVPUSH DAILY [facility] Last Admin: 05/11/19 09:44 Dose: 40 mg Guaifenesin (Robitussin Dm -) 10 ml PO Q4H PRN PRN Reason: COUGH Ceftriaxone Sodium 1 gm/ (Dextrose) 50 mls @ 100 mls/hr IVPB DAILY@0800 [facility] Last Admin: 05/11/19 11:55 Dose: 100 mls/hr Insulin Detemir (Levemir Vial) 16 units SQ AM [facility] Last Admin: 05/11/19 06:04 Dose: 16 units Levothyroxine Sodium (Synthroid -) 75 mcg PO DAILY@0700 [facility] Last Admin: 05/11/19 06:02 Dose: 75 mcg Montelukast Sodium (Singulair -) 10 mg PO [facility] Nebivolol (Bystolic -) 10 mg PO DAILY [facility] Last Admin: 05/11/19 12:56 Dose: 10 mg Potassium Chloride (K-Dur -) 20 meq PO DAILY [facility] Last Admin: 05/11/19 09:43 Dose: 20 meq 64 year old [place] woman with history of CHF, hypertension, hyperlipidemia , DM, CAD, CKD who presented with sob and admitted for acute CHF with SANTINO on CKD. #SANTINO on CKD in setting of acute HF #CKD stage 4 #CHF #Hypertension #Anemia Check urine studies for FeUrea to determine if there is tubular damage continue IV Lasix Daily, titrate to BID if clinical response is not seen trend renal function, electrolytes and weights daily no indication for PHARMACY GRAD INTERN Check ARLENE and SPEP given proteinuria prior SPEP from 2018 showed no M-spike continue Amlodipine, defer ACEi until renal function stable (would nos start if eGFR < 20) Thank you Will follow Steve Shrestha DO
[2019-05-11 16:08] LABS: EPI CELLS 0.6 /HPF (0-5/HPF); HYALINE CASTS 2 /lpf (0-8); URINE APPEARANCE CLOUDY; URINE BACTERIA >9000 /hpf (NEGATIVE); URINE BILIRUBIN NEGATIVE (NEGATIVE); URINE COLOR YELLOW; URINE GLUCOSE (UA) 1+ (NEGATIVE); URINE KETONE NEGATIVE (NEGATIVE); URINE LEUK ESTERASE TRACE (NEGATIVE); URINE NITRITE NEGATIVE (NEGATIVE); URINE PROTEIN 3+ (NEGATIVE); URINE RBC 2 /hpf (0-4); URINE UROBILINOGEN 0.2 mg/dL (0.2-1.0); URINE WBC 83 /hpf (0-5)
[2019-05-11] MEDS ORDERED: ZOLPIDEM TARTRATE 5 MG TABLET PO ONE (21:51)
[2019-05-11] MEDS: MONTELUKAST NA 10 MG TABLET PO SCH (22:19)
[2019-05-11] MEDS: ATORVASTATIN CA 40 MG TABLET (FP) PO SCH (22:19)
[2019-05-12] MEDS: LEVOTHYROXINE NA 75 MCG TABLET (FP) PO SCH (06:05)
[2019-05-12] MEDS: INSULIN (LEVEMIR) 100 UNITS/ML UNITS SQ SCH (06:05)
[2019-05-12 07:28] LABS: ALBUMIN 2.7 g/dl (3.4-5.0); BILIRUBIN,TOTAL 0.8 mg/dL (0.2-1); BLOOD UREA NITROGEN 51.5 mg/dL (7-18); CALCIUM 8.7 mg/dL (8.5-10.1); CREATININE 3.6 mg/dL (0.55-1.3); POTASSIUM 4.7 mmol/L (3.5-5.1); TOT PROT 6.4 g/dl (6.4-8.2)
[2019-05-12] MEDS ORDERED: cefTRIAXone SODIUM 1 GM VIAL ONE (10:52)
[2019-05-12] MEDS ORDERED: DEXTROSE 5%-WATER - 50 ML IVPB ONE (10:53)
[2019-05-12] MEDS: FUROSEMIDE 40 MG/4 ML INJECTABLE VIAL IVPUSH SCH (11:03)
[2019-05-12] MEDS: POTASSIUM CHLORIDE TABS 20 MEQ TABLET.ER (FP) PO SCH (11:04)
[2019-05-12] MEDS: ASPIRIN COATED 81 MG TABLET.EC PO SCH (11:04)
[2019-05-12] MEDS: amLODIPine BESYLATE 5 MG TABLET (FP) PO SCH (11:04)
[2019-05-12] MEDS: CEFTRIAXONE 1 GM in DEXTROSE 5%-WATER - 50 ML IVPB SCH (11:04)
[2019-05-12] MEDS: NEBIVOLOL 10 MG TABLET (FP) PO SCH (11:04)
[2019-05-12] MEDS: ALBUTEROL SO4 2.5/IPRATROPIUM 0.5 INH SOL 3 ML VIAL.NEB. NEB PRN (11:36)
--- NOTE | 2019-05-12 12:12 | PN ---
Progress Note, Physician History of Present Illness: 64yo F with PMH of CHF, pulmonary edema, HTN, HLD, DM, CAD s/p CABG in 2016 presenting with shortness of breath. Patient's daughter is at the bedside providing collateral history. Patient has had sob and chest pain since yesterday. The other daughter noted a temperature of 99F. Patient became acutely sob this morning for which EMS was called. Per EMS report via the ER nurse, patient had an oxygen saturation of 90% and what sounds like an elevated CO2 level. Patient states her complaints are consistent with her presentation when she was last admitted to the hospital. The chest pain is substernal, constant, rated 10/10, and non-radiating. Patient reports medication compliance. Endorses drinking more fluids due to a dry throat despite being advised by her doctor to imit fluid intake. Has also noticed increasing bilateral lower extremity swelling. Reports headache, weakness, nonproductive cough, left arm/leg heaviness yesterday that has since resolved, blurry vision, and generalized body shaking. Has an appointment to see her primary care physician today but is now present in the ER. - Current Medication List Current Medications: Active Medications Acetaminophen (Tylenol -) 650 mg PO Q4H PRN PRN Reason: PAIN OR FEVER Last Admin: 05/11/19 20:17 Dose: 650 mg Albuterol/Ipratropium (Duoneb -) 1 amp NEB Q4H PRN PRN Reason: ASTHMA Last Admin: 05/12/19 11:36 Dose: 1 amp Amlodipine Besylate (Norvasc -) 5 mg PO DAILY [facility] Last Admin: 05/12/19 11:04 Dose: 5 mg Aspirin (Ecotrin -) 81 mg PO DAILY [facility] Last Admin: 05/12/19 11:04 Dose: 81 mg Atorvastatin Calcium (Lipitor -) 40 mg PO HS [facility] Last Admin: 05/11/19 22:19 Dose: 40 mg Furosemide (Lasix Injection -) 40 mg IVPUSH DAILY [facility] Last Admin: 05/12/19 11:03 Dose: 40 mg Guaifenesin (Robitussin Dm -) 10 ml PO Q4H PRN PRN Reason: COUGH Ceftriaxone Sodium 1 gm/ (Dextrose) 50 mls @ 100 mls/hr IVPB DAILY@0800 [facility] Last Admin: 05/12/19 11:04 Dose: 100 mls/hr Insulin Detemir (Levemir Vial) 16 units SQ AM [facility] Last Admin: 05/12/19 06:05 Dose: 16 units Levothyroxine Sodium (Synthroid -) 75 mcg PO DAILY@0700 [facility] Last Admin: 05/12/19 06:05 Dose: 75 mcg Montelukast Sodium (Singulair -) 10 mg PO HS [facility] Last Admin: 05/11/19 22:19 Dose: 10 mg Nebivolol (Bystolic -) 10 mg PO DAILY [facility] Last Admin: 05/12/19 11:04 Dose: 10 mg Potassium Chloride (K-Dur -) 20 meq PO DAILY [facility] Last Admin: 05/12/19 11:04 Dose: 20 meq - Objective Vital Signs: Vital Signs Temperature 98 F 05/12/19 09:00 Pulse Rate 76 05/12/19 09:00 Respiratory Rate 18 05/12/19 09:00 Blood Pressure 158/66 05/12/19 09:00 O2 Sat by Pulse Oximetry (%) 96 05/11/19 21:00 Constitutional: Yes: No Distress Eyes: Yes: Conjunctiva Clear, EOM Intact HENT: Yes: Atraumatic, Normocephalic Neck: Yes: Supple, Trachea Midline Cardiovascular: Yes: Regular Rate and Rhythm, S1, S2 Respiratory: Yes: Regular, CTA Bilaterally Gastrointestinal: Yes: Normal Bowel Sounds, Soft Edema: No Peripheral Pulses WNL: Yes Neurological: Yes: Alert, Oriented, Cran Nerves II-XII Intact Labs: CBC, BMP 05/11/19 05:13 05/12/19 05:24 INR, PTT INR 1.08 (0.83-1.09) 05/10/19 13:30 Problem List - Problems (1) CHF exacerbation Code(s): I50.9 - HEART FAILURE, UNSPECIFIED Qualifiers: Heart failure type: unspecified Qualified Code(s): I50.9 - Heart failure, unspecified (2) UTI (urinary tract infection) Code(s): N39.0 - URINARY TRACT INFECTION, SITE NOT SPECIFIED (3) CKD (chronic kidney disease) Code(s): N18.9 - CHRONIC KIDNEY DISEASE, UNSPECIFIED (4) Troponin level elevated Code(s): R74.8 - ABNORMAL LEVELS OF OTHER SERUM ENZYMES (5) NSTEMI (non-ST elevated myocardial infarction) Code(s): I21.4 - NON-ST ELEVATION (NSTEMI) MYOCARDIAL INFARCTION (6) Renal failure (ARF), acute on chronic Code(s): N17.9 - ACUTE KIDNEY FAILURE, UNSPECIFIED; N18.9 - CHRONIC KIDNEY DISEASE, UNSPECIFIED Assessment/Plan - Problems (1) CHF exacerbation Code(s): I50.9 - HEART FAILURE, UNSPECIFIED Qualifiers: Heart failure type: unspecified Qualified Code(s): I50.9 - Heart failure, unspecified (2) Troponin level elevated Code(s): R74.8 - ABNORMAL LEVELS OF OTHER SERUM ENZYMES (3) CKD (chronic kidney disease) Code(s): N18.9 - CHRONIC KIDNEY DISEASE, UNSPECIFIED (4) NSTEMI (non-ST elevated myocardial infarction) Code(s): I21.4 - NON-ST ELEVATION (NSTEMI) MYOCARDIAL INFARCTION (5) Renal failure (ARF), acute on chronic Code(s): N17.9 - ACUTE KIDNEY FAILURE, UNSPECIFIED; N18.9 - CHRONIC KIDNEY DISEASE, UNSPECIFIED
--- NOTE | 2019-05-12 13:21 | CON.ID ---
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: Other (carotid stenosis) Cardio/Vascular: Yes: CAD (s/p CABG), HTN, Hyperlipdemia Renal/: Yes: Renal Inusuff Endocrine: Yes: Diabetes Mellitus, Hypothyroidism - Past Surgical History Past Surgical History: Yes: CABG - Alcohol/Substance Use Hx Alcohol Use: No History of Substance Use: reports: None - Smoking History Smoking history: Never smoked Have you smoked in the past 12 months: No Aproximately how many cigarettes per day: 0 - Social History ADL: Independent History of Recent Travel: No Home Medications - Allergies Allergies/Adverse Reactions: Allergies Allergy/AdvReac Type Severity Reaction Status Date / Time No Known Drug Allergies Allergy Verified 05/10/19 12:49 BEANS Allergy Rash Uncoded 05/10/19 12:49 - Home Medications Home Medications: Ambulatory Orders Levothyroxine [Synthroid -] 75 mcg PO DAILY 08/13/16 Aspirin [Ecotrin] 81 mg PO DAILY 03/05/18 Montelukast Sodium [Singulair] 10 mg PO DAILY 03/05/18 Albuterol 2.5/Ipratropium 0.5 [Duoneb -] 1 amp NEB Q4H #60 amp 03/15/18 Furosemide [Lasix -] 40 mg PO DAILY 04/13/19 Potassium Chloride [K-Tab ER] 20 meq PO DAILY 04/13/19 Amlodipine Besylate [Norvasc -] 5 mg PO DAILY #30 tablet 04/18/19 Atorvastatin Ca [Lipitor] 40 mg PO HS #30 tablet 04/18/19 Insulin Glargine,Hum.rec.anlog [Basaglmargie Schmitz U-100] 16 unit SQ AM #7 insuln.pen 04/18/19 Nebivolol [Bystolic -] 10 mg PO DAILY #30 tab 04/18/19 Family Disease History - Family Disease History Family Disease History: Diabetes: Father, Heart Disease: Father Physical Exam Vital Signs: Vital Signs Temperature 98 F 05/12/19 09:00 Pulse Rate 76 05/12/19 09:00 Respiratory Rate 18 05/12/19 09:00 Blood Pressure 158/66 05/12/19 09:00 O2 Sat by Pulse Oximetry (%) 100 05/12/19 09:00 Labs: CBC, BMP 05/11/19 05:13 05/12/19 05:24
--- NOTE | 2019-05-12 13:39 | PN ---
Progress Note, Physician History of Present Illness: Pt seen and examined at bedside. She is awake and alert. She complains of shortness of breath. - Current Medication List Current Medications: Active Medications Acetaminophen (Tylenol -) 650 mg PO Q4H PRN PRN Reason: PAIN OR FEVER Last Admin: 05/11/19 20:17 Dose: 650 mg Albuterol/Ipratropium (Duoneb -) 1 amp NEB Q4H PRN PRN Reason: ASTHMA Last Admin: 05/12/19 11:36 Dose: 1 amp Amlodipine Besylate (Norvasc -) 5 mg PO DAILY [facility] Last Admin: 05/12/19 11:04 Dose: 5 mg Aspirin (Ecotrin -) 81 mg PO DAILY [facility] Last Admin: 05/12/19 11:04 Dose: 81 mg Atorvastatin Calcium (Lipitor -) 40 mg PO HS [facility] Last Admin: 05/11/19 22:19 Dose: 40 mg Furosemide (Lasix Injection -) 40 mg IVPUSH DAILY [facility] Last Admin: 05/12/19 11:03 Dose: 40 mg Guaifenesin (Robitussin Dm -) 10 ml PO Q4H PRN PRN Reason: COUGH Meropenem 500 mg/ Dextrose 100 mls @ 200 mls/hr IVPB Q12H [facility] Insulin Detemir (Levemir Vial) 16 units SQ AM [facility] Last Admin: 05/12/19 06:05 Dose: 16 units Levothyroxine Sodium (Synthroid -) 75 mcg PO DAILY@0700 [facility] Last Admin: 05/12/19 06:05 Dose: 75 mcg Montelukast Sodium (Singulair -) 10 mg PO HS [facility] Last Admin: 05/11/19 22:19 Dose: 10 mg Nebivolol (Bystolic -) 10 mg PO DAILY [facility] Last Admin: 05/12/19 11:04 Dose: 10 mg Potassium Chloride (K-Dur -) 20 meq PO DAILY [facility] Last Admin: 05/12/19 11:04 Dose: 20 meq - Objective Vital Signs: Vital Signs Temperature 98 F 05/12/19 09:00 Pulse Rate 76 05/12/19 09:00 Respiratory Rate 18 05/12/19 09:00 Blood Pressure 158/66 05/12/19 09:00 O2 Sat by Pulse Oximetry (%) 100 05/12/19 09:00 Constitutional: Yes: Calm Eyes: Yes: Conjunctiva Clear HENT: Yes: Atraumatic Neck: Yes: Supple Cardiovascular: Yes: S1, S2 Respiratory: Yes: On Nasal O2 Gastrointestinal: Yes: Soft Genitourinary: Yes: WNL Musculoskeletal: Yes: WNL Edema: LLE: Trace, RLE: Trace Integumentary: Yes: WNL Neurological: Yes: Oriented Psychiatric: Yes: Oriented Labs: CBC, BMP 05/11/19 05:13 05/12/19 05:24 INR, PTT INR 1.08 (0.83-1.09) 05/10/19 13:30 Problem List - Problems (1) CHF exacerbation Code(s): I50.9 - HEART FAILURE, UNSPECIFIED Qualifiers: Heart failure type: unspecified Qualified Code(s): I50.9 - Heart failure, unspecified (2) CAD (coronary artery disease) Code(s): I25.10 - ATHSCL HEART DISEASE OF [place] CORONARY ARTERY W/O ANG PCTRS (3) CKD (chronic kidney disease) Code(s): N18.9 - CHRONIC KIDNEY DISEASE, UNSPECIFIED Assessment/Plan Current Medications Generic Name Dose Route Start Last Admin Trade Name Freq PRN Reason Stop Dose Admin Acetaminophen 650 mg 05/10/19 15:32 05/11/19 20:17 Tylenol - PO 650 mg Q4H PRN Administration PAIN OR FEVER Albuterol/Ipratropium 1 amp 05/10/19 15:31 05/12/19 11:36 Duoneb - NEB 1 amp Q4H PRN Administration ASTHMA Amlodipine Besylate 5 mg 05/11/19 10:00 05/12/19 11:04 Norvasc - PO 5 mg DAILY [facility] Administration Aspirin 81 mg 05/11/19 10:00 05/12/19 11:04 Ecotrin - PO 81 mg DAILY [facility] Administration Atorvastatin Calcium 40 mg 05/10/19 22:00 05/11/19 22:19 Lipitor - PO 40 mg HS [facility] Administration Furosemide 40 mg 05/11/19 10:00 05/12/19 11:03 Lasix Injection - IVPUSH 40 mg DAILY [facility] Administration Guaifenesin 10 ml 05/11/19 00:45 Robitussin Dm - PO Q4H PRN COUGH Meropenem 500 mg/ Dextrose 100 mls @ 200 mls/hr 05/12/19 13:30 IVPB Q12H [facility] Insulin Detemir 16 units 05/11/19 07:00 05/12/19 06:05 Levemir Vial SQ 16 units AM [facility] Administration Levothyroxine Sodium 75 mcg 05/11/19 07:00 05/12/19 06:05 Synthroid - PO 75 mcg DAILY@0700 [facility] Administration Montelukast Sodium 10 mg 05/11/19 22:00 05/11/19 22:19 Singulair - PO 10 mg HS [facility] Administration Nebivolol 10 mg 05/11/19 10:00 05/12/19 11:04 Bystolic - PO 10 mg DAILY [facility] Administration Potassium Chloride 20 meq 05/11/19 10:00 05/12/19 11:04 K-Dur - PO 20 meq DAILY [facility] Administration Laboratory Tests 05/11/19 15:15 Urine Protein 3+ H Urine Glucose (UA) 1+ H #SANTINO on CKD in setting of acute HF #CKD stage 4 #CHF #Hypertension #Anemia #proteinuria #uti Plan - cont lasix - monitor renal function - pt needs proteinuria workup - jenae and spep pending - cont abx and follow urine cultures
[2019-05-12] MEDS ORDERED: PT OWN MED DRAWER 7, Y5N ONE (14:51)
[2019-05-12] MEDS: MEROPENEM 500 MG in DEXTROSE 5%-WATER 100 ML IVPB SCH (14:58)
[2019-05-12] MEDS: MONTELUKAST NA 10 MG TABLET PO SCH (22:04)
[2019-05-12] MEDS: ATORVASTATIN CA 40 MG TABLET (FP) PO SCH (22:04)
[2019-05-13] MEDS ORDERED: PT OWN MED DRAWER 7, Y5N ONE ×2 (00:14→14:32)
[2019-05-13] MEDS ORDERED: ZOLPIDEM TARTRATE 5 MG TABLET PO ONE (00:27)
[2019-05-13] MEDS: MEROPENEM 500 MG in DEXTROSE 5%-WATER 100 ML IVPB SCH ×2 (00:36→13:57)
[2019-05-13] MEDS: amLODIPine BESYLATE 5 MG TABLET (FP) PO SCH ×2 (04:06→11:30)
[2019-05-13] MEDS: ALBUTEROL SO4 2.5/IPRATROPIUM 0.5 INH SOL 3 ML VIAL.NEB. NEB PRN (04:30)
[2019-05-13] MEDS: NEBIVOLOL 10 MG TABLET (FP) PO SCH ×2 (04:34→10:00)
[2019-05-13] MEDS: ACETAMINOPHEN 325 MG TABLET (FP) PO PRN (05:56)
[2019-05-13] MEDS: LEVOTHYROXINE NA 75 MCG TABLET (FP) PO SCH (06:01)
[2019-05-13] MEDS: INSULIN (LEVEMIR) 100 UNITS/ML UNITS SQ SCH (06:32)
[2019-05-13 06:55] LABS: HEMOGLOBIN 9.3 GM/dL (10.7-15.3); MCHC 31.2 g/dl (32.0-36.0); MEAN CELL VOLUME 76.9 fl (80-96); MEAN PLT VOLUME 9.9 fl (7.5-11.1); PLATELET COUNT 355 K/MM3 (134-434); RDW 15.5 % (11.6-15.6)
[2019-05-13] MEDS: POTASSIUM CHLORIDE TABS 20 MEQ TABLET.ER (FP) PO SCH (11:27)
[2019-05-13] MEDS: ASPIRIN COATED 81 MG TABLET.EC PO SCH (11:27)
[2019-05-13] MEDS: FUROSEMIDE 40 MG/4 ML INJECTABLE VIAL IVPUSH SCH (11:27)
--- NOTE | 2019-05-13 11:27 | PN ---
Progress Note, Physician History of Present Illness: stable feeling well still feels weak - Current Medication List Current Medications: Active Medications Acetaminophen (Tylenol -) 650 mg PO Q4H PRN PRN Reason: PAIN OR FEVER Last Admin: 05/13/19 05:56 Dose: 650 mg Albuterol/Ipratropium (Duoneb -) 1 amp NEB Q4H PRN PRN Reason: ASTHMA Last Admin: 05/13/19 04:30 Dose: 1 amp Amlodipine Besylate (Norvasc -) 5 mg PO DAILY [facility] Last Admin: 05/13/19 04:06 Dose: 5 mg Aspirin (Ecotrin -) 81 mg PO DAILY [facility] Last Admin: 05/12/19 11:04 Dose: 81 mg Atorvastatin Calcium (Lipitor -) 40 mg PO HS [facility] Last Admin: 05/12/19 22:04 Dose: 40 mg Furosemide (Lasix Injection -) 40 mg IVPUSH DAILY [facility] Last Admin: 05/12/19 11:03 Dose: 40 mg Guaifenesin (Robitussin Dm -) 10 ml PO Q4H PRN PRN Reason: COUGH Last Admin: 05/13/19 05:56 Dose: 10 ml Meropenem 500 mg/ Dextrose 100 mls @ 200 mls/hr IVPB Q12H [facility] Last Admin: 05/13/19 00:36 Dose: 200 mls/hr Insulin Detemir (Levemir Vial) 16 units SQ AM [facility] Last Admin: 05/13/19 06:32 Dose: 16 units Levothyroxine Sodium (Synthroid -) 75 mcg PO DAILY@0700 [facility] Last Admin: 05/13/19 06:01 Dose: 75 mcg Montelukast Sodium (Singulair -) 10 mg PO HS [facility] Last Admin: 05/12/19 22:04 Dose: 10 mg Nebivolol (Bystolic -) 10 mg PO DAILY [facility] Last Admin: 05/13/19 04:34 Dose: 10 mg Potassium Chloride (K-Dur -) 20 meq PO DAILY [facility] Last Admin: 05/12/19 11:04 Dose: 20 meq - Objective Vital Signs: Vital Signs Temperature 98.1 F 05/13/19 11:23 Pulse Rate 60 05/13/19 11:23 Respiratory Rate 18 05/13/19 01:00 Blood Pressure 134/76 05/13/19 11:23 O2 Sat by Pulse Oximetry (%) 95 07/27/19 20:17 Constitutional: Yes: No Distress, Calm Cardiovascular: Yes: Regular Rate and Rhythm Respiratory: Yes: Regular, CTA Bilaterally Gastrointestinal: Yes: Normal Bowel Sounds, Soft Musculoskeletal: Yes: WNL Extremities: Yes: WNL Neurological: Yes: Alert, Oriented Psychiatric: Yes: Alert, Oriented Labs: CBC, BMP 05/13/19 05:10 05/12/19 05:24 INR, PTT INR 1.08 (0.83-1.09) 05/10/19 13:30 Assessment/Plan Problem List - Problems (1) CHF exacerbation Code(s): I50.9 - HEART FAILURE, UNSPECIFIED Qualifiers: Heart failure type: unspecified Qualified Code(s): I50.9 - Heart failure, unspecified (2) UTI (urinary tract infection) Code(s): N39.0 - URINARY TRACT INFECTION, SITE NOT SPECIFIED (3) CKD (chronic kidney disease) Code(s): N18.9 - CHRONIC KIDNEY DISEASE, UNSPECIFIED (4) Troponin level elevated Code(s): R74.8 - ABNORMAL LEVELS OF OTHER SERUM ENZYMES (5) NSTEMI (non-ST elevated myocardial infarction) Code(s): I21.4 - NON-ST ELEVATION (NSTEMI) MYOCARDIAL INFARCTION (6) Renal failure (ARF), acute on chronic Code(s): N17.9 - ACUTE KIDNEY FAILURE, UNSPECIFIED; N18.9 - CHRONIC KIDNEY DISEASE, UNSPECIFIED plan continue abx will need it for some time
[2019-05-13] MEDS ORDERED: INSULIN (NOVOLOG) ASPART 100 UNITS/ML 10ML VIAL SQ ONE (13:15)
--- NOTE | 2019-05-13 13:42 | PN ---
Progress Note, Physician History of Present Illness: Pt seen and examined at bedside. She is awake and alert. She feels that her breathing is improved today. She is not using the oxygen. - Current Medication List Current Medications: Active Medications Acetaminophen (Tylenol -) 650 mg PO Q4H PRN PRN Reason: PAIN OR FEVER Last Admin: 05/13/19 05:56 Dose: 650 mg Albuterol/Ipratropium (Duoneb -) 1 amp NEB Q4H PRN PRN Reason: ASTHMA Last Admin: 05/13/19 04:30 Dose: 1 amp Amlodipine Besylate (Norvasc -) 5 mg PO DAILY [facility] Last Admin: 05/13/19 11:30 Dose: Not Given Aspirin (Ecotrin -) 81 mg PO DAILY [facility] Last Admin: 05/13/19 11:27 Dose: 81 mg Atorvastatin Calcium (Lipitor -) 40 mg PO HS [facility] Last Admin: 05/12/19 22:04 Dose: 40 mg Furosemide (Lasix Injection -) 40 mg IVPUSH DAILY [facility] Last Admin: 05/13/19 11:27 Dose: 40 mg Guaifenesin (Robitussin Dm -) 10 ml PO Q4H PRN PRN Reason: COUGH Last Admin: 05/13/19 05:56 Dose: 10 ml Meropenem 500 mg/ Dextrose 100 mls @ 200 mls/hr IVPB Q12H [facility] Last Admin: 05/13/19 00:36 Dose: 200 mls/hr Insulin Detemir (Levemir Vial) 16 units SQ AM [facility] Last Admin: 05/13/19 06:32 Dose: 16 units Levothyroxine Sodium (Synthroid -) 75 mcg PO DAILY@0700 [facility] Last Admin: 05/13/19 06:01 Dose: 75 mcg Montelukast Sodium (Singulair -) 10 mg PO HS [facility] Last Admin: 05/12/19 22:04 Dose: 10 mg Nebivolol (Bystolic -) 10 mg PO DAILY [facility] Last Admin: 05/13/19 10:00 Dose: Not Given Potassium Chloride (K-Dur -) 20 meq PO DAILY [facility] Last Admin: 05/13/19 11:27 Dose: 20 meq - Objective Vital Signs: Vital Signs Temperature 98.1 F 05/13/19 11:23 Pulse Rate 60 05/13/19 11:23 Respiratory Rate 18 05/13/19 01:00 Blood Pressure 134/76 05/13/19 11:23 O2 Sat by Pulse Oximetry (%) 95 05/12/19 20:17 Constitutional: Yes: Calm Eyes: Yes: Conjunctiva Clear HENT: Yes: Atraumatic Neck: Yes: Supple Cardiovascular: Yes: S1, S2 Respiratory: Yes: CTA Bilaterally Gastrointestinal: Yes: Soft Genitourinary: Yes: WNL Musculoskeletal: Yes: WNL Edema: LLE: Trace, RLE: Trace Integumentary: Yes: WNL Neurological: Yes: Oriented Psychiatric: Yes: Oriented Labs: CBC, BMP 05/13/19 05:10 05/12/19 05:24 INR, PTT INR 1.08 (0.83-1.09) 05/10/19 13:30 Problem List - Problems (1) CHF exacerbation Code(s): I50.9 - HEART FAILURE, UNSPECIFIED Qualifiers: Heart failure type: unspecified Qualified Code(s): I50.9 - Heart failure, unspecified (2) CAD (coronary artery disease) Code(s): I25.10 - ATHSCL HEART DISEASE OF [place] CORONARY ARTERY W/O ANG PCTRS (3) CKD (chronic kidney disease) Code(s): N18.9 - CHRONIC KIDNEY DISEASE, UNSPECIFIED Assessment/Plan Current Medications Generic Name Dose Route Start Last Admin Trade Name Freq PRN Reason Stop Dose Admin Acetaminophen 650 mg 05/10/19 15:32 05/13/19 05:56 Tylenol - PO 650 mg Q4H PRN Administration PAIN OR FEVER Albuterol/Ipratropium 1 amp 05/10/19 15:31 05/13/19 04:30 Duoneb - NEB 1 amp Q4H PRN Administration ASTHMA Amlodipine Besylate 5 mg 05/11/19 10:00 05/13/19 11:30 Norvasc - PO Not Given DAILY [facility] Aspirin 81 mg 05/11/19 10:00 05/13/19 11:27 Ecotrin - PO 81 mg DAILY [facility] Administration Atorvastatin Calcium 40 mg 05/10/19 22:00 05/12/19 22:04 Lipitor - PO 40 mg HS [facility] Administration Furosemide 40 mg 05/11/19 10:00 05/13/19 11:27 Lasix Injection - IVPUSH 40 mg DAILY [facility] Administration Guaifenesin 10 ml 05/11/19 00:45 05/13/19 05:56 Robitussin Dm - PO 10 ml Q4H PRN Administration COUGH Meropenem 500 mg/ Dextrose 100 mls @ 200 mls/hr 05/12/19 13:30 05/13/19 00:36 IVPB 200 mls/hr Q12H [facility] Administration Insulin Detemir 16 units 05/11/19 07:00 05/13/19 06:32 Levemir Vial SQ 16 units AM [facility] Administration Levothyroxine Sodium 75 mcg 05/11/19 07:00 05/13/19 06:01 Synthroid - PO 75 mcg DAILY@0700 [facility] Administration Montelukast Sodium 10 mg 05/11/19 22:00 05/12/19 22:04 Singulair - PO 10 mg HS [facility] Administration Nebivolol 10 mg 05/11/19 10:00 05/13/19 10:00 Bystolic - PO Not Given DAILY [facility] Potassium Chloride 20 meq 05/11/19 10:00 05/13/19 11:27 K-Dur - PO 20 meq DAILY [facility] Administration Microbiology 05/10/19 13:30 Urine - Urine Clean Catch Urine Culture - Final Escherichia Coli Esbl Belt Brander 05/10/19 13:30 Blood - Peripheral Venous Blood Culture - Preliminary NO GROWTH OBTAINED AFTER 72 HOURS, INCUBATION TO CONTINUE FOR 2 DAYS. 05/10/19 13:30 Blood - Peripheral Venous Blood Culture - Preliminary NO GROWTH OBTAINED AFTER 72 HOURS, INCUBATION TO CONTINUE FOR 2 DAYS. Laboratory Tests 05/12/19 05/12/19 05:24 05:24 JHONNY M-Baldomero Pending JENAE Screen Pending #SANTINO on CKD in setting of acute HF #CKD stage 4 #CHF #Hypertension #Anemia #proteinuria #uti Plan - respiratory status is improved - cont with lasix for now - check bmp - discussed with family - pt needs proteinuria workup - jenae and spep pending
--- NOTE | 2019-05-13 17:19 | PN ---
Progress Note, Physician History of Present Illness: 64yo F with PMH of CHF, pulmonary edema, HTN, HLD, DM, CAD s/p CABG in 2016 presenting with shortness of breath. Patient's daughter is at the bedside providing collateral history. Patient has had sob and chest pain since yesterday. The other daughter noted a temperature of 99F. Patient became acutely sob this morning for which EMS was called. Per EMS report via the ER nurse, patient had an oxygen saturation of 90% and what sounds like an elevated CO2 level. Patient states her complaints are consistent with her presentation when she was last admitted to the hospital. The chest pain is substernal, constant, rated 10/10, and non-radiating. Patient reports medication compliance. Endorses drinking more fluids due to a dry throat despite being advised by her doctor to imit fluid intake. Has also noticed increasing bilateral lower extremity swelling. Reports headache, weakness, nonproductive cough, left arm/leg heaviness yesterday that has since resolved, blurry vision, and generalized body shaking. Has an appointment to see her primary care physician today but is now present in the ER. Pt is relatively better No Fever No SOB No chest pain No palpitations - Current Medication List Current Medications: Active Medications Acetaminophen (Tylenol -) 650 mg PO Q4H PRN PRN Reason: PAIN OR FEVER Last Admin: 05/13/19 05:56 Dose: 650 mg Albuterol/Ipratropium (Duoneb -) 1 amp NEB Q4H PRN PRN Reason: ASTHMA Last Admin: 05/13/19 04:30 Dose: 1 amp Amlodipine Besylate (Norvasc -) 5 mg PO DAILY [facility] Last Admin: 05/13/19 11:30 Dose: Not Given Aspirin (Ecotrin -) 81 mg PO DAILY [facility] Last Admin: 05/13/19 11:27 Dose: 81 mg Atorvastatin Calcium (Lipitor -) 40 mg PO HS [facility] Last Admin: 05/12/19 22:04 Dose: 40 mg Furosemide (Lasix Injection -) 40 mg IVPUSH DAILY [facility] Last Admin: 05/13/19 11:27 Dose: 40 mg Guaifenesin (Robitussin Dm -) 10 ml PO Q4H PRN PRN Reason: COUGH Last Admin: 05/13/19 05:56 Dose: 10 ml Meropenem 500 mg/ Dextrose 100 mls @ 200 mls/hr IVPB Q12H [facility] Last Admin: 05/13/19 13:57 Dose: 200 mls/hr Insulin Detemir (Levemir Vial) 16 units SQ AM [facility] Last Admin: 05/13/19 06:32 Dose: 16 units Levothyroxine Sodium (Synthroid -) 75 mcg PO DAILY@0700 [facility] Last Admin: 05/13/19 06:01 Dose: 75 mcg Montelukast Sodium (Singulair -) 10 mg PO HS [facility] Last Admin: 05/12/19 22:04 Dose: 10 mg Nebivolol (Bystolic -) 10 mg PO DAILY [facility] Last Admin: 05/13/19 10:00 Dose: Not Given Potassium Chloride (K-Dur -) 20 meq PO DAILY [facility] Last Admin: 05/13/19 11:27 Dose: 20 meq - Objective Vital Signs: Vital Signs Temperature 97.9 F 05/13/19 15:23 Pulse Rate 66 05/13/19 15:23 Respiratory Rate 18 05/13/19 15:23 Blood Pressure 142/68 05/13/19 15:23 O2 Sat by Pulse Oximetry (%) 100 05/13/19 09:00 Constitutional: Yes: Calm Eyes: Yes: Conjunctiva Clear, EOM Intact HENT: Yes: Atraumatic, Normocephalic Neck: Yes: Supple, Trachea Midline Cardiovascular: Yes: Regular Rate and Rhythm, S1, S2 Respiratory: Yes: Regular, CTA Bilaterally Gastrointestinal: Yes: Normal Bowel Sounds, Soft Edema: No Peripheral Pulses WNL: Yes Labs: CBC, BMP 05/13/19 05:10 05/12/19 05:24 INR, PTT INR 1.08 (0.83-1.09) 05/10/19 13:30 Problem List - Problems (1) CHF exacerbation Code(s): I50.9 - HEART FAILURE, UNSPECIFIED Qualifiers: Heart failure type: unspecified Qualified Code(s): I50.9 - Heart failure, unspecified (2) UTI (urinary tract infection) Code(s): N39.0 - URINARY TRACT INFECTION, SITE NOT SPECIFIED (3) CKD (chronic kidney disease) Code(s): N18.9 - CHRONIC KIDNEY DISEASE, UNSPECIFIED (4) Troponin level elevated Code(s): R74.8 - ABNORMAL LEVELS OF OTHER SERUM ENZYMES (5) NSTEMI (non-ST elevated myocardial infarction) Code(s): I21.4 - NON-ST ELEVATION (NSTEMI) MYOCARDIAL INFARCTION (6) Renal failure (ARF), acute on chronic Code(s): N17.9 - ACUTE KIDNEY FAILURE, UNSPECIFIED; N18.9 - CHRONIC KIDNEY DISEASE, UNSPECIFIED Assessment/Plan - Problems (1) CHF exacerbation Code(s): I50.9 - HEART FAILURE, UNSPECIFIED Qualifiers: Heart failure type: unspecified Qualified Code(s): I50.9 - Heart failure, unspecified (2) Troponin level elevated Code(s): R74.8 - ABNORMAL LEVELS OF OTHER SERUM ENZYMES (3) CKD (chronic kidney disease) Code(s): N18.9 - CHRONIC KIDNEY DISEASE, UNSPECIFIED (4) NSTEMI (non-ST elevated myocardial infarction) Code(s): I21.4 - NON-ST ELEVATION (NSTEMI) MYOCARDIAL INFARCTION (5) Renal failure (ARF), acute on chronic Code(s): N17.9 - ACUTE KIDNEY FAILURE, UNSPECIFIED; N18.9 - CHRONIC KIDNEY DISEASE, UNSPECIFIED Pt is doing well SOB is better
[2019-05-13] MEDS: ATORVASTATIN CA 40 MG TABLET (FP) PO SCH (21:15)
[2019-05-13] MEDS: MONTELUKAST NA 10 MG TABLET PO SCH (21:15)
[2019-05-14] MEDS: MEROPENEM 500 MG in DEXTROSE 5%-WATER 100 ML IVPB SCH ×2 (01:57→13:19)
[2019-05-14] MEDS: ACETAMINOPHEN 325 MG TABLET (FP) PO PRN (02:28)
[2019-05-14] MEDS: ALBUTEROL SO4 2.5/IPRATROPIUM 0.5 INH SOL 3 ML VIAL.NEB. NEB PRN (03:07)
[2019-05-14] MEDS: ZOLPIDEM TARTRATE 5 MG TABLET PO PRN (03:30)
[2019-05-14] MEDS: LEVOTHYROXINE NA 75 MCG TABLET (FP) PO SCH (06:41)
[2019-05-14] MEDS: INSULIN (LEVEMIR) 100 UNITS/ML UNITS SQ SCH (06:41)
[2019-05-14 08:59] LABS: ALBUMIN 2.5 g/dl (3.4-5.0); BILIRUBIN,TOTAL 0.8 mg/dL (0.2-1); BLOOD UREA NITROGEN 71.4 mg/dL (7-18); CALCIUM 8.2 mg/dL (8.5-10.1); CREATININE 3.7 mg/dL (0.55-1.3); POTASSIUM 4.7 mmol/L (3.5-5.1); TOT PROT 5.9 g/dl (6.4-8.2)
--- NOTE | 2019-05-14 09:06 | PN ---
Progress Note, Physician History of Present Illness: stable still weakness - Current Medication List Current Medications: Active Medications Acetaminophen (Tylenol -) 650 mg PO Q4H PRN PRN Reason: PAIN OR FEVER Last Admin: 05/14/19 02:28 Dose: 650 mg Albuterol/Ipratropium (Duoneb -) 1 amp NEB Q4H PRN PRN Reason: ASTHMA Last Admin: 05/14/19 03:07 Dose: 1 amp Amlodipine Besylate (Norvasc -) 5 mg PO DAILY [facility] Last Admin: 05/13/19 11:30 Dose: Not Given Aspirin (Ecotrin -) 81 mg PO DAILY [facility] Last Admin: 05/13/19 11:27 Dose: 81 mg Atorvastatin Calcium (Lipitor -) 40 mg PO HS [facility] Last Admin: 05/13/19 21:15 Dose: 40 mg Furosemide (Lasix Injection -) 40 mg IVPUSH DAILY [facility] Last Admin: 05/13/19 11:27 Dose: 40 mg Guaifenesin (Robitussin Dm -) 10 ml PO Q4H PRN PRN Reason: COUGH Last Admin: 05/13/19 05:56 Dose: 10 ml Meropenem 500 mg/ Dextrose 100 mls @ 200 mls/hr IVPB Q12H [facility] Last Admin: 05/14/19 01:57 Dose: 200 mls/hr Insulin Detemir (Levemir Vial) 16 units SQ AM [facility] Last Admin: 05/14/19 06:41 Dose: 16 units Levothyroxine Sodium (Synthroid -) 75 mcg PO DAILY@0700 [facility] Last Admin: 05/14/19 06:41 Dose: 75 mcg Montelukast Sodium (Singulair -) 10 mg PO HS [facility] Last Admin: 05/13/19 21:15 Dose: 10 mg Nebivolol (Bystolic -) 10 mg PO DAILY [facility] Last Admin: 05/13/19 10:00 Dose: Not Given Potassium Chloride (K-Dur -) 20 meq PO DAILY [facility] Last Admin: 05/13/19 11:27 Dose: 20 meq Zolpidem Tartrate (Ambien -) 5 mg PO HS PRN PRN Reason: INSOMNIA Last Admin: 05/14/19 03:30 Dose: 5 mg - Objective Vital Signs: Vital Signs Temperature 98.2 F 05/14/19 06:00 Pulse Rate 77 05/14/19 06:00 Respiratory Rate 18 05/14/19 06:00 Blood Pressure 148/76 05/14/19 06:00 O2 Sat by Pulse Oximetry (%) 93 L 05/13/19 21:00 Constitutional: Yes: Calm, Other Cardiovascular: Yes: S1, S2 Respiratory: Yes: Regular, CTA Bilaterally Gastrointestinal: Yes: Normal Bowel Sounds, Soft Musculoskeletal: Yes: WNL Extremities: Yes: WNL Neurological: Yes: Alert, Oriented Psychiatric: Yes: Alert, Oriented Labs: CBC, BMP 05/14/19 06:58 INR, PTT INR 1.08 (0.83-1.09) 05/10/19 13:30 Assessment/Plan Problem List - Problems (1) CHF exacerbation Code(s): I50.9 - HEART FAILURE, UNSPECIFIED Qualifiers: Heart failure type: unspecified Qualified Code(s): I50.9 - Heart failure, unspecified (2) UTI (urinary tract infection) Code(s): N39.0 - URINARY TRACT INFECTION, SITE NOT SPECIFIED (3) CKD (chronic kidney disease) Code(s): N18.9 - CHRONIC KIDNEY DISEASE, UNSPECIFIED (4) Troponin level elevated Code(s): R74.8 - ABNORMAL LEVELS OF OTHER SERUM ENZYMES (5) NSTEMI (non-ST elevated myocardial infarction) Code(s): I21.4 - NON-ST ELEVATION (NSTEMI) MYOCARDIAL INFARCTION (6) Renal failure (ARF), acute on chronic Code(s): N17.9 - ACUTE KIDNEY FAILURE, UNSPECIFIED; N18.9 - CHRONIC KIDNEY DISEASE, UNSPECIFIED plan continue abx needs for 2 weeks rest as per the team
[2019-05-14 09:10] LABS: HEMATOCRIT 26.6 % (32.4-45.2); HEMOGLOBIN 8.5 GM/dL (10.7-15.3); MCH 24.4 pg (25.7-33.7); MEAN CELL VOLUME 76.5 fl (80-96); MEAN PLT VOLUME 10.1 fl (7.5-11.1); PLATELET COUNT 308 K/MM3 (134-434); RBC 3.48 M/mm3 (3.60-5.2); WHITE BLOOD COUNT 10.8 K/mm3 (4.0-10.0)
[2019-05-14] MEDS ORDERED: PT OWN MED DRAWER 7, Y5N ONE ×3 (10:27→13:28)
[2019-05-14] MEDS: amLODIPine BESYLATE 5 MG TABLET (FP) PO SCH (10:31)
[2019-05-14] MEDS: POTASSIUM CHLORIDE TABS 20 MEQ TABLET.ER (FP) PO SCH (10:31)
[2019-05-14] MEDS: ASPIRIN COATED 81 MG TABLET.EC PO SCH (10:31)
[2019-05-14] MEDS: NEBIVOLOL 10 MG TABLET (FP) PO SCH (10:31)
[2019-05-14] MEDS: FUROSEMIDE 40 MG/4 ML INJECTABLE VIAL IVPUSH SCH (10:31)
--- NOTE | 2019-05-14 10:34 | PN ---
Progress Note (short form) - Note Progress Note: pt seen/ examined chart reviewed feels better denies cp breathing better Vital Signs Temp 98.2 F 05/14/19 06:00 Pulse 77 05/14/19 06:00 Resp 18 05/14/19 06:00 BP 148/76 05/14/19 06:00 Pulse Ox 93 L 05/13/19 21:00 Intake & Output 05/13/19 05/13/19 05/14/19 11:59 23:59 11:59 Intake Total 100 840 0 Balance 100 840 0 Weight 121 lb 6 oz Intake: IV 0 SALIN LOCK 0 IVPB 100 200 Oral 640 Other: Voiding Method Toilet Toilet # Unmeasured Voids Void 2 2 Bowel Movement No No No Active Medications Acetaminophen (Tylenol -) 650 mg PO Q4H PRN PRN Reason: PAIN OR FEVER Last Admin: 05/14/19 02:28 Dose: 650 mg Albuterol/Ipratropium (Duoneb -) 1 amp NEB Q4H PRN PRN Reason: ASTHMA Last Admin: 05/14/19 03:07 Dose: 1 amp Amlodipine Besylate (Norvasc -) 5 mg PO DAILY [facility] Last Admin: 05/14/19 10:31 Dose: 5 mg Aspirin (Ecotrin -) 81 mg PO DAILY [facility] Last Admin: 05/14/19 10:31 Dose: 81 mg Atorvastatin Calcium (Lipitor -) 40 mg PO HS [facility] Last Admin: 05/13/19 21:15 Dose: 40 mg Furosemide (Lasix Injection -) 40 mg IVPUSH DAILY [facility] Last Admin: 05/14/19 10:31 Dose: 40 mg Guaifenesin (Robitussin Dm -) 10 ml PO Q4H PRN PRN Reason: COUGH Last Admin: 05/13/19 05:56 Dose: 10 ml Meropenem 500 mg/ Dextrose 100 mls @ 200 mls/hr IVPB Q12H [facility] Last Admin: 05/14/19 01:57 Dose: 200 mls/hr Insulin Detemir (Levemir Vial) 16 units SQ AM [facility] Last Admin: 05/14/19 06:41 Dose: 16 units Levothyroxine Sodium (Synthroid -) 75 mcg PO DAILY@0700 [facility] Last Admin: 05/14/19 06:41 Dose: 75 mcg Montelukast Sodium (Singulair -) 10 mg PO HS [facility] Last Admin: 05/13/19 21:15 Dose: 10 mg Nebivolol (Bystolic -) 10 mg PO DAILY [facility] Last Admin: 05/14/19 10:31 Dose: 10 mg Potassium Chloride (K-Dur -) 20 meq PO DAILY [facility] Last Admin: 05/14/19 10:31 Dose: 20 meq Zolpidem Tartrate (Ambien -) 5 mg PO HS PRN PRN Reason: INSOMNIA Last Admin: 05/14/19 03:30 Dose: 5 mg CBC, BMP 05/14/19 06:58 05/14/19 06:58 Microbiology 05/10/19 13:30 Blood Culture - Preliminary Blood - Peripheral Venous NO GROWTH OBTAINED AFTER 72 HOURS, INCUBATION TO CONTINUE FOR 2 DAYS. 05/10/19 13:30 Blood Culture - Preliminary Blood - Peripheral Venous NO GROWTH OBTAINED AFTER 72 HOURS, INCUBATION TO CONTINUE FOR 2 DAYS. Physical Exam Awake/ comfortable S1 and S2 regular LungsDecreased at bases Abdomensoft, non tender. bs + Extremitiesno edema plan Better --Continue Lasix --continue present care - monitor bgm-- elevated increase levemir - monitor labs - daily oob- chair will follow Problem List - Problems (1) UTI (urinary tract infection) Code(s): N39.0 - URINARY TRACT INFECTION, SITE NOT SPECIFIED (2) CHF exacerbation Code(s): I50.9 - HEART FAILURE, UNSPECIFIED Qualifiers: Heart failure type: unspecified Qualified Code(s): I50.9 - Heart failure, unspecified (3) Troponin level elevated Code(s): R74.8 - ABNORMAL LEVELS OF OTHER SERUM ENZYMES (4) Anemia Code(s): D64.9 - ANEMIA, UNSPECIFIED (5) CKD (chronic kidney disease) Code(s): N18.9 - CHRONIC KIDNEY DISEASE, UNSPECIFIED (6) Hx of CABG Code(s): Z95.1 - PRESENCE OF AORTOCORONARY BYPASS GRAFT (7) NSTEMI (non-ST elevated myocardial infarction) Code(s): I21.4 - NON-ST ELEVATION (NSTEMI) MYOCARDIAL INFARCTION (8) Renal failure (ARF), acute on chronic Code(s): N17.9 - ACUTE KIDNEY FAILURE, UNSPECIFIED; N18.9 - CHRONIC KIDNEY DISEASE, UNSPECIFIED
--- NOTE | 2019-05-14 16:18 | PN ---
Progress Note (short form) - Note Progress Note: Renal follow up for SANTINO on CKD Pt seen and examined at the bedside awake and alert clinically doing better denies any sob Vital Signs Temperature 97.8 F 05/14/19 14:00 Pulse Rate 68 05/14/19 14:00 Respiratory Rate 20 05/14/19 14:00 Blood Pressure 158/88 05/14/19 14:00 O2 Sat by Pulse Oximetry (%) 95 05/14/19 09:00 Intake & Output 05/11/19 05/12/19 05/13/19 05/14/19 23:59 23:59 23:59 23:59 Intake Total 1260 1090 940 0 Output Total 400 Balance 860 1090 940 0 Weight 55.055 kg NAD awake and alert neck supple, no JVD RRR, no M/R Dec BS soft NT/ND no LE edema, clubbing or cyanosis. CBC, BMP 05/14/19 06:58 05/14/19 06:58 Current Medications Acetaminophen (Tylenol -) 650 mg PO Q4H PRN PRN Reason: PAIN OR FEVER Last Admin: 05/14/19 02:28 Dose: 650 mg Albuterol/Ipratropium (Duoneb -) 1 amp NEB Q4H PRN PRN Reason: ASTHMA Last Admin: 05/14/19 03:07 Dose: 1 amp Amlodipine Besylate (Norvasc -) 5 mg PO DAILY [facility] Last Admin: 05/14/19 10:31 Dose: 5 mg Aspirin (Ecotrin -) 81 mg PO DAILY [facility] Last Admin: 05/14/19 10:31 Dose: 81 mg Atorvastatin Calcium (Lipitor -) 40 mg PO HS [facility] Last Admin: 05/13/19 21:15 Dose: 40 mg Furosemide (Lasix Injection -) 40 mg IVPUSH DAILY [facility] Last Admin: 05/14/19 10:31 Dose: 40 mg Guaifenesin (Robitussin Dm -) 10 ml PO Q4H PRN PRN Reason: COUGH Last Admin: 05/13/19 05:56 Dose: 10 ml Meropenem 500 mg/ Dextrose 100 mls @ 200 mls/hr IVPB Q12H [facility] Last Admin: 05/14/19 13:19 Dose: 200 mls/hr Insulin Detemir (Levemir Vial) 18 units SQ AM [facility] Levothyroxine Sodium (Synthroid -) 75 mcg PO DAILY@0700 [facility] Last Admin: 05/14/19 06:41 Dose: 75 mcg Montelukast Sodium (Singulair -) 10 mg PO HS [facility] Last Admin: 05/13/19 21:15 Dose: 10 mg Nebivolol (Bystolic -) 10 mg PO DAILY [facility] Last Admin: 05/14/19 10:31 Dose: 10 mg Potassium Chloride (K-Dur -) 20 meq PO DAILY [facility] Last Admin: 05/14/19 10:31 Dose: 20 meq Zolpidem Tartrate (Ambien -) 5 mg PO HS PRN PRN Reason: INSOMNIA Last Admin: 05/14/19 03:30 Dose: 5 mg 64 year old [place] woman with history of CHF, hypertension, hyperlipidemia , DM, CAD, CKD who presented with sob and admitted for acute CHF with SANTINO on CKD. #SANTINO on CKD in setting of acute HF #CKD stage 4 #CHF #Hypertension #Anemia Renal function stable at this time BUN uptrending volume status improved consider titrating down diuretics to oral daily or BID no indication for [employer] checking ARLENE and SPEP given proteinuria prior SPEP from 2018 showed no M-spike Steve Shrestha DO
[2019-05-14] MEDS: ATORVASTATIN CA 40 MG TABLET (FP) PO SCH (21:18)
[2019-05-14] MEDS: MONTELUKAST NA 10 MG TABLET PO SCH (21:18)
[2019-05-15] MEDS: MEROPENEM 500 MG in DEXTROSE 5%-WATER 100 ML IVPB SCH ×2 (01:22→13:31)
[2019-05-15] MEDS: INSULIN (LEVEMIR) 100 UNITS/ML UNITS SQ SCH (06:29)
[2019-05-15] MEDS: LEVOTHYROXINE NA 75 MCG TABLET (FP) PO SCH (06:29)
[2019-05-15] MEDS ORDERED: INSULIN (LEVEMIR) 100 UNITS/ML UNITS SQ ONE (07:06)
[2019-05-15 07:55] LABS: BASO % 0.8 % (0-2.0); EOS % 4.9 % (0-4.5); HEMATOCRIT 29.5 % (32.4-45.2); HEMOGLOBIN 9.3 GM/dL (10.7-15.3); LYMPH % 23.3 % (8-40); MCH 24.2 pg (25.7-33.7); MCHC 31.6 g/dl (32.0-36.0); MEAN CELL VOLUME 76.5 fl (80-96); MONO % 4.9 % (3.8-10.2); NEUT % 66.1 % (42.8-82.8); PLATELET COUNT 343 K/MM3 (134-434); RBC 3.86 M/mm3 (3.60-5.2); RDW 15.4 % (11.6-15.6)
[2019-05-15 08:39] LABS: ALBUMIN 2.8 g/dl (3.4-5.0); BLOOD UREA NITROGEN 70.3 mg/dL (7-18); CALCIUM 8.5 mg/dL (8.5-10.1); CREATININE 3.7 mg/dL (0.55-1.3); MAGNESIUM 2.4 mg/dL (1.8-2.4); PHOSPHOROUS 6.2 mg/dL (2.5-4.9); TOT PROT 6.6 g/dl (6.4-8.2)
[2019-05-15] MEDS ORDERED: PT OWN MED DRAWER 7, Y5N ONE ×2 (09:34→13:25)
[2019-05-15] MEDS: amLODIPine BESYLATE 5 MG TABLET (FP) PO SCH (09:37)
[2019-05-15] MEDS: NEBIVOLOL 10 MG TABLET (FP) PO SCH (09:37)
[2019-05-15] MEDS: POTASSIUM CHLORIDE TABS 20 MEQ TABLET.ER (FP) PO SCH (09:37)
[2019-05-15] MEDS: ASPIRIN COATED 81 MG TABLET.EC PO SCH (09:37)
--- NOTE | 2019-05-15 09:45 | PN ---
Progress Note (short form) - Note Progress Note: pt seen/ examined better denies pain breathing better Vital Signs Temp 97.7 F 05/15/19 06:00 Pulse 68 05/15/19 06:00 Resp 18 05/15/19 06:00 BP 154/70 05/15/19 06:00 Pulse Ox 95 05/14/19 21:00 Intake & Output 05/14/19 05/14/19 05/15/19 11:59 23:59 11:59 Intake Total 0 300 250 Balance 0 300 250 Weight 121 lb 6 oz 122 lb Intake: IV 0 SALIN LOCK 0 IVPB 100 50 Oral 200 200 Other: Voiding Method Toilet Toilet # Unmeasured Voids Void 2 Bowel Movement No Active Medications Acetaminophen (Tylenol -) 650 mg PO Q4H PRN PRN Reason: PAIN OR FEVER Last Admin: 05/14/19 02:28 Dose: 650 mg Albuterol/Ipratropium (Duoneb -) 1 amp NEB Q4H PRN PRN Reason: ASTHMA Last Admin: 05/14/19 03:07 Dose: 1 amp Amlodipine Besylate (Norvasc -) 5 mg PO DAILY [facility] Last Admin: 05/15/19 09:37 Dose: 5 mg Aspirin (Ecotrin -) 81 mg PO DAILY [facility] Last Admin: 05/15/19 09:37 Dose: 81 mg Atorvastatin Calcium (Lipitor -) 40 mg PO [facility] Last Admin: 05/14/19 21:18 Dose: 40 mg Furosemide (Lasix -) 40 mg PO DAILY [facility] Last Admin: 05/15/19 09:37 Dose: 40 mg Guaifenesin (Robitussin Dm -) 10 ml PO Q4H PRN PRN Reason: COUGH Last Admin: 05/13/19 05:56 Dose: 10 ml Meropenem 500 mg/ Dextrose 100 mls @ 200 mls/hr IVPB Q12H [facility] Last Admin: 05/15/19 01:22 Dose: 200 mls/hr Insulin Detemir (Levemir Vial) 18 units SQ AM [facility] Last Admin: 05/15/19 06:29 Dose: 18 units Levothyroxine Sodium (Synthroid -) 75 mcg PO DAILY@0700 [facility] Last Admin: 05/15/19 06:29 Dose: 75 mcg Montelukast Sodium (Singulair -) 10 mg PO HS [facility] Last Admin: 05/14/19 21:18 Dose: 10 mg Nebivolol (Bystolic -) 10 mg PO DAILY [facility] Last Admin: 05/15/19 09:37 Dose: 10 mg Zolpidem Tartrate (Ambien -) 5 mg PO HS PRN PRN Reason: INSOMNIA Last Admin: 05/14/19 03:30 Dose: 5 mg CBC, BMP 05/15/19 06:11 05/15/19 06:11 Microbiology 05/10/19 13:30 Blood Culture - Preliminary Blood - Peripheral Venous NO GROWTH OBTAINED AFTER 96 HOURS, INCUBATION TO CONTINUE FOR 1 DAYS. 05/10/19 13:30 Blood Culture - Preliminary Blood - Peripheral Venous NO GROWTH OBTAINED AFTER 96 HOURS, INCUBATION TO CONTINUE FOR 1 DAYS. u/c -- e coli-- ESBL Physical Exam Awake/ comfortable S1 and S2 regular LungsDecreased at bases Abdomensoft, non tender. bs + Extremitiesno edema plan Better --Continue Lasix--U dose --continue present care - monitor bgm-- increased levemir yesterday - monitor labs - daily oob- chair will follow labs noted D/C -- KCL OOB- CHAIR ESBL precautions ID to follow
[2019-05-15] MEDS ORDERED: FUROSEMIDE 40 MG TABLET (FP) PO SCH (10:00)
--- NOTE | 2019-05-15 10:50 | PN ---
Progress Note, Physician History of Present Illness: stable no new issues feels weak - Current Medication List Current Medications: Active Medications Acetaminophen (Tylenol -) 650 mg PO Q4H PRN PRN Reason: PAIN OR FEVER Last Admin: 05/14/19 02:28 Dose: 650 mg Albuterol/Ipratropium (Duoneb -) 1 amp NEB Q4H PRN PRN Reason: ASTHMA Last Admin: 05/14/19 03:07 Dose: 1 amp Amlodipine Besylate (Norvasc -) 5 mg PO DAILY [facility] Last Admin: 05/15/19 09:37 Dose: 5 mg Aspirin (Ecotrin -) 81 mg PO DAILY [facility] Last Admin: 05/15/19 09:37 Dose: 81 mg Atorvastatin Calcium (Lipitor -) 40 mg PO HS [facility] Last Admin: 05/14/19 21:18 Dose: 40 mg Furosemide (Lasix -) 40 mg PO DAILY [facility] Last Admin: 05/15/19 09:37 Dose: 40 mg Guaifenesin (Robitussin Dm -) 10 ml PO Q4H PRN PRN Reason: COUGH Last Admin: 05/13/19 05:56 Dose: 10 ml Meropenem 500 mg/ Dextrose 100 mls @ 200 mls/hr IVPB Q12H [facility] Last Admin: 05/15/19 01:22 Dose: 200 mls/hr Insulin Detemir (Levemir Vial) 18 units SQ AM [facility] Last Admin: 05/15/19 06:29 Dose: 18 units Levothyroxine Sodium (Synthroid -) 75 mcg PO DAILY@0700 [facility] Last Admin: 05/15/19 06:29 Dose: 75 mcg Montelukast Sodium (Singulair -) 10 mg PO HS [facility] Last Admin: 05/14/19 21:18 Dose: 10 mg Nebivolol (Bystolic -) 10 mg PO DAILY [facility] Last Admin: 05/15/19 09:37 Dose: 10 mg Zolpidem Tartrate (Ambien -) 5 mg PO HS PRN PRN Reason: INSOMNIA Last Admin: 05/14/19 03:30 Dose: 5 mg - Objective Vital Signs: Vital Signs Temperature 97.7 F 05/15/19 06:00 Pulse Rate 68 05/15/19 06:00 Respiratory Rate 18 05/15/19 06:00 Blood Pressure 154/70 05/15/19 06:00 O2 Sat by Pulse Oximetry (%) 95 05/14/19 21:00 Constitutional: Yes: No Distress, Calm Cardiovascular: Yes: Regular Rate and Rhythm Respiratory: Yes: Regular, CTA Bilaterally Gastrointestinal: Yes: Normal Bowel Sounds, Soft Musculoskeletal: Yes: WNL Extremities: Yes: WNL Neurological: Yes: Alert, Oriented Psychiatric: Yes: Alert, Oriented Labs: CBC, BMP 05/15/19 06:11 05/15/19 06:11 INR, PTT INR 1.08 (0.83-1.09) 05/10/19 13:30 Assessment/Plan Problem List - Problems (1) CHF exacerbation Code(s): I50.9 - HEART FAILURE, UNSPECIFIED Qualifiers: Heart failure type: unspecified Qualified Code(s): I50.9 - Heart failure, unspecified (2) UTI (urinary tract infection) Code(s): N39.0 - URINARY TRACT INFECTION, SITE NOT SPECIFIED (3) CKD (chronic kidney disease) Code(s): N18.9 - CHRONIC KIDNEY DISEASE, UNSPECIFIED (4) Troponin level elevated Code(s): R74.8 - ABNORMAL LEVELS OF OTHER SERUM ENZYMES (5) NSTEMI (non-ST elevated myocardial infarction) Code(s): I21.4 - NON-ST ELEVATION (NSTEMI) MYOCARDIAL INFARCTION (6) Renal failure (ARF), acute on chronic Code(s): N17.9 - ACUTE KIDNEY FAILURE, UNSPECIFIED; N18.9 - CHRONIC KIDNEY DISEASE, UNSPECIFIED plan continue abx complete abx course rest as per the team
[2019-05-15] MEDS: SODIUM BICARBONATE 650 MG TABLET PO SCH ×2 (12:49→21:54)
--- NOTE | 2019-05-15 15:42 | PN ---
Progress Note (short form) - Note Progress Note: Renal follow up for SANTINO on CKD Pt seen and examined at the bedside awake and alert breathing is improved has difficutly sleeping at night still no chest pain, abd pain, N/V/D Vital Signs Temperature 97.5 F L 05/15/19 14:48 Pulse Rate 75 05/15/19 14:48 Respiratory Rate 18 05/15/19 14:48 Blood Pressure 170/65 05/15/19 14:48 O2 Sat by Pulse Oximetry (%) 96 05/15/19 09:00 Intake & Output 05/12/19 05/13/19 05/14/19 05/15/19 23:59 23:59 23:59 23:59 Intake Total 1090 940 300 830 Balance 1090 940 300 830 Weight 55.055 kg 55.338 kg NAD awake and alert neck supple, no JVD RRR, no M/R Dec BS soft NT/ND no LE edema, clubbing or cyanosis. CBC, BMP 05/15/19 06:11 05/15/19 06:11 Current Medications Acetaminophen (Tylenol -) 650 mg PO Q4H PRN PRN Reason: PAIN OR FEVER Last Admin: 05/14/19 02:28 Dose: 650 mg Albuterol/Ipratropium (Duoneb -) 1 amp NEB Q4H PRN PRN Reason: ASTHMA Last Admin: 05/14/19 03:07 Dose: 1 amp Amlodipine Besylate (Norvasc -) 5 mg PO DAILY [facility] Last Admin: 05/15/19 09:37 Dose: 5 mg Aspirin (Ecotrin -) 81 mg PO DAILY [facility] Last Admin: 05/15/19 09:37 Dose: 81 mg Atorvastatin Calcium (Lipitor -) 40 mg PO HS [facility] Last Admin: 05/14/19 21:18 Dose: 40 mg Furosemide (Lasix -) 40 mg PO DAILY [facility] Last Admin: 05/15/19 09:37 Dose: 40 mg Guaifenesin (Robitussin Dm -) 10 ml PO Q4H PRN PRN Reason: COUGH Last Admin: 05/13/19 05:56 Dose: 10 ml Meropenem 500 mg/ Dextrose 100 mls @ 200 mls/hr IVPB Q12H [facility] Last Admin: 05/15/19 13:31 Dose: 200 mls/hr Insulin Detemir (Levemir Vial) 18 units SQ AM [facility] Last Admin: 05/15/19 06:29 Dose: 18 units Levothyroxine Sodium (Synthroid -) 75 mcg PO DAILY@0700 [facility] Last Admin: 05/15/19 06:29 Dose: 75 mcg Montelukast Sodium (Singulair -) 10 mg PO HS [facility] Last Admin: 05/14/19 21:18 Dose: 10 mg Nebivolol (Bystolic -) 10 mg PO DAILY [facility] Last Admin: 05/15/19 09:37 Dose: 10 mg Sodium Bicarbonate (Sodium Bicarbonate -) 650 mg PO BID [facility] Last Admin: 05/15/19 12:49 Dose: 650 mg Zolpidem Tartrate (Ambien -) 5 mg PO HS PRN PRN Reason: INSOMNIA Last Admin: 05/14/19 03:30 Dose: 5 mg 64 year old [place] woman with history of CHF, hypertension, hyperlipidemia , DM, CAD, CKD who presented with sob and admitted for acute CHF with SANTINO on CKD. #SANTINO on CKD in setting of acute HF #CKD stage 4 #CHF #Hypertension #Anemia Renal function stable at this time, not yet at baseline levels. Expect contined improvement as pt is no longer on IV diuretics. Will increase lasix to 40mg PO BID to regulate volume status ARLENE negative, SPEP results pending No acute need for renal replacement therapy started on oral sodium bicarbonate if renal function remains stable, can be followed up as an outpatient check CXR in the Steve Shrestha DO
[2019-05-15] MEDS: FUROSEMIDE 40 MG TABLET (FP) PO SCH (16:01)
[2019-05-15] MEDS: ATORVASTATIN CA 40 MG TABLET (FP) PO SCH (21:55)
[2019-05-15] MEDS: MONTELUKAST NA 10 MG TABLET PO SCH (21:55)
[2019-05-15] MEDS: ZOLPIDEM TARTRATE 5 MG TABLET PO PRN (21:55)
[2019-05-16] MEDS ORDERED: PT OWN MED DRAWER 7, Y5N ONE ×3 (01:15→18:22)
[2019-05-16] MEDS: MEROPENEM 500 MG in DEXTROSE 5%-WATER 100 ML IVPB SCH ×2 (01:32→14:50)
[2019-05-16] MEDS: INSULIN (LEVEMIR) 100 UNITS/ML UNITS SQ SCH (06:24)
[2019-05-16] MEDS: LEVOTHYROXINE NA 75 MCG TABLET (FP) PO SCH (06:24)
[2019-05-16] MEDS: FUROSEMIDE 40 MG TABLET (FP) PO SCH ×2 (06:24→14:51)
[2019-05-16] MEDS ORDERED: INSULIN (LEVEMIR) 100 UNITS/ML UNITS SQ ONE (07:04)
[2019-05-16 07:45] LABS: BASO % 1.2 % (0-2.0); EOS % 6.9 % (0-4.5); HEMATOCRIT 28.2 % (32.4-45.2); HEMOGLOBIN 9.1 GM/dL (10.7-15.3); LYMPH % 27.4 % (8-40); MCH 24.5 pg (25.7-33.7); MCHC 32.3 g/dl (32.0-36.0); MEAN CELL VOLUME 75.6 fl (80-96); MONO % 6.8 % (3.8-10.2); NEUT % 57.7 % (42.8-82.8); PLATELET COUNT 309 K/MM3 (134-434); RBC 3.73 M/mm3 (3.60-5.2); RDW 14.9 % (11.6-15.6); WHITE BLOOD COUNT 8.8 K/mm3 (4.0-10.0)
[2019-05-16 08:58] LABS: ALBUMIN 2.4 g/dl (3.4-5.0); BILIRUBIN,TOTAL 0.8 mg/dL (0.2-1); BLOOD UREA NITROGEN 67.3 mg/dL (7-18); CALCIUM 8.2 mg/dL (8.5-10.1); CREATININE 3.5 mg/dL (0.55-1.3); POTASSIUM 4.1 mmol/L (3.5-5.1)
--- NOTE | 2019-05-16 10:33 | PN ---
Progress Note, Physician History of Present Illness: patient doing well no complaints - Current Medication List Current Medications: Active Medications Acetaminophen (Tylenol -) 650 mg PO Q4H PRN PRN Reason: PAIN OR FEVER Last Admin: 05/14/19 02:28 Dose: 650 mg Albuterol/Ipratropium (Duoneb -) 1 amp NEB Q4H PRN PRN Reason: ASTHMA Last Admin: 05/14/19 03:07 Dose: 1 amp Amlodipine Besylate (Norvasc -) 5 mg PO DAILY [facility] Last Admin: 05/15/19 09:37 Dose: 5 mg Aspirin (Ecotrin -) 81 mg PO DAILY [facility] Last Admin: 05/15/19 09:37 Dose: 81 mg Atorvastatin Calcium (Lipitor -) 40 mg PO HS [facility] Last Admin: 05/15/19 21:55 Dose: 40 mg Furosemide (Lasix -) 40 mg PO BID@0600,1400 [facility] Last Admin: 05/16/19 06:24 Dose: 40 mg Guaifenesin (Robitussin Dm -) 10 ml PO Q4H PRN PRN Reason: COUGH Last Admin: 05/13/19 05:56 Dose: 10 ml Meropenem 500 mg/ Dextrose 100 mls @ 200 mls/hr IVPB Q12H [facility] Last Admin: 05/16/19 01:32 Dose: 200 mls/hr Insulin Detemir (Levemir Vial) 18 units SQ AM [facility] Last Admin: 05/16/19 06:24 Dose: 18 units Levothyroxine Sodium (Synthroid -) 75 mcg PO DAILY@0700 [facility] Last Admin: 05/16/19 06:24 Dose: 75 mcg Montelukast Sodium (Singulair -) 10 mg PO HS [facility] Last Admin: 05/15/19 21:55 Dose: 10 mg Nebivolol (Bystolic -) 10 mg PO DAILY [facility] Last Admin: 05/15/19 09:37 Dose: 10 mg Sodium Bicarbonate (Sodium Bicarbonate -) 650 mg PO BID [facility] Last Admin: 05/15/19 21:54 Dose: 650 mg Zolpidem Tartrate (Ambien -) 5 mg PO HS PRN PRN Reason: INSOMNIA Last Admin: 05/15/19 21:55 Dose: 5 mg - Objective Vital Signs: Vital Signs Temperature 98.4 F 05/16/19 07:05 Pulse Rate 72 05/16/19 07:05 Respiratory Rate 20 05/16/19 07:05 Blood Pressure 166/80 05/16/19 07:05 O2 Sat by Pulse Oximetry (%) 96 05/15/19 21:00 Constitutional: Yes: No Distress, Calm Cardiovascular: Yes: S1, S2 Respiratory: Yes: Regular, CTA Bilaterally Gastrointestinal: Yes: Normal Bowel Sounds, Soft Musculoskeletal: Yes: WNL Extremities: Yes: WNL Neurological: Yes: Alert, Oriented Psychiatric: Yes: Alert, Oriented Labs: CBC, BMP 05/16/19 06:10 05/16/19 06:10 INR, PTT INR 1.08 (0.83-1.09) 05/10/19 13:30 Assessment/Plan Problem List - Problems (1) CHF exacerbation Code(s): I50.9 - HEART FAILURE, UNSPECIFIED Qualifiers: Heart failure type: unspecified Qualified Code(s): I50.9 - Heart failure, unspecified (2) UTI (urinary tract infection) Code(s): N39.0 - URINARY TRACT INFECTION, SITE NOT SPECIFIED (3) CKD (chronic kidney disease) Code(s): N18.9 - CHRONIC KIDNEY DISEASE, UNSPECIFIED (4) Troponin level elevated Code(s): R74.8 - ABNORMAL LEVELS OF OTHER SERUM ENZYMES (5) NSTEMI (non-ST elevated myocardial infarction) Code(s): I21.4 - NON-ST ELEVATION (NSTEMI) MYOCARDIAL INFARCTION (6) Renal failure (ARF), acute on chronic Code(s): N17.9 - ACUTE KIDNEY FAILURE, UNSPECIFIED; N18.9 - CHRONIC KIDNEY DISEASE, UNSPECIFIED plan continue abx complete abx course rest as per the team
[2019-05-16] MEDS: amLODIPine BESYLATE 5 MG TABLET (FP) PO SCH (10:41)
[2019-05-16] MEDS: ASPIRIN COATED 81 MG TABLET.EC PO SCH (10:41)
[2019-05-16] MEDS: NEBIVOLOL 10 MG TABLET (FP) PO SCH (10:42)
[2019-05-16] MEDS: SODIUM BICARBONATE 650 MG TABLET PO SCH ×2 (10:42→22:13)
--- NOTE | 2019-05-16 12:00 | PN ---
Progress Note (short form) - Note Progress Note: pt seen/ examined daughter at bedside feels much better all f/u noted Vital Signs Temp 98.4 F 05/16/19 07:05 Pulse 72 05/16/19 07:05 Resp 20 05/16/19 07:05 BP 166/80 05/16/19 07:05 Pulse Ox 96 05/15/19 21:00 Intake & Output 05/15/19 05/15/19 05/16/19 11:59 23:59 11:59 Intake Total 250 980 300 Balance 250 980 300 Weight 122 lb 122 lb 8 oz Intake: IVPB 50 100 100 Oral 200 300 200 Oral Supplement 580 Other: Voiding Method Toilet Toilet # Unmeasured Voids Void 2 1 Bowel Movement No No Weight Measurement Method Built in Bedscale Built in Bedscale Active Medications Acetaminophen (Tylenol -) 650 mg PO Q4H PRN PRN Reason: PAIN OR FEVER Last Admin: 05/14/19 02:28 Dose: 650 mg Albuterol/Ipratropium (Duoneb -) 1 amp NEB Q4H PRN PRN Reason: ASTHMA Last Admin: 05/14/19 03:07 Dose: 1 amp Amlodipine Besylate (Norvasc -) 5 mg PO DAILY [facility] Last Admin: 05/16/19 10:41 Dose: 5 mg Aspirin (Ecotrin -) 81 mg PO DAILY [facility] Last Admin: 05/16/19 10:41 Dose: 81 mg Atorvastatin Calcium (Lipitor -) 40 mg PO HS [facility] Last Admin: 05/15/19 21:55 Dose: 40 mg Furosemide (Lasix -) 40 mg PO BID@0600,1400 [facility] Last Admin: 05/16/19 06:24 Dose: 40 mg Guaifenesin (Robitussin Dm -) 10 ml PO Q4H PRN PRN Reason: COUGH Last Admin: 05/13/19 05:56 Dose: 10 ml Meropenem 500 mg/ Dextrose 100 mls @ 200 mls/hr IVPB Q12H [facility] Last Admin: 05/16/19 01:32 Dose: 200 mls/hr Insulin Detemir (Levemir Vial) 18 units SQ AM [facility] Last Admin: 05/16/19 06:24 Dose: 18 units Levothyroxine Sodium (Synthroid -) 75 mcg PO DAILY@0700 [facility] Last Admin: 05/16/19 06:24 Dose: 75 mcg Montelukast Sodium (Singulair -) 10 mg PO HS [facility] Last Admin: 05/15/19 21:55 Dose: 10 mg Nebivolol (Bystolic -) 10 mg PO DAILY [facility] Last Admin: 05/16/19 10:42 Dose: 10 mg Sodium Bicarbonate (Sodium Bicarbonate -) 650 mg PO BID [facility] Last Admin: 05/16/19 10:42 Dose: 650 mg Zolpidem Tartrate (Ambien -) 5 mg PO HS PRN PRN Reason: INSOMNIA Last Admin: 05/15/19 21:55 Dose: 5 mg CBC, BMP 05/16/19 06:10 05/16/19 06:10 cxr - noted -- Physical Exam Awake/ comfortable S1 and S2 regular LungsDecreased at bases Abdomensoft, non tender. bs + Extremitiesno edema plan Better --Continue Lasix--po dose --continue present care - monitor bgm-- increased levemir yesterday - monitor labs - daily oob- chair will follow labs noted OOB- CHAIR ESBL precautions ID f/u noted d/c planning anne tomorrow
--- NOTE | 2019-05-16 15:41 | PN ---
Progress Note (short form) - Note Progress Note: Renal follow up for SANTINO on CKD Pt seen and examined at the bedside awake and alert breathing is improved Vital Signs Temperature 98.4 F 05/16/19 07:05 Pulse Rate 72 05/16/19 07:05 Respiratory Rate 20 05/16/19 07:05 Blood Pressure 166/80 05/16/19 07:05 O2 Sat by Pulse Oximetry (%) 96 05/15/19 21:00 Intake & Output 05/13/19 05/14/19 05/15/19 05/16/19 23:59 23:59 23:59 23:59 Intake Total 551 083 0548 300 Balance 477 813 5620 300 Weight 55.055 kg 55.338 kg 55.565 kg NAD awake and alert neck supple, no JVD RRR, no M/R Dec BS soft NT/ND no LE edema, clubbing or cyanosis. CBC, BMP 05/16/19 06:10 05/16/19 06:10 Current Medications Acetaminophen (Tylenol -) 650 mg PO Q4H PRN PRN Reason: PAIN OR FEVER Last Admin: 05/14/19 02:28 Dose: 650 mg Albuterol/Ipratropium (Duoneb -) 1 amp NEB Q4H PRN PRN Reason: ASTHMA Last Admin: 05/14/19 03:07 Dose: 1 amp Amlodipine Besylate (Norvasc -) 10 mg PO DAILY [facility] Aspirin (Ecotrin -) 81 mg PO DAILY [facility] Last Admin: 05/16/19 10:41 Dose: 81 mg Atorvastatin Calcium (Lipitor -) 40 mg PO HS [facility] Last Admin: 05/15/19 21:55 Dose: 40 mg Furosemide (Lasix -) 40 mg PO BID@0600,1400 [facility] Last Admin: 05/16/19 14:51 Dose: 40 mg Guaifenesin (Robitussin Dm -) 10 ml PO Q4H PRN PRN Reason: COUGH Last Admin: 05/13/19 05:56 Dose: 10 ml Meropenem 500 mg/ Dextrose 100 mls @ 200 mls/hr IVPB Q12H [facility] Last Admin: 05/16/19 14:50 Dose: 200 mls/hr Insulin Detemir (Levemir Vial) 18 units SQ AM [facility] Last Admin: 05/16/19 06:24 Dose: 18 units Levothyroxine Sodium (Synthroid -) 75 mcg PO DAILY@0700 [facility] Last Admin: 05/16/19 06:24 Dose: 75 mcg Montelukast Sodium (Singulair -) 10 mg PO HS [facility] Last Admin: 05/15/19 21:55 Dose: 10 mg Nebivolol (Bystolic -) 10 mg PO DAILY [facility] Last Admin: 05/16/19 10:42 Dose: 10 mg Sodium Bicarbonate (Sodium Bicarbonate -) 650 mg PO BID [facility] Last Admin: 05/16/19 10:42 Dose: 650 mg Zolpidem Tartrate (Ambien -) 5 mg PO HS PRN PRN Reason: INSOMNIA Last Admin: 05/15/19 21:55 Dose: 5 mg 64 year old [place] woman with history of CHF, hypertension, hyperlipidemia , DM, CAD, CKD who presented with sob and admitted for acute CHF with SANTINO on CKD. #SANTINO on CKD in setting of acute HF #CKD stage 4 #CHF #Hypertension #Anemia Renal function stable at this time, not yet at baseline levels. continue lasix to 40mg PO BID ARLENE negative, SPEP results pending No acute need for renal replacement therapy started on oral sodium bicarbonate discharge planning as per primary team Steve Shrestha DO
[2019-05-16 16:59] VITALS: BMI 26.4
[2019-05-16] MEDS: ATORVASTATIN CA 40 MG TABLET (FP) PO SCH (22:13)
[2019-05-16] MEDS: MONTELUKAST NA 10 MG TABLET PO SCH (22:13)
[2019-05-17] MEDS ORDERED: PT OWN MED DRAWER 7, Y5N ONE ×3 (00:59→21:13)
[2019-05-17] MEDS: MEROPENEM 500 MG in DEXTROSE 5%-WATER 100 ML IVPB SCH ×2 (01:12→13:15)
[2019-05-17] MEDS: INSULIN (LEVEMIR) 100 UNITS/ML UNITS SQ SCH (06:00)
[2019-05-17] MEDS: amLODIPine BESYLATE 5 MG TABLET (FP) PO SCH (06:00)
[2019-05-17] MEDS: FUROSEMIDE 40 MG TABLET (FP) PO SCH ×2 (06:01→15:17)
[2019-05-17] MEDS: LEVOTHYROXINE NA 75 MCG TABLET (FP) PO SCH (06:01)
[2019-05-17 07:12] LABS: HEMATOCRIT 27.9 % (32.4-45.2); HEMOGLOBIN 9.1 GM/dL (10.7-15.3); MCH 24.6 pg (25.7-33.7); MCHC 32.5 g/dl (32.0-36.0); MEAN CELL VOLUME 75.7 fl (80-96); MEAN PLT VOLUME 10.3 fl (7.5-11.1); PLATELET COUNT 314 K/MM3 (134-434); RBC 3.69 M/mm3 (3.60-5.2); WHITE BLOOD COUNT 10.6 K/mm3 (4.0-10.0)
[2019-05-17] MEDS: SODIUM BICARBONATE 650 MG TABLET PO SCH ×2 (10:08→21:40)
[2019-05-17] MEDS: ASPIRIN COATED 81 MG TABLET.EC PO SCH (10:08)
[2019-05-17] MEDS: NEBIVOLOL 10 MG TABLET (FP) PO SCH (10:09)
--- NOTE | 2019-05-17 10:26 | PN ---
Progress Note, Physician History of Present Illness: stable no new issues - Current Medication List Current Medications: Active Medications Acetaminophen (Tylenol -) 650 mg PO Q4H PRN PRN Reason: PAIN OR FEVER Last Admin: 05/14/19 02:28 Dose: 650 mg Albuterol/Ipratropium (Duoneb -) 1 amp NEB Q4H PRN PRN Reason: ASTHMA Last Admin: 05/14/19 03:07 Dose: 1 amp Amlodipine Besylate (Norvasc -) 10 mg PO DAILY [facility] Last Admin: 05/17/19 06:00 Dose: 10 mg Aspirin (Ecotrin -) 81 mg PO DAILY [facility] Last Admin: 05/17/19 10:08 Dose: 81 mg Atorvastatin Calcium (Lipitor -) 40 mg PO HS [facility] Last Admin: 05/16/19 22:13 Dose: 40 mg Furosemide (Lasix -) 40 mg PO BID@0600,1400 [facility] Last Admin: 05/17/19 06:01 Dose: 40 mg Guaifenesin (Robitussin Dm -) 10 ml PO Q4H PRN PRN Reason: COUGH Last Admin: 05/13/19 05:56 Dose: 10 ml Meropenem 500 mg/ Dextrose 100 mls @ 200 mls/hr IVPB Q12H [facility] Last Admin: 05/17/19 01:12 Dose: 200 mls/hr Insulin Detemir (Levemir Vial) 18 units SQ AM [facility] Last Admin: 05/17/19 06:00 Dose: 18 units Levothyroxine Sodium (Synthroid -) 75 mcg PO DAILY@0700 [facility] Last Admin: 05/17/19 06:01 Dose: 75 mcg Montelukast Sodium (Singulair -) 10 mg PO HS [facility] Last Admin: 05/16/19 22:13 Dose: 10 mg Nebivolol (Bystolic -) 10 mg PO DAILY [facility] Last Admin: 05/17/19 10:09 Dose: 10 mg Sodium Bicarbonate (Sodium Bicarbonate -) 650 mg PO BID [facility] Last Admin: 05/17/19 10:08 Dose: 650 mg Zolpidem Tartrate (Ambien -) 5 mg PO HS PRN PRN Reason: INSOMNIA Last Admin: 05/15/19 21:55 Dose: 5 mg - Objective Vital Signs: Vital Signs Temperature 98.6 F 05/17/19 06:00 Pulse Rate 64 05/16/19 22:00 Respiratory Rate 20 05/17/19 06:00 Blood Pressure 144/60 05/17/19 06:00 O2 Sat by Pulse Oximetry (%) 96 05/15/19 21:00 Constitutional: Yes: No Distress, Calm Cardiovascular: Yes: S1, S2 Respiratory: Yes: Regular, CTA Bilaterally Gastrointestinal: Yes: Normal Bowel Sounds, Soft Musculoskeletal: Yes: WNL Extremities: Yes: WNL Neurological: Yes: Alert, Oriented Psychiatric: Yes: Alert, Oriented Labs: CBC, BMP 05/17/19 05:10 05/16/19 06:10 INR, PTT INR 1.08 (0.83-1.09) 05/10/19 13:30 Assessment/Plan Problem List - Problems (1) CHF exacerbation Code(s): I50.9 - HEART FAILURE, UNSPECIFIED Qualifiers: Heart failure type: unspecified Qualified Code(s): I50.9 - Heart failure, unspecified (2) UTI (urinary tract infection) Code(s): N39.0 - URINARY TRACT INFECTION, SITE NOT SPECIFIED (3) CKD (chronic kidney disease) Code(s): N18.9 - CHRONIC KIDNEY DISEASE, UNSPECIFIED (4) Troponin level elevated Code(s): R74.8 - ABNORMAL LEVELS OF OTHER SERUM ENZYMES (5) NSTEMI (non-ST elevated myocardial infarction) Code(s): I21.4 - NON-ST ELEVATION (NSTEMI) MYOCARDIAL INFARCTION (6) Renal failure (ARF), acute on chronic Code(s): N17.9 - ACUTE KIDNEY FAILURE, UNSPECIFIED; N18.9 - CHRONIC KIDNEY DISEASE, UNSPECIFIED plan continue abx complete abx course rest as per the team
--- NOTE | 2019-05-17 15:39 | PN ---
Progress Note (short form) - Note Progress Note: patient seen and examined today Comfortable Wants to go home Vital Signs Temp 98.6 F 05/17/19 06:00 Pulse 64 05/16/19 22:00 Resp 20 05/17/19 06:00 BP 144/60 05/17/19 06:00 Pulse Ox 96 05/15/19 21:00 Intake & Output 05/16/19 05/17/19 05/17/19 23:59 11:59 23:59 Intake Total 400 400 400 Balance 400 400 400 Weight 122 lb 121 lb Intake: IVPB 100 100 Oral 300 300 400 Other: Voiding Method Toilet Toilet # Unmeasured Voids Void 1 2 Bowel Movement No Height 4 ft 9 in Body Mass Index (BMI) 26.4 Weight Measurement Method Built in [facility] Active Medications Acetaminophen (Tylenol -) 650 mg PO Q4H PRN PRN Reason: PAIN OR FEVER Last Admin: 05/14/19 02:28 Dose: 650 mg Albuterol/Ipratropium (Duoneb -) 1 amp NEB Q4H PRN PRN Reason: ASTHMA Last Admin: 05/14/19 03:07 Dose: 1 amp Amlodipine Besylate (Norvasc -) 10 mg PO DAILY [facility] Last Admin: 05/17/19 06:00 Dose: 10 mg Aspirin (Ecotrin -) 81 mg PO DAILY [facility] Last Admin: 05/17/19 10:08 Dose: 81 mg Atorvastatin Calcium (Lipitor -) 40 mg PO HS [facility] Last Admin: 05/16/19 22:13 Dose: 40 mg Furosemide (Lasix -) 40 mg PO BID@0600,1400 [facility] Last Admin: 05/17/19 15:17 Dose: 40 mg Guaifenesin (Robitussin Dm -) 10 ml PO Q4H PRN PRN Reason: COUGH Last Admin: 05/13/19 05:56 Dose: 10 ml Meropenem 500 mg/ Dextrose 100 mls @ 200 mls/hr IVPB Q12H [facility] Last Admin: 05/17/19 13:15 Dose: 200 mls/hr Insulin Detemir (Levemir Vial) 18 units SQ AM [facility] Last Admin: 05/17/19 06:00 Dose: 18 units Levothyroxine Sodium (Synthroid -) 75 mcg PO DAILY@0700 [facility] Last Admin: 05/17/19 06:01 Dose: 75 mcg Montelukast Sodium (Singulair -) 10 mg PO HS [facility] Last Admin: 05/16/19 22:13 Dose: 10 mg Nebivolol (Bystolic -) 10 mg PO DAILY [facility] Last Admin: 05/17/19 10:09 Dose: 10 mg Sodium Bicarbonate (Sodium Bicarbonate -) 650 mg PO BID [facility] Last Admin: 05/17/19 10:08 Dose: 650 mg Zolpidem Tartrate (Ambien -) 5 mg PO HS PRN PRN Reason: INSOMNIA Last Admin: 05/15/19 21:55 Dose: 5 mg CBC, BMP 05/17/19 05:10 05/16/19 06:10 Physical Exam Awake/ comfortable S1 and S2 regular LungsDecreased at bases Abdomensoft, non tender. bs + Extremitiesno edema plan Better --Continue Lasix--po dose --continue present care - monitor bgm-- OOB- CHAIR ESBL precautions DC planning likely today Will discuss with ID Discussed with patient and patient's daughter as well as nursing staff I
--- NOTE | 2019-05-17 15:45 | PN ---
Progress Note (short form) - Note Progress Note: Renal follow up for SANTINO on CKD Pt seen and examined at the bedside awake and alert no acute complaints Vital Signs Temperature 98.6 F 05/17/19 06:00 Pulse Rate 64 05/16/19 22:00 Respiratory Rate 20 05/17/19 06:00 Blood Pressure 144/60 05/17/19 06:00 O2 Sat by Pulse Oximetry (%) 96 05/15/19 21:00 Intake & Output 05/14/19 05/15/19 05/16/19 05/17/19 23:59 23:59 23:59 23:59 Intake Total 300 1230 700 800 Balance 300 1230 700 800 Weight 55.055 kg 55.338 kg 55.338 kg 54.885 kg NAD awake and alert neck supple, no JVD RRR, no M/R Dec BS soft NT/ND no LE edema, clubbing or cyanosis. CBC, BMP 05/17/19 05:10 05/16/19 06:10 Current Medications Acetaminophen (Tylenol -) 650 mg PO Q4H PRN PRN Reason: PAIN OR FEVER Last Admin: 05/14/19 02:28 Dose: 650 mg Albuterol/Ipratropium (Duoneb -) 1 amp NEB Q4H PRN PRN Reason: ASTHMA Last Admin: 05/14/19 03:07 Dose: 1 amp Amlodipine Besylate (Norvasc -) 10 mg PO DAILY [facility] Last Admin: 05/17/19 06:00 Dose: 10 mg Aspirin (Ecotrin -) 81 mg PO DAILY [facility] Last Admin: 05/17/19 10:08 Dose: 81 mg Atorvastatin Calcium (Lipitor -) 40 mg PO HS [facility] Last Admin: 05/16/19 22:13 Dose: 40 mg Furosemide (Lasix -) 40 mg PO BID@0600,1400 [facility] Last Admin: 05/17/19 15:17 Dose: 40 mg Guaifenesin (Robitussin Dm -) 10 ml PO Q4H PRN PRN Reason: COUGH Last Admin: 05/13/19 05:56 Dose: 10 ml Meropenem 500 mg/ Dextrose 100 mls @ 200 mls/hr IVPB Q12H [facility] Last Admin: 05/17/19 13:15 Dose: 200 mls/hr Insulin Detemir (Levemir Vial) 18 units SQ AM [facility] Last Admin: 05/17/19 06:00 Dose: 18 units Levothyroxine Sodium (Synthroid -) 75 mcg PO DAILY@0700 [facility] Last Admin: 05/17/19 06:01 Dose: 75 mcg Montelukast Sodium (Singulair -) 10 mg PO HS [facility] Last Admin: 05/16/19 22:13 Dose: 10 mg Nebivolol (Bystolic -) 10 mg PO DAILY [facility] Last Admin: 05/17/19 10:09 Dose: 10 mg Sodium Bicarbonate (Sodium Bicarbonate -) 650 mg PO BID [facility] Last Admin: 05/17/19 10:08 Dose: 650 mg Zolpidem Tartrate (Ambien -) 5 mg PO HS PRN PRN Reason: INSOMNIA Last Admin: 05/15/19 21:55 Dose: 5 mg 64 year old [place] woman with history of CHF, hypertension, hyperlipidemia , DM, CAD, CKD who presented with sob and admitted for acute CHF with SANTINO on CKD. #SANTINO on CKD in setting of acute HF #CKD stage 4 #CHF #Hypertension #Anemia Renal function stable as of yesterday, no BMP today Clincially improved continue lasix 40mg PO BID ARLENE negative, SPEP showed no m-spike No acute need for renal replacement therapy Continue oral sodium bicarbonate discharge planning as per primary team if still inpatient repeat BMP in AM Steve Shrestha DO
[2019-05-17] MEDS: ATORVASTATIN CA 40 MG TABLET (FP) PO SCH (21:40)
[2019-05-17] MEDS: MONTELUKAST NA 10 MG TABLET PO SCH (21:40)
[2019-05-18] MEDS ORDERED: PT OWN MED DRAWER 7, Y5N ONE ×3 (01:22→11:37)
[2019-05-18] MEDS: MEROPENEM 500 MG in DEXTROSE 5%-WATER 100 ML IVPB SCH ×2 (01:30→13:46)
[2019-05-18] MEDS: INSULIN (LEVEMIR) 100 UNITS/ML UNITS SQ SCH (06:04)
[2019-05-18] MEDS: LEVOTHYROXINE NA 75 MCG TABLET (FP) PO SCH (06:05)
[2019-05-18] MEDS: FUROSEMIDE 40 MG TABLET (FP) PO SCH ×2 (06:05→15:46)
--- NOTE | 2019-05-18 08:47 | PN ---
Progress Note, Physician History of Present Illness: stable doing well - Current Medication List Current Medications: Active Medications Acetaminophen (Tylenol -) 650 mg PO Q4H PRN PRN Reason: PAIN OR FEVER Last Admin: 05/14/19 02:28 Dose: 650 mg Albuterol/Ipratropium (Duoneb -) 1 amp NEB Q4H PRN PRN Reason: ASTHMA Last Admin: 05/14/19 03:07 Dose: 1 amp Amlodipine Besylate (Norvasc -) 10 mg PO DAILY [facility] Last Admin: 05/17/19 06:00 Dose: 10 mg Aspirin (Ecotrin -) 81 mg PO DAILY [facility] Last Admin: 05/17/19 10:08 Dose: 81 mg Atorvastatin Calcium (Lipitor -) 40 mg PO HS [facility] Last Admin: 05/17/19 21:40 Dose: 40 mg Furosemide (Lasix -) 40 mg PO BID@0600,1400 [facility] Last Admin: 05/18/19 06:05 Dose: 40 mg Guaifenesin (Robitussin Dm -) 10 ml PO Q4H PRN PRN Reason: COUGH Last Admin: 05/13/19 05:56 Dose: 10 ml Meropenem 500 mg/ Dextrose 100 mls @ 200 mls/hr IVPB Q12H [facility] Last Admin: 05/18/19 01:30 Dose: 200 mls/hr Insulin Detemir (Levemir Vial) 18 units SQ AM [facility] Last Admin: 05/18/19 06:04 Dose: 18 units Levothyroxine Sodium (Synthroid -) 75 mcg PO DAILY@0700 [facility] Last Admin: 05/18/19 06:05 Dose: 75 mcg Montelukast Sodium (Singulair -) 10 mg PO HS [facility] Last Admin: 05/17/19 21:40 Dose: 10 mg Nebivolol (Bystolic -) 10 mg PO DAILY [facility] Last Admin: 05/17/19 10:09 Dose: 10 mg Sodium Bicarbonate (Sodium Bicarbonate -) 650 mg PO BID [facility] Last Admin: 05/17/19 21:40 Dose: 650 mg Zolpidem Tartrate (Ambien -) 5 mg PO HS PRN PRN Reason: INSOMNIA Last Admin: 05/15/19 21:55 Dose: 5 mg - Objective Vital Signs: Vital Signs Temperature 98.4 F 05/18/19 07:10 Pulse Rate 84 05/18/19 07:10 Respiratory Rate 20 05/18/19 07:10 Blood Pressure 130/70 05/18/19 07:10 O2 Sat by Pulse Oximetry (%) 96 05/15/19 21:00 Constitutional: Yes: No Distress, Calm Cardiovascular: Yes: Regular Rate and Rhythm Respiratory: Yes: Regular, CTA Bilaterally Gastrointestinal: Yes: Normal Bowel Sounds, Soft Musculoskeletal: Yes: WNL Extremities: Yes: WNL Neurological: Yes: Alert, Oriented Psychiatric: Yes: Alert, Oriented Labs: CBC, BMP 05/17/19 05:10 05/16/19 06:10 INR, PTT INR 1.08 (0.83-1.09) 05/10/19 13:30 Assessment/Plan Problem List - Problems (1) CHF exacerbation Code(s): I50.9 - HEART FAILURE, UNSPECIFIED Qualifiers: Heart failure type: unspecified Qualified Code(s): I50.9 - Heart failure, unspecified (2) UTI (urinary tract infection) Code(s): N39.0 - URINARY TRACT INFECTION, SITE NOT SPECIFIED (3) CKD (chronic kidney disease) Code(s): N18.9 - CHRONIC KIDNEY DISEASE, UNSPECIFIED (4) Troponin level elevated Code(s): R74.8 - ABNORMAL LEVELS OF OTHER SERUM ENZYMES (5) NSTEMI (non-ST elevated myocardial infarction) Code(s): I21.4 - NON-ST ELEVATION (NSTEMI) MYOCARDIAL INFARCTION (6) Renal failure (ARF), acute on chronic Code(s): N17.9 - ACUTE KIDNEY FAILURE, UNSPECIFIED; N18.9 - CHRONIC KIDNEY DISEASE, UNSPECIFIED plan continue current mgmt abx finish abx course
[2019-05-18] MEDS: NEBIVOLOL 10 MG TABLET (FP) PO SCH (10:03)
[2019-05-18] MEDS: amLODIPine BESYLATE 5 MG TABLET (FP) PO SCH (10:03)
[2019-05-18] MEDS: SODIUM BICARBONATE 650 MG TABLET PO SCH ×2 (10:03→22:39)
[2019-05-18] MEDS: ASPIRIN COATED 81 MG TABLET.EC PO SCH (10:03)
--- NOTE | 2019-05-18 12:52 | PN ---
Progress Note (short form) - Note Progress Note: comfortable events noted had discussed with i/d, caseworker/ pts daughters in detail I/d wants abx - atleast till tuesday-- could not get home infusion as pt has no insurance active afebrile denies pain Vital Signs Temp 98.4 F 05/18/19 07:10 Pulse 84 05/18/19 07:10 Resp 20 05/18/19 07:10 BP 130/70 05/18/19 07:10 Pulse Ox 96 05/15/19 21:00 Intake & Output 05/17/19 05/18/19 05/18/19 23:59 11:59 23:59 Intake Total 950 250 Balance 950 250 Weight 121 lb 9 oz Intake: IVPB 100 Oral 950 150 Other: Voiding Method Toilet # Unmeasured Voids Void 1 Weight Measurement Method Built in [facility] Active Medications Acetaminophen (Tylenol -) 650 mg PO Q4H PRN PRN Reason: PAIN OR FEVER Last Admin: 05/14/19 02:28 Dose: 650 mg Albuterol/Ipratropium (Duoneb -) 1 amp NEB Q4H PRN PRN Reason: ASTHMA Last Admin: 05/14/19 03:07 Dose: 1 amp Amlodipine Besylate (Norvasc -) 10 mg PO DAILY [facility] Last Admin: 05/18/19 10:03 Dose: 10 mg Aspirin (Ecotrin -) 81 mg PO DAILY [facility] Last Admin: 05/18/19 10:03 Dose: 81 mg Atorvastatin Calcium (Lipitor -) 40 mg PO HS [facility] Last Admin: 05/17/19 21:40 Dose: 40 mg Furosemide (Lasix -) 40 mg PO BID@0600,1400 [facility] Last Admin: 05/18/19 06:05 Dose: 40 mg Guaifenesin (Robitussin Dm -) 10 ml PO Q4H PRN PRN Reason: COUGH Last Admin: 05/13/19 05:56 Dose: 10 ml Meropenem 500 mg/ Dextrose 100 mls @ 200 mls/hr IVPB Q12H [facility] Last Admin: 05/18/19 01:30 Dose: 200 mls/hr Insulin Detemir (Levemir Vial) 18 units SQ AM [facility] Last Admin: 05/18/19 06:04 Dose: 18 units Levothyroxine Sodium (Synthroid -) 75 mcg PO DAILY@0700 [facility] Last Admin: 05/18/19 06:05 Dose: 75 mcg Montelukast Sodium (Singulair -) 10 mg PO HS [facility] Last Admin: 05/17/19 21:40 Dose: 10 mg Nebivolol (Bystolic -) 10 mg PO DAILY [facility] Last Admin: 05/18/19 10:03 Dose: 10 mg Sodium Bicarbonate (Sodium Bicarbonate -) 650 mg PO BID [facility] Last Admin: 05/18/19 10:03 Dose: 650 mg CBC, BMP 05/17/19 05:10 05/16/19 06:10 Physical Exam Awake/ comfortable S1 and S2 regular LungsDecreased at bases Abdomensoft, non tender. bs + Extremitiesno edema plan Better --Continue Lasix-- --continue present care - monitor bgm-- OOB- CHAIR ESBL precautions abx discussed with caseworker/ daughters and i/d again today
--- NOTE | 2019-05-18 15:06 | PN ---
Progress Note (short form) - Note Progress Note: Renal follow up for SANTINO on CKD Pt seen and examined at the bedside awake and alert feels well no sob, cp, abd pain making urine tolerating oral diet Vital Signs Temperature 98.4 F 05/18/19 07:10 Pulse Rate 84 05/18/19 07:10 Respiratory Rate 20 05/18/19 07:10 Blood Pressure 130/70 05/18/19 07:10 O2 Sat by Pulse Oximetry (%) 96 05/15/19 21:00 Intake & Output 05/15/19 05/16/19 05/17/19 05/18/19 23:59 23:59 23:59 23:59 Intake Total 5339 288 0833 250 Balance 9215 674 1798 250 Weight 55.338 kg 55.338 kg 54.885 kg 55.14 kg NAD awake and alert neck supple, no JVD RRR, no M/R Dec BS soft NT/ND no LE edema, clubbing or cyanosis. CBC, BMP 05/17/19 05:10 05/16/19 06:10 Current Medications Acetaminophen (Tylenol -) 650 mg PO Q4H PRN PRN Reason: PAIN OR FEVER Last Admin: 05/14/19 02:28 Dose: 650 mg Albuterol/Ipratropium (Duoneb -) 1 amp NEB Q4H PRN PRN Reason: ASTHMA Last Admin: 05/14/19 03:07 Dose: 1 amp Amlodipine Besylate (Norvasc -) 10 mg PO DAILY [facility] Last Admin: 05/18/19 10:03 Dose: 10 mg Aspirin (Ecotrin -) 81 mg PO DAILY [facility] Last Admin: 05/18/19 10:03 Dose: 81 mg Atorvastatin Calcium (Lipitor -) 40 mg PO HS [facility] Last Admin: 05/17/19 21:40 Dose: 40 mg Furosemide (Lasix -) 40 mg PO BID@0600,1400 [facility] Last Admin: 05/18/19 06:05 Dose: 40 mg Guaifenesin (Robitussin Dm -) 10 ml PO Q4H PRN PRN Reason: COUGH Last Admin: 05/13/19 05:56 Dose: 10 ml Meropenem 500 mg/ Dextrose 100 mls @ 200 mls/hr IVPB Q12H [facility] Last Admin: 05/18/19 13:46 Dose: 200 mls/hr Insulin Detemir (Levemir Vial) 18 units SQ AM [facility] Last Admin: 05/18/19 06:04 Dose: 18 units Levothyroxine Sodium (Synthroid -) 75 mcg PO DAILY@0700 [facility] Last Admin: 05/18/19 06:05 Dose: 75 mcg Montelukast Sodium (Singulair -) 10 mg PO HS [facility] Last Admin: 05/17/19 21:40 Dose: 10 mg Nebivolol (Bystolic -) 10 mg PO DAILY [facility] Last Admin: 05/18/19 10:03 Dose: 10 mg Sodium Bicarbonate (Sodium Bicarbonate -) 650 mg PO BID [facility] Last Admin: 05/18/19 10:03 Dose: 650 mg 64 year old [place] woman with history of CHF, hypertension, hyperlipidemia , DM, CAD, CKD who presented with sob and admitted for acute CHF with SANTINO on CKD. #SANTINO on CKD in setting of acute HF #CKD stage 4 #CHF #Hypertension #Anemia Renal function stable no BMP today, check in AM Clincially improved continue lasix 40mg PO BID ARLENE negative, SPEP showed no m-spike No acute need for renal replacement therapy at this time Continue oral sodium bicarbonate discharge planning as per primary team if still inpatient repeat BMP in AM Steve Shrestha DO
[2019-05-18] MEDS: MONTELUKAST NA 10 MG TABLET PO SCH (22:39)
[2019-05-18] MEDS: ATORVASTATIN CA 40 MG TABLET (FP) PO SCH (22:39)
[2019-05-19] MEDS: MEROPENEM 500 MG in DEXTROSE 5%-WATER 100 ML IVPB SCH ×2 (01:07→12:40)
[2019-05-19] MEDS: FUROSEMIDE 40 MG TABLET (FP) PO SCH ×2 (06:43→14:50)
[2019-05-19] MEDS: LEVOTHYROXINE NA 75 MCG TABLET (FP) PO SCH (06:43)
[2019-05-19] MEDS: INSULIN (LEVEMIR) 100 UNITS/ML UNITS SQ SCH (06:44)
--- NOTE | 2019-05-19 08:45 | PN ---
Progress Note (short form) - Note Progress Note: RENAL Coverage for Dr Shrestha Pt has no complaints Last Vital Signs Temp Pulse Resp BP Pulse Ox 98.1 F 72 18 139/55 L 100 05/19/19 06:00 05/19/19 06:00 05/19/19 06:00 05/19/19 06:00 05/18/19 21:00 +JVD lungs clear cvs s1s2 +malia abd soft ext no edema neuro awake CBC, BMP 05/17/19 05:10 Current Medications Generic Name Dose Route Start Last Admin Trade Name Freq PRN Reason Stop Dose Admin Acetaminophen 650 mg 05/10/19 15:32 05/14/19 02:28 Tylenol - PO 650 mg Q4H PRN Administration PAIN OR FEVER Albuterol/Ipratropium 1 amp 05/10/19 15:31 05/14/19 03:07 Duoneb - NEB 1 amp Q4H PRN Administration ASTHMA Amlodipine Besylate 10 mg 05/17/19 06:00 05/18/19 10:03 Norvasc - PO 10 mg DAILY [facility] Administration Aspirin 81 mg 05/11/19 10:00 05/18/19 10:03 Ecotrin - PO 81 mg DAILY [facility] Administration Atorvastatin Calcium 40 mg 05/10/19 22:00 05/18/19 22:39 Lipitor - PO 40 mg HS [facility] Administration Furosemide 40 mg 05/15/19 15:42 05/19/19 06:43 Lasix - PO 40 mg BID@0600,1400 [facility] Administration Guaifenesin 10 ml 05/11/19 00:45 05/13/19 05:56 Robitussin Dm - PO 10 ml Q4H PRN Administration COUGH Meropenem 500 mg/ Dextrose 100 mls @ 200 mls/hr 05/12/19 13:30 05/19/19 01:07 IVPB 200 mls/hr Q12H [facility] Administration Insulin Detemir 18 units 05/15/19 07:00 05/19/19 06:44 Levemir Vial SQ 18 units AM [facility] Administration Levothyroxine Sodium 75 mcg 05/11/19 07:00 05/19/19 06:43 Synthroid - PO 75 mcg DAILY@0700 [facility] Administration Montelukast Sodium 10 mg 05/11/19 22:00 05/18/19 22:39 Singulair - PO 10 mg HS [facility] Administration Nebivolol 10 mg 05/11/19 10:00 05/18/19 10:03 Bystolic - PO 10 mg DAILY [facility] Administration Sodium Bicarbonate 650 mg 05/15/19 12:00 05/18/19 22:39 Sodium Bicarbonate - PO 650 mg BID [facility] Administration 64 year old [place] woman with history of CHF, hypertension, hyperlipidemia , DM, CAD, CKD who presented with sob and admitted for acute CHF with SANTINO on CKD. #SANTINO on CKD in setting of acute HF #CKD stage 4 #CHF #Hypertension #Anemia would repeat blood tests cardiology follow up regarding JVD which maybe chronic continue sodium bicarb MV
[2019-05-19 08:46] LABS: CALCIUM 7.8 mg/dL (8.5-10.1); CREATININE 3.6 mg/dL (0.55-1.3); MAGNESIUM 2.4 mg/dL (1.8-2.4); POTASSIUM 3.7 mmol/L (3.5-5.1)
[2019-05-19] MEDS ORDERED: PT OWN MED DRAWER 7, Y5N ONE ×2 (09:42→12:38)
[2019-05-19] MEDS: NEBIVOLOL 10 MG TABLET (FP) PO SCH (10:47)
[2019-05-19] MEDS: amLODIPine BESYLATE 5 MG TABLET (FP) PO SCH (10:47)
[2019-05-19] MEDS: ASPIRIN COATED 81 MG TABLET.EC PO SCH (10:47)
[2019-05-19] MEDS: SODIUM BICARBONATE 650 MG TABLET PO SCH ×2 (10:47→22:16)
[2019-05-19] MEDS ORDERED: DEXTROSE 50%-WATER 25 GM/50 ML DISP.SYRIN ONE (11:56)
[2019-05-19] MEDS ORDERED: DEXTROSE 50%-WATER - 25 GM/50 ML VIAL IVPUSH ONE (12:15)
--- NOTE | 2019-05-19 13:19 | PN ---
Progress Note (short form) - Note Progress Note: comfortably sleeping episode of hypoglycemia today--- did not eat breakfast discussed with nursing staff/ pts daughter Vital Signs Temp 97.4 F L 05/19/19 10:00 Pulse 93 H 05/19/19 10:00 Resp 16 05/19/19 10:00 BP 138/50 L 05/19/19 10:00 Pulse Ox 100 05/18/19 21:00 Intake & Output 05/18/19 05/19/19 05/19/19 23:59 11:59 23:59 Intake Total 350 100 Balance 350 100 Weight 120 lb 8 oz Intake: IV 0 SALIN LOCK 0 IVPB 100 Oral 350 Other: Voiding Method Toilet Toilet # Unmeasured Voids Void 1 Bowel Movement No Weight Measurement Method Built in [facility] Active Medications Acetaminophen (Tylenol -) 650 mg PO Q4H PRN PRN Reason: PAIN OR FEVER Last Admin: 05/14/19 02:28 Dose: 650 mg Albuterol/Ipratropium (Duoneb -) 1 amp NEB Q4H PRN PRN Reason: ASTHMA Last Admin: 05/14/19 03:07 Dose: 1 amp Amlodipine Besylate (Norvasc -) 10 mg PO DAILY [facility] Last Admin: 05/19/19 10:47 Dose: 10 mg Aspirin (Ecotrin -) 81 mg PO DAILY [facility] Last Admin: 05/19/19 10:47 Dose: 81 mg Atorvastatin Calcium (Lipitor -) 40 mg PO HS [facility] Last Admin: 05/18/19 22:39 Dose: 40 mg Furosemide (Lasix -) 40 mg PO BID@0600,1400 [facility] Last Admin: 05/19/19 06:43 Dose: 40 mg Guaifenesin (Robitussin Dm -) 10 ml PO Q4H PRN PRN Reason: COUGH Last Admin: 05/13/19 05:56 Dose: 10 ml Meropenem 500 mg/ Dextrose 100 mls @ 200 mls/hr IVPB Q12H [facility] Last Admin: 05/19/19 12:40 Dose: 200 mls/hr Insulin Detemir (Levemir Vial) 18 units SQ AM [facility] Last Admin: 05/19/19 06:44 Dose: 18 units Levothyroxine Sodium (Synthroid -) 75 mcg PO DAILY@0700 [facility] Last Admin: 05/19/19 06:43 Dose: 75 mcg Montelukast Sodium (Singulair -) 10 mg PO [facility] Last Admin: 05/18/19 22:39 Dose: 10 mg Nebivolol (Bystolic -) 10 mg PO DAILY [facility] Last Admin: 05/19/19 10:47 Dose: 10 mg Sodium Bicarbonate (Sodium Bicarbonate -) 650 mg PO BID [facility] Last Admin: 05/19/19 10:47 Dose: 650 mg CBC, BMP 05/17/19 05:10 05/19/19 06:45 Physical Exam comfortable S1 and S2 regular LungsDecreased at bases Abdomensoft, non tender. bs + Extremitiesno edema plan stable --Continue Lasix-- --continue present care - monitor bgm-- OOB- CHAIR ESBL precautions abx
--- NOTE | 2019-05-19 17:08 | PN ---
Progress Note, Physician History of Present Illness: Pt seen and examined. Denies any specific complaints other than some mild heartburn but no CP/SOB/Abd pain/n/v/d. Remains afebrile. Daughter at bedside states pt is feeling better. - Current Medication List Current Medications: Active Medications Acetaminophen (Tylenol -) 650 mg PO Q4H PRN PRN Reason: PAIN OR FEVER Last Admin: 05/14/19 02:28 Dose: 650 mg Albuterol/Ipratropium (Duoneb -) 1 amp NEB Q4H PRN PRN Reason: ASTHMA Last Admin: 05/14/19 03:07 Dose: 1 amp Amlodipine Besylate (Norvasc -) 10 mg PO DAILY [facility] Last Admin: 05/19/19 10:47 Dose: 10 mg Aspirin (Ecotrin -) 81 mg PO DAILY [facility] Last Admin: 05/19/19 10:47 Dose: 81 mg Atorvastatin Calcium (Lipitor -) 40 mg PO HS [facility] Last Admin: 05/18/19 22:39 Dose: 40 mg Furosemide (Lasix -) 40 mg PO BID@0600,1400 [facility] Last Admin: 05/19/19 14:50 Dose: 40 mg Guaifenesin (Robitussin Dm -) 10 ml PO Q4H PRN PRN Reason: COUGH Last Admin: 05/13/19 05:56 Dose: 10 ml Meropenem 500 mg/ Dextrose 100 mls @ 200 mls/hr IVPB Q12H [facility] Last Admin: 05/19/19 12:40 Dose: 200 mls/hr Insulin Detemir (Levemir Vial) 18 units SQ AM [facility] Last Admin: 05/19/19 06:44 Dose: 18 units Levothyroxine Sodium (Synthroid -) 75 mcg PO DAILY@0700 [facility] Last Admin: 05/19/19 06:43 Dose: 75 mcg Montelukast Sodium (Singulair -) 10 mg PO HS [facility] Last Admin: 05/18/19 22:39 Dose: 10 mg Nebivolol (Bystolic -) 10 mg PO DAILY [facility] Last Admin: 05/19/19 10:47 Dose: 10 mg Sodium Bicarbonate (Sodium Bicarbonate -) 650 mg PO BID [facility] Last Admin: 05/19/19 10:47 Dose: 650 mg - Objective Vital Signs: Vital Signs Temperature 97.4 F L 05/19/19 15:24 Pulse Rate 66 05/19/19 15:24 Respiratory Rate 18 05/19/19 15:24 Blood Pressure 141/70 05/19/19 15:24 O2 Sat by Pulse Oximetry (%) 98 05/19/19 09:00 Constitutional: Yes: No Distress, Calm Cardiovascular: Yes: Regular Rate and Rhythm Respiratory: Yes: Regular Gastrointestinal: Yes: Normal Bowel Sounds, Soft Genitourinary: Yes: WNL Extremities: Yes: WNL Integumentary: Yes: WNL Neurological: Yes: Alert Labs: CBC, BMP 05/17/19 05:10 05/19/19 06:45 INR, PTT INR 1.08 (0.83-1.09) 05/10/19 13:30 Microbiology 05/10/19 13:30 Blood - Peripheral Venous Blood Culture - Final NO GROWTH AFTER 5 DAYS INCUBATION 05/10/19 13:30 Blood - Peripheral Venous Blood Culture - Final NO GROWTH AFTER 5 DAYS INCUBATION 05/10/19 13:30 Urine - Urine Clean Catch Urine Culture - Final Escherichia Coli Esbl Check Pilot Problem List - Problems (1) CHF exacerbation Code(s): I50.9 - HEART FAILURE, UNSPECIFIED Qualifiers: Heart failure type: unspecified Qualified Code(s): I50.9 - Heart failure, unspecified (2) UTI (urinary tract infection) Code(s): N39.0 - URINARY TRACT INFECTION, SITE NOT SPECIFIED (3) CAD (coronary artery disease) Code(s): I25.10 - ATHSCL HEART DISEASE OF [place] CORONARY ARTERY W/O ANG PCTRS (4) CKD (chronic kidney disease) Code(s): N18.9 - CHRONIC KIDNEY DISEASE, UNSPECIFIED (5) Diabetes Code(s): E11.9 - TYPE 2 DIABETES MELLITUS WITHOUT COMPLICATIONS Assessment/Plan ESBL+ E. coli UTI CHF CKD CAD DM Anemia -- pt afebrile, alert, without distress -- continue Meropenem (Day #8 today), recommend total 14 days treatment continue monitor on contact precautions
[2019-05-19] MEDS: MONTELUKAST NA 10 MG TABLET PO SCH (22:16)
[2019-05-19] MEDS: ATORVASTATIN CA 40 MG TABLET (FP) PO SCH (22:16)
[2019-05-20] MEDS ORDERED: PT OWN MED DRAWER 7, Y5N ONE ×3 (01:14→12:52)
[2019-05-20] MEDS: MEROPENEM 500 MG in DEXTROSE 5%-WATER 100 ML IVPB SCH ×2 (01:29→12:55)
[2019-05-20] MEDS: FUROSEMIDE 40 MG TABLET (FP) PO SCH ×2 (06:15→14:27)
[2019-05-20] MEDS: INSULIN (LEVEMIR) 100 UNITS/ML UNITS SQ SCH (06:15)
[2019-05-20] MEDS: LEVOTHYROXINE NA 75 MCG TABLET (FP) PO SCH (06:15)
[2019-05-20 07:33] LABS: BASO % 0.6 % (0-2.0); EOS % 3.1 % (0-4.5); HEMATOCRIT 26.6 % (32.4-45.2); HEMOGLOBIN 8.4 GM/dL (10.7-15.3); LYMPH % 27.6 % (8-40); MCH 24.3 pg (25.7-33.7); MCHC 31.5 g/dl (32.0-36.0); MEAN CELL VOLUME 77.2 fl (80-96); MEAN PLT VOLUME 10.7 fl (7.5-11.1); MONO % 7.6 % (3.8-10.2); NEUT % 61.1 % (42.8-82.8); PLATELET COUNT 285 K/MM3 (134-434); RBC 3.44 M/mm3 (3.60-5.2); RDW 15.6 % (11.6-15.6); WHITE BLOOD COUNT 11.4 K/mm3 (4.0-10.0)
[2019-05-20 07:52] LABS: CALCIUM 7.9 mg/dL (8.5-10.1); CREATININE 3.6 mg/dL (0.55-1.3); POTASSIUM 4.2 mmol/L (3.5-5.1)
--- NOTE | 2019-05-20 08:12 | PN ---
Progress Note (short form) - Note Progress Note: RENAL Coverage for Dr Shrestha Pt has no complaints though she says no turkish Last Vital Signs Temp Pulse Resp BP Pulse Ox 98.2 F 63 20 150/68 98 05/20/19 06:00 05/20/19 06:00 05/20/19 06:00 05/20/19 06:00 05/19/19 21:00 +JVD lungs clear cvs s1s2 +malia abd soft ext no edema neuro awake CBC, BMP 05/20/19 06:17 05/20/19 06:17 Current Medications Generic Name Dose Route Start Last Admin Trade Name Freq PRN Reason Stop Dose Admin Acetaminophen 650 mg 05/10/19 15:32 05/14/19 02:28 Tylenol - PO 650 mg Q4H PRN Administration PAIN OR FEVER Albuterol/Ipratropium 1 amp 05/10/19 15:31 05/14/19 03:07 Duoneb - NEB 1 amp Q4H PRN Administration ASTHMA Amlodipine Besylate 10 mg 05/17/19 06:00 05/19/19 10:47 Norvasc - PO 10 mg DAILY [facility] Administration Aspirin 81 mg 05/11/19 10:00 05/19/19 10:47 Ecotrin - PO 81 mg DAILY [facility] Administration Atorvastatin Calcium 40 mg 05/10/19 22:00 05/19/19 22:16 Lipitor - PO 40 mg HS [facility] Administration Furosemide 40 mg 05/15/19 15:42 05/20/19 06:15 Lasix - PO 40 mg BID@0600,1400 [facility] Administration Guaifenesin 10 ml 05/11/19 00:45 05/13/19 05:56 Robitussin Dm - PO 10 ml Q4H PRN Administration COUGH Meropenem 500 mg/ Dextrose 100 mls @ 200 mls/hr 05/12/19 13:30 05/20/19 01:29 IVPB 200 mls/hr Q12H [facility] Administration Insulin Detemir 18 units 05/15/19 07:00 05/20/19 06:15 Levemir Vial SQ 18 units AM [facility] Administration Levothyroxine Sodium 75 mcg 05/11/19 07:00 05/20/19 06:15 Synthroid - PO 75 mcg DAILY@0700 [facility] Administration Montelukast Sodium 10 mg 05/11/19 22:00 05/19/19 22:16 Singulair - PO 10 mg HS [facility] Administration Nebivolol 10 mg 05/11/19 10:00 05/19/19 10:47 Bystolic - PO 10 mg DAILY [facility] Administration Sodium Bicarbonate 650 mg 05/15/19 12:00 05/19/19 22:16 Sodium Bicarbonate - PO 650 mg BID [facility] Administration 64 year old [place] woman with history of CHF, hypertension, hyperlipidemia , DM, CAD, CKD who presented with sob and admitted for acute CHF with SANTINO on CKD. #SANTINO on CKD in setting of acute HF #CKD stage 4- renal function stable #CHF #Hypertension #Anemia #RV failure with JVD and HJR #E Coli ESBL renal function stable cardiology follow up continue sodium bicarb MV
[2019-05-20] MEDS: amLODIPine BESYLATE 5 MG TABLET (FP) PO SCH (10:36)
[2019-05-20] MEDS: ASPIRIN COATED 81 MG TABLET.EC PO SCH (10:36)
[2019-05-20] MEDS: SODIUM BICARBONATE 650 MG TABLET PO SCH ×2 (10:36→21:57)
[2019-05-20] MEDS: NEBIVOLOL 10 MG TABLET (FP) PO SCH (10:36)
--- NOTE | 2019-05-20 14:24 | PN ---
Progress Note (short form) - Note Progress Note: comfortable no new issues feels well Vital Signs Temp 98.4 F 05/20/19 10:00 Pulse 68 05/20/19 10:00 Resp 18 05/20/19 10:00 BP 128/54 L 05/20/19 10:00 Pulse Ox 98 05/19/19 21:00 Intake & Output 05/19/19 05/20/19 05/20/19 23:59 11:59 23:59 Intake Total 518 450 450 Balance 518 450 450 Weight 123 lb 14.4 oz Intake: IVPB 100 100 Oral 418 350 450 Other: Voiding Method Toilet Toilet Toilet # Unmeasured Voids Void 1 Weight Measurement Method Built in [facility] Active Medications Acetaminophen (Tylenol -) 650 mg PO Q4H PRN PRN Reason: PAIN OR FEVER Last Admin: 05/14/19 02:28 Dose: 650 mg Amlodipine Besylate (Norvasc -) 10 mg PO DAILY [facility] Last Admin: 05/20/19 10:36 Dose: 10 mg Aspirin (Ecotrin -) 81 mg PO DAILY [facility] Last Admin: 05/20/19 10:36 Dose: 81 mg Atorvastatin Calcium (Lipitor -) 40 mg PO [facility] Last Admin: 05/19/19 22:16 Dose: 40 mg Furosemide (Lasix -) 40 mg PO BID@0600,1400 [facility] Last Admin: 05/20/19 06:15 Dose: 40 mg Guaifenesin (Robitussin Dm -) 10 ml PO Q4H PRN PRN Reason: COUGH Last Admin: 05/13/19 05:56 Dose: 10 ml Meropenem 500 mg/ Dextrose 100 mls @ 200 mls/hr IVPB Q12H [facility] Last Admin: 05/20/19 12:55 Dose: 200 mls/hr Insulin Detemir (Levemir Vial) 18 units SQ AM [facility] Last Admin: 05/20/19 06:15 Dose: 18 units Levothyroxine Sodium (Synthroid -) 75 mcg PO DAILY@0700 [facility] Last Admin: 05/20/19 06:15 Dose: 75 mcg Montelukast Sodium (Singulair -) 10 mg PO HS [facility] Last Admin: 05/19/19 22:16 Dose: 10 mg Nebivolol (Bystolic -) 10 mg PO DAILY [facility] Last Admin: 05/20/19 10:36 Dose: 10 mg Sodium Bicarbonate (Sodium Bicarbonate -) 650 mg PO BID [facility] Last Admin: 05/20/19 10:36 Dose: 650 mg CBC, BMP 05/20/19 06:17 05/20/19 06:17 Physical Exam comfortable S1 and S2 regular LungsDecreased at bases Abdomensoft, non tender. bs + Extremitiesno edema plan stable --Continue Lasix-- --continue present care - monitor bgm-- OOB- CHAIR ESBL precautions abx per i/d
--- NOTE | 2019-05-20 16:43 | PN ---
Progress Note, Physician History of Present Illness: Pt alert, without distress. Temp of 99.2F last night, afebrile today/vitals stable. No n/v/d as per RN, no SOB/cough. - Current Medication List Current Medications: Active Medications Acetaminophen (Tylenol -) 650 mg PO Q4H PRN PRN Reason: PAIN OR FEVER Last Admin: 05/14/19 02:28 Dose: 650 mg Amlodipine Besylate (Norvasc -) 10 mg PO DAILY [facility] Last Admin: 05/20/19 10:36 Dose: 10 mg Aspirin (Ecotrin -) 81 mg PO DAILY [facility] Last Admin: 05/20/19 10:36 Dose: 81 mg Atorvastatin Calcium (Lipitor -) 40 mg PO [facility] Last Admin: 05/19/19 22:16 Dose: 40 mg Furosemide (Lasix -) 40 mg PO BID@0600,1400 [facility] Last Admin: 05/20/19 14:27 Dose: 40 mg Guaifenesin (Robitussin Dm -) 10 ml PO Q4H PRN PRN Reason: COUGH Last Admin: 05/13/19 05:56 Dose: 10 ml Meropenem 500 mg/ Dextrose 100 mls @ 200 mls/hr IVPB Q12H [facility] Last Admin: 05/20/19 12:55 Dose: 200 mls/hr Insulin Detemir (Levemir Vial) 18 units SQ AM [facility] Last Admin: 05/20/19 06:15 Dose: 18 units Levothyroxine Sodium (Synthroid -) 75 mcg PO DAILY@0700 [facility] Last Admin: 05/20/19 06:15 Dose: 75 mcg Montelukast Sodium (Singulair -) 10 mg PO HS [facility] Last Admin: 05/19/19 22:16 Dose: 10 mg Nebivolol (Bystolic -) 10 mg PO DAILY [facility] Last Admin: 05/20/19 10:36 Dose: 10 mg Sodium Bicarbonate (Sodium Bicarbonate -) 650 mg PO BID [facility] Last Admin: 05/20/19 10:36 Dose: 650 mg - Objective Vital Signs: Vital Signs Temperature 98.4 F 05/20/19 10:00 Pulse Rate 68 05/20/19 10:00 Respiratory Rate 18 05/20/19 10:00 Blood Pressure 128/54 L 05/20/19 10:00 O2 Sat by Pulse Oximetry (%) 98 05/19/19 21:00 Constitutional: Yes: No Distress, Calm Cardiovascular: Yes: Regular Rate and Rhythm Respiratory: Yes: CTA Bilaterally Gastrointestinal: Yes: Normal Bowel Sounds, Soft Genitourinary: Yes: WNL Extremities: Yes: WNL Integumentary: Yes: WNL Neurological: Yes: Alert Labs: CBC, BMP 05/20/19 06:17 05/20/19 06:17 INR, PTT INR 1.08 (0.83-1.09) 05/10/19 13:30 Microbiology 05/10/19 13:30 Blood - Peripheral Venous Blood Culture - Final NO GROWTH AFTER 5 DAYS INCUBATION 05/10/19 13:30 Blood - Peripheral Venous Blood Culture - Final NO GROWTH AFTER 5 DAYS INCUBATION 05/10/19 13:30 Urine - Urine Clean Catch Urine Culture - Final Escherichia Coli Esbl [employer] Problem List - Problems (1) CHF exacerbation Code(s): I50.9 - HEART FAILURE, UNSPECIFIED Qualifiers: Heart failure type: unspecified Qualified Code(s): I50.9 - Heart failure, unspecified (2) UTI (urinary tract infection) Code(s): N39.0 - URINARY TRACT INFECTION, SITE NOT SPECIFIED (3) CAD (coronary artery disease) Code(s): I25.10 - ATHSCL HEART DISEASE OF [place] CORONARY ARTERY W/O ANG PCTRS (4) CKD (chronic kidney disease) Code(s): N18.9 - CHRONIC KIDNEY DISEASE, UNSPECIFIED (5) Diabetes Code(s): E11.9 - TYPE 2 DIABETES MELLITUS WITHOUT COMPLICATIONS Assessment/Plan ESBL+ E. coli UTI CHF CKD CAD DM Anemia -- pt with mild elevation in wbc today, Tmax 99.2, currently afebrile -- no new events, vitals stable -- continue Meropenem -- repeat cbc in a.m., monitor temps
[2019-05-20] MEDS: MONTELUKAST NA 10 MG TABLET PO SCH (21:57)
[2019-05-20] MEDS: ATORVASTATIN CA 40 MG TABLET (FP) PO SCH (21:57)
[2019-05-21] MEDS ORDERED: PT OWN MED DRAWER 7, Y5N ONE ×3 (00:36→12:30)
[2019-05-21] MEDS: MEROPENEM 500 MG in DEXTROSE 5%-WATER 100 ML IVPB SCH ×2 (00:46→12:32)
[2019-05-21] MEDS: FUROSEMIDE 40 MG TABLET (FP) PO SCH ×2 (06:11→13:37)
[2019-05-21] MEDS: LEVOTHYROXINE NA 75 MCG TABLET (FP) PO SCH (06:11)
[2019-05-21] MEDS: INSULIN (LEVEMIR) 100 UNITS/ML UNITS SQ SCH (06:11)
[2019-05-21 07:58] LABS: BASO % 0.8 % (0-2.0); EOS % 4.5 % (0-4.5); HEMATOCRIT 25.9 % (32.4-45.2); HEMOGLOBIN 8.3 GM/dL (10.7-15.3); LYMPH % 32.5 % (8-40); MCH 24.6 pg (25.7-33.7); MEAN CELL VOLUME 76.8 fl (80-96); MEAN PLT VOLUME 10.9 fl (7.5-11.1); MONO % 7.6 % (3.8-10.2); NEUT % 54.6 % (42.8-82.8); PLATELET COUNT 256 K/MM3 (134-434); RBC 3.38 M/mm3 (3.60-5.2); RDW 15.4 % (11.6-15.6)
--- NOTE | 2019-05-21 09:28 | DS ---
Physical Examination Vital Signs: Vital Signs Temperature 98.4 F 05/21/19 06:00 Pulse Rate 59 L 05/21/19 06:00 Respiratory Rate 20 05/21/19 06:00 Blood Pressure 144/64 05/21/19 06:00 O2 Sat by Pulse Oximetry (%) 98 05/19/19 21:00 Findings/Remarks: feels well no complains Constitutional: Yes: No Distress, Calm Eyes: Yes: Conjunctiva Clear Neck: Yes: Supple Cardiovascular: Yes: Regular Rate and Rhythm Respiratory: Yes: Regular Gastrointestinal: Yes: Soft Edema: No Neurological: Yes: Alert Labs: CBC, BMP 05/21/19 06:20 05/20/19 06:17 Discharge Summary Reason For Visit: ACUTE ON CHRONIC CHF; ELEVATED TROPONIN LEVEL Current Active Problems CHF exacerbation (Acute) Troponin level elevated (Acute) UTI (urinary tract infection) (Acute) Hospital Course: 64yo F with PMH of CHF, pulmonary edema, HTN, HLD, DM, CAD s/p CABG in 2016 presenting with shortness of breath. Patient's daughter is at the bedside providing collateral history. Patient has had sob and chest pain since yesterday. The other daughter noted a temperature of 99F. Patient became acutely sob this morning for which EMS was called. Per EMS report via the ER nurse, patient had an oxygen saturation of 90% and what sounds like an elevated CO2 level. Patient states her complaints are consistent with her presentation when she was last admitted to the hospital. The chest pain is substernal, constant, rated 10/10, and non-radiating. Patient reports medication compliance. Endorses drinking more fluids due to a dry throat despite being advised by her doctor to imit fluid intake. Has also noticed increasing bilateral lower extremity swelling. Reports headache, weakness, nonproductive cough, left arm/leg heaviness yesterday that has since resolved, blurry vision, and generalized body shaking. Has an appointment to see her primary care physician today but is now present in the ER. PCP: Dr. Lara patient treated with IV Lasix Also had Escherichia coli--ESBL Treated with antibiotics ID also followed Also patient--- Anemic----tells me never had colonoscopy Also chronic kidney disease---- Anemia--- likely----due to chronic kidney disease----but needs GI workup-- strongly advised to do--- as outpatient with her PMD Also need to follow with cardiology/ renal avoid nsaids cleared by i/d for d/c after today dose-- Discused with Dr. Brendan Jo reconcilled Condition: Improved - Instructions Diet, Activity, Other Instructions: low salt/ diabetic Disposition: HOME - Home Medications Comprehensive Discharge Medication List: Ambulatory Orders Levothyroxine [Synthroid -] 75 mcg PO DAILY 08/13/16 Aspirin [Ecotrin] 81 mg PO DAILY 03/05/18 Montelukast Sodium [Singulair] 10 mg PO DAILY 03/05/18 Albuterol 2.5/Ipratropium 0.5 [Duoneb -] 1 amp NEB Q4H #60 amp 03/15/18 Atorvastatin Ca [Lipitor] 40 mg PO HS #30 tablet 04/18/19 Nebivolol [Bystolic -] 10 mg PO DAILY #30 tab 04/18/19 Acetaminophen [Tylenol .Regular Strength -] 650 mg PO Q4H PRN tablet 05/17/19 Amlodipine Besylate [Norvasc -] 10 mg PO DAILY 30 Days #30 tablet 05/17/19 Furosemide [Lasix -] 40 mg PO BID@0600,1400 30 Days #60 tablet 05/17/19 Insulin (Levemir) [Levemir Vial] 18 units SQ AM units 05/17/19 Sodium Bicarbonate - 650 mg PO BID 30 Days #60 tablet 05/17/19
[2019-05-21] MEDS: amLODIPine BESYLATE 5 MG TABLET (FP) PO SCH (10:29)
[2019-05-21] MEDS: SODIUM BICARBONATE 650 MG TABLET PO SCH (10:29)
[2019-05-21] MEDS: NEBIVOLOL 10 MG TABLET (FP) PO SCH (10:30)
[2019-05-21] MEDS: ASPIRIN COATED 81 MG TABLET.EC PO SCH (10:31)
--- NOTE | 2019-05-21 11:47 | PN ---
Progress Note, Physician History of Present Illness: stable no new issues - Current Medication List Current Medications: Active Medications Acetaminophen (Tylenol -) 650 mg PO Q4H PRN PRN Reason: PAIN OR FEVER Last Admin: 05/14/19 02:28 Dose: 650 mg Amlodipine Besylate (Norvasc -) 10 mg PO DAILY [facility] Last Admin: 05/21/19 10:29 Dose: 10 mg Aspirin (Ecotrin -) 81 mg PO DAILY [facility] Last Admin: 05/21/19 10:31 Dose: 81 mg Atorvastatin Calcium (Lipitor -) 40 mg PO [facility] Last Admin: 05/20/19 21:57 Dose: 40 mg Furosemide (Lasix -) 40 mg PO BID@0600,1400 [facility] Last Admin: 05/21/19 06:11 Dose: 40 mg Guaifenesin (Robitussin Dm -) 10 ml PO Q4H PRN PRN Reason: COUGH Last Admin: 05/13/19 05:56 Dose: 10 ml Meropenem 500 mg/ Dextrose 100 mls @ 200 mls/hr IVPB Q12H [facility] Last Admin: 05/21/19 00:46 Dose: 200 mls/hr Insulin Detemir (Levemir Vial) 18 units SQ AM [facility] Last Admin: 05/21/19 06:11 Dose: 18 units Levothyroxine Sodium (Synthroid -) 75 mcg PO DAILY@0700 [facility] Last Admin: 05/21/19 06:11 Dose: 75 mcg Montelukast Sodium (Singulair -) 10 mg PO [facility] Last Admin: 05/20/19 21:57 Dose: 10 mg Nebivolol (Bystolic -) 10 mg PO DAILY [facility] Last Admin: 05/21/19 10:30 Dose: 10 mg Sodium Bicarbonate (Sodium Bicarbonate -) 650 mg PO BID [facility] Last Admin: 05/21/19 10:29 Dose: 650 mg - Objective Vital Signs: Vital Signs Temperature 98.4 F 05/21/19 06:00 Pulse Rate 59 L 05/21/19 06:00 Respiratory Rate 20 05/21/19 06:00 Blood Pressure 144/64 05/21/19 06:00 O2 Sat by Pulse Oximetry (%) 98 05/19/19 21:00 Constitutional: Yes: No Distress, Calm Respiratory: Yes: Regular, CTA Bilaterally Gastrointestinal: Yes: Normal Bowel Sounds Musculoskeletal: Yes: WNL Extremities: Yes: WNL Neurological: Yes: Alert, Oriented Psychiatric: Yes: Alert, Oriented Labs: CBC, BMP 05/21/19 06:20 05/20/19 06:17 INR, PTT INR 1.08 (0.83-1.09) 05/10/19 13:30 Assessment/Plan Problem List - Problems (1) CHF exacerbation Code(s): I50.9 - HEART FAILURE, UNSPECIFIED Qualifiers: Heart failure type: unspecified Qualified Code(s): I50.9 - Heart failure, unspecified (2) UTI (urinary tract infection) Code(s): N39.0 - URINARY TRACT INFECTION, SITE NOT SPECIFIED (3) CKD (chronic kidney disease) Code(s): N18.9 - CHRONIC KIDNEY DISEASE, UNSPECIFIED (4) Troponin level elevated Code(s): R74.8 - ABNORMAL LEVELS OF OTHER SERUM ENZYMES (5) NSTEMI (non-ST elevated myocardial infarction) Code(s): I21.4 - NON-ST ELEVATION (NSTEMI) MYOCARDIAL INFARCTION (6) Renal failure (ARF), acute on chronic Code(s): N17.9 - ACUTE KIDNEY FAILURE, UNSPECIFIED; N18.9 - CHRONIC KIDNEY DISEASE, UNSPECIFIED plan continue current mgmt abx finish abx course
[2019-05-21 12:28] VITALS: BP 136/78; PULSE 64; TEMP 97.8
== END 2019-05-21 14:33 | disposition home or self-care (01) | DRG 194 ==
LOC: JER 12:34 → JERBED 15:10 → J4W 18:35 → J8W 05-13 17:11
PROVIDERS: ADMIT Internal Medicine; ATTEND Internal Medicine
DX: I13.0 Hypertensive heart and chronic kidney disease with heart failure and stage 1 through stage 4 chronic kidney disease, or unspecified chronic kidney disease (principal); I50.33 Acute on chronic diastolic (congestive) heart failure; D72.829 Elevated white blood cell count, unspecified; Z95.1 Presence of aortocoronary bypass graft; I51.7 Cardiomegaly; E78.5 Hyperlipidemia, unspecified; I25.10 Atherosclerotic heart disease of native coronary artery without angina pectoris; R80.9 Proteinuria, unspecified; D63.1 Anemia in chronic kidney disease; E11.649 Type 2 diabetes mellitus with hypoglycemia without coma; B96.20 Unspecified Escherichia coli [E. coli] as the cause of diseases classified elsewhere; N39.0 Urinary tract infection, site not specified; N18.4 Chronic kidney disease, stage 4 (severe); N17.9 Acute kidney failure, unspecified; J81.1 Chronic pulmonary edema; E11.22 Type 2 diabetes mellitus with diabetic chronic kidney disease; Z16.12 Extended spectrum beta lactamase (ESBL) resistance
CPT/HCPCS: 36415; 71045-TC-FY; 80048; 80053; 80061; 81003; 82272; 82550; 82565; 82728; 82803; 82962; 83540; 83550; 83605; 83721; 83735; 83880; 84100; 84155; 84156; 84165; 84300; 84439; 84443; 84484; 84540; 85025; 85027; 85610; 85730; 86038; 87040; 87086; 87186; 93005; 93010; 94640; 99282-25; J0131